=== PATIENT | male | born 1950 | race Caucasian/White ===

== ENCOUNTER 2018-05-20 13:11 | Inpatient (IN) | payer MEDICARE ==
--- NOTE | 2018-05-20 13:41 | ED PDOC ---
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 Patient states he was holding a cigarette but didn't realize he wasn't holding it until he dropped it on himself. Patient reports numbness only on x2 fingers, states the rest of the arm is fine. Patient denies any weakness, headache, slurred speech or other medical complaints. PMD: Paulie Crespo NIHSS Stroke Scale - Date/Time Evaluation Performed Date Performed: 05/20/18 Time Performed: 13:13 When Was NIHSS Performed: Baseline - How Severe is the Stroke Level of Consciousness: 0=Alert LOC to Questions: 0=Both comments correct Best Gaze: 0=Normal Visual: 0=No visual loss Facial: 0=Normal Motor Arm - Left: 0=No drift Motor Arm - Right: 0=No drift Motor Leg - Left: 0=No drift Motor Leg - Right: 0=No drift Limb Ataxia: 1=Present Upper or Lower Sensory: 0=Normal Best Language: 0=No aphasia Dysarthia: 0=Normal articulation Extinction & Inattention (Neglect): 0=Normal, no object Severity Of Stroke: 1-4 = Minor Stroke rTPA Inclusion/Exclusion - Refusal of Treatment Patient Refused Treatment: No - Inclusion Criteria for Altepase Patient is 18 years or Older: Yes The Clinical Diagnosis of Ischemic Stroke That is Causing a Potentially Disabling Neurological Deficit: Yes Time of Onset is Well Established to be Less Than 270 Minute Before Treatment Would Begin: Yes Risk/Benefit Discussed With Patient/Family Member Present: Yes - Exclusion Criteria for Altepase Uncontrolled Hypertension at Time of Treatment (Systolic BP above 185 or Diastolic BP above 110 mmHg): No Active Internal Bleeding: No Known Bleeding Diathesis Including but Not Limited to: Platelets Below 100,000/ mm,PTT Above 40 sec After Heparin Use, Current Use of Oral Anitcoagulant With INR Greater Than 1.7 or PT Greater Than 15 secs: No Evidence of an Intracranial Hemorrhage: No Evidence of Major Acute Infarct With Signs Greater Than 1/3 MCA Territory: No Suspicion of Subarachnoid Hemorrhage on Pretreatment Evaluation Even if CT Head Negative For Hemorrhage: No Past Medical History Reviewed: Historical Data, Nursing Documentation, Vital Signs - Medical History PMH: Atrial Fibrillation, HTN - Surgical History Surgical History: No Surg Hx - Family History Family History: States: Unknown Family Hx - Home Medications Home Medications: Ambulatory Orders Medication Instructions Recorded Aspirin [Ecotrin] 81 mg PO DAILY 05/20/18 Doxazosin [Cardura] 8 mg PO BID 05/20/18 Furosemide [Lasix] 40 mg PO DAILY 05/20/18 Potassium Chloride [Klor-Con M20] 20 meq PO DAILY 05/20/18 amLODIPine [Norvasc] 10 mg PO BID 05/20/18 - Allergies Allergies/Adverse Reactions: Allergies Allergy/AdvReac Type Severity Reaction Status Date / Time No Known Allergies Allergy Verified 05/20/18 13:13 Review of Systems ROS Statement: Except As Marked, All Systems Reviewed And Found Negative Neurological: Positive for: Numbness (right x2 fingers). Negative for: Weakness , Headache, Other (slurred speech) Physical Exam - Reviewed Nursing Documentation Reviewed: Yes Vital Signs Reviewed: Yes - Physical Exam Appears: Positive for: Non-toxic, No Acute Distress Head Exam: Positive for: ATRAUMATIC, NORMAL INSPECTION, NORMOCEPHALIC Skin: Positive for: Normal Color, Warm, Dry Eye Exam: Positive for: Normal appearance, EOMI, PERRL ENT: Positive for: Normal ENT Inspection Neck: Positive for: Painless ROM Cardiovascular/Chest: Positive for: Regular Rate, Rhythm. Negative for: Murmur Respiratory: Positive for: Normal Breath Sounds. Negative for: Respiratory Distress Gastrointestinal/Abdominal: Positive for: Normal Exam, Soft. Negative for: Tenderness Extremity: Positive for: Normal ROM (upper and lower extremities), Pedal Edema ( stasis dermatitis on both legs). Negative for: Deformity, Swelling Neurologic/Psych: Positive for: Alert, adjunct professor II-XII (normal), Oriented (x3), Cerebellar Tests (Finger to nose on right arm ataxia), Gait (steady). Negative for: Motor/Sensory Deficits, Facial Droop - Laboratory Results Result Diagrams: 05/21/18 04:40 05/21/18 04:40 - Core Measure Core Measure Indicators: Code Stroke - Critical Care Total Time (In Min): 60 Documented Critical Care: Time excludes all time spent performint seperately billable procedures Medical Decision Making Medical Decision Making: Time: 12:50 Initial Impression: CVA. Differential includes ischemic vs hemorrhagic stroke. Initial Place: --Type and screen --CTA head/neck code stroke --Head w/o (code stroke) [CT] --EKG --CMP --Hemoglobin AIC --Lipid Panel --Troponin I -Stroke team consult --CBC w/ differential --PTT --PT --Chest portable [RAD] --Aspirin 325 mg PO --Sodium Chloride 1,000 ml IV 100 mls/hr --Reevaluation 13:29 CT Head FINDINGS: HEMORRHAGE: No intracranial hemorrhage. BRAIN: Moderate diffuse relaxes identified. Relatively prominent periventricular centrum semiovale and subcortical white matter lucency is appreciated which appears to spare the corpus callosum in general, in a pattern that suggests advanced chronic microangiopathy for the patient's stated age of 67 years. Clinically correlate further. There is no cortical edema identified or mass- effect. There is no suspicious extra-axial collection identified. The posterior fossa contents may reflect chronic microangiopathy in the ash with the cerebellum unremarkable. There is extensive atherosclerosis of the distal visualized bilateral vertebral arteries, mildly at the basilar artery. A chronic lacune is seen at the right thalamus and potentially at the posterior left thalamus as well. VENTRICLES: Unremarkable. No hydrocephalus. CALVARIUM: Unremarkable. PARANASAL SINUSES: Unremarkable as visualized. No significant inflammatory changes. MASTOID AIR CELLS: Unremarkable as visualized. No inflammatory changes. OTHER FINDINGS: None. IMPRESSION: 1. No definite pattern of suggest an acute or subacute brain infarction at this time with advanced age related neuro degenerative changes appreciated throughout the cerebrum, particularly in terms of chronic microangiopathy. Follow-up CT or MRI recommended. 2. Chronic lacunes suggested at the bilateral thalami. 13:33 -Spoke with Dr. Newman. CT head negative. 13:44 -Dr. Newman is in the room. At this time NIH stroke scale is 1 and no disability deficits such as dysphasia and dysarthria. CT angio pending. 13:52 -Neurologist state patient's NIHSS is 2-3 and pt can be benefit from TPA. 14:00 -Administered tPA bolus. All the plan and management in agreement with Dr. Newman. Verbal consent from the patient for tPA administration was obtained. 14:20 -Ordered CMP, lipid panel, TSH and Troponin 14:32 -EKG: A-fib, PVCs are present. No ST changes, normal QRS. 14:53 Head/Neck CTA FINDINGS: INTERNAL CEREBRAL ARTERIES: Mild cavernous ICA atherosclerosis noted bilaterally. The skull base, petrous, and supraclinoid segments are bilaterally widely patent. ANTERIOR CEREBRAL ARTERIES: A1 and A2 segments are widely patent. Smaller distal branches unremarkable, as visualized. MIDDLE CEREBRAL ARTERIES: Unremarkable. M1 and M2 segments are widely patent. Perisylvian branches grossly symmetric. POSTERIOR CIRCULATION: Basilar Artery: Unremarkable. Distal Vertebral Arteries: Left dominant vertebrobasilar circulation. Moderate to high-grade stenosis distal right vertebral artery. Posterior Cerebral Arteries: Unremarkable. Posterior Inferior Cerebellar Arteries: Unremarkable. NECK CTA: Common Carotid arteries: The bilateral common carotid appear widely patent from their origins to their bifurcations with no significant stenosis appreciated. No evidence to suggest common carotid artery dissection. Internal Carotid arteries: No significant stenosis is appreciated throughout the cervical internal carotid artery segments bilaterally and there is no evidence of dissection either. External Carotid arteries: Appear unremarkable bilaterally. Vertebral arteries: The bilateral vertebral arteries appear normal in caliber from their origins to their junction with the basilar artery. No significant stenosis or definite pattern of dissection. ANEURYSM/ VASCULAR MALFORMATIONS: No aneurysm or arteriovascular malformation seen related to the neck or intracranial arterial circulation. However, there is a mild ascending thoracic aortic aneurysm measuring 4.3 cm diameter. This aneurysm terminates at the proximal arch proximal to the origin of the brachiocephalic artery. Further, the main pulmonary artery segment measures 3.8 cm potentially reflecting pulmonary artery hypertension. Clinically correlate further. OTHER FINDINGS: None. IMPRESSION: 1. Intracranial CT angiography ring is remarkable for a moderate to high-grade stenosis distal right vertebral body well cephalad to the foramen magnum. Left dominant vertebrobasilar circulation is identified. Mild cavernous ICA atherosclerosis identified bilaterally. 2. Mild cavernous ICA atherosclerosis identified bilaterally, without significant stenosis appreciable. 3. No occlusion or significant stenosis prior neck CT angiography. 4. 4.3 cm thoracic aortic aneurysm terminates at the anterior arch. Further, 3.8 cm main pulmonary artery dilatation may indicate pulmonary artery hypertension. Clinically correlate further. [address] Crespo who will be on consult. Agrees with management at this time. 15:13 -Admitted patient to hospitalist, Dr. Odonnell. ----- Scribe Attestation: Documented by Tahir Kelly, acting as a scribe for Brandon Vargas MD. Provider Scribe Attestation: All medical record entries made by the Scribe were at my direction and personally dictated by me. I have reviewed the chart and agree that the record accurately reflects my personal performance of the :history, physical exam, medical decision making, and the department course for this patient. I have also personally directed, reviewed, and agree with the discharge instructions and disposition. Disposition - Clinical Impression Clinical Impression: Acute ischemic stroke, Chronic a-fib - Patient ED Disposition Is Patient to be Admitted: Yes Discussed With DrPrudence: Genny Odonnell Doctor Will See Patient In The: ED Counseled Patient/Family Regarding: Studies Performed, Diagnosis - Disposition Disposition Time: 15:13 Condition: CRITICAL - Pt Status Changed To: Hospital Disposition Of: Inpatient - Admit Certification Admit to Inpatient:: After my assessment, the patient will require hospitalization for at least two midnights. This is because of the severity of symptoms shown, intensity of services needed, and/or the medical risk in this patient being treated as an outpatient. - POA Present On Arrival: None Core Measure Indicators: Code Stroke
[2018-05-20] MEDS ORDERED: Sodium Chloride 0.9% 50 ML IV ONE (13:51)
[2018-05-20] MEDS ORDERED: Iodixanol 320 MG/ML 100 ML BOTTLE IV ONE (13:51)
[2018-05-20 13:53] VITALS: BMI 28.0
[2018-05-20] MEDS: Sodium Chloride 0.9% 1,000 ML IV SCH (14:25)
[2018-05-20 14:35] LABS: BASO % 0.4 % (0.0-2.0); EOS # 0.1 K/uL (0.0-0.7); EOS % 2.5 % (0.0-4.0); HEMOGLOBIN 14.7 g/dL (12.0-18.0); LYMPH # 0.7 K/uL (1.0-4.3); LYMPH % 11.8 % (20.0-40.0); MEAN CELL VOLUME 87.8 fl (80.0-94.0); MEAN CORPUSCULAR HEMOGLOBIN 29.8 pg (27.0-31.0); MEAN PLATELET VOLUME 9.1 fl (7.2-11.7); MONO # 0.7 K/uL (0.0-0.8); MONO % 12.2 % (0.0-10.0); NEUT # 4.4 K/uL (1.8-7.0); NEUT % 73.1 % (50.0-75.0); NRBC % 0.4 % (0.0-0.0); RBC 4.93 Mil/uL (4.40-5.90); RED CELL DISTRIBUTION WIDTH 17.6 % (11.5-14.5)
[2018-05-20 14:41] LABS: ALBUMIN 3.5 g/dL (3.5-5.0); CALCIUM 8.5 mg/dL (8.4-10.2)
--- NOTE | 2018-05-20 14:49 | CP.PCM.CON ---
History of Present Illness - History of Present Illness History of Present Illness: Neurology Stroke Consultation Note: Mr. Neville is a 67-year-old man with a past medical history of HTN, CAD, smoking, who was working and stopped work to take a cigarette break. While having a cigarette, his right hand became weak and clumsy. He presented to the ED within about 30 minutes of symptoms onset. CT scan of the head did not show any acute findings. On initial exam, he had right hand clumsiness/ataxia, pronator drift and drift or the right lower extremity with an NIHSS of 3. He was within the 3 hour time window for IV tPA. I discussed the risks/benefits of tPA and the patient agreed to receive thrombolysis. Review of Systems - Review of Systems All systems: reviewed and no additional remarkable complaints except Past Patient History - Past Social History Smoking Status: Heavy Smoker > 10 Cigarettes Daily - CARDIAC Hx Angina: Yes Hx Hypertension: Yes - INTEGUMENTARY Hx Dermatological Problems: Yes Other/Comment: CHRONIC B/L EDEMA X 3 YRS +SCALING - PSYCHIATRIC Hx Substance Use: No - SURGICAL HISTORY Hx Surgeries: No - ANESTHESIA Hx Anesthesia: No Meds Allergies/Adverse Reactions: Allergies Allergy/AdvReac Type Severity Reaction Status Date / Time No Known Allergies Allergy Verified 05/20/18 13:13 - Medications Medications: Current Medications Sodium Chloride (Sodium Chloride 0.9%) 1,000 mls @ 100 mls/hr IV .Q10H LUIS ANTONIO Last Admin: 05/20/18 14:25 Dose: 100 mls/hr Physical Exam - Constitutional Appears: Well - Head Exam Head Exam: ATRAUMATIC, NORMAL INSPECTION, NORMOCEPHALIC - Eye Exam Eye Exam: EOMI, Normal appearance, PERRL - Extremities Exam Additional comments: significant bilateral lower extremity edema - Neurological Exam Additional comments: Awake/alert, oriented to person/place/time, CN 2-12 intact, no nystagmus noted, speech was fluent without dysarthia, RUE had pronator drift and slight ataxia with fine motor deficits, RLE drifted before 5 seconds, but did not hit the bed. Sensation was intact throughout, reflexes were normal, gait was wide based. Left side was normal in strength. Results - Vital Signs Recent Vital Signs: Last Vital Signs Temp Pulse 86 05/20/18 13:46 Resp 18 05/20/18 13:46 BP 154/91 H 05/20/18 13:46 Pulse Ox 99 05/20/18 13:46 - Labs Result Diagrams: 05/20/18 14:23 05/20/18 14:23 Labs: Laboratory Results - last 24 hr 05/20/18 05/20/18 14:23 14:23 WBC 6.0 RBC 4.93 Hgb 14.7 Hct 43.3 MCV 87.8 MCH 29.8 MCHC 34.0 RDW 17.6 H Plt Count 257 MPV 9.1 Neut % (Auto) 73.1 Lymph % (Auto) 11.8 L [place] % (Auto) 12.2 H Eos % (Auto) 2.5 Baso % (Auto) 0.4 Neut # (Auto) 4.4 Lymph # (Auto) 0.7 L [place] # (Auto) 0.7 Eos # (Auto) 0.1 Baso # (Auto) 0.0 Sodium 137 Chloride 105 Carbon Dioxide 22 Creatinine 1.6 H Est GFR ( Amer) 53 Est GFR (Non-Af Amer) 43 Random Glucose 134 H Calcium 8.5 Total Bilirubin 0.9 Total Protein 8.0 Albumin 3.5 Albumin/Globulin Ratio 0.8 L Assessment & Plan (1) Acute ischemic stroke Assessment and Plan: Likely left subcortical in origin. Will start IV tPA and obtain CTA of the head /neck STAT to rule out an LVO. Follow post-tPA protocol and admit to ICU. Thank you. Status: Acute Priority: High
[2018-05-20 14:53] LABS: TROPONIN I 0.014 ng/mL (0.00-0.120)
--- NOTE | 2018-05-20 14:55 | CT ---
Date of service: 05/20/2018 PROCEDURE: CT Angiography of the Brain and Neck. HISTORY: cva COMPARISON: None available. TECHNIQUE: CT angiography of the intracranial and neck arteries was performed. Coronal and sagittal maximum intensity projection reformatted images were generated. Contrast Dose: Visipaque 320, 99 cc. Radiation dose:Total exam DLP = 488.22 mGy-cm. This CT exam was performed using one or more of the following dose reduction techniques: Automated exposure control, adjustment of the mA and/or kV according to patient size, and/or use of iterative reconstruction technique. FINDINGS: INTERNAL CEREBRAL ARTERIES: Mild cavernous ICA atherosclerosis noted bilaterally. The skull base, petrous, and supraclinoid segments are bilaterally widely patent. ANTERIOR CEREBRAL ARTERIES: A1 and A2 segments are widely patent. Smaller distal branches unremarkable, as visualized. MIDDLE CEREBRAL ARTERIES: Unremarkable. M1 and M2 segments are widely patent. Perisylvian branches grossly symmetric. POSTERIOR CIRCULATION: Basilar Artery: Unremarkable. Distal Vertebral Arteries: Left dominant vertebrobasilar circulation. Moderate to high-grade stenosis distal right vertebral artery. Posterior Cerebral Arteries: Unremarkable. Posterior Inferior Cerebellar Arteries: Unremarkable. NECK CTA: Common Carotid arteries: The bilateral common carotid appear widely patent from their origins to their bifurcations with no significant stenosis appreciated. No evidence to suggest common carotid artery dissection. Internal Carotid arteries: No significant stenosis is appreciated throughout the cervical internal carotid artery segments bilaterally and there is no evidence of dissection either. External Carotid arteries: Appear unremarkable bilaterally. Vertebral arteries: The bilateral vertebral arteries appear normal in caliber from their origins to their junction with the basilar artery. No significant stenosis or definite pattern of dissection. ANEURYSM/ VASCULAR MALFORMATIONS: No aneurysm or arteriovascular malformation seen related to the neck or intracranial arterial circulation. However, there is a mild ascending thoracic aortic aneurysm measuring 4.3 cm diameter. This aneurysm terminates at the proximal arch proximal to the origin of the brachiocephalic artery. Further, the main pulmonary artery segment measures 3.8 cm potentially reflecting pulmonary artery hypertension. Clinically correlate further. OTHER FINDINGS: None. IMPRESSION: 1. Intracranial CT angiography ring is remarkable for a moderate to high-grade stenosis distal right vertebral body well cephalad to the foramen magnum. Left dominant vertebrobasilar circulation is identified. Mild cavernous ICA atherosclerosis identified bilaterally. 2. Mild cavernous ICA atherosclerosis identified bilaterally, without significant stenosis appreciable. 3. No occlusion or significant stenosis prior neck CT angiography. 4. 4.3 cm thoracic aortic aneurysm terminates at the anterior arch. Further, 3.8 cm main pulmonary artery dilatation may indicate pulmonary artery hypertension. Clinically correlate further.
--- NOTE | 2018-05-20 15:04 | RAD ---
Date of service: 05/20/2018 HISTORY: Code Stroke COMPARISON: No prior. FINDINGS: LUNGS: No active pulmonary disease. PLEURA: Small to moderate right pleural effusion. No appreciable pneumothorax. CARDIOVASCULAR: Atherosclerotic aortic calcifications. Cardiomediastinal silhouette enlarged. OSSEOUS STRUCTURES: Degenerative changes. VISUALIZED UPPER ABDOMEN: Nonspecific gaseous distention of bowel. OTHER FINDINGS: None. IMPRESSION: Small to moderate right pleural effusion.
[2018-05-20 15:24] LABS: ALB/GLOB RATIO 0.7 (1.0-2.1)
--- NOTE | 2018-05-20 16:34 | CP.PCM.HP ---
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 Crespo presents today 30 min after acute onset of moderate hand numbness, not worsening, however with motor and sensory deficits. Pt was evaluated by Neurology CODE STROKE, RUE pronator drift and RLE drift appreciated with NIHSS 3. tPA administered, patient BP stable 160s-170s, admit to ICU for close monitoring post tpa per protocol. Pt states he feels improved. HD stable, NAD. 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 FH: denies SH: heavy smoker, 13 small cigars daily, no ETOH IVDU NKDA Present on Admission - Present on Admission Any Indicators Present on Admission: No Past Patient History - Past Social History Smoking Status: Heavy Smoker > 10 Cigarettes Daily - CARDIAC Hx Cardiac Disorders: Yes (HTN) - PULMONARY Hx Respiratory Disorders: No - NEUROLOGICAL Hx Neurological Disorder: No - HEENT Hx HEENT Problems: No - RENAL Hx Chronic Kidney Disease: No - ENDOCRINE/METABOLIC Hx Endocrine Disorders: No - HEMATOLOGICAL/ONCOLOGICAL Hx Blood Disorders: No - INTEGUMENTARY Hx Dermatological Problems: Yes - MUSCULOSKELETAL/RHEUMATOLOGICAL Hx Musculoskeletal Disorders: No - GENITOURINARY/GYNECOLOGICAL Hx Genitourinary Disorders: No - PSYCHIATRIC Hx Psychophysiologic Disorder: No - SURGICAL HISTORY Hx Surgeries: No - ANESTHESIA Hx Anesthesia: No Meds Allergies/Adverse Reactions: Allergies Allergy/AdvReac Type Severity Reaction Status Date / Time No Known Allergies Allergy Verified 05/20/18 13:13 Physical Exam - Constitutional Additional comments: Vitals Reviewed GEN:alert, cooperative HEENT: NCAT, PERRL, EOMI HEART: RRR, +S1S2, NO MRG LUNG: CTAB, NO WRR ABD: soft, NT, ND, No HSM, No masses EXT: normal pedal pulses, normal capillary refill NEURO: awake, alert SKIN: warm, dry PSYCH: normal mood, normal affect Results - Vital Signs Recent Vital Signs: Last Vital Signs Temp 98.5 F 05/20/18 16:19 Pulse 89 05/20/18 16:19 Resp 20 05/20/18 16:19 BP 166/99 H 05/20/18 16:19 Pulse Ox 97 05/20/18 16:00 - Labs Result Diagrams: 05/20/18 14:23 05/20/18 14:23 Labs: Laboratory Results - last 24 hr 05/20/18 05/20/18 05/20/18 14:23 14:23 14:23 WBC 6.0 RBC 4.93 Hgb 14.7 Hct 43.3 MCV 87.8 MCH 29.8 MCHC 34.0 RDW 17.6 H Plt Count 257 MPV 9.1 Neut % (Auto) 73.1 Lymph % (Auto) 11.8 L [place] % (Auto) 12.2 H Eos % (Auto) 2.5 Baso % (Auto) 0.4 Neut # (Auto) 4.4 Lymph # (Auto) 0.7 L [place] # (Auto) 0.7 Eos # (Auto) 0.1 Baso # (Auto) 0.0 Sodium 137 Potassium 4.3 Chloride 105 Carbon Dioxide 22 Anion Gap 14 BUN 15 Creatinine 1.6 H Est GFR ( Amer) 53 Est GFR (Non-Af Amer) 43 POC Glucose (mg/dL) Random Glucose 134 H Calcium 8.5 Total Bilirubin 0.9 AST 26 ALT 14 L Alkaline Phosphatase 106 Troponin I 0.0140 Total Protein 8.2 Albumin 3.5 Globulin 4.7 H Albumin/Globulin Ratio 0.7 L Triglycerides 71 Cholesterol 119 LDL Cholesterol Direct 59 HDL Cholesterol 32 Blood Type A POSITIVE Antibody Screen Negative BBK History Checked No verified bt 05/20/18 15:17 WBC RBC Hgb Hct MCV MCH MCHC RDW Plt Count MPV Neut % (Auto) Lymph % (Auto) [place] % (Auto) Eos % (Auto) Baso % (Auto) Neut # (Auto) Lymph # (Auto) [place] # (Auto) Eos # (Auto) Baso # (Auto) Sodium Potassium Chloride Carbon Dioxide Anion Gap BUN Creatinine Est GFR ( Amer) Est GFR (Non-Af Amer) POC Glucose (mg/dL) 126 H Random Glucose Calcium Total Bilirubin AST ALT Alkaline Phosphatase Troponin I Total Protein Albumin Globulin Albumin/Globulin Ratio Triglycerides Cholesterol LDL Cholesterol Direct HDL Cholesterol Blood Type Antibody Screen BBK History Checked Assessment & Plan - Assessment and Plan (Free Text) Plan: 67M PMH paroxysmal afib, HTN, CAD, 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 Crespo presents today 30 min after acute onset of moderate hand numbness, not worsening, however with motor and sensory deficits. Pt was evaluated by Neurology CODE STROKE, RUE pronator drift and RLE drift appreciated with NIHSS 3. tPA administered, patient BP stable 160s-170s, admit to ICU for close monitoring post tpa per protocol. Pt states he feels improved. HD stable, NAD. CVA s/p TPA, monitor closely ICU s/p CTA no large embolus Repeat CT head per Neurology Neurology consult, Dr. Newman BP control AFIB rate control consider AC post tpa protocol Dr. Crespo Cardiology consult Hx Volvulus s/p mult surgeries stable at this time Severe B/L Venous stasis Podiatry consult
--- NOTE | 2018-05-20 17:01 | CP.CCUPN ---
CCU Subjective - Physician Review Events Since Last Encounter (Free Text): 05/20/18 16:52 67yo M. PMHx HTN, CAD, smoking. p/w right upper extremity weakness with pronator drift, RLE drift. onset of symptoms was around 1230pm. tPA given around 130pm. CCU Objective - Vital Signs / Intake & Output Vital Signs (Last 4 hours): Vital Signs Temp Pulse Resp BP Pulse Ox 05/20/18 16:30 98.2 F 87 21 167/78 H 99 05/20/18 16:19 98.5 F 89 20 166/99 H 05/20/18 16:00 98.5 F 89 20 166/99 H 97 05/20/18 15:45 98.2 F 87 17 159/103 H 97 05/20/18 15:30 98 F 89 17 159/103 H 96 05/20/18 15:15 97.9 F 88 17 139/76 95 05/20/18 15:00 97.8 F 91 H 17 167/92 H 96 05/20/18 14:30 97.6 F 96 H 20 148/106 H 95 05/20/18 14:15 97.9 F 94 H 19 152/88 H 96 05/20/18 13:55 98 F 91 H 18 154/91 H 95 05/20/18 13:46 86 18 154/91 H 99 Intake and Output (Last 8hrs): Intake & Output 05/20/18 05/20/18 05/20/18 06:59 14:59 22:59 Weight 193 lb - Medications Active Medications: Active Medications Generic Name Dose Route Start Last Admin Trade Name Freq PRN Reason Stop Dose Admin Amlodipine Besylate 10 mg 05/20/18 17:00 Norvasc PO BID LUIS ANTONIO Doxazosin Mesylate 8 mg 05/20/18 17:00 Cardura PO BID LUIS ANTONIO Sodium Chloride 1,000 mls @ 100 mls/hr 05/20/18 13:30 05/20/18 14:25 Sodium Chloride 0.9% IV 100 mls/hr .Q10H LUIS ANTONIO Administration - Patient Studies Lab Studies: Lab Studies 05/20/18 05/20/18 05/20/18 Range/Units 15:17 15:09 14:23 WBC (4.8-10.8) K/uL RBC (4.40-5.90) Mil/uL Hgb (12.0-18.0) g/dL Hct (35.0-51.0) % MCV (80.0-94.0) fl MCH (27.0-31.0) pg MCHC (33.0-37.0) g/dL RDW (11.5-14.5) % Plt Count (130-400) K/uL MPV (7.2-11.7) fl Neut % (Auto) (50.0-75.0) % Lymph % (Auto) (20.0-40.0) % [place] % (Auto) (0.0-10.0) % Eos % (Auto) (0.0-4.0) % Baso % (Auto) (0.0-2.0) % Neut # (Auto) (1.8-7.0) K/uL Lymph # (Auto) (1.0-4.3) K/uL [place] # (Auto) (0.0-0.8) K/uL Eos # (Auto) (0.0-0.7) K/uL Baso # (Auto) (0.0-0.2) K/uL Sodium (132-148) mmol/l Potassium (3.6-5.0) MMOL/L Chloride (98-107) mmol/L Carbon Dioxide (22-30) mmol/L Anion Gap (10-20) BUN (9-20) mg/dl Creatinine (0.8-1.5) mg/dl Est GFR ( Amer) Est GFR (Non-Af Amer) POC Glucose (mg/dL) 126 H (65-110) mg/dL Random Glucose (75-110) mg/dL Calcium (8.4-10.2) mg/dL Total Bilirubin (0.2-1.3) mg/dl AST (17-59) U/L ALT (21-72) U/L Alkaline Phosphatase (38-126) U/L Troponin I (0.00-0.120) ng/mL Total Protein (6.3-8.2) G/DL Albumin (3.5-5.0) g/dL Globulin (2.2-3.9) gm/dL Albumin/Globulin Ratio (1.0-2.1) Triglycerides (0-149) mg/DL Cholesterol (0-199) mg/dL LDL Cholesterol Direct (0-129) mg/dL HDL Cholesterol (30-70) MG/DL Blood Type A POSITIVE Blood Type Confirm A POSITIVE Antibody Screen Negative BBK History Checked No verified bt 05/20/18 05/20/18 Range/Units 14:23 14:23 WBC 6.0 (4.8-10.8) K/uL RBC 4.93 (4.40-5.90) Mil/uL Hgb 14.7 (12.0-18.0) g/dL Hct 43.3 (35.0-51.0) % MCV 87.8 (80.0-94.0) fl MCH 29.8 (27.0-31.0) pg MCHC 34.0 (33.0-37.0) g/dL RDW 17.6 H (11.5-14.5) % Plt Count 257 (130-400) K/uL MPV 9.1 (7.2-11.7) fl Neut % (Auto) 73.1 (50.0-75.0) % Lymph % (Auto) 11.8 L (20.0-40.0) % [place] % (Auto) 12.2 H (0.0-10.0) % Eos % (Auto) 2.5 (0.0-4.0) % Baso % (Auto) 0.4 (0.0-2.0) % Neut # (Auto) 4.4 (1.8-7.0) K/uL Lymph # (Auto) 0.7 L (1.0-4.3) K/uL [place] # (Auto) 0.7 (0.0-0.8) K/uL Eos # (Auto) 0.1 (0.0-0.7) K/uL Baso # (Auto) 0.0 (0.0-0.2) K/uL Sodium 137 (132-148) mmol/l Potassium 4.3 (3.6-5.0) MMOL/L Chloride 105 (98-107) mmol/L Carbon Dioxide 22 (22-30) mmol/L Anion Gap 14 (10-20) BUN 15 (9-20) mg/dl Creatinine 1.6 H (0.8-1.5) mg/dl Est GFR ( Amer) 53 Est GFR (Non-Af Amer) 43 POC Glucose (mg/dL) (65-110) mg/dL Random Glucose 134 H (75-110) mg/dL Calcium 8.5 (8.4-10.2) mg/dL Total Bilirubin 0.9 (0.2-1.3) mg/dl AST 26 (17-59) U/L ALT 14 L (21-72) U/L Alkaline Phosphatase 106 (38-126) U/L Troponin I 0.0140 (0.00-0.120) ng/mL Total Protein 8.2 (6.3-8.2) G/DL Albumin 3.5 (3.5-5.0) g/dL Globulin 4.7 H (2.2-3.9) gm/dL Albumin/Globulin Ratio 0.7 L (1.0-2.1) Triglycerides 71 (0-149) mg/DL Cholesterol 119 (0-199) mg/dL LDL Cholesterol Direct 59 (0-129) mg/dL HDL Cholesterol 32 (30-70) MG/DL Blood Type Blood Type Confirm Antibody Screen BBK History Checked Laboratory Results - last 24 hr 05/20/18 05/20/18 05/20/18 14:23 14:23 14:23 WBC 6.0 RBC 4.93 Hgb 14.7 Hct 43.3 MCV 87.8 MCH 29.8 MCHC 34.0 RDW 17.6 H Plt Count 257 MPV 9.1 Neut % (Auto) 73.1 Lymph % (Auto) 11.8 L [place] % (Auto) 12.2 H Eos % (Auto) 2.5 Baso % (Auto) 0.4 Neut # (Auto) 4.4 Lymph # (Auto) 0.7 L [place] # (Auto) 0.7 Eos # (Auto) 0.1 Baso # (Auto) 0.0 Sodium 137 Potassium 4.3 Chloride 105 Carbon Dioxide 22 Anion Gap 14 BUN 15 Creatinine 1.6 H Est GFR ( Amer) 53 Est GFR (Non-Af Amer) 43 POC Glucose (mg/dL) Random Glucose 134 H Calcium 8.5 Total Bilirubin 0.9 AST 26 ALT 14 L Alkaline Phosphatase 106 Troponin I 0.0140 Total Protein 8.2 Albumin 3.5 Globulin 4.7 H Albumin/Globulin Ratio 0.7 L Triglycerides 71 Cholesterol 119 LDL Cholesterol Direct 59 HDL Cholesterol 32 Blood Type A POSITIVE Blood Type Confirm Antibody Screen Negative BBK History Checked No verified bt 05/20/18 05/20/18 15:09 15:17 WBC RBC Hgb Hct MCV MCH MCHC RDW Plt Count MPV Neut % (Auto) Lymph % (Auto) [place] % (Auto) Eos % (Auto) Baso % (Auto) Neut # (Auto) Lymph # (Auto) [place] # (Auto) Eos # (Auto) Baso # (Auto) Sodium Potassium Chloride Carbon Dioxide Anion Gap BUN Creatinine Est GFR ( Amer) Est GFR (Non-Af Amer) POC Glucose (mg/dL) 126 H Random Glucose Calcium Total Bilirubin AST ALT Alkaline Phosphatase Troponin I Total Protein Albumin Globulin Albumin/Globulin Ratio Triglycerides Cholesterol LDL Cholesterol Direct HDL Cholesterol Blood Type Blood Type Confirm A POSITIVE Antibody Screen BBK History Checked EKG/Cardiology Studies: Cardiology / EKG Studies 05/20/18 13:20 ELECTROCARDIOGRAM Stat Comment: Mode Of Transportation: Reason For Exam: stroke Assessment/Plan (1) Acute ischemic stroke Assessment and plan: 67yo M. PMHx HTN, CAD, smoking. p/w right upper extremity weakness with pronator drift, RLE drift. onset of symptoms was around 1230pm. tPA given around 130pm. Neuro: alert and oriented x 3, neuro checks s/p tPA. Pulm: no acute issues, breathing spontaneously on room air. CV: hemodynamically stable, maintain BP 180/105 Hem: no acute issues Renal: will monitor urine output Endo: no acute issues GI: heart healthy diet ID: no acute issues DVT proph - SCD's GI proph - protonix Code status - full code Critical Care Time spent 35 minutes Multi-disciplinary rounds were performed with house staff, nursing, speech therapy, respiratory therapy, pharmacy and nutrition with integrated input from the primary team/attending and other consulting services. The documented time is cumulative and includes review of patient data/exams/labs/chart review and examination of the patient on rounds and throughout the day; time is exclusive of any procedures or teaching time. Current Visit: Yes Status: Acute Priority: High
--- NOTE | 2018-05-20 17:46 | CP.PCM.CON ---
History of Present Illness - History of Present Illness History of Present Illness: THE PATIENT IS A 67 YEAR OLD MALE WHO CAME TO THE ER WITHIN ONE HOUR OF RIGHT HANDED WEAKNESS AND LOSS OF FINE MOTOR SKILLS EVIDENCED WHEN HE DROPPED A CIGAR AND COULD NOT GRASP IT TO PICK IT UP AND HAD TO USE HIS LEFT HAND INSTEAD. HE WAS GIVEN TPA IN THE ER AND HE HAS IMPROVED. HE HAS A HISTORY OF HYPERTENSION, CHRONIC ATRIAL FIBRILLATION, HYPERGLYCEMIA AND VENOUS STASIS WITH CHRONIC LE EDEMA AND DERMATITIS. HE WAS ADVISED TO BE ON AN ANTITHROMBOTIC MEDICATION SUCH COUMADIN IN THE PAST BUT DECLINED AND WAS PLACED ON ASPIRIN 325 MGS DAILY. HE ALSO DECLINED MEDICINES FOR HYPERGLYCEMIA INSISTING THAT HE WOULD CONTROL IT BY DIET. HE WAS NOTED TO HAVE COBBLESTONING OF THE SKIN OF BOTH LOWER EXTREMITIES THIS PAST YEAR AND WAS REFERRED TO A INTERNET MERCHANT BUT HE NEVER WENT. I WAS CALLED TO FOLLOW HIM ON THIS ADMISSION. HE DENIES CHEST PAIN, PALPITATIONS OR SOB. Past Patient History - Past Social History Smoking Status: Heavy Smoker > 10 Cigarettes Daily - CARDIAC Hx Cardiac Disorders: Yes (HTN) - PULMONARY Hx Respiratory Disorders: No - NEUROLOGICAL Hx Neurological Disorder: No - HEENT Hx HEENT Problems: No - RENAL Hx Chronic Kidney Disease: No - ENDOCRINE/METABOLIC Hx Endocrine Disorders: No - HEMATOLOGICAL/ONCOLOGICAL Hx Blood Disorders: No - INTEGUMENTARY Hx Dermatological Problems: Yes - MUSCULOSKELETAL/RHEUMATOLOGICAL Hx Musculoskeletal Disorders: No - GENITOURINARY/GYNECOLOGICAL Hx Genitourinary Disorders: No - PSYCHIATRIC Hx Psychophysiologic Disorder: No - SURGICAL HISTORY Hx Surgeries: No - ANESTHESIA Hx Anesthesia: No Meds Allergies/Adverse Reactions: Allergies Allergy/AdvReac Type Severity Reaction Status Date / Time No Known Allergies Allergy Verified 05/20/18 13:13 - Medications Medications: Current Medications Amlodipine Besylate (Norvasc) 10 mg PO BID LUIS ANTONIO Doxazosin Mesylate (Cardura) 8 mg PO BID LUIS ANTONIO Sodium Chloride (Sodium Chloride 0.9%) 1,000 mls @ 100 mls/hr IV .Q10H LUIS ANTONIO Last Admin: 05/20/18 14:25 Dose: 100 mls/hr Physical Exam - Respiratory Exam Respiratory Exam: Clear to Auscultation Bilateral - Cardiovascular Exam Cardiovascular Exam: Irregular Rhythm, +S1, +S2 - Extremities Exam Additional comments: BILAT LOWER EXTREMITY EDEMA AND COBBLESTONING - Additional Findings Additional findings: EKG ATRIAL FIBRILLATION WITH MVR LABS NOTED NEUROLOGY CONSULT REVIEWED HEAD/NECK CTA DISCUSSED WITH THE READING RADIOLOGIST AND ASCENDING AORTA IS DILATED BUT THERE IS NO ACTUAL ANEURYSM Results - Vital Signs Recent Vital Signs: Last Vital Signs Temp 98.7 F 05/20/18 17:00 Pulse 83 05/20/18 17:00 Resp 22 05/20/18 17:00 BP 151/77 H 05/20/18 17:00 Pulse Ox 96 05/20/18 17:00 - Labs Result Diagrams: 05/22/18 04:40 05/22/18 04:40 Labs: Laboratory Results - last 24 hr 05/20/18 05/20/18 05/20/18 14:23 14:23 14:23 WBC 6.0 RBC 4.93 Hgb 14.7 Hct 43.3 MCV 87.8 MCH 29.8 MCHC 34.0 RDW 17.6 H Plt Count 257 MPV 9.1 Neut % (Auto) 73.1 Lymph % (Auto) 11.8 L [place] % (Auto) 12.2 H Eos % (Auto) 2.5 Baso % (Auto) 0.4 Neut # (Auto) 4.4 Lymph # (Auto) 0.7 L [place] # (Auto) 0.7 Eos # (Auto) 0.1 Baso # (Auto) 0.0 Sodium 137 Potassium 4.3 Chloride 105 Carbon Dioxide 22 Anion Gap 14 BUN 15 Creatinine 1.6 H Est GFR ( Amer) 53 Est GFR (Non-Af Amer) 43 POC Glucose (mg/dL) Random Glucose 134 H Calcium 8.5 Total Bilirubin 0.9 AST 26 ALT 14 L Alkaline Phosphatase 106 Troponin I 0.0140 Total Protein 8.2 Albumin 3.5 Globulin 4.7 H Albumin/Globulin Ratio 0.7 L Triglycerides 71 Cholesterol 119 LDL Cholesterol Direct 59 HDL Cholesterol 32 Blood Type A POSITIVE Blood Type Confirm Antibody Screen Negative BBK History Checked No verified bt 05/20/18 05/20/18 15:09 15:17 WBC RBC Hgb Hct MCV MCH MCHC RDW Plt Count MPV Neut % (Auto) Lymph % (Auto) [place] % (Auto) Eos % (Auto) Baso % (Auto) Neut # (Auto) Lymph # (Auto) [place] # (Auto) Eos # (Auto) Baso # (Auto) Sodium Potassium Chloride Carbon Dioxide Anion Gap BUN Creatinine Est GFR ( Amer) Est GFR (Non-Af Amer) POC Glucose (mg/dL) 126 H Random Glucose Calcium Total Bilirubin AST ALT Alkaline Phosphatase Troponin I Total Protein Albumin Globulin Albumin/Globulin Ratio Triglycerides Cholesterol LDL Cholesterol Direct HDL Cholesterol Blood Type Blood Type Confirm A POSITIVE Antibody Screen BBK History Checked Assessment & Plan - Assessment and Plan (Free Text) Assessment: PROBABLE CEREBRAL ISCHEMIA/INFARCT CHRONIC ATRIAL FIBRILLATION HYPERTENSION HYPERGLYCEMIA LOWER EXTREMITY VENOUS STASIS Plan: THE PATIENT WAS ADMITTED TO THE ICU THE PATIENT WAS GIVEN TPA AND ASPIRIN IN THE ER CARDURA AND AMLODIPINE THE PATIENT WAS DISCUSSED WITH DR SCHULTZ AND HE WILL MOST LIKELY BE STARTED ON CHRONIC ANTITHROMBOTIC MEDICINES PODIATRY CONSULTATION
[2018-05-20] MEDS ORDERED: Pneumococcal 23-Valent Vaccine IM ONE (18:08)
[2018-05-20 19:10] LABS: INR 1.2 (0.9-1.2); PARTIAL THROMBOPLASTIN TIME 37.1 Seconds (25.6-37.1); PROTHROMBIN TIME 12.9 Seconds (9.8-13.1)
[2018-05-21] MEDS: Sodium Chloride 0.9% 1,000 ML IV SCH (00:37)
[2018-05-21 06:02] LABS: BASO % 0.7 % (0.0-2.0); EOS # 0.1 K/uL (0.0-0.7); EOS % 2.4 % (0.0-4.0); HEMOGLOBIN 14.7 g/dL (12.0-18.0); LYMPH # 0.5 K/uL (1.0-4.3); LYMPH % 8.9 % (20.0-40.0); MEAN CELL VOLUME 88.3 fl (80.0-94.0); MEAN CORPUSCULAR HEMOGLOBIN 29.5 pg (27.0-31.0); MEAN CORPUSCULAR HGB CONC 33.4 g/dL (33.0-37.0); MEAN PLATELET VOLUME 8.5 fl (7.2-11.7); MONO # 0.6 K/uL (0.0-0.8); MONO % 10.2 % (0.0-10.0); NEUT # 4.5 K/uL (1.8-7.0); NEUT % 77.8 % (50.0-75.0); PLATELET COUNT 222 K/uL (130-400); RBC 4.99 Mil/uL (4.40-5.90); RED CELL DISTRIBUTION WIDTH 17.7 % (11.5-14.5); WHITE BLOOD COUNT 5.8 K/uL (4.8-10.8)
[2018-05-21 06:23] LABS: ALB/GLOB RATIO 0.7 (1.0-2.1); ALBUMIN 3.1 g/dL (3.5-5.0); ALT/SGPT 17 U/L (21-72); AST/SGOT 19 U/L (17-59); BLOOD UREA NITROGEN 11 mg/dl (9-20); CALCIUM 7.9 mg/dL (8.4-10.2); GFR AFRICAN-AMERICAN > 60; GFR NON-AFRICAN AMERICAN 55
--- NOTE | 2018-05-21 07:25 | CP.PCM.PN ---
Subjective - Date & Time of Evaluation Date of Evaluation: 05/21/18 Time of Evaluation: 08:37 - Subjective Subjective: doing well this am no new complaints right hand weakness almost complete resolution no numbness has good sensation Objective - Vital Signs/Intake and Output Vital Signs (last 24 hours): Temp Pulse Resp BP Pulse Ox 98 F 132 H 27 H 105/68 100 05/20/18 20:41 05/20/18 20:41 05/20/18 20:41 05/20/18 20:41 05/20/18 20:41 Intake and Output: 05/21/18 05/21/18 06:59 18:59 Intake Total 4300 Balance 4300 - Medications Medications: Current Medications Amlodipine Besylate (Norvasc) 10 mg PO BID [facility] Last Admin: 05/20/18 20:25 Dose: 10 mg Aspirin (Aspirin) 325 mg PO DAILY [facility] Atorvastatin Calcium (Lipitor) 40 mg PO DAILY [facility] Doxazosin Mesylate (Cardura) 8 mg PO BID [facility] Last Admin: 05/20/18 20:25 Dose: 8 mg Sodium Chloride (Sodium Chloride 0.9%) 1,000 mls @ 100 mls/hr IV .Q10H [facility] Last Admin: 05/21/18 00:37 Dose: 100 mls/hr - Labs Labs: 05/21/18 04:40 05/21/18 04:40 PT 12.9 Seconds (9.8-13.1) 05/20/18 16:30 INR 1.2 (0.9-1.2) 05/20/18 16:30 APTT 37.1 Seconds (25.6-37.1) 05/20/18 16:30 - Constitutional Appears: Well, Non-toxic, No Acute Distress - Head Exam Head Exam: ATRAUMATIC - Eye Exam Eye Exam: Normal appearance Pupil Exam: NORMAL ACCOMODATION - ENT Exam ENT Exam: Mucous Membranes Moist - Cardiovascular Exam Cardiovascular Exam: Irregular Rhythm, +S1, +S2. absent: REGULAR RHYTHM, Murmur - GI/Abdominal Exam GI & Abdominal Exam: Soft, Normal Bowel Sounds. absent: Tenderness, Organomegaly - Neurological Exam Neurological Exam: Alert, Awake, Oriented x3 Neuro motor strength exam: Left Upper Extremity: 5, Right Upper Extremity: 5, Left Lower Extremity: 5, Right Lower Extremity: 5 - Psychiatric Exam Psychiatric exam: Normal Affect - Skin Skin Exam: Normal Color Assessment and Plan - Assessment and Plan (Free Text) Assessment: 67M PMH paroxysmal afib, HTN, CAD, 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 Crespo presents today 30 min after acute onset of moderate hand numbness, not worsening, however with motor and sensory deficits. Pt was evaluated by Neurology CODE STROKE, RUE pronator drift and RLE drift appreciated with NIHSS 3. tPA administered, patient BP stable 160s-170s, admitted to ICU last night for close monitoring post tpa per protocol. CVA - ACUTE s/p TPA, monitor closely ICU s/p CTA no large embolus Repeat CT head per Neurology Neurology consult, Dr. Newman BP control allow permissive HTN acutely decrease rate of NS today to 60cc hr medication noncomplinace Tob abuse counseled about stopping smoking at bedside AFIB rate controlled consider AC post tpa protocol Dr. Crespo Cardiology consult start aspirin Hx Volvulus s/p multiple surgeries stable at this time Severe B/L Venous stasis Podiatry consult ordered
--- NOTE | 2018-05-21 08:55 | CT ---
Date of service: 05/20/2018 PROCEDURE: CT HEAD WITHOUT CONTRAST. HISTORY: numbness right hand COMPARISON: None available. TECHNIQUE: Axial computed tomography images were obtained through the head/brain without intravenous contrast. Radiation dose: Total exam DLP = 809.99 mGy-cm. This CT exam was performed using one or more of the following dose reduction techniques: Automated exposure control, adjustment of the mA and/or kV according to patient size, and/or use of iterative reconstruction technique. FINDINGS: HEMORRHAGE: No intracranial hemorrhage. BRAIN: Moderate diffuse relaxes identified. Relatively prominent periventricular centrum semiovale and subcortical white matter lucency is appreciated which appears to spare the corpus callosum in general, in a pattern that suggests advanced chronic microangiopathy for the patient's stated age of 67 years. Clinically correlate further. There is no cortical edema identified or mass-effect. There is no suspicious extra-axial collection identified. The posterior fossa contents may reflect chronic microangiopathy in the ash with the cerebellum unremarkable. There is extensive atherosclerosis of the distal visualized bilateral vertebral arteries, mildly at the basilar artery. A chronic lacune is seen at the right thalamus and potentially at the posterior left thalamus as well. VENTRICLES: Unremarkable. No hydrocephalus. CALVARIUM: Unremarkable. PARANASAL SINUSES: Unremarkable as visualized. No significant inflammatory changes. MASTOID AIR CELLS: Unremarkable as visualized. No inflammatory changes. OTHER FINDINGS: None. IMPRESSION: 1. No definite pattern of suggest an acute or subacute brain infarction at this time with advanced age related neuro degenerative changes appreciated throughout the cerebrum, particularly in terms of chronic microangiopathy. Follow-up CT or MRI recommended. 2. Chronic lacunes suggested at the bilateral thalami. Findings discussed with Dr. Vargas with written down and read back verification 05/20/2018 1:29 p.m..
--- NOTE | 2018-05-21 09:09 | CP.PCM.PN ---
Subjective - Date & Time of Evaluation Date of Evaluation: 05/21/18 Time of Evaluation: 08:00 - Subjective Subjective: NO CHEST PAIN OR SOB RIGHT HAND IS BACK TO NORMAL Objective - Vital Signs/Intake and Output Vital Signs (last 24 hours): Temp Pulse Resp BP Pulse Ox 98.2 F 84 36 H 137/108 H 96 05/21/18 08:00 05/21/18 09:00 05/21/18 09:00 05/21/18 09:00 05/21/18 09:00 Intake and Output: 05/21/18 05/21/18 06:59 18:59 Intake Total 4300 Output Total 400 Balance 4300 -400 - Medications Medications: Current Medications Amlodipine Besylate (Norvasc) 10 mg PO BID [facility] Last Admin: 05/20/18 20:25 Dose: 10 mg Aspirin (Aspirin) 325 mg PO DAILY [facility] Atorvastatin Calcium (Lipitor) 40 mg PO DAILY [facility] Doxazosin Mesylate (Cardura) 8 mg PO BID [facility] Last Admin: 05/20/18 20:25 Dose: 8 mg Sodium Chloride (Sodium Chloride 0.9%) 1,000 mls @ 100 mls/hr IV .Q10H [facility] Last Admin: 05/21/18 00:37 Dose: 100 mls/hr - Labs Labs: 05/21/18 04:40 05/21/18 04:40 PT 12.9 Seconds (9.8-13.1) 05/20/18 16:30 INR 1.2 (0.9-1.2) 05/20/18 16:30 APTT 37.1 Seconds (25.6-37.1) 05/20/18 16:30 - Respiratory Exam Respiratory Exam: Clear to Ausculation Bilateral - Cardiovascular Exam Cardiovascular Exam: Irregular Rhythm, +S1, +S2 - Extremities Exam Additional comments: LE EDEMA AND COBBLESTONING - Additional Findings Additional findings: FBS 77 CHOL 119 LDL 54 Assessment and Plan - Assessment and Plan (Free Text) Assessment: CEREBRAL INFARCT CHRONIC ATRIAL FIBRILLATION HYPERTENSION Plan: TPA AND ASPIRIN GIVEN IN ER CONTINUE AMLODIPINE, CARDURA ATORVASTATIN AND ASPIRIN ECHO PENDING PER NEUROLOGY
[2018-05-21 09:19] LABS: ANISOCYTOSIS SLIGHT; BASOPHIL 1 % (0-2); EOSINOPHIL 3 % (0-7); LYMPHOCYTE 8 % (20-50); MONOCYTE 11 % (0-10); NEUTROPHIL 77 % (42-75); PLATELET ESTIMATE NORMAL (NORMAL); TOTAL CELLS COUNTED 100
--- NOTE | 2018-05-21 09:19 | CARD ---
APPROVED REPORT Date of service: 05/20/2018 EKG Measurement Heart [id number] <Conclusion> Atrial fibrillation with premature ventricular or aberrantly conducted complexes Septal infarct, age undetermined Abnormal ECG
[2018-05-21 09:20] LABS: OVALOCYTES SLIGHT; SCHISTOCYTES SLIGHT; TEARDROP CELLS SLIGHT
[2018-05-21] MEDS ORDERED: Sodium Chloride 0.9% 1,000 ML IV SCH (09:30)
--- NOTE | 2018-05-21 14:16 | CP.PCM.CON ---
History of Present Illness - History of Present Illness History of Present Illness: 67 yo male patient with PMHx of CVA, A-Fib, and HTN, was seen and evaluated for bilateral lower extremity lymphedema. Patient note that he experienced a CVA yesterday, however his right hand weakness has since resolved. He states that he has had bilateral lower extremity swelling with scaling for over a month. He notes that his primary care doctor originally thought it could be attributed to his HTN medication. He occasionally wears compression socks which helped a little bit with the swelling. He denies any N/V/F/SOB/CP. He denies any other pedal complaints at this time. PMHx: CVA, A-Fib, HTN Social: Smokes 8-10 cigars a day, denies alcohol use ALL: NKDA Review of Systems - Review of Systems Review of Systems: As per HPI Past Patient History - Past Medical History & Family History Past Medical History?: Yes - Past Social History Smoking Status: Heavy Smoker > 10 Cigarettes Daily - CARDIAC Hx Atrial Fibrillation: Yes Hx Hypertension: Yes - PULMONARY Hx Respiratory Disorders: No - NEUROLOGICAL Hx Neurological Disorder: No - HEENT Hx HEENT Problems: No - RENAL Hx Chronic Kidney Disease: No - ENDOCRINE/METABOLIC Hx Endocrine Disorders: No - HEMATOLOGICAL/ONCOLOGICAL Hx Blood Disorders: No - INTEGUMENTARY Hx Dermatological Problems: Yes - MUSCULOSKELETAL/RHEUMATOLOGICAL Hx Musculoskeletal Disorders: No - GASTROINTESTINAL Hx Gastrointestinal Disorders: No Hx Bowel Surgery: No Hx Clostridium Difficile: No Hx Colitis: No Hx Colostomy: No Hx Constipation: No Hx Crohn's Disease: No Hx Diarrhea: No Hx Diverticulitis: No Hx Esophageal Varices: No Hx Fatty Liver Disease: No Hx Gall Bladder Disease: No Hx Gastritis: No Hx Gastroesophageal Reflux: No Hx Hemorrhoids: No Hx Ileostomy: No Hx Irritable Bowel: No Hx Liver Failure: No Hx Nausea: No Hx Pancreatitis: No HX Swallowing Problems: No Hx Ulcer: No Hx Vomiting: No - GENITOURINARY/GYNECOLOGICAL Hx Genitourinary Disorders: No - PSYCHIATRIC Hx Psychophysiologic Disorder: No - SURGICAL HISTORY Hx Surgeries: No - ANESTHESIA Hx Anesthesia: No Meds Allergies/Adverse Reactions: Allergies Allergy/AdvReac Type Severity Reaction Status Date / Time No Known Allergies Allergy Verified 05/20/18 13:13 - Medications Medications: Current Medications Amlodipine Besylate (Norvasc) 10 mg PO BID [facility] Last Admin: 05/21/18 09:07 Dose: 10 mg Aspirin (Aspirin) 325 mg PO DAILY [facility] Last Admin: 05/21/18 09:05 Dose: 325 mg Atorvastatin Calcium (Lipitor) 40 mg PO DAILY [facility] Last Admin: 05/21/18 12:00 Dose: 40 mg Doxazosin Mesylate (Cardura) 8 mg PO BID [facility] Last Admin: 05/21/18 09:05 Dose: 8 mg Physical Exam - Constitutional Appears: Well, Non-toxic, No Acute Distress - Head Exam Head Exam: ATRAUMATIC, NORMOCEPHALIC - Respiratory Exam Additional comments: Vascular: DP/PT non palpable bilaterally. CFT <3 seconds to all 10 digits. Ortho: No tenderness to palpation of bilateral lower extremities bilaterally Neuro: Gross and protective sensation intact bilaterally Derm: - Extremities Exam Additional comments: Bilateral lower extremity focused exam: Vascular: DP/PT non palpable. Capillary refill < 3 seconds x10. +2 pitting edema noted from tibial tuberosity proximally extending distally to digits. Ortho: No tenderness or pain upon palpation to bilateral lower extremities. Neuro: Gross and protective sensation intact bilaterally Derm: Circumfrential lymphedema to bilateral lower extremities with xerotic, scaling, hyperkeratotic plaques to anterior aspect of legs. No weeping, no serous or sanginous drainage, mild malodor. Erythema noted circumfrentially to legs bilaterally with no evidence of cellulitis or streaking. No interdigital maceration noted bilaterally. Elongated, dystrophic nails x10 - Neurological Exam Neurological exam: Alert, Oriented x3 - Psychiatric Exam Psychiatric exam: Normal Affect, Normal Mood Results - Vital Signs Recent Vital Signs: Last Vital Signs Temp 98.0 F 05/21/18 12:00 Pulse 82 05/21/18 13:00 Resp 22 05/21/18 13:00 BP 150/103 H 05/21/18 13:00 Pulse Ox 95 05/21/18 13:00 - Labs Result Diagrams: 05/21/18 04:40 05/21/18 04:40 Labs: Laboratory Results - last 24 hr 05/20/18 05/20/18 05/20/18 14:23 14:23 14:23 WBC 6.0 RBC 4.93 Hgb 14.7 Hct 43.3 MCV 87.8 MCH 29.8 MCHC 34.0 RDW 17.6 H Plt Count 257 MPV 9.1 Neut % (Auto) 73.1 Lymph % (Auto) 11.8 L [place] % (Auto) 12.2 H Eos % (Auto) 2.5 Baso % (Auto) 0.4 Neut # (Auto) 4.4 Lymph # (Auto) 0.7 L [place] # (Auto) 0.7 Eos # (Auto) 0.1 Baso # (Auto) 0.0 Neutrophils % (Manual) Lymphocytes % (Manual) Monocytes % (Manual) Eosinophils % (Manual) Basophils % (Manual) Platelet Estimate Anisocytosis (manual) Tear Drop Cells Ovalocytes Schistocytes PT INR APTT Sodium 137 Potassium 4.3 Chloride 105 Carbon Dioxide 22 Anion Gap 14 BUN 15 Creatinine 1.6 H Est GFR ( Amer) 53 Est GFR (Non-Af Amer) 43 POC Glucose (mg/dL) Random Glucose 134 H Hemoglobin A1c Calcium 8.5 Total Bilirubin 0.9 AST 26 ALT 14 L Alkaline Phosphatase 106 Troponin I 0.0140 Total Protein 8.2 Albumin 3.5 Globulin 4.7 H Albumin/Globulin Ratio 0.7 L Triglycerides 71 Cholesterol 119 LDL Cholesterol Direct 59 HDL Cholesterol 32 TSH 3rd Generation Blood Type A POSITIVE Blood Type Confirm Antibody Screen Negative BBK History Checked No verified bt 05/20/18 05/20/18 05/20/18 14:30 15:09 15:17 WBC RBC Hgb Hct MCV MCH MCHC RDW Plt Count MPV Neut % (Auto) Lymph % (Auto) Mesa % (Auto) Eos % (Auto) Baso % (Auto) Neut # (Auto) Lymph # (Auto) Mes[place] # (Auto) Eos # (Auto) Baso # (Auto) Neutrophils % (Manual) Lymphocytes % (Manual) Monocytes % (Manual) Eosinophils % (Manual) Basophils % (Manual) Platelet Estimate Anisocytosis (manual) Tear Drop Cells Ovalocytes Schistocytes PT INR APTT Sodium Potassium Chloride Carbon Dioxide Anion Gap BUN Creatinine Est GFR ( Amer) Est GFR (Non-Af Amer) POC Glucose (mg/dL) 126 H Random Glucose Hemoglobin A1c Calcium Total Bilirubin AST ALT Alkaline Phosphatase Troponin I Total Protein Albumin Globulin Albumin/Globulin Ratio Triglycerides Cholesterol LDL Cholesterol Direct HDL Cholesterol TSH 3rd Generation 20.70 H Blood Type Blood Type Confirm A POSITIVE Antibody Screen BBK History Checked 05/20/18 05/20/18 05/21/18 16:30 18:12 04:40 WBC 5.8 RBC 4.99 Hgb 14.7 Hct 44.1 MCV 88.3 MCH 29.5 MCHC 33.4 RDW 17.7 H Plt Count 222 MPV 8.5 Neut % (Auto) 77.8 H Lymph % (Auto) 8.9 L [place] % (Auto) 10.2 H Eos % (Auto) 2.4 Baso % (Auto) 0.7 Neut # (Auto) 4.5 Lymph # (Auto) 0.5 L [place] # (Auto) 0.6 Eos # (Auto) 0.1 Baso # (Auto) 0.0 Neutrophils % (Manual) 77 H Lymphocytes % (Manual) 8 L Monocytes % (Manual) 11 H Eosinophils % (Manual) 3 Basophils % (Manual) 1 Platelet Estimate Normal Anisocytosis (manual) Slight Tear Drop Cells Slight Ovalocytes Slight Schistocytes Slight PT 12.9 INR 1.2 APTT 37.1 Sodium Potassium Chloride Carbon Dioxide Anion Gap BUN Creatinine Est GFR ( Amer) Est GFR (Non-Af Amer) POC Glucose (mg/dL) Random Glucose Hemoglobin A1c 5.8 Calcium Total Bilirubin AST ALT Alkaline Phosphatase Troponin I Total Protein Albumin Globulin Albumin/Globulin Ratio Triglycerides Cholesterol LDL Cholesterol Direct HDL Cholesterol TSH 3rd Generation Blood Type Blood Type Confirm Antibody Screen BBK History Checked 05/21/18 04:40 WBC RBC Hgb Hct MCV MCH MCHC RDW Plt Count MPV Neut % (Auto) Lymph % (Auto) Mesa % (Auto) Eos % (Auto) Baso % (Auto) Neut # (Auto) Lymph # (Auto) Mesa # (Auto) Eos # (Auto) Baso # (Auto) Neutrophils % (Manual) Lymphocytes % (Manual) Monocytes % (Manual) Eosinophils % (Manual) Basophils % (Manual) Platelet Estimate Anisocytosis (manual) Tear Drop Cells Ovalocytes Schistocytes PT INR APTT Sodium 140 Potassium 4.1 Chloride 106 Carbon Dioxide 23 Anion Gap 15 BUN 11 Creatinine 1.3 Est GFR ( Amer) > 60 Est GFR (Non-Af Amer) 55 POC Glucose (mg/dL) Random Glucose 77 Hemoglobin A1c Calcium 7.9 L Total Bilirubin 1.0 AST 19 ALT 17 L D Alkaline Phosphatase 102 Troponin I Total Protein 7.5 Albumin 3.1 L Globulin 4.4 H Albumin/Globulin Ratio 0.7 L Triglycerides Cholesterol LDL Cholesterol Direct HDL Cholesterol TSH 3rd Generation Blood Type Blood Type Confirm Antibody Screen BBK History Checked Assessment & Plan - Assessment and Plan (Free Text) Assessment: 67 yo male patient with PMHx of CVA, A-Fib, and HTN, was seen and evaluated for bilateral lower extremity lymphedema. Plan: Patient seen and evaluated Plan discussed in detail with Dr. Mullen Labs and vitals reviewed; absent leukocytosis, afebrile Bilateral UNNA boots applied to lower extremities Plan to follow patient while in house Thank you for the Podiatry consult - Date & Time Date: 05/21/18 Time: 15:52
--- NOTE | 2018-05-21 15:33 | CT ---
Date of service: 05/21/2018 PROCEDURE: CT HEAD WITHOUT CONTRAST. HISTORY: CVA evaluation COMPARISON: 05/20/2018. TECHNIQUE: Axial computed tomography images were obtained through the head/brain without intravenous contrast. Radiation dose: Total exam DLP = 812.74 mGy-cm. This CT exam was performed using one or more of the following dose reduction techniques: Automated exposure control, adjustment of the mA and/or kV according to patient size, and/or use of iterative reconstruction technique. FINDINGS: HEMORRHAGE: No intracranial hemorrhage. BRAIN: Again seen are extensive confluent periventricular hyperintensities. There is no mass, mass effect or abnormal extra-axial fluid collection. There are coarse atherosclerotic calcifications in the cavernous carotid and vertebral arteries. VENTRICLES: There is mild age-related global parenchymal volume loss and proportionate enlargement of the ventricles and cortical sulci. CALVARIUM: Unremarkable. PARANASAL SINUSES: Unremarkable as visualized. No significant inflammatory changes. MASTOID AIR CELLS: Unremarkable as visualized. No inflammatory changes. OTHER FINDINGS: None. IMPRESSION: No acute intracranial abnormality. Confluent periventricular white matter abnormalities are statistically most compatible with severe chronic microangiopathic changes however other white matter abnormalities cannot be entirely excluded. Please correlate with MRI.
--- NOTE | 2018-05-21 15:37 | CARD ---
APPROVED REPORT Date of service: 05/21/2018 EXAM: Two-dimensional and M-mode echocardiogram with Doppler and color Doppler. Other Information Quality : GoodRhythm : PVC's INDICATION CVA/TIA 2D DIMENSIONS IVSd1.55 (0.7-1.1cm)LVDd4.66 (3.9-5.9cm) LVOT Diameter2.26 (1.8-2.4cm)PWd0.89 (0.7-1.1cm) IVSs1.73 (0.8-1.2cm)LVDs3.59 (2.5-4.0cm) FS (%) 23.0 %PWs1.58 (0.8-1.2cm) M-Mode DIMENSIONS Left Atrium (MM)3.09 (2.5-4.0cm)IVSd0.88 (0.7-1.1cm) Aortic Root4.06 (2.2-3.7cm)LVDd5.38 (4.0-5.6cm) Aortic Cusp Exc.2.26 (1.5-2.0cm)PWd1.03 (0.7-1.1cm) IVSs1.06 cmFS (%) 19 % LVDs4.35 (2.0-3.8cm)PWs1.00 cm Aortic Valve AI P 1/2 [id number] Mitral Valve MV E Zqvrdtzc238.0cm/sMV DECEL [id number] A Rzuuslds66.9cm/s MV YFA30cdD/A ratio2.1MVA (PHT)3.81cm2 TDI Lateral E' Peak V10.02cm/sMedial E' Peak V7.50cm/sE/Lateral E'13.3 E/Medial E'17.7 Tricuspid Valve TR Peak Zdtohtwy649pb/sRAP [id number] Peak Gr.29mmHg [id number] LEFT VENTRICLE The Left Ventricle is mildly dilated. There is mild to moderate concentric left ventricular hypertrophy. The systolic function is mildly impaired. LVEF 40 TO 45% Regional wall motion abnormalities noted. Septal hypokinesia. Lena hypokinesia Tissue Doppler imaging reveals abnormal left ventricular diastolic dysfunction. Transmitral Doppler flow pattern is Grade III-reversible restrictive diastolic dysfunction. No left ventricle thrombus noted on this study. There is no ventricular septal defect visualized. There is no left ventricular aneurysm. RIGHT VENTRICLE The right ventricle is normal size. The right ventricular systolic function is normal. ATRIA The left atrium is mildly dilated. The right atrium size is normal. AORTIC VALVE The aortic valve is calcified but opens well. There is moderate aortic regurgitation. There is no aortic valvular stenosis. MITRAL VALVE The mitral valve is normal in structure. There is no evidence of mitral valve prolapse. There is no mitral valve stenosis. Mitral regurgitation is mild to moderate. TRICUSPID VALVE The tricuspid valve is normal in structure. There is mild tricuspid regurgitation. TR peak gradient 26 mmHg (abnormal) PULMONIC VALVE The pulmonary valve is normal in structure. There is no pulmonic valvular regurgitation. GREAT VESSELS The aortic root is mildly enlarged. The IVC is normal in size and collapses >50% with inspiration. PERICARDIAL EFFUSION The pericardium appears normal. <Conclusion> The Left Ventricle is mildly dilated. There is mild to moderate concentric left ventricular hypertrophy. The systolic function is mildly impaired. LVEF 40 TO 45% Regional wall motion abnormalities noted. Septal hypokinesia. Lena hypokinesia Tissue Doppler imaging reveals abnormal left ventricular diastolic dysfunction. Transmitral Doppler flow pattern is Grade III-reversible restrictive diastolic dysfunction. The aortic valve is calcified but opens well. There is moderate aortic regurgitation. There is no aortic valvular stenosis. Mitral regurgitation is mild to moderate.
--- NOTE | 2018-05-21 16:15 | PCM.STROKE ---
Interval History Critical Care Time Spent (in minutes): 30 Interval History: Could not place SCD for DVT Px due to severe edema of legs with scaling. - Treatment DVT Prophylaxis: Other Anticoagulation: Eliquis Statin: Atrovastatin Intensive: Yes - Education Written Stroke Education provided regarding: personal risk factors, stroke warning sign/symptoms, how to activate emergency medical services, need to follow up after discharge Hx Atrial Fibrillation: Yes Hx Atrial Flutter: No Reason for not on anticoagulation: Patient had previously refused - Therapy Notes Physical therapy notes date reviewed: 05/21/18 Occupational therapy notes date reviewed: 05/21/18 Speech therapy notes date reviewed: 05/21/18 Review: Reviewed NIHSS Stroke Scale - Date/Time Evaluation Performed Date Performed: 05/20/18 Time Performed: 13:13 - How Severe is the Stroke Level of Consciousness: 0=Alert LOC to Questions: 0=Both comments correct LOC to commands: 0=Obeys both correctly Best Gaze: 0=Normal Visual: 0=No visual loss Facial: 0=Normal Motor Arm - Left: 0=No drift Motor Arm - Right: 0=No drift Motor Leg - Left: 0=No drift Motor Leg - Right: 0=No drift Limb Ataxia: 0=Absent Sensory: 0=Normal Best Language: 0=No aphasia Dysarthia: 0=Normal articulation Extinction & Inattention (Neglect): 0=Normal, no object Score: 0 Exam - Vital Sign Vital Signs: Temp Pulse Resp BP Pulse Ox 98.0 F 77 19 155/101 H 97 05/21/18 12:00 05/21/18 14:00 05/21/18 14:00 05/21/18 14:00 05/21/18 14:00 Ophthalmoscopic: papilledema, hemorrhage Right Pupil: Reactive Left Pupil: Reactive Cardiovascular: Regular rate & rhythm Mental Status: Normal: Orientation, Memory, Attention, Language Neuro motor strength exam: Left Upper Extremity: 5, Right Upper Extremity: 5, Left Lower Extremity: 5, Right Lower Extremity: 5 DTR: Achilles Tendon Left: 2+, Achilles Tendon Right: 2+, Bicep Left: 2+, Bicep Right: 2+, Brachioradialis Left: 2+, Brachioradialis Right: 2+, Patellar Left: 2 +, Patellar Right: 2+, Tricep Left: 2+, Tricep Right: 2+ Flexor Plantar Reflex: Normal Coordination: absent: Finger/nose, Heel/Ríos Gait: Normal with Absent Rhomberg Vascular Risk: Hypertension, Smoking, Atrial Fibrillation - Data reviewed Laboratory results: 05/21/18 04:40 05/21/18 04:40 Triglycerides 71 mg/DL (0-149) 05/20/18 14:23 Cholesterol 119 mg/dL (0-199) 05/20/18 14:23 LDL Cholesterol Direct 59 mg/dL (0-129) 05/20/18 14:23 HDL Cholesterol 32 MG/DL (30-70) 05/20/18 14:23 Hemoglobin A1c 5.8 % (4.2-6.5) 05/20/18 18:12 CT Scan: Viewed and interpreted by me Assessment and Plan (1) Acute ischemic stroke Assessment & Plan: Will start the patient on Eliquis 5 mg BID for secondary stroke prevention in the setting of paroxysmal atrial fibrillation. Will continue current dose of lipitor and recommend PT/OT. Status: Acute
[2018-05-21] MEDS ORDERED: Nitroglycerin 2% 15 INCH/30 GM TUBE TOP STA (20:45)
[2018-05-22 05:13] LABS: MEAN CELL VOLUME 89.2 fl (80.0-94.0); MEAN CORPUSCULAR HEMOGLOBIN 29.5 pg (27.0-31.0); RBC 4.75 Mil/uL (4.40-5.90); RED CELL DISTRIBUTION WIDTH 17.5 % (11.5-14.5)
[2018-05-22 06:50] LABS: CALCIUM 8.2 mg/dL (8.4-10.2)
--- NOTE | 2018-05-22 11:19 | CP.PCM.PN ---
Subjective - Date & Time of Evaluation Date of Evaluation: 05/22/18 Time of Evaluation: 10:30 - Subjective Subjective: FEELS BETTER NO REPEAT OF RIGHT HAND WEAKNESS LE EDEMA HAS DECREASED Objective - Vital Signs/Intake and Output Vital Signs (last 24 hours): Temp Pulse Resp BP Pulse Ox 98.6 F 82 15 162/94 H 95 05/22/18 08:00 05/22/18 09:25 05/22/18 08:00 05/22/18 09:25 05/22/18 08:00 Intake and Output: 05/22/18 05/22/18 06:59 18:59 Output Total 900 Balance -900 - Medications Medications: Current Medications Amlodipine Besylate (Norvasc) 10 mg PO BID [facility] Last Admin: 05/22/18 09:25 Dose: 10 mg Apixaban (Eliquis) 5 mg PO BID [facility] PRN Reason: Protocol Last Admin: 05/22/18 09:25 Dose: 5 mg Atorvastatin Calcium (Lipitor) 40 mg PO DAILY [facility] Last Admin: 05/22/18 09:25 Dose: 40 mg Doxazosin Mesylate (Cardura) 8 mg PO BID [facility] Last Admin: 05/22/18 09:25 Dose: 8 mg - Labs Labs: 05/22/18 04:40 05/22/18 04:40 PT 12.9 Seconds (9.8-13.1) 05/20/18 16:30 INR 1.2 (0.9-1.2) 05/20/18 16:30 APTT 37.1 Seconds (25.6-37.1) 05/20/18 16:30 - Respiratory Exam Respiratory Exam: Clear to Ausculation Bilateral - Cardiovascular Exam Cardiovascular Exam: Irregular Rhythm, +S1, +S2 - Extremities Exam Additional comments: BILATERAL LE DRESSINGS, SIZE HAD COME DOWN - Additional Findings 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
--- NOTE | 2018-05-22 12:51 | CP.PCM.PN ---
Subjective - Date & Time of Evaluation Date of Evaluation: 05/22/18 Time of Evaluation: 12:15 - Subjective Subjective: Pt has regained back motor function denies Headache no dizziness no visual sxs no CP no cough no abd pain no fever Objective - Vital Signs/Intake and Output Vital Signs (last 24 hours): Temp Pulse Resp BP Pulse Ox 97.9 F 79 21 126/94 H 94 L 05/22/18 12:00 05/22/18 12:00 05/22/18 12:00 05/22/18 12:00 05/22/18 12:00 Intake and Output: 05/22/18 05/22/18 06:59 18:59 Output Total 900 Balance -900 - Medications Medications: Current Medications Amlodipine Besylate (Norvasc) 10 mg PO BID [facility] Last Admin: 05/22/18 09:25 Dose: 10 mg Apixaban (Eliquis) 5 mg PO BID [facility] PRN Reason: Protocol Last Admin: 05/22/18 09:25 Dose: 5 mg Atorvastatin Calcium (Lipitor) 40 mg PO DAILY [facility] Last Admin: 05/22/18 09:25 Dose: 40 mg Doxazosin Mesylate (Cardura) 8 mg PO BID [facility] Last Admin: 05/22/18 09:25 Dose: 8 mg - Labs Labs: 05/22/18 04:40 05/22/18 04:40 PT 12.9 Seconds (9.8-13.1) 05/20/18 16:30 INR 1.2 (0.9-1.2) 05/20/18 16:30 APTT 37.1 Seconds (25.6-37.1) 05/20/18 16:30 - Constitutional Appears: No Acute Distress - Head Exam Head Exam: NORMAL INSPECTION, NORMOCEPHALIC - Eye Exam Eye Exam: EOMI, Normal appearance, PERRL Pupil Exam: NORMAL ACCOMODATION - ENT Exam ENT Exam: Mucous Membranes Moist, Normal External Ear Exam - Neck Exam Neck Exam: Full ROM. absent: Meningismus - Respiratory Exam Respiratory Exam: NORMAL BREATHING PATTERN. absent: Rales, Wheezes, Respiratory Distress - Cardiovascular Exam Cardiovascular Exam: Irregular Rhythm, +S1, +S2 - GI/Abdominal Exam GI & Abdominal Exam: Soft, Normal Bowel Sounds. absent: Tenderness - Extremities Exam Extremities Exam: Pedal Edema Additional comments: Unna boots in place - Back Exam Back Exam: Full ROM. absent: CVA tenderness (L), CVA tenderness (R), paraspinal tenderness - Neurological Exam Neurological Exam: Alert, Awake, Normal Gait, Oriented x3 Neuro motor strength exam: Left Upper Extremity: 5, Right Upper Extremity: 5, Left Lower Extremity: 5, Right Lower Extremity: 5 - Psychiatric Exam Psychiatric exam: Normal Affect, Normal Mood - Skin Skin Exam: Dry, Normal Color, Warm Assessment and Plan - Assessment and Plan (Free Text) Assessment: 67M PMH Paroxysmal afib, HTN, CAD, 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 Crespo presented 30 min after acute onset of moderate hand numbness , not worsening, however with motor and sensory deficits. Pt was evaluated by Neurology CODE STROKE, RUE pronator drift and RLE drift appreciated with NIHSS 3. tPA administered, patient BP stable 160s-170s, admitted to ICU for close monitoring post tpa per protocol. 1. Acute CVA s/p TPA, monitor closely ICU s/p CTA no large embolus Repeat CT head : no bleed Neurology consult, Dr. Newman- rec MRI of the brain BP control allow permissive HTN acutely cont Statin 2. Paroxysmal AFIB rate controlled Dr. Crespo Cardiology consult Pt started on Eliquis 3. Hx Volvulus s/p multiple surgeries stable at this time 4. Severe B/L Venous stasis/Lymphedema Podiatry consulted Unna boots placed 5. Tobacco abuse counseled about stopping smoking 6. HTN d/c Norvasc due to lymphedema Start Toprol and Losartan DVT proph - Pt on anticoag Eliquis
--- NOTE | 2018-05-22 17:02 | MRI ---
Date of service: 05/22/2018 PROCEDURE: MRI BRAIN WITHOUT CONTRAST HISTORY: stroke COMPARISON: Noncontrast head CT 05/21/2018. TECHNIQUE: Multiplanar, multisequence MR images of the brain were obtained without intravenous contrast enhancement. FINDINGS: DWI: No evidence of an acute or early subacute infarction. BRAIN PARENCHYMA: Limited hemosiderin is seen in the small focus at the right parietal vertex gyrus with a punctate similar focus identified at 1 are 2 foci at the left parietal and occipital lobes. Widespread white matter signal abnormality is appreciated throughout the cerebrum and moderately also in the ash. The confluence of the white-matter findings with limited hemosiderin deposition may reflect amyloid angiopathy although advanced chronic microangiopathy is still in the differential diagnosis. Metabolic disorders as well as a meter deficient processes such is PML are also not excluded. Chronic lacunes are identified at the bilateral thalami and potentially in the bilateral basal ganglia intermixed with dilated perivascular spaces. There is no mass effect and there is [id number] expansion of the ventricular sulcal and cisternal spaces and upper portion matter pattern compatible with diffuse cerebral atrophy. Other than pontine white matter signal abnormalities noted above, the posterior fossa contents are unremarkable. No suspicious extra-axial VENTRICLES: Unremarkable. No hydrocephalus. CRANIUM: Fluid collection identified. Unremarkable. ORBITS: Grossly unremarkable. PARANASAL SINUSES/MASTOIDS: Clear VASCULAR SYSTEM: Skull base flow voids intact. OTHER FINDINGS: None. IMPRESSION: 1. Widespread white matter changes are reiterated without evidence of acute or subacute brain infarction. Trace chronic hemosiderin deposition is appreciated at the right parietal vertex and a few foci at the left occipital lobe/parietal occipital junction. Consider possible amyloid angiopathy as etiology for white-matter signal abnormality though other etiologies are possible as discussed above. 2. Chronic lacunes bilateral thalami and potentially bilateral basal ganglia intermixed with dilated perivascular spaces. 3. No mass effect or hydrocephalus although age-related diffuse cerebral atrophy are is seen.
[2018-05-22] MEDS: Metoprolol Succinate 25 mg XL Tab PO SCH (19:40)
[2018-05-23] MEDS ORDERED: Levothyroxine 50 MCG TAB PO SCH (08:11)
[2018-05-23] MEDS: Metoprolol Succinate 25 mg XL Tab PO SCH (08:49)
--- NOTE | 2018-05-23 09:42 | CP.PCM.PN ---
Subjective - Date & Time of Evaluation Date of Evaluation: 05/23/18 Time of Evaluation: 08:30 - Subjective Subjective: NO NEW COMPLAINTS NO WEAKNESS FEELS GOOD Objective - Vital Signs/Intake and Output Vital Signs (last 24 hours): Temp Pulse Resp BP Pulse Ox 98.1 F 79 19 166/99 H 92 L 05/23/18 08:00 05/23/18 08:49 05/23/18 08:00 05/23/18 08:49 05/23/18 08:00 Intake and Output: 05/23/18 05/23/18 06:59 18:59 Intake Total 200 Output Total 700 Balance -500 - Medications Medications: Current Medications Apixaban (Eliquis) 5 mg PO BID [facility] PRN Reason: Protocol Last Admin: 05/23/18 08:49 Dose: 5 mg Atorvastatin Calcium (Lipitor) 40 mg PO DAILY [facility] Last Admin: 05/23/18 08:49 Dose: 40 mg Doxazosin Mesylate (Cardura) 8 mg PO BID [facility] Last Admin: 05/23/18 08:47 Dose: 8 mg Levothyroxine Sodium (Synthroid) 50 mcg PO DAILY@0630 [facility] Last Admin: 05/23/18 09:07 Dose: 50 mcg Losartan Potassium (Cozaar) 100 mg PO DAILY [facility] Last Admin: 05/23/18 08:48 Dose: 100 mg Metoprolol Succinate (Toprol Xl) 25 mg PO DAILY [facility] Last Admin: 05/23/18 08:49 Dose: 25 mg - Labs Labs: 05/22/18 04:40 05/22/18 04:40 PT 12.9 Seconds (9.8-13.1) 05/20/18 16:30 INR 1.2 (0.9-1.2) 05/20/18 16:30 APTT 37.1 Seconds (25.6-37.1) 05/20/18 16:30 - Respiratory Exam Respiratory Exam: Clear to Ausculation Bilateral - Cardiovascular Exam Cardiovascular Exam: Irregular Rhythm, +S1, +S2 - Extremities Exam Additional comments: WITH BILATERAL LE DRESSINGS BUT THE SWELLING HAS DECREASED
[2018-05-23 12:20] VITALS: BP 105/58; PULSE 64; TEMP 97.8
--- NOTE | 2018-05-23 13:38 | CP.PCM.DIS ---
Provider - Provider Date of Admission: 05/20/18 15:13 Attending physician: Genny Odonnell DO Primary care physician: Dr Crespo Consults: Neuro: Dr Newman Cardio : Dr Crespo Podiatry : Dr Welsh Time Spent in preparation of Discharge (in minutes): 35 Diagnosis - Discharge Diagnosis (1) Acute ischemic stroke Status: Acute Priority: High (2) Paroxysmal atrial fibrillation Status: Acute (3) Thyroid nodule Status: Acute (4) HTN (hypertension) Status: Acute (5) Hypothyroidism Status: Acute (6) Lymphedema of both lower extremities Status: Acute Hospital Course - Lab Results Lab Results: Micro Results 05/20/18 18:30 Nose MRSA Culture (Admit) - Final MRSA NOT DETECTED Most Recent Lab Values WBC 7.0 K/uL (4.8-10.8) 05/22/18 04:40 RBC 4.75 Mil/uL (4.40-5.90) 05/22/18 04:40 Hgb 14.0 g/dL (12.0-18.0) 05/22/18 04:40 Hct 42.4 % (35.0-51.0) 05/22/18 04:40 MCV 89.2 fl (80.0-94.0) 05/22/18 04:40 MCH 29.5 pg (27.0-31.0) 05/22/18 04:40 MCHC 33.0 g/dL (33.0-37.0) 05/22/18 04:40 RDW 17.5 % (11.5-14.5) H 05/22/18 04:40 Plt Count 207 K/uL (130-400) 05/22/18 04:40 MPV 8.5 fl (7.2-11.7) 05/21/18 04:40 Neut % (Auto) 77.8 % (50.0-75.0) H 05/21/18 04:40 Lymph % (Auto) 8.9 % (20.0-40.0) L 05/21/18 04:40 Nelson % (Auto) 10.2 % (0.0-10.0) H 05/21/18 04:40 Eos % (Auto) 2.4 % (0.0-4.0) 05/21/18 04:40 Baso % (Auto) 0.7 % (0.0-2.0) 05/21/18 04:40 Neut # (Auto) 4.5 K/uL (1.8-7.0) 05/21/18 04:40 Lymph # (Auto) 0.5 K/uL (1.0-4.3) L 05/21/18 04:40 Nelson # (Auto) 0.6 K/uL (0.0-0.8) 05/21/18 04:40 Eos # (Auto) 0.1 K/uL (0.0-0.7) 05/21/18 04:40 Baso # (Auto) 0.0 K/uL (0.0-0.2) 05/21/18 04:40 Neutrophils % (Manual) 77 % (42-75) H 05/21/18 04:40 Lymphocytes % (Manual) 8 % (20-50) L 05/21/18 04:40 Monocytes % (Manual) 11 % (0-10) H 05/21/18 04:40 Eosinophils % (Manual) 3 % (0-7) 05/21/18 04:40 Basophils % (Manual) 1 % (0-2) 05/21/18 04:40 Platelet Estimate Normal (NORMAL) 05/21/18 04:40 Anisocytosis (manual) Slight 05/21/18 04:40 Tear Drop Cells Slight 05/21/18 04:40 Ovalocytes Slight 05/21/18 04:40 Schistocytes Slight 05/21/18 04:40 PT 12.9 Seconds (9.8-13.1) 05/20/18 16:30 INR 1.2 (0.9-1.2) 05/20/18 16:30 APTT 37.1 Seconds (25.6-37.1) 05/20/18 16:30 Sodium 138 mmol/l (132-148) 05/22/18 04:40 Potassium 4.3 MMOL/L (3.6-5.0) 05/22/18 04:40 Chloride 106 mmol/L (98-107) 05/22/18 04:40 Carbon Dioxide 26 mmol/L (22-30) 05/22/18 04:40 Anion Gap 10 (10-20) 05/22/18 04:40 BUN 14 mg/dl (9-20) 05/22/18 04:40 Creatinine 1.5 mg/dl (0.8-1.5) 05/22/18 04:40 Est GFR ( Amer) 57 05/22/18 04:40 Est GFR (Non-Af Amer) 47 05/22/18 04:40 POC Glucose (mg/dL) 126 mg/dL (65-110) H 05/20/18 15:17 Random Glucose 86 mg/dL (75-110) 05/22/18 04:40 Hemoglobin A1c 5.8 % (4.2-6.5) 05/20/18 18:12 Calcium 8.2 mg/dL (8.4-10.2) L 05/22/18 04:40 Total Bilirubin 1.0 mg/dl (0.2-1.3) 05/21/18 04:40 AST 19 U/L (17-59) 05/21/18 04:40 ALT 17 U/L (21-72) L D 05/21/18 04:40 Alkaline Phosphatase 102 U/L (38-126) 05/21/18 04:40 Troponin I 0.0140 ng/mL (0.00-0.120) 05/20/18 14:23 Total Protein 7.5 G/DL (6.3-8.2) 05/21/18 04:40 Albumin 3.1 g/dL (3.5-5.0) L 05/21/18 04:40 Globulin 4.4 gm/dL (2.2-3.9) H 05/21/18 04:40 Albumin/Globulin Ratio 0.7 (1.0-2.1) L 05/21/18 04:40 Triglycerides 71 mg/DL (0-149) 05/20/18 14:23 Cholesterol 119 mg/dL (0-199) 05/20/18 14:23 LDL Cholesterol Direct 59 mg/dL (0-129) 05/20/18 14:23 HDL Cholesterol 32 MG/DL (30-70) 05/20/18 14:23 TSH 3rd Generation 20.70 mIU/ML (0.46-4.68) H 05/20/18 14:30 Blood Type A POSITIVE 05/20/18 14:23 Blood Type Confirm A POSITIVE 05/20/18 15:09 Antibody Screen Negative 05/20/18 14:23 BBK History Checked No verified bt 05/20/18 14:23 - Hospital Course Hospital Course: 67M PMH Paroxysmal afib, HTN, CAD, 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 Crespo presented 30 min after acute onset of moderate hand numbness , not worsening, however with motor and sensory deficits. Pt was evaluated by Neurology CODE STROKE, RUE pronator drift and RLE drift appreciated with NIHSS 3. tPA administered, patient BP stable 160s-170s, admitted to ICU for close monitoring post tpa per protocol. 1. Acute CVA s/p TPA, monitored closely ICU s/p CTA no large embolus Repeat CT head : no bleed Neurology consult, Dr. Newman- rec MRI of the brain MRI of the Brain : no acute infarct BP control , allow permissive HTN acutely cont Statin, ASA 2. Paroxysmal AFIB rate controlled Dr. Crespo Cardiology consult Pt started on Eliquis 3. Hx Volvulus s/p multiple surgeries stable at this time 4. Severe B/L Venous stasis/Lymphedema Podiatry consulted Unna boots placed ff up with Dr Maxwell as outpt 5. Tobacco abuse counseled about stopping smoking 6. HTN d/c Norvasc due to lymphedema Start Toprol and Losartan 7. Thyroid Nodule/hypothyroidism started Levothyroxine Discussd with pt need for Thyroid Sono and Endo ff up as outpt for further eval of nodule appt with Dr Hood for further work up, pt may need FNAB DVT proph - Pt on anticoag Eliquis Discharge Exam - Head Exam Head Exam: ATRAUMATIC, NORMAL INSPECTION, NORMOCEPHALIC - Eye Exam Eye Exam: EOMI, Normal appearance Pupil Exam: NORMAL ACCOMODATION - ENT Exam ENT Exam: Mucous Membranes Moist, Normal External Ear Exam - Neck Exam Neck exam: Full Rom - Respiratory Exam Respiratory Exam: NORMAL BREATHING PATTERN. absent: Respiratory Distress - Cardiovascular Exam Cardiovascular Exam: REGULAR RHYTHM, +S1, +S2 - GI/Abdominal Exam GI & Abdominal Exam: Normal Bowel Sounds, Soft. absent: Tenderness - Back Exam Back exam: absent: CVA tenderness (L), CVA tenderness (R) - Neurological Exam Neurological exam: Alert, CN II-XII Intact, Oriented x3, Reflexes Normal - Psychiatric Exam Psychiatric exam: Normal Affect, Normal Mood - Skin Skin Exam: Dry, Normal Color, Warm Discharge Plan - Discharge Medications Prescriptions: Apixaban [Eliquis] 5 mg PO BID #60 tab Atorvastatin [Lipitor] 10 mg PO DIN #30 tab Levothyroxine [Synthroid] 50 mcg PO DAILY@0630 #30 tab Losartan [Cozaar] 100 mg PO DAILY #30 tab Metoprolol Succinate XL [Toprol XL] 25 mg PO DAILY #30 tab - Follow Up Plan Condition: IMPROVED Disposition: HOME/ ROUTINE Additional Instructions: appt with DR Erwin manrique for the thyroid nodule will need Thyroid Sonogram ff up with Dr Cherie manrique appt with Dr Newman in 1-[address] Welsh in 1 wk Referrals: Desiree Hood MD [Medical Doctor] - Mando Welsh DPM [Staff Provider] - Tee Newman MD [Medical Doctor] - Paulie Crespo MD [Staff Provider] - Clinical Quality Measures - CQM - Stroke Antithrombotic Prescribed: Yes Anticoagulation Prescribed for Atrial Flutter, Atrial Fibrillation and History of:: Yes Statin prescribed: Yes
[2018-05-23 14:30] VITALS: RESP 16; O2SAT 97
--- NOTE | 2018-05-23 14:46 | CP.PCM.PN ---
Subjective - Date & Time of Evaluation Date of Evaluation: 05/23/18 Time of Evaluation: 14:42 - Subjective Subjective: Podiatry Progress Note for Dr. Mullen 67 yo male patient with PMHx of CVA, A-Fib, and HTN, was seen and evaluated for bilateral lower extremity lymphedema. He notes that he feels like the swelling in his legs has decreased tremendously since we first applied the UNNA boots. He denies any N/V/F/SOB/CP. He denies any other pedal complaints at this time. Objective - Vital Signs/Intake and Output Vital Signs (last 24 hours): Temp Pulse Resp BP Pulse Ox 97.8 F 64 16 105/58 L 97 05/23/18 12:00 05/23/18 12:00 05/23/18 13:00 05/23/18 12:00 05/23/18 13:00 Intake and Output: 05/23/18 05/23/18 06:59 18:59 Intake Total 200 Output Total 700 Balance -500 - Medications Medications: Current Medications Apixaban (Eliquis) 5 mg PO BID [facility] PRN Reason: Protocol Last Admin: 05/23/18 08:49 Dose: 5 mg Atorvastatin Calcium (Lipitor) 40 mg PO DAILY [facility] Last Admin: 05/23/18 08:49 Dose: 40 mg Doxazosin Mesylate (Cardura) 8 mg PO BID [facility] Last Admin: 05/23/18 08:47 Dose: 8 mg Levothyroxine Sodium (Synthroid) 50 mcg PO DAILY@0630 [facility] Last Admin: 05/23/18 09:07 Dose: 50 mcg Losartan Potassium (Cozaar) 100 mg PO DAILY [facility] Last Admin: 05/23/18 08:48 Dose: 100 mg Metoprolol Succinate (Toprol Xl) 25 mg PO DAILY [facility] Last Admin: 05/23/18 08:49 Dose: 25 mg - Labs Labs: 05/22/18 04:40 05/22/18 04:40 PT 12.9 Seconds (9.8-13.1) 05/20/18 16:30 INR 1.2 (0.9-1.2) 05/20/18 16:30 APTT 37.1 Seconds (25.6-37.1) 05/20/18 16:30 - Constitutional Appears: Well, Non-toxic, No Acute Distress - Head Exam Head Exam: ATRAUMATIC, NORMOCEPHALIC - Extremities Exam Additional comments: Bilateral lower extremity focused exam: Vascular: DP/PT non palpable. Capillary refill < 3 seconds x10. Pitting edema noted from tibial tuberosity proximally extending distally to digits. Ortho: No tenderness or pain upon palpation to bilateral lower extremities. Neuro: Gross and protective sensation intact bilaterally Derm: Circumfrential lymphedema to bilateral lower extremities with xerotic, scaling, hyperkeratotic plaques to anterior aspect of legs. No weeping, no serous or sanginous drainage, mild malodor. Erythema noted circumfrentially to legs bilaterally with no evidence of cellulitis or streaking. No interdigital maceration noted bilaterally. Elongated, dystrophic nails x10 - Neurological Exam Neurological Exam: Alert, Awake, Oriented x3 - Psychiatric Exam Psychiatric exam: Normal Affect, Normal Mood Assessment and Plan - Assessment and Plan (Free Text) Assessment: 67 yo male patient seen and evaluated for bilateral lower extremity lymphedema. Plan: Patient seen and evaluated with all questions and concerns addressed Plan discussed in detail with Dr. Mullen Bilateral UNNA boots applied to lower extremities Patient instructed to keep dressings clean, dry, and intact until visit with Dr. Mullen F/U with Dr. Mullen in one week in office/wound care center for continued care
== END 2018-05-23 16:48 | disposition home or self-care (01) | DRG 63 ==
LOC: H.ER 13:11 → H.ERHOLD 15:13 → H.ICU/CCU 17:43
PROVIDERS: ADMIT Student in an Organized Health Care Education/Training Program; ATTEND Student in an Organized Health Care Education/Training Program
PROC: 3E03317 Introduction of Other Thrombolytic into Peripheral Vein, Percutaneous Approach (ICD-10-PCS; principal; 2018-05-20)
PROC: 3E0234Z Introduction of Serum, Toxoid and Vaccine into Muscle, Percutaneous Approach (ICD-10-PCS; 2018-05-21)
DX: I63.9 Cerebral infarction, unspecified (principal); I48.2 Chronic atrial fibrillation; I48.0 Paroxysmal atrial fibrillation; G83.21 Monoplegia of upper limb affecting right dominant side; I71.2 Thoracic aortic aneurysm, without rupture; I25.10 Atherosclerotic heart disease of native coronary artery without angina pectoris; I10 Essential (primary) hypertension; E03.9 Hypothyroidism, unspecified; E04.1 Nontoxic single thyroid nodule; I87.8 Other specified disorders of veins; I89.0 Lymphedema, not elsewhere classified; R73.9 Hyperglycemia, unspecified; F17.290 Nicotine dependence, other tobacco product, uncomplicated; R29.703 NIHSS score 3; Z23 Encounter for immunization; Z86.73 Personal history of transient ischemic attack (TIA), and cerebral infarction without residual deficits; Z79.82 Long term (current) use of aspirin

== ENCOUNTER 2018-06-22 14:32 | Inpatient (IN) | payer MEDICARE ==
[2018-06-22 14:32] VITALS: BMI 28.0
--- NOTE | 2018-06-22 15:17 | ED PDOC ---
Addendum entered and electronically signed by Graciela Chamberlain PA-C 16:38: Addendum Addendum: 06/22/18 16:34 Zofran administered for Nausea. Hogshead Inspector spoke to Dr. Boland, Stem Roller Or Crusher Operator. who presented to see and evaluate Pt at bedside. Hospitalist made aware as well. 06/22/18 16:37 Original Note: HPI: SOB/CHF/COPD Chief Complaint (Provider): SOB History Per: Patient <Graciela Chamberlain - Last Filed: 06/22/18 16:34> <Arlene Santiago - Last Filed: 06/23/18 13:29> Time Seen by Provider: 06/22/18 14:54 Chief Complaint (Nursing): Shortness Of Breath Additional Complaint(s): 67M PMH paroxysmal afib, HTN, CAD, 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 Crespo presents today for complaints of SOB, progressively worsening over the last 3 days. Pt recently admitted to ICU after he suffered a stroke, recieved TPA while in ED. Pt discharged home on Eliquis. Pt denies any chest pain, palpitations, diaphoresis, abdominal pain, nausea or vomiting. Pt admits to predominately sedentary lifestyle over last few days. pt has a history of LE cellulitis, edema as well and is followed by Dr. Mullen. (Graciela Chamberlain) Past Medical History Reviewed: Historical Data, Nursing Documentation, Vital Signs - Medical History PMH: Atrial Fibrillation, Cardia Arrhythmia, HTN, Hypothyroidism (pt not sure, was told he has low functioning thyroid, but never followed up), Peripheral Edema Denies: Alzheimer's Disease, Anemia, Anxiety, Arthritis, Asthma, Bipolar Disorder, Bronchitis, CAD, CHF, COPD, Crohn's Disease, Dementia, Depression, Diverticulitis, Emphysema, Fractures, Gastritis, Gall Bladder Disease, HIV, Hypercholesterolemia, Hyperthyroidism, Kidney Stones, Migraine, Mitral Valve Prolapse, Multiple Sclerosis, Osteoporosis, Pancreatitis, Paranoia, Parkinson's Disease, Pneumonia, Post Traumatic Stress Disorder, Pulmonary Embolism, Chronic Kidney Disease, Rheumatoid Arthritis, Schizophrenia, Seizures, Sickle Cell Disease, Sexually Transmitted Disease, Sleep Apnea, TIA - Surgical History Surgical History: Denies: Appendectomy, CABG, Carotid Endarterectomy, Cholecystectomy, Coronary Stent, Pacemaker, Tonsillectomy - Family History Family History: States: Unknown Family Hx - Living Arrangements Living Arrangements: Alone - Social History Current smoker - smoking cessation education provided: Yes Alcohol: None Drugs: Denies - Immunization History Hx Tetanus Toxoid Vaccination: No Hx Influenza Vaccination: Yes Hx Pneumococcal Vaccination: Yes <ShaynejonnyeladioGraciela francisco - Last Filed: 06/22/18 16:34> <Arlene Santiago - Last Filed: 06/23/18 13:29> Vital Signs: Last Vital Signs Temp 98.1 F 06/23/18 12:00 Pulse 78 06/23/18 10:40 Resp 17 06/23/18 08:00 BP 135/71 06/23/18 10:40 Pulse Ox 99 06/23/18 08:00 - Home Medications Home Medications: Ambulatory Orders Medication Instructions Recorded Aspirin [Ecotrin] 81 mg PO DAILY 05/20/18 Doxazosin [Cardura] 8 mg PO BID 05/20/18 Apixaban [Eliquis] 5 mg PO BID #60 tab 05/23/18 Atorvastatin [Lipitor] 10 mg PO DIN #30 tab 05/23/18 Levothyroxine [Synthroid] 50 mcg PO DAILY@0630 #30 tab 05/23/18 Losartan [Cozaar] 100 mg PO DAILY #30 tab 05/23/18 Metoprolol Succinate XL [Toprol XL] 25 mg PO DAILY #30 tab 05/23/18 - Allergies Allergies/Adverse Reactions: Allergies Allergy/AdvReac Type Severity Reaction Status Date / Time No Known Allergies Allergy Verified 06/22/18 14:39 Curb-65 Severity Score - CURB-65 Severity Score Confusion: No Respiratory Rate greater than/equal to 30: No Systolic BP <90 or Diastolic BP less than/equal 60mmHg: No Age >64: Yes Curb-65 Score: 1 Percentage 30-day mortality: 2.7% <CintiaGraciela Eduin - Last Filed: 06/22/18 16:34> Wells Criteria for PE - Wells Criteria for Pulmonary Embolism Clinical Signs and Symptoms of DVT: Yes P.E is #1 Diagnosis, or Equally Likely: No Heart Rate >100: No Immobilization at least 3 days;Surgery previous 4 weeks: Yes Previous, objectively diagnosed PE or DVT: No Hemoptysis: No Malignancy w/treatment within 6 months, or palliative: No Total Score: 4.5 <Graciela Chamberlain Last Filed: 06/22/18 16:34> Review of Systems ROS Statement: Except As Marked, All Systems Reviewed And Found Negative Respiratory: Positive for: Shortness of Breath <Graciela Chamberlain Filed: 06/22/18 16:34> Physical Exam - Reviewed Nursing Documentation Reviewed: Yes Vital Signs Reviewed: Yes - Physical Exam Appears: Positive for: Well, Non-toxic, No Acute Distress Head Exam: Positive for: ATRAUMATIC, NORMAL INSPECTION, NORMOCEPHALIC Skin: Positive for: Normal Color, Warm, DRY Eye Exam: Positive for: EOMI, Normal appearance, PERRL ENT: Positive for: Normal ENT Inspection Neck: Positive for: Normal, Painless ROM Cardiovascular/Chest: Positive for: Regular Rate, Rhythm Respiratory: Positive for: CNT, Normal Breath Sounds Gastrointestinal/Abdominal: Positive for: Normal Exam, Soft Back: Positive for: Normal Inspection Extremity: Positive for: Normal ROM Neurologic/Psych: Positive for: Alert, Oriented <Graciela Chamberlain Last Filed: 06/22/18 16:34> - Laboratory Results Result Diagrams: 06/22/18 15:30 06/22/18 15:30 - ECG O2 Sat by Pulse Oximetry: 95 <Graciela Chamberlain Last Filed: 06/22/18 16:34> - Laboratory Results Result Diagrams: 06/23/18 05:00 06/23/18 05:00 - Critical Care Total Time (In Min): 120 <Arlene Santiago - Last Filed: 06/23/18 13:29> Medical Decision Making <Graciela Chamberlain Last Filed: 06/22/18 16:34> <Arlene Santiago - Last Filed: 06/23/18 13:29> Medical Decision Making: EKG interpreted and cleared by ED Rigoberto GARCIA, 91 bpm, no acute ST changes, as read by ED MD Pt placed on monitor tech. IV access established and diagnostics ordered. Case discussed with Ed MD, Dr. Santiago who agrees with treatment plan at this time. 16:00- called to Pts room, SOB increased and Pt appears diaphoretic. P: 104, POX: 88% on 2L NC, BP: 194/127 Dr. Santiago at bedside as well. pt placed on non- rebreather. Respiratory called to bedside for BIPAP Case endorsed to Dr. Santiago to continue critical care measures. (Graciela Chamberlain) PA made me aware of pt shortly after his arrival. Pt stated he was short of breath but PE by myself and PA revealed no crackles/wheeze. Pt then reported feeling worse and was diaphoretic on bedside with crackles. Initial concern for PE based on recent immobilization but on acute worsening, pt could not be laid flat for CT angio. Bedside sonogram showed poor contractility of left ventricle and significant B-lines in both lungs. PT given 2 SL nitroglycerine, placed on Bipap, lasix, and Nitroglycerin drip started. Pt remained stable and tolerated bipap. Pt admitted to the ICU for APE with fluid overload. Repeat CXR showed infiltrates bilaterally and labs showed elevated BNP. Pt was seen by Intensivisit Dr. Boland who agreed with current plan of treatment. (Arlene Santiago) Disposition - Patient ED Disposition Is Patient to be Admitted: Transfer of Care - Disposition Disposition: Transfer of Care Disposition Time: 16:12 <Graciela Chamberlain - Last Filed: 06/22/18 16:34> <Arlene Santiago - Last Filed: 06/23/18 13:29> - Clinical Impression Clinical Impression: Shortness of breath - Disposition Condition: STABLE
[2018-06-22 15:38] LABS: BASO % 0.5 % (0.0-2.0); EOS # 0.1 K/uL (0.0-0.7); EOS % 1.3 % (0.0-4.0); HEMOGLOBIN 15.5 g/dL (12.0-18.0); LYMPH # 0.4 K/uL (1.0-4.3); LYMPH % 5.5 % (20.0-40.0); MEAN CELL VOLUME 90.9 fl (80.0-94.0); MONO # 0.6 K/uL (0.0-0.8); MONO % 8.2 % (0.0-10.0); NEUT # 6.6 K/uL (1.8-7.0); NEUT % 84.5 % (50.0-75.0); NRBC % 0.1 % (0.0-0.0); PLATELET COUNT 159 K/uL (130-400); RBC 5.16 Mil/uL (4.40-5.90); RED CELL DISTRIBUTION WIDTH 17.5 % (11.5-14.5); WHITE BLOOD COUNT 7.8 K/uL (4.8-10.8)
[2018-06-22] MEDS ORDERED: Iodixanol 320 MG/ML 100 ML BOTTLE IV ONE (15:48)
[2018-06-22 15:56] LABS: CALCIUM 8.4 mg/dL (8.4-10.2)
[2018-06-22 16:02] LABS: INR 1.9; PROTHROMBIN TIME 21.5 Seconds (9.8-13.1)
[2018-06-22 16:05] LABS: PARTIAL THROMBOPLASTIN TIME 68.5 Seconds (25.6-37.1)
[2018-06-22] MEDS ORDERED: Metoprolol 1 mg/ml Inj IVP ONE ×2 (16:07→16:37)
[2018-06-22] MEDS ORDERED: Albuterol-Ipratrop 3 mg / 0.5 (3 ml) UD ONE (16:08)
[2018-06-22] MEDS ORDERED: Nitroglycerin 50mg in D5W 50 MG/250 ML BOTTLE IV ONE ×4 (16:11→21:51)
[2018-06-22 16:26] LABS: ABG ALLEN TEST YES; ARTERIAL BLOOD GAS HCO3 24.5 mmol/L (21-28); ARTERIAL BLOOD GAS O2 SAT 99.4 % (95-98); ARTERIAL BLOOD GAS PCO2 78 mm/Hg (35-45); ARTERIAL BLOOD GAS PH 7.19 (7.35-7.45); ARTERIAL BLOOD GAS PO2 343 mm/Hg (80-100); ARTERIAL BLOOD GAS TCO2 32.2 mmol/L (22-28)
[2018-06-22 16:36] LABS: ALB/GLOB RATIO 0.7 (1.0-2.1); ALBUMIN 3.1 g/dL (3.5-5.0); TROPONIN I 0.049 ng/mL (0.00-0.120)
[2018-06-22 16:43] LABS: BASOPHIL 1 % (0-2); EOSINOPHIL 1 % (0-7); LYMPHOCYTE 10 % (20-50); MONOCYTE 2 % (0-10); NEUTROPHIL 85 % (42-75); PLATELET ESTIMATE NORMAL (NORMAL); REACTIVE LYMPHOCYTES 1 % (0-0); TOTAL CELLS COUNTED 100
[2018-06-22 16:44] LABS: ANISOCYTOSIS SLIGHT
--- NOTE | 2018-06-22 17:00 | CP.PCM.CON ---
History of Present Illness - History of Present Illness History of Present Illness: 67 y/o male with Pmx of COPD (active smoker), h/o Congestive systolic and diastolic heart failure presents to [facility] with c/o difficulty breathing. Patient deniew any chest pain, denies any abdominal pain. (+)active smoker, breathign improved on bi-pap. Patient not able to provide any more history whiel on bi-pap Review of Systems - Review of Systems Review of Systems: ROS reviewed and noted to be limited 2nd bi-pap Past Patient History - Tetanus Immunizations Tetanus Immunization: Unknown - Past Medical History & Family History Past Medical History?: Yes - Past Social History Smoking Status: Heavy Smoker > 10 Cigarettes Daily Chewing Tobacco Use: No Cigar Use: Yes Alcohol: None Drugs: Denies - CARDIAC Hx Atrial Fibrillation: Yes Hx Cardia Arrhythmia: Yes Hx Congestive Heart Failure: No Hx Hypercholesterolemia: No Hx Hypertension: Yes Hx Mitral Valve Prolapse: No Hx Pacemaker: No Hx Peripheral Edema: Yes - PULMONARY Hx Asthma: No Hx Bronchitis: No Hx Chronic Obstructive Pulmonary Disease (COPD): No Hx Emphysema: No Hx Pneumonia: No Hx Pulmonary Embolism: No Hx Sleep Apnea: No - NEUROLOGICAL Hx Alzheimer's Disease: No Hx Dementia: No Hx Migraine: No Hx Multiple Sclerosis: No Hx Parkinson's Disease: No Hx Seizures: No Hx Transient Ischemic Attacks (TIA): No - HEENT Hx HEENT Problems: No - RENAL Hx Chronic Kidney Disease: No Hx Kidney Stones: No - ENDOCRINE/METABOLIC Hx Hyperthyroidism: No Hx Hypothyroidism: Yes (pt not sure, was told he has low functioning thyroid, but never followed up) - HEMATOLOGICAL/ONCOLOGICAL Hx Anemia: No Hx Human Immunodeficiency Virus (HIV): No Hx Sickle Cell Disease: No - INTEGUMENTARY Hx Dermatological Problems: Yes - MUSCULOSKELETAL/RHEUMATOLOGICAL Hx Arthritis: No Hx Fractures: No Hx Osteoporosis: No Hx Rheumatoid Arthritis: No - GASTROINTESTINAL Hx Crohn's Disease: No Hx Diverticulitis: No Hx Gall Bladder Disease: No Hx Gastritis: No Hx Pancreatitis: No - GENITOURINARY/GYNECOLOGICAL Hx Sexually Transmitted Disorders: No - PSYCHIATRIC Hx Anxiety: No Hx Bipolar Disorder: No Hx Depression: No Hx Paranoia: No Hx Post Traumatic Stress Disorder: No Hx Schizophrenia: No - SURGICAL HISTORY Hx Appendectomy: No Hx Carotid Endarterectomy: No Hx Cholecystectomy: No Hx Coronary Artery Bypass Graft: No Hx Coronary Stent: No Hx Tonsillectomy: No - ANESTHESIA Hx Anesthesia: No Meds Allergies/Adverse Reactions: Allergies Allergy/AdvReac Type Severity Reaction Status Date / Time No Known Allergies Allergy Verified 06/22/18 14:39 - Medications Medications: Current Medications Nitroglycerin/Dextrose (Nitroglycerin 50 Mg/250 Ml D5w) 50 mg in 250 mls @ 1.5 mls/hr IV .Q24H ONE; 5 MCG/MIN PRN Reason: Protocol Stop: 06/23/18 16:10 Physical Exam - Head Exam Head Exam: ATRAUMATIC, NORMAL INSPECTION, NORMOCEPHALIC - Eye Exam Pupil Exam: PERRL - ENT Exam ENT Exam: Mucous Membranes Moist - Neck Exam Additional comments: (+)JVD - Respiratory Exam Respiratory Exam: Accessory Muscle Use, Decreased Breath Sounds, Rales. absent : Rhonchi, Wheezes - Cardiovascular Exam Cardiovascular Exam: +S1, +S2, Systolic Murmur - GI/Abdominal Exam GI & Abdominal Exam: Normal Bowel Sounds, Soft - Extremities Exam Extremities exam: Positive for: pedal edema - Neurological Exam Neurological exam: Alert, CN II-XII Intact, Oriented x3 Results - Vital Signs Recent Vital Signs: Last Vital Signs Temp 97.8 F 06/22/18 14:39 Pulse 117 H 06/22/18 16:10 Resp 24 06/22/18 14:59 BP 210/132 H 06/22/18 16:10 Pulse Ox 95 06/22/18 16:12 - Labs Result Diagrams: 06/22/18 15:30 06/22/18 15:30 Labs: Laboratory Results - last 24 hr 06/22/18 06/22/18 06/22/18 15:30 15:30 15:30 WBC 7.8 RBC 5.16 Hgb 15.5 Hct 46.9 MCV 90.9 MCH 30.0 MCHC 33.0 RDW 17.5 H Plt Count 159 MPV 9.0 Neut % (Auto) 84.5 H Lymph % (Auto) 5.5 L [place] % (Auto) 8.2 Eos % (Auto) 1.3 Baso % (Auto) 0.5 Neut # (Auto) 6.6 Lymph # (Auto) 0.4 L [place] # (Auto) 0.6 Eos # (Auto) 0.1 Baso # (Auto) 0.0 Neutrophils % (Manual) 85 H Lymphocytes % (Manual) 10 L Reactive Lymphs % 1 H Monocytes % (Manual) 2 Eosinophils % (Manual) 1 Basophils % (Manual) 1 Platelet Estimate Normal Anisocytosis (manual) Slight PT 21.5 H INR 1.9 APTT 68.5 H pCO2 pO2 HCO3 ABG pH ABG Total CO2 ABG O2 Saturation ABG Base Excess Sergo Test ABG Potassium A-a O2 Difference Glucose Lactate Vent Mode Mechanical Rate FiO2 Inspiratory BiPAP Expiratory BiPAP Crit Value Called To Crit Value Called By Crit Value Read Back Blood Gas Notified Time Sodium 137 Potassium 5.4 H Chloride 104 Carbon Dioxide 31 H Anion Gap 7 L BUN 16 Creatinine 1.7 H Est GFR ( Amer) 49 Est GFR (Non-Af Amer) 41 Random Glucose 145 H Calcium 8.4 Magnesium 1.9 Total Bilirubin 1.0 AST 34 ALT 18 L Alkaline Phosphatase 93 Troponin I 0.0490 NT-Pro-B Natriuret Pep 83111 H Total Protein 7.2 Albumin 3.1 L Globulin 4.1 H Albumin/Globulin Ratio 0.7 L Arterial Blood Potassium 06/22/18 16:16 WBC RBC Hgb Hct MCV MCH MCHC RDW Plt Count MPV Neut % (Auto) Lymph % (Auto) [place] % (Auto) Eos % (Auto) Baso % (Auto) Neut # (Auto) Lymph # (Auto) [place] # (Auto) Eos # (Auto) Baso # (Auto) Neutrophils % (Manual) Lymphocytes % (Manual) Reactive Lymphs % Monocytes % (Manual) Eosinophils % (Manual) Basophils % (Manual) Platelet Estimate Anisocytosis (manual) PT INR APTT pCO2 78 H* pO2 343 H HCO3 24.5 ABG pH 7.19 L* ABG Total CO2 32.2 H ABG O2 Saturation 99.4 H ABG Base Excess -0.6 Sergo Test Yes ABG Potassium 4.3 A-a O2 Difference 273.0 Glucose 164 H Lactate 1.2 Vent Mode Bipap Mechanical Rate 14 FiO2 100.0 Inspiratory BiPAP 12 Expiratory BiPAP 5 Crit Value Called To dony Santiago md Crit Value Called By Lena mac Crit Value Read Back Y Blood Gas Notified Time 1625 Sodium 131.0 L Potassium Chloride 104.0 Carbon Dioxide Anion Gap BUN Creatinine Est GFR ( Amer) Est GFR (Non-Af Amer) Random Glucose Calcium Magnesium Total Bilirubin AST ALT Alkaline Phosphatase Troponin I NT-Pro-B Natriuret Pep Total Protein Albumin Globulin Albumin/Globulin Ratio Arterial Blood Potassium 4.3 Assessment & Plan - Assessment and Plan (Free Text) Plan: Acute hypoxic and hypercapneic respiratory failure: likely 2nd smokeing, check utox, avoid medications which depress respiratory drive, continue bronchodilaotrs, solumedorl 40 mg q8hrs and singulair -Acute on chronic systolic and diastolic heart failure with mitral regurgitation and pulmonary HTN: continue negative balance with lasix once and bi-pap to decrease preload and afterload, hold ACEI in light of hyperpotassemia and HECTOR, continue nitro ggt -HTN: use cardioselctive beta tay -COPD exacerabtion/hypercapneic respiratory failure: continue bi--pap, continue bronchodilator snad solumedrol, repeat ABG -Hyperpotassemi/creatinine high: hold ACEI, repeat chemisty, -at risk of CAD/ACS:check trop/ck q8hrs, start asa + statin -keep NPO DVT ppx heprain -PUD ppx pepcid Patient strongly advised to stop smoking and eat a healty life. Patient will benfit from icu level care until acute exacerbation improves. d/w ER and ICU nisreenam cc time 34 minutes - Date & Time Date: 06/22/18 Time: 17:05
[2018-06-22] MEDS ORDERED: Albuterol-Ipratrop 3 mg / 0.5 (3 ml) UD INH PRN (17:08)
[2018-06-22] MEDS ORDERED: methylPREDNISolone 40 MG in Sodium Chloride 0.9% 50 ML IV SCH (17:15)
[2018-06-22] MEDS ORDERED: Magnesium Sulfate 1 GM in Dextrose 5% In Water 100 ML IV ONE (17:15)
[2018-06-22] MEDS ORDERED: Labetalol 5 mg/ml Inj 20ML IVP STA (17:16)
[2018-06-22] MEDS ORDERED: MethylPREDNISolone 40 mg Vial ONE (17:42)
[2018-06-22] MEDS: MethylPREDNISolone 40 mg Vial IVP SCH (17:45)
[2018-06-22 17:49] LABS: URINE BACTERIA RARE (<OCC); URINE BILIRUBIN NEGATIVE (NEGATIVE); URINE BLOOD SMALL (NEGATIVE); URINE CLARITY CLEAR (Clear); URINE COLOR YELLOW (YELLOW); URINE GLUCOSE (UA) NEG (Normal); URINE LEUKOCYTE ESTERASE NEG Leu/uL (Negative); URINE PROTEIN >=500 mg/dL (NEGATIVE); URINE UROBILINOGEN 0.2-1.0 mg/dL (0.2-1.0)
--- NOTE | 2018-06-22 17:58 | CP.PCM.HP ---
History of Present Illness - History of Present Illness History of Present Illness: 67 yo male with history of recent CVA, AFib, HTN, CAD came in because of SOB progressively getting worse since 3 days ago. Denied chest pain but admitted some discomfort around epigastric region when seen in the ER. Patient was discharged last month after he was managed for acute CVA wherein he received TPA. Patient also suffers, as per PCP, from chronic leg edema because venous stasis and is being followed up by podiatry. He has no history of CHF as per his PCP. Present on Admission - Present on Admission Any Indicators Present on Admission: No History of DVT/PE: No History of Uncontrolled Diabetes: No Urinary Catheter: No Decubitus Ulcer Present: No Review of Systems - Review of Systems All systems: reviewed and no additional remarkable complaints except (aside from those mentioned above, 12 point system review were negative by me) Past Patient History - Tetanus Immunizations Tetanus Immunization: Unknown - Past Medical History & Family History Past Medical History?: Yes - Past Social History Smoking Status: Heavy Smoker > 10 Cigarettes Daily Chewing Tobacco Use: No Cigar Use: Yes Alcohol: None Drugs: Denies - CARDIAC Hx Atrial Fibrillation: Yes Hx Cardia Arrhythmia: Yes Hx Congestive Heart Failure: No Hx Hypercholesterolemia: No Hx Hypertension: Yes Hx Mitral Valve Prolapse: No Hx Pacemaker: No Hx Peripheral Edema: Yes (from venous stasis) - PULMONARY Hx Asthma: No Hx Bronchitis: No Hx Chronic Obstructive Pulmonary Disease (COPD): No Hx Emphysema: No Hx Pneumonia: No Hx Pulmonary Embolism: No Hx Sleep Apnea: No - NEUROLOGICAL Hx Alzheimer's Disease: No Hx Dementia: No Hx Migraine: No Hx Multiple Sclerosis: No Hx Parkinson's Disease: No Hx Seizures: No Hx Transient Ischemic Attacks (TIA): No - HEENT Hx HEENT Problems: No - RENAL Hx Chronic Kidney Disease: No Hx Kidney Stones: No - ENDOCRINE/METABOLIC Hx Hyperthyroidism: No Hx Hypothyroidism: Yes (pt not sure, was told he has low functioning thyroid, but never followed up) - HEMATOLOGICAL/ONCOLOGICAL Hx Anemia: No Hx Human Immunodeficiency Virus (HIV): No Hx Sickle Cell Disease: No - INTEGUMENTARY Hx Dermatological Problems: Yes - MUSCULOSKELETAL/RHEUMATOLOGICAL Hx Arthritis: No Hx Fractures: No Hx Osteoporosis: No Hx Rheumatoid Arthritis: No - GASTROINTESTINAL Hx Crohn's Disease: No Hx Diverticulitis: No Hx Gall Bladder Disease: No Hx Gastritis: No Hx Pancreatitis: No - GENITOURINARY/GYNECOLOGICAL Hx Sexually Transmitted Disorders: No - PSYCHIATRIC Hx Anxiety: No Hx Bipolar Disorder: No Hx Depression: No Hx Paranoia: No Hx Post Traumatic Stress Disorder: No Hx Schizophrenia: No - SURGICAL HISTORY Hx Appendectomy: No Hx Carotid Endarterectomy: No Hx Cholecystectomy: No Hx Coronary Artery Bypass Graft: No Hx Coronary Stent: No Hx Tonsillectomy: No - ANESTHESIA Hx Anesthesia: No Meds Allergies/Adverse Reactions: Allergies Allergy/AdvReac Type Severity Reaction Status Date / Time No Known Allergies Allergy Verified 06/22/18 14:39 Physical Exam - Constitutional Appears: No Acute Distress, Chronically Ill - Head Exam Head Exam: ATRAUMATIC - Eye Exam Eye Exam: absent: Scleral icterus - ENT Exam ENT Exam: Mucous Membranes Moist - Neck Exam Neck exam: Negative for: Meningismus - Respiratory Exam Respiratory Exam: Rales (on both bases but more on the lfet). absent: Wheezes, Respiratory Distress - Cardiovascular Exam Cardiovascular Exam: Tachycardia, +S1, +S2 - GI/Abdominal Exam GI & Abdominal Exam: Soft. absent: Tenderness - Rectal Exam Rectal Exam: Deferred - Extremities Exam Extremities exam: Positive for: pedal edema (edema extending up to the thighs with both legs wrapped with socorro bandages) - Neurological Exam Neurological exam: Alert, Oriented x3 - Psychiatric Exam Psychiatric exam: Normal Affect - Skin Skin Exam: Dry, Intact Results - Vital Signs Recent Vital Signs: Last Vital Signs Temp 97.8 F 06/22/18 14:39 Pulse 107 H 06/22/18 16:25 Resp 36 H 06/22/18 16:25 BP 217/155 H 06/22/18 16:25 Pulse Ox 100 06/22/18 16:25 - Labs Result Diagrams: 06/22/18 15:30 06/22/18 15:30 Labs: Laboratory Results - last 24 hr 06/22/18 06/22/18 06/22/18 15:30 15:30 15:30 WBC 7.8 RBC 5.16 Hgb 15.5 Hct 46.9 MCV 90.9 MCH 30.0 MCHC 33.0 RDW 17.5 H Plt Count 159 MPV 9.0 Neut % (Auto) 84.5 H Lymph % (Auto) 5.5 L [place] % (Auto) 8.2 Eos % (Auto) 1.3 Baso % (Auto) 0.5 Neut # (Auto) 6.6 Lymph # (Auto) 0.4 L [place] # (Auto) 0.6 Eos # (Auto) 0.1 Baso # (Auto) 0.0 Neutrophils % (Manual) 85 H Lymphocytes % (Manual) 10 L Reactive Lymphs % 1 H Monocytes % (Manual) 2 Eosinophils % (Manual) 1 Basophils % (Manual) 1 Platelet Estimate Normal Anisocytosis (manual) Slight PT 21.5 H INR 1.9 APTT 68.5 H pCO2 pO2 HCO3 ABG pH ABG Total CO2 ABG O2 Saturation ABG Base Excess Sergo Test ABG Potassium A-a O2 Difference Glucose Lactate Vent Mode Mechanical Rate FiO2 Inspiratory BiPAP Expiratory BiPAP Crit Value Called To Crit Value Called By Crit Value Read Back Blood Gas Notified Time Sodium 137 Potassium 5.4 H Chloride 104 Carbon Dioxide 31 H Anion Gap 7 L BUN 16 Creatinine 1.7 H Est GFR ( Amer) 49 Est GFR (Non-Af Amer) 41 Random Glucose 145 H Calcium 8.4 Magnesium 1.9 Total Bilirubin 1.0 AST 34 ALT 18 L Alkaline Phosphatase 93 Troponin I 0.0490 NT-Pro-B Natriuret Pep 33397 H Total Protein 7.2 Albumin 3.1 L Globulin 4.1 H Albumin/Globulin Ratio 0.7 L Arterial Blood Potassium 06/22/18 16:16 WBC RBC Hgb Hct MCV MCH MCHC RDW Plt Count MPV Neut % (Auto) Lymph % (Auto) [place] % (Auto) Eos % (Auto) Baso % (Auto) Neut # (Auto) Lymph # (Auto) [place] # (Auto) Eos # (Auto) Baso # (Auto) Neutrophils % (Manual) Lymphocytes % (Manual) Reactive Lymphs % Monocytes % (Manual) Eosinophils % (Manual) Basophils % (Manual) Platelet Estimate Anisocytosis (manual) PT INR APTT pCO2 78 H* pO2 343 H HCO3 24.5 ABG pH 7.19 L* ABG Total CO2 32.2 H ABG O2 Saturation 99.4 H ABG Base Excess -0.6 Sergo Test Yes ABG Potassium 4.3 A-a O2 Difference 273.0 Glucose 164 H Lactate 1.2 Vent Mode Bipap Mechanical Rate 14 FiO2 100.0 Inspiratory BiPAP 12 Expiratory BiPAP 5 Crit Value Called To dony Santiago md Crit Value Called By Lena mac Crit Value Read Back Y Blood Gas Notified Time 1625 Sodium 131.0 L Potassium Chloride 104.0 Carbon Dioxide Anion Gap BUN Creatinine Est GFR ( Amer) Est GFR (Non-Af Amer) Random Glucose Calcium Magnesium Total Bilirubin AST ALT Alkaline Phosphatase Troponin I NT-Pro-B Natriuret Pep Total Protein Albumin Globulin Albumin/Globulin Ratio Arterial Blood Potassium 4.3 Assessment & Plan - Assessment and Plan (Free Text) Assessment: 67 yo male with history of recent CVA, AFib, HTN, CAD came in because of SOB progressively getting worse since 3 days ago. Denied chest pain but admitted some discomfort around epigastric region when seen in the ER. 1. Acute CHF probably secondary to uncontrolled HTN causing increased ventricular afterload continue NTG drip at 5mcg/min Lasix 40mg IV q 12hrs received Labetalol 20mg IV Metoprolol 50mg PO q 12hrs Losartan 100mg PO daily serial Troponin q 8hrs x 3 ECHO cardiology consult with Dr Crespo 2. HTN uncontrolled went down to 160/90 after receiving IVP of 20mg Labetalol continue Metoprolol 50mg PO q 12hrs Losartan 100mg PO daily 3. Paroxysmal AFIB rate controlled continue Metoprolo and Eliquis 4. Severe Venous Stasis/Lymphedema Dr Mullen, prescription clerk, following up patient 5. DVT proph patient on Eliquis
[2018-06-22] MEDS ORDERED: Sod Polystyrene Sulf 15 gm/60 ml Susp PO ONE (18:03)
[2018-06-22 18:07] LABS: TROPONIN I 0.063 ng/mL (0.00-0.120)
[2018-06-22 18:11] LABS: BARBITURATES, UR NEGATIVE (NEGATIVE); BENZODIAZEPINES, UR NEGATIVE (NEGATIVE); OPIATES, UR NEGATIVE (NEGATIVE); PHENCYCLIDINE, UR NEGATIVE (NEGATIVE)
[2018-06-22] MEDS ORDERED: Nitroglycerin 2% Ointment Foilpak UD TOP SCH (22:00)
[2018-06-23] MEDS: MethylPREDNISolone 40 mg Vial IVP SCH ×3 (02:00→17:07)
[2018-06-23 06:19] LABS: ABG ALLEN TEST YES; ARTERIAL BLOOD GAS HCO3 29.3 mmol/L (21-28); ARTERIAL BLOOD GAS HEMOGLOBIN 15.7 g/dL (11.7-17.4); ARTERIAL BLOOD GAS O2 CAPACITY 20.6 mL/dL (16-24); ARTERIAL BLOOD GAS O2 CONTENT 20.2 ML/dL (15-23); ARTERIAL BLOOD GAS PCO2 39 mm/Hg (35-45); ARTERIAL BLOOD GAS PH 7.49 (7.35-7.45); ARTERIAL BLOOD GAS PO2 76 mm/Hg (80-100); ARTERIAL BLOOD GAS TCO2 30.9 mmol/L (22-28)
[2018-06-23] MEDS: Levothyroxine 50 MCG TAB PO SCH (06:50)
[2018-06-23 06:57] LABS: BASO % 0.2 % (0.0-2.0); HEMOGLOBIN 15.3 g/dL (12.0-18.0); LYMPH # 0.2 K/uL (1.0-4.3); LYMPH % 3.6 % (20.0-40.0); MEAN CELL VOLUME 89.7 fl (80.0-94.0); MEAN CORPUSCULAR HGB CONC 33.4 g/dL (33.0-37.0); MEAN PLATELET VOLUME 9.4 fl (7.2-11.7); MONO # 0.2 K/uL (0.0-0.8); MONO % 2.8 % (0.0-10.0); NEUT # 6.2 K/uL (1.8-7.0); NEUT % 93.4 % (50.0-75.0); PLATELET COUNT 194 K/uL (130-400); RBC 5.09 Mil/uL (4.40-5.90); RED CELL DISTRIBUTION WIDTH 17.5 % (11.5-14.5); WHITE BLOOD COUNT 6.6 K/uL (4.8-10.8)
[2018-06-23 07:13] LABS: CALCIUM 8.2 mg/dL (8.4-10.2)
[2018-06-23] MEDS ORDERED: Metoprolol Succinate 25 mg XL Tab PO SCH (09:00)
--- NOTE | 2018-06-23 09:07 | RAD ---
Date of service: 06/22/2018 PROCEDURE: CHEST RADIOGRAPH, 1 VIEW HISTORY: repeat COMPARISON: None available. FINDINGS: LUNGS: Bilateral interstitial infiltrates with consolidation at the bases PLEURA: Bilateral pleural effusions. CARDIOVASCULAR: Cardiomegaly. OSSEOUS STRUCTURES: No significant abnormalities. VISUALIZED UPPER ABDOMEN: Normal. OTHER FINDINGS: None. IMPRESSION: Findings compatible with CHF. Pneumonia not excluded.
--- NOTE | 2018-06-23 09:20 | RAD ---
Date of service: 06/22/2018 PROCEDURE: CHEST RADIOGRAPH, 1 VIEW HISTORY: SOB COMPARISON: None available. FINDINGS: LUNGS: Bilateral interstitial changes with a right lower lobe infiltrate. PLEURA: No pneumothorax or pleural fluid seen. CARDIOVASCULAR: Normal. OSSEOUS STRUCTURES: No significant abnormalities. VISUALIZED UPPER ABDOMEN: Normal. OTHER FINDINGS: None. IMPRESSION: Bilateral interstitial changes with a right lower lobe infiltrate.
--- NOTE | 2018-06-23 09:26 | CP.PCM.PN ---
<Christy Viera - Last Filed: 06/23/18 13:00> Subjective - Date & Time of Evaluation Date of Evaluation: 06/23/18 Time of Evaluation: 09:26 - Subjective Subjective: Patient seen bedside in ICU with Dr. Odonnell. Patient is hemodynamically stable, lying comfortably in bed and reports significant improvement in breathing and epigastric pain. No significant events overnight. He denies dizziness, nausea, and chest pain. Patient to be transferred to telemetry. Objective - Vital Signs/Intake and Output Vital Signs (last 24 hours): Temp Pulse Resp BP Pulse Ox 97.8 F 81 17 150/86 99 06/23/18 08:00 06/23/18 08:00 06/23/18 08:00 06/23/18 08:00 06/23/18 08:00 Intake and Output: 06/23/18 06/23/18 06:59 18:59 Intake Total 120 Output Total 1600 Balance -1480 - Medications Medications: Current Medications Albuterol/Ipratropium (Duoneb 3 Mg/0.5 Mg (3 Ml) Ud) 3 ml INH RQ6 PRN PRN Reason: Shortness of Breath Amlodipine Besylate (Norvasc) 10 mg PO DAILY@0900 [facility] Apixaban (Eliquis) 5 mg PO BID LUIS ANTONIO PRN Reason: Protocol Last Admin: 06/22/18 21:17 Dose: 5 mg Aspirin (Ecotrin) 81 mg PO DAILY [facility] Atorvastatin Calcium (Lipitor) 40 mg PO DAILY [facility] Atorvastatin Calcium (Lipitor) 10 mg PO DIN [facility] Docusate Sodium (Colace) 100 mg PO BID PRN PRN Reason: Constipation Furosemide (Lasix) 40 mg IV Q12 [facility] Last Admin: 06/22/18 21:18 Dose: 40 mg Hydralazine HCl (Apresoline) 10 mg IV Q6 PRN PRN Reason: Other Last Admin: 06/23/18 04:43 Dose: 10 mg Isosorbide Mononitrate (Imdur Er) 30 mg PO DAILY [facility] Levothyroxine Sodium (Synthroid) 50 mcg PO DAILY@0630 [facility] Last Admin: 06/23/18 06:50 Dose: 50 mcg Losartan Potassium (Cozaar) 100 mg PO DAILY [facility] Methylprednisolone (Solu-Medrol) 40 mg IVP Q8H [facility] Last Admin: 06/23/18 02:00 Dose: 40 mg Metoprolol Tartrate (Lopressor) 50 mg PO Q12 [facility] Last Admin: 06/22/18 21:24 Dose: 50 mg Montelukast Sodium (Singulair) 10 mg PO HS [facility] Last Admin: 06/22/18 21:25 Dose: 10 mg Nicotine (Nicoderm Cq) 1 patch TD DAILY [facility] Pantoprazole Sodium (Protonix Inj) 40 mg IVP DAILY [facility] - Labs Labs: 06/23/18 05:00 06/23/18 05:00 PT 21.5 Seconds (9.8-13.1) H 06/22/18 15:30 INR 1.9 06/22/18 15:30 APTT 68.5 Seconds (25.6-37.1) H 06/22/18 15:30 - Constitutional Appears: Well, No Acute Distress - Head Exam Head Exam: ATRAUMATIC - ENT Exam ENT Exam: Normal Exam - Neck Exam Neck Exam: Normal Inspection - Respiratory Exam Respiratory Exam: Clear to Ausculation Bilateral, NORMAL BREATHING PATTERN - Cardiovascular Exam Cardiovascular Exam: REGULAR RHYTHM - GI/Abdominal Exam GI & Abdominal Exam: Soft. absent: Tenderness - Psychiatric Exam Psychiatric exam: Normal Affect, Normal Mood - Skin Skin Exam: Dry, Normal Color Assessment and Plan - Assessment and Plan (Free Text) Assessment: 67 yo male with history of recent CVA, AFib, HTN, CAD came in because of SOB progressively getting worse since 3 days ago. Denied chest pain but admitted some discomfort around epigastric region when seen in the ER. 06/23: Blood pressure stabilized and patient transferred to telemetry. 1. Acute CHF Likely secondary to uncontrolled HTN causing increased ventricular afterload Discontinue NTG drip at 5mcg/min Switched to PO Lasix 40mg daily Received Labetalol 20mg IV (06/22) Metoprolol 50mg PO Q12 Losartan 100mg PO daily Serial Troponin q 8hrs x 3 (06/23 4am 0.1140; 06/23 12pm 0.0820) ECHO Cardiology consult with Dr Crespo Transferred to telemetry 2. HTN Controlled Continue Metoprolol 50mg PO Q12 Losartan 100mg PO daily 3. Paroxysmal AFib Rate controlled Continue Metoprolol and Eliquis 4. Severe Venous Stasis/Lymphedema Dr Mullen (podiatry) following patient 5. DVT proph Eliquis <Genny Odonnell - Last Filed: 06/23/18 13:23> Objective - Vital Signs/Intake and Output Vital Signs (last 24 hours): Temp Pulse Resp BP Pulse Ox 98.1 F 78 17 135/71 99 06/23/18 12:00 06/23/18 10:40 06/23/18 08:00 06/23/18 10:40 06/23/18 08:00 Intake and Output: 06/23/18 06/23/18 06:59 18:59 Intake Total 120 Output Total 1600 Balance -1480 - Medications Medications: Current Medications Albuterol/Ipratropium (Duoneb 3 Mg/0.5 Mg (3 Ml) Ud) 3 ml INH RQ6 PRN PRN Reason: Shortness of Breath Last Admin: 06/23/18 11:25 Dose: 3 ml Albuterol/Ipratropium (Duoneb 3 Mg/0.5 Mg (3 Ml) Ud) 3 ml INH RQ6 LUIS ANTONIO Amlodipine Besylate (Norvasc) 10 mg PO DAILY@0900 [facility] Last Admin: 06/23/18 10:39 Dose: 10 mg Apixaban (Eliquis) 5 mg PO BID LUIS ANTONIO PRN Reason: Protocol Last Admin: 06/23/18 10:33 Dose: 5 mg Aspirin (Ecotrin) 81 mg PO DAILY [facility] Last Admin: 06/23/18 10:39 Dose: 81 mg Atorvastatin Calcium (Lipitor) 40 mg PO DAILY [facility] Last Admin: 06/23/18 10:41 Dose: 40 mg Atorvastatin Calcium (Lipitor) 10 mg PO DIN [facility] Docusate Sodium (Colace) 100 mg PO BID PRN PRN Reason: Constipation Furosemide (Lasix) 40 mg IV Q12 [facility] Last Admin: 06/23/18 10:31 Dose: 40 mg Hydralazine HCl (Apresoline) 10 mg IV Q6 PRN PRN Reason: Other Last Admin: 06/23/18 04:43 Dose: 10 mg Isosorbide Mononitrate (Imdur Er) 30 mg PO DAILY [facility] Levothyroxine Sodium (Synthroid) 50 mcg PO DAILY@0630 [facility] Last Admin: 06/23/18 06:50 Dose: 50 mcg Methylprednisolone (Solu-Medrol) 40 mg IVP Q8H [facility] Last Admin: 06/23/18 10:35 Dose: 40 mg Metoprolol Tartrate (Lopressor) 50 mg PO Q12 [facility] Last Admin: 06/23/18 10:40 Dose: 50 mg Montelukast Sodium (Singulair) 10 mg PO HS [facility] Last Admin: 06/22/18 21:25 Dose: 10 mg Nicotine (Nicoderm Cq) 1 patch TD DAILY [facility] Last Admin: 06/23/18 10:38 Dose: 1 patch Pantoprazole Sodium (Protonix Inj) 40 mg IVP DAILY [facility] Last Admin: 06/23/18 10:36 Dose: 40 mg - Labs Labs: 06/23/18 05:00 06/23/18 05:00 PT 21.5 Seconds (9.8-13.1) H 06/22/18 15:30 INR 1.9 06/22/18 15:30 APTT 68.5 Seconds (25.6-37.1) H 06/22/18 15:30 Attending/Attestation - Attestation I have personally seen and examined this patient.: Yes I have fully participated in the care of the patient.: Yes I have reviewed all pertinent clinical information, including history, physical exam and plan: Yes Notes (Text): 06/23/18 13:23 Seen examined and discussed with resident, agree with findings and plan as above.
[2018-06-23 10:42] LABS: ANISOCYTOSIS SLIGHT; LYMPHOCYTE 2 % (20-50); MONOCYTE 3 % (0-10); NEUTROPHIL 95 % (42-75); PLATELET ESTIMATE NORMAL (NORMAL); TOTAL CELLS COUNTED 100
[2018-06-23 10:44] LABS: LARGE PLATELETS PRESENT; OVALOCYTES SLIGHT; SCHISTOCYTES SLIGHT
--- NOTE | 2018-06-23 10:50 | CP.PCM.PN ---
Subjective - Date & Time of Evaluation Date of Evaluation: 06/23/18 Time of Evaluation: 10:47 - Subjective Subjective: PAtient feeling better. on room, eating oral diet Objective - Vital Signs/Intake and Output Vital Signs (last 24 hours): Temp Pulse Resp BP Pulse Ox 97.8 F 78 17 135/71 99 06/23/18 08:00 06/23/18 10:40 06/23/18 08:00 06/23/18 10:40 06/23/18 08:00 Intake and Output: 06/23/18 06/23/18 06:59 18:59 Intake Total 120 Output Total 1600 Balance -1480 - Medications Medications: Current Medications Albuterol/Ipratropium (Duoneb 3 Mg/0.5 Mg (3 Ml) Ud) 3 ml INH RQ6 PRN PRN Reason: Shortness of Breath Amlodipine Besylate (Norvasc) 10 mg PO DAILY@0900 [facility] Last Admin: 06/23/18 10:39 Dose: 10 mg Apixaban (Eliquis) 5 mg PO BID [facility] PRN Reason: Protocol Last Admin: 06/23/18 10:33 Dose: 5 mg Aspirin (Ecotrin) 81 mg PO DAILY [facility] Last Admin: 06/23/18 10:39 Dose: 81 mg Atorvastatin Calcium (Lipitor) 40 mg PO DAILY [facility] Last Admin: 06/23/18 10:41 Dose: 40 mg Atorvastatin Calcium (Lipitor) 10 mg PO DIN [facility] Docusate Sodium (Colace) 100 mg PO BID PRN PRN Reason: Constipation Furosemide (Lasix) 40 mg IV Q12 [facility] Last Admin: 06/23/18 10:31 Dose: 40 mg Hydralazine HCl (Apresoline) 10 mg IV Q6 PRN PRN Reason: Other Last Admin: 06/23/18 04:43 Dose: 10 mg Isosorbide Mononitrate (Imdur Er) 30 mg PO DAILY [facility] Levothyroxine Sodium (Synthroid) 50 mcg PO DAILY@0630 [facility] Last Admin: 06/23/18 06:50 Dose: 50 mcg Methylprednisolone (Solu-Medrol) 40 mg IVP Q8H [facility] Last Admin: 06/23/18 10:35 Dose: 40 mg Metoprolol Tartrate (Lopressor) 50 mg PO Q12 [facility] Last Admin: 06/23/18 10:40 Dose: 50 mg Montelukast Sodium (Singulair) 10 mg PO HS [facility] Last Admin: 06/22/18 21:25 Dose: 10 mg Nicotine (Nicoderm Cq) 1 patch TD DAILY [facility] Last Admin: 06/23/18 10:38 Dose: 1 patch Pantoprazole Sodium (Protonix Inj) 40 mg IVP DAILY [facility] Last Admin: 06/23/18 10:36 Dose: 40 mg - Labs Labs: 06/23/18 05:00 06/23/18 05:00 PT 21.5 Seconds (9.8-13.1) H 06/22/18 15:30 INR 1.9 06/22/18 15:30 APTT 68.5 Seconds (25.6-37.1) H 06/22/18 15:30 - Head Exam Head Exam: NORMAL INSPECTION, NORMOCEPHALIC - Eye Exam Pupil Exam: NORMAL ACCOMODATION - ENT Exam ENT Exam: Normal Exam - Respiratory Exam Respiratory Exam: Clear to Ausculation Bilateral, NORMAL BREATHING PATTERN. absent: Rales, Wheezes - Cardiovascular Exam Cardiovascular Exam: +S1, +S2, Murmur - GI/Abdominal Exam GI & Abdominal Exam: Soft, Normal Bowel Sounds - Extremities Exam Extremities Exam: Normal Capillary Refill, Pedal Edema - Neurological Exam Neurological Exam: Alert, Awake, CN II-XII Intact, Oriented x3 Assessment and Plan - Assessment and Plan (Free Text) Assessment: Acute hypoxic and hypercapneic respiratory failure: resovled, continue bronchodilaotrs, solumedorl 40 mg q8hrs and singulair -Acute on chronic systolic and diastolic heart failure with mitral regurgitation and pulmonary HTN: continue negative balance with lasix once and bi-pap to decrease preload and afterload, hold ACEI in light of hyperpotassemia and HECTOR, CAD/-HTN: use asa, cardioselctive beta tay + CCB + nitro oral, titrate off nitro ggt -COPD exacerabtion/hypercapneic respiratory failure: continue bi--pap PRN, continue bronchodilator and solumedrol -HECTOR: hold ACEi avoid nephrotoxic drugs, nephrology eval -at risk of CAD/ACS:continue asa + statin, AV teresa tay, lifestyle change -tolerating oral diet -continue DVT ppx/PUD ppx Patient remains hemodynamically stable to be transferred to telemetry
--- NOTE | 2018-06-23 12:21 | CP.PCM.PN ---
Subjective - Date & Time of Evaluation Date of Evaluation: 06/23/18 Time of Evaluation: 12:18 - Subjective Subjective: Podiatry Progress Note for Dr. Mullen 67 yo male patient with PMHx of CHF, CVA, A-Fib, and HTN, was seen and evaluated for bilateral lower extremity lymphedema. Patient sees Dr. Mullen weekly in his wound care center where he treats his bilateral lymphedema. Patient states that his legs have reduced in size tremendously since the start of his first UNNA boot treatment. Patient denies any pain to his b/l extremities. Denies any other pedal complaints at this time. Patient denies N/V /F/CP. PMHx: CHF, CVA, A-Fib, and HTN All: NKDA Objective - Vital Signs/Intake and Output Vital Signs (last 24 hours): Temp Pulse Resp BP Pulse Ox 97.8 F 78 17 135/71 99 06/23/18 08:00 06/23/18 10:40 06/23/18 08:00 06/23/18 10:40 06/23/18 08:00 Intake and Output: 06/23/18 06/23/18 06:59 18:59 Intake Total 120 Output Total 1600 Balance -1480 - Medications Medications: Current Medications Albuterol/Ipratropium (Duoneb 3 Mg/0.5 Mg (3 Ml) Ud) 3 ml INH RQ6 PRN PRN Reason: Shortness of Breath Last Admin: 06/23/18 11:25 Dose: 3 ml Albuterol/Ipratropium (Duoneb 3 Mg/0.5 Mg (3 Ml) Ud) 3 ml INH RQ6 [facility] Amlodipine Besylate (Norvasc) 10 mg PO DAILY@0900 [facility] Last Admin: 06/23/18 10:39 Dose: 10 mg Apixaban (Eliquis) 5 mg PO BID [facility] PRN Reason: Protocol Last Admin: 06/23/18 10:33 Dose: 5 mg Aspirin (Ecotrin) 81 mg PO DAILY [facility] Last Admin: 06/23/18 10:39 Dose: 81 mg Atorvastatin Calcium (Lipitor) 40 mg PO DAILY [facility] Last Admin: 06/23/18 10:41 Dose: 40 mg Atorvastatin Calcium (Lipitor) 10 mg PO DIN [facility] Docusate Sodium (Colace) 100 mg PO BID PRN PRN Reason: Constipation Furosemide (Lasix) 40 mg IV Q12 [facility] Last Admin: 06/23/18 10:31 Dose: 40 mg Hydralazine HCl (Apresoline) 10 mg IV Q6 PRN PRN Reason: Other Last Admin: 06/23/18 04:43 Dose: 10 mg Isosorbide Mononitrate (Imdur Er) 30 mg PO DAILY [facility] Levothyroxine Sodium (Synthroid) 50 mcg PO DAILY@0630 [facility] Last Admin: 06/23/18 06:50 Dose: 50 mcg Methylprednisolone (Solu-Medrol) 40 mg IVP Q8H [facility] Last Admin: 06/23/18 10:35 Dose: 40 mg Metoprolol Tartrate (Lopressor) 50 mg PO Q12 [facility] Last Admin: 06/23/18 10:40 Dose: 50 mg Montelukast Sodium (Singulair) 10 mg PO HS [facility] Last Admin: 06/22/18 21:25 Dose: 10 mg Nicotine (Nicoderm Cq) 1 patch TD DAILY [facility] Last Admin: 06/23/18 10:38 Dose: 1 patch Pantoprazole Sodium (Protonix Inj) 40 mg IVP DAILY [facility] Last Admin: 06/23/18 10:36 Dose: 40 mg - Labs Labs: 06/23/18 05:00 06/23/18 05:00 PT 21.5 Seconds (9.8-13.1) H 06/22/18 15:30 INR 1.9 06/22/18 15:30 APTT 68.5 Seconds (25.6-37.1) H 06/22/18 15:30 - Constitutional Appears: Well, Non-toxic, No Acute Distress - Head Exam Head Exam: ATRAUMATIC, NORMOCEPHALIC - Extremities Exam Additional comments: UNNA boots left intact to B/L lower extremities Vascular: CFT <3 seconds to all 10 digits Ortho: Patient able to move toes Neuro: Gross and protective sensation intact Derm: unable to assess due to UNNA boot - Neurological Exam Neurological Exam: Alert, Awake, Oriented x3 - Psychiatric Exam Psychiatric exam: Normal Affect, Normal Mood Assessment and Plan - Assessment and Plan (Free Text) Assessment: 67 yo male patient with PMHx of CHF, CVA, A-Fib, and HTN, was seen and evaluated for bilateral lower extremity lymphedema. Plan: Patient seen and evaluated with all questions and concerns addressed Plan discussed in detail with Dr. Mullen Bilateral UNNA boots to be left intact UNNA boots will changed on Sunday Podiatry will continue to follow while in house Thank you for the consult and allowing us to partake in the care of this patient.
--- NOTE | 2018-06-23 14:43 | CP.PCM.CON ---
History of Present Illness - History of Present Illness History of Present Illness: THE PATIENT IS A 67 YEAR OLD MALE WITH A HISTORY OF HYPERTENSION, CHRONIC ATRIAL FIBRILLATION, RENAL INSUFFICIENCY, CHRONIC LE STASIS DERMATITIS AND HYPOTHYROIDISM. 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 HE NOW STATES THAT HE WAS WATCHING TV YESTERDAY AFTERNOON AND WAS STARTING TO FEEL SOB SO HE CALLED AN AMBULANCE AND WAS BROUGHT TO THE ER HERE AT [facility]. HIS BLOOD PRESSURE WAS ELEVATED AND HE WAS FOUND TO HAVE CHF WITH RALES, BY CXR AND AN ELEVATED PROBNP. HE WAS GIVEN IV FUROSEMIDE, IV NTG, IV HYDRALAZINE, AMLODIPINE AND METOPROLOL AND HE FELT BETTER QUICKLY AND FEELS MUCH BETTER THIS MORNING. HE ALSO HAD A K+ OF 5.4 THAT IMPROVED AFTER KAYEXALATE. HE DID NOT HAVE ANY CHEST PAIN. IT SHOULD BE NOTED THAT THE PATIENT DOES NOT HAVE ANY DOCUMENTED CAD HISTORY. I WAS CALLED TO SEE HIM. Past Patient History - Tetanus Immunizations Tetanus Immunization: Unknown - Past Medical History & Family History Past Medical History?: Yes - Past Social History Smoking Status: Heavy Smoker > 10 Cigarettes Daily - CARDIAC Hx Cardiac Disorders: Yes Hx Atrial Fibrillation: Yes Hx Cardia Arrhythmia: Yes Hx Congestive Heart Failure: No Hx Hypercholesterolemia: No Hx Hypertension: Yes Hx Mitral Valve Prolapse: No Hx Pacemaker: No Hx Peripheral Edema: Yes (from venous stasis) - PULMONARY Hx Respiratory Disorders: No Hx Asthma: No Hx Bronchitis: No Hx Chronic Obstructive Pulmonary Disease (COPD): No Hx Emphysema: No Hx Pneumonia: No Hx Pulmonary Embolism: No Hx Sleep Apnea: No - NEUROLOGICAL Hx Neurological Disorder: No Hx Alzheimer's Disease: No Hx Dementia: No Hx Migraine: No Hx Multiple Sclerosis: No Hx Parkinson's Disease: No Hx Seizures: No Hx Transient Ischemic Attacks (TIA): No - HEENT Hx HEENT Problems: Yes Other/Comment: wears glasses - RENAL Hx Chronic Kidney Disease: No Hx Kidney Stones: No - ENDOCRINE/METABOLIC Hx Endocrine Disorders: Yes Hx Hyperthyroidism: No Hx Hypothyroidism: Yes (pt not sure, was told he has low functioning thyroid, but never followed up) - HEMATOLOGICAL/ONCOLOGICAL Hx Blood Disorders: No Hx Anemia: No Hx Human Immunodeficiency Virus (HIV): No Hx Sickle Cell Disease: No - INTEGUMENTARY Hx Dermatological Problems: Yes Other/Comment: unsure of skin condition on bilateral legs, but seeks outpatient treatment for it - MUSCULOSKELETAL/RHEUMATOLOGICAL Hx Musculoskeletal Disorders: No Hx Arthritis: No Hx Falls: No Hx Fractures: No Hx Osteoporosis: No Hx Rheumatoid Arthritis: No - GASTROINTESTINAL Hx Gastrointestinal Disorders: No Hx Crohn's Disease: No Hx Diverticulitis: No Hx Gall Bladder Disease: No Hx Gastritis: No Hx Pancreatitis: No - GENITOURINARY/GYNECOLOGICAL Hx Genitourinary Disorders: No Hx Sexually Transmitted Disorders: No - PSYCHIATRIC Hx Psychophysiologic Disorder: No Hx Anxiety: No Hx Bipolar Disorder: No Hx Depression: No Hx Paranoia: No Hx Post Traumatic Stress Disorder: No Hx Schizophrenia: No - SURGICAL HISTORY Hx Surgeries: No Hx Appendectomy: No Hx Carotid Endarterectomy: No Hx Cholecystectomy: No Hx Coronary Artery Bypass Graft: No Hx Coronary Stent: No Hx Tonsillectomy: No - ANESTHESIA Hx Anesthesia: No Meds Allergies/Adverse Reactions: Allergies Allergy/AdvReac Type Severity Reaction Status Date / Time No Known Allergies Allergy Verified 06/22/18 14:39 - Medications Medications: Current Medications Albuterol/Ipratropium (Duoneb 3 Mg/0.5 Mg (3 Ml) Ud) 3 ml INH RQ6 PRN PRN Reason: Shortness of Breath Last Admin: 06/23/18 11:25 Dose: 3 ml Albuterol/Ipratropium (Duoneb 3 Mg/0.5 Mg (3 Ml) Ud) 3 ml INH RQ6 [facility] Amlodipine Besylate (Norvasc) 10 mg PO DAILY@0900 [facility] Last Admin: 06/23/18 10:39 Dose: 10 mg Apixaban (Eliquis) 5 mg PO BID [facility] PRN Reason: Protocol Last Admin: 06/23/18 10:33 Dose: 5 mg Aspirin (Ecotrin) 81 mg PO DAILY [facility] Last Admin: 06/23/18 10:39 Dose: 81 mg Atorvastatin Calcium (Lipitor) 40 mg PO DAILY [facility] Last Admin: 06/23/18 10:41 Dose: 40 mg Atorvastatin Calcium (Lipitor) 10 mg PO DIN [facility] Docusate Sodium (Colace) 100 mg PO BID PRN PRN Reason: Constipation Furosemide (Lasix) 40 mg IV Q12 [facility] Last Admin: 06/23/18 10:31 Dose: 40 mg Furosemide (Lasix) 40 mg PO DAILY [facility] Hydralazine HCl (Apresoline) 10 mg IV Q6 PRN PRN Reason: Other Last Admin: 06/23/18 04:43 Dose: 10 mg Isosorbide Mononitrate (Imdur Er) 30 mg PO DAILY [facility] Last Admin: 06/23/18 14:31 Dose: 30 mg Levothyroxine Sodium (Synthroid) 50 mcg PO DAILY@0630 [facility] Last Admin: 06/23/18 06:50 Dose: 50 mcg Methylprednisolone (Solu-Medrol) 40 mg IVP Q8H [facility] Last Admin: 06/23/18 10:35 Dose: 40 mg Metoprolol Tartrate (Lopressor) 50 mg PO Q12 [facility] Last Admin: 06/23/18 10:40 Dose: 50 mg Montelukast Sodium (Singulair) 10 mg PO HS [facility] Last Admin: 06/22/18 21:25 Dose: 10 mg Nicotine (Nicoderm Cq) 1 patch TD DAILY [facility] Last Admin: 06/23/18 10:38 Dose: 1 patch Pantoprazole Sodium (Protonix Inj) 40 mg IVP DAILY [facility] Last Admin: 06/23/18 10:36 Dose: 40 mg Physical Exam - Respiratory Exam Respiratory Exam: Decreased Breath Sounds Additional comments: NO RALES HEARD BY ME TODAY - Cardiovascular Exam Cardiovascular Exam: REGULAR RHYTHM, +S1, +S2 - Extremities Exam Additional comments: WRAPPED AND WITH CHRONIC EDEMA - Additional Findings Additional findings: EKG ATRIAL FIBRILLATION, 2 SINGLE PVCS CXR READ PULMONARY CONGESTION TROPONINS NORMAL PROBNP ELEVATED K+ 5.4 YESTERDAY-3.9 TODAY AFTER KAYEXALATE CR 1.9 ECHO 05/20/18 WITH LVEF OF 40-45% UO 1600 CC Results - Vital Signs Recent Vital Signs: Last Vital Signs Temp 98.1 F 06/23/18 12:00 Pulse 78 06/23/18 10:40 Resp 17 06/23/18 08:00 BP 135/71 06/23/18 10:40 Pulse Ox 99 06/23/18 08:00 - Labs Result Diagrams: 06/23/18 05:00 06/23/18 05:00 Labs: Laboratory Results - last 24 hr 06/22/18 06/22/18 06/22/18 15:30 15:30 15:30 WBC 7.8 RBC 5.16 Hgb 15.5 Hct 46.9 MCV 90.9 MCH 30.0 MCHC 33.0 RDW 17.5 H Plt Count 159 MPV 9.0 Neut % (Auto) 84.5 H Lymph % (Auto) 5.5 L [place] % (Auto) 8.2 Eos % (Auto) 1.3 Baso % (Auto) 0.5 Neut # (Auto) 6.6 Lymph # (Auto) 0.4 L [place] # (Auto) 0.6 Eos # (Auto) 0.1 Baso # (Auto) 0.0 Neutrophils % (Manual) 85 H Lymphocytes % (Manual) 10 L Reactive Lymphs % 1 H Monocytes % (Manual) 2 Eosinophils % (Manual) 1 Basophils % (Manual) 1 Platelet Estimate Normal Large Platelets Anisocytosis (manual) Slight Ovalocytes Schistocytes PT 21.5 H INR 1.9 APTT 68.5 H pCO2 pO2 HCO3 ABG pH ABG Total CO2 ABG O2 Saturation ABG O2 Content ABG Base Excess ABG Hemoglobin ABG Carboxyhemoglobin POC ABG HHb (Measured) ABG Methemoglobin ABG O2 Capacity Sergo Test ABG Potassium A-a O2 Difference Hgb O2 Saturation Glucose Lactate Vent Mode Mechanical Rate FiO2 Inspiratory BiPAP Expiratory BiPAP Crit Value Called To Crit Value Called By Crit Value Read Back Blood Gas Notified Time Sodium 137 Potassium 5.4 H Chloride 104 Carbon Dioxide 31 H Anion Gap 7 L BUN 16 Creatinine 1.7 H Est GFR ( Amer) 49 Est GFR (Non-Af Amer) 41 Random Glucose 145 H Calcium 8.4 Magnesium 1.9 Total Bilirubin 1.0 AST 34 ALT 18 L Alkaline Phosphatase 93 Troponin I 0.0490 NT-Pro-B Natriuret Pep 08424 H Total Protein 7.2 Albumin 3.1 L Globulin 4.1 H Albumin/Globulin Ratio 0.7 L Triglycerides Cholesterol LDL Cholesterol Direct HDL Cholesterol TSH 3rd Generation Arterial Blood Potassium Urine Color Urine Clarity Urine pH Ur Specific Christine Urine Protein Urine Glucose (UA) Urine Ketones Urine Blood Urine Nitrate Urine Bilirubin Urine Urobilinogen Ur Leukocyte Esterase Urine RBC (Auto) Urine Microscopic WBC Urine Bacteria Urine Opiates Screen Urine Methadone Screen Ur Barbiturates Screen Ur Phencyclidine Scrn Ur Amphetamines Screen U Benzodiazepines Scrn U Oth Cocaine Metabols U Cannabinoids Screen 06/22/18 06/22/18 06/22/18 16:16 17:30 17:30 WBC RBC Hgb Hct MCV MCH MCHC RDW Plt Count MPV Neut % (Auto) Lymph % (Auto) [place] % (Auto) Eos % (Auto) Baso % (Auto) Neut # (Auto) Lymph # (Auto) [place] # (Auto) Eos # (Auto) Baso # (Auto) Neutrophils % (Manual) Lymphocytes % (Manual) Reactive Lymphs % Monocytes % (Manual) Eosinophils % (Manual) Basophils % (Manual) Platelet Estimate Large Platelets Anisocytosis (manual) Ovalocytes Schistocytes PT INR APTT pCO2 78 H* pO2 343 H HCO3 24.5 ABG pH 7.19 L* ABG Total CO2 32.2 H ABG O2 Saturation 99.4 H ABG O2 Content ABG Base Excess -0.6 ABG Hemoglobin ABG Carboxyhemoglobin POC ABG HHb (Measured) ABG Methemoglobin ABG O2 Capacity Sergo Test Yes ABG Potassium 4.3 A-a O2 Difference 273.0 Hgb O2 Saturation Glucose 164 H Lactate 1.2 Vent Mode Bipap Mechanical Rate 14 FiO2 100.0 Inspiratory BiPAP 12 Expiratory BiPAP 5 Crit Value Called To dony Santiago md Crit Value Called By Lena bruns[place] Crit Value Read Back Y Blood Gas Notified Time 1625 Sodium 131.0 L Potassium Chloride 104.0 Carbon Dioxide Anion Gap BUN Creatinine Est GFR ( Amer) Est GFR (Non-Af Amer) Random Glucose Calcium Magnesium Total Bilirubin AST ALT Alkaline Phosphatase Troponin I NT-Pro-B Natriuret Pep Total Protein Albumin Globulin Albumin/Globulin Ratio Triglycerides Cholesterol LDL Cholesterol Direct HDL Cholesterol TSH 3rd Generation Arterial Blood Potassium 4.3 Urine Color Yellow Urine Clarity Clear Urine pH 6.0 Ur Specific Christine 1.009 Urine Protein >=500 Urine Glucose (UA) Neg Urine Ketones Negative Urine Blood Small Urine Nitrate Negative Urine Bilirubin Negative Urine Urobilinogen 0.2-1.0 Ur Leukocyte Esterase Neg Urine RBC (Auto) 7 H Urine Microscopic WBC 1 Urine Bacteria Rare Urine Opiates Screen Negative Urine Methadone Screen Negative Ur Barbiturates Screen Negative Ur Phencyclidine Scrn Negative Ur Amphetamines Screen Negative U Benzodiazepines Scrn Negative U Oth Cocaine Metabols Negative U Cannabinoids Screen Negative 06/22/18 06/23/18 06/23/18 17:30 00:58 05:00 WBC 6.6 RBC 5.09 Hgb 15.3 Hct 45.7 MCV 89.7 MCH 30.0 MCHC 33.4 RDW 17.5 H Plt Count 194 MPV 9.4 Neut % (Auto) 93.4 H Lymph % (Auto) 3.6 L [place] % (Auto) 2.8 Eos % (Auto) 0.0 Baso % (Auto) 0.2 Neut # (Auto) 6.2 Lymph # (Auto) 0.2 L [place] # (Auto) 0.2 Eos # (Auto) 0.0 Baso # (Auto) 0.0 Neutrophils % (Manual) 95 H Lymphocytes % (Manual) 2 L Reactive Lymphs % Monocytes % (Manual) 3 Eosinophils % (Manual) Basophils % (Manual) Platelet Estimate Normal Large Platelets Present Anisocytosis (manual) Slight Ovalocytes Slight Schistocytes Slight PT INR APTT pCO2 pO2 HCO3 ABG pH ABG Total CO2 ABG O2 Saturation ABG O2 Content ABG Base Excess ABG Hemoglobin ABG Carboxyhemoglobin POC ABG HHb (Measured) ABG Methemoglobin ABG O2 Capacity Sergo Test ABG Potassium A-a O2 Difference Hgb O2 Saturation Glucose Lactate Vent Mode Mechanical Rate FiO2 Inspiratory BiPAP Expiratory BiPAP Crit Value Called To Crit Value Called By Crit Value Read Back Blood Gas Notified Time Sodium Potassium Chloride Carbon Dioxide Anion Gap BUN Creatinine Est GFR ( Amer) Est GFR (Non-Af Amer) Random Glucose Calcium Magnesium Total Bilirubin AST ALT Alkaline Phosphatase Troponin I 0.0630 0.1140 NT-Pro-B Natriuret Pep Total Protein Albumin Globulin Albumin/Globulin Ratio Triglycerides 77 Cholesterol 82 LDL Cholesterol Direct 31 HDL Cholesterol 30 TSH 3rd Generation 24.80 H Arterial Blood Potassium Urine Color Urine Clarity Urine pH Ur Specific Christine Urine Protein Urine Glucose (UA) Urine Ketones Urine Blood Urine Nitrate Urine Bilirubin Urine Urobilinogen Ur Leukocyte Esterase Urine RBC (Auto) Urine Microscopic WBC Urine Bacteria Urine Opiates Screen Urine Methadone Screen Ur Barbiturates Screen Ur Phencyclidine Scrn Ur Amphetamines Screen U Benzodiazepines Scrn U Oth Cocaine Metabols U Cannabinoids Screen 06/23/18 06/23/18 06/23/18 05:00 06:09 08:00 WBC RBC Hgb Hct MCV MCH MCHC RDW Plt Count MPV Neut % (Auto) Lymph % (Auto) [place] % (Auto) Eos % (Auto) Baso % (Auto) Neut # (Auto) Lymph # (Auto) [place] # (Auto) Eos # (Auto) Baso # (Auto) Neutrophils % (Manual) Lymphocytes % (Manual) Reactive Lymphs % Monocytes % (Manual) Eosinophils % (Manual) Basophils % (Manual) Platelet Estimate Large Platelets Anisocytosis (manual) Ovalocytes Schistocytes PT INR APTT pCO2 39 pO2 76 L HCO3 29.3 H ABG pH 7.49 H ABG Total CO2 30.9 H ABG O2 Saturation 98.0 ABG O2 Content 20.2 ABG Base Excess 5.9 H ABG Hemoglobin 15.7 ABG Carboxyhemoglobin 5.4 H POC ABG HHb (Measured) 1.9 ABG Methemoglobin 1.4 ABG O2 Capacity 20.6 Sergo Test Yes ABG Potassium A-a O2 Difference 54.0 Hgb O2 Saturation 91.4 L Glucose Lactate Vent Mode Bipap Mechanical Rate 14 FiO2 25.0 Inspiratory BiPAP 12 Expiratory BiPAP 5 Crit Value Called To Crit Value Called By Crit Value Read Back Blood Gas Notified Time Sodium 139 Potassium 3.9 Chloride 101 Carbon Dioxide 32 H Anion Gap 10 BUN 19 Creatinine 1.9 H Est GFR ( Amer) 43 Est GFR (Non-Af Amer) 36 Random Glucose 183 H Calcium 8.2 L Magnesium Total Bilirubin AST ALT Alkaline Phosphatase Troponin I 0.0820 NT-Pro-B Natriuret Pep Total Protein Albumin Globulin Albumin/Globulin Ratio Triglycerides Cholesterol LDL Cholesterol Direct HDL Cholesterol TSH 3rd Generation Arterial Blood Potassium Urine Color Urine Clarity Urine pH Ur Specific Christine Urine Protein Urine Glucose (UA) Urine Ketones Urine Blood Urine Nitrate Urine Bilirubin Urine Urobilinogen Ur Leukocyte Esterase Urine RBC (Auto) Urine Microscopic WBC Urine Bacteria Urine Opiates Screen Urine Methadone Screen Ur Barbiturates Screen Ur Phencyclidine Scrn Ur Amphetamines Screen U Benzodiazepines Scrn U Oth Cocaine Metabols U Cannabinoids Screen Assessment & Plan - Assessment and Plan (Free Text) Assessment: CHF-COMBINED ACUTE SYSTOLIC AND DIASTOLIC HYPOTHYROIDISM HYPERTENSION HYPOTHYROIDISM CHRONIC LE STASIS DERMATITIS Plan: CONTINUE O2, FUROSEMIDE, ASPIRIN, CLOPIDOGREL, NITRATES, ATORVASTATIN, METOPROLOL AND AMLODIPINE AVOID LOSARTAN DUE TO RENAL INSUFFICIENCY AND HYPERKALEMIA
[2018-06-23] MEDS: Albuterol-Ipratrop 3 mg / 0.5 (3 ml) UD INH SCH ×2 (16:05→19:10)
--- NOTE | 2018-06-23 17:47 | CARD ---
APPROVED REPORT Date of service: 06/22/2018 EKG Measurement Heart [id number] <Conclusion> Atrial fibrillation Cannot rule out Anterior infarct, age undetermined Abnormal ECG
--- NOTE | 2018-06-23 17:53 | CARD ---
APPROVED REPORT Date of service: 06/22/2018 EKG Measurement Heart [id number] <Conclusion> Atrial fibrillation with premature ventricular or aberrantly conducted complexes Left axis deviation Nonspecific ST and T wave abnormality Abnormal ECG
[2018-06-24] MEDS: MethylPREDNISolone 40 mg Vial IVP SCH ×3 (01:24→21:12)
[2018-06-24] MEDS: Albuterol-Ipratrop 3 mg / 0.5 (3 ml) UD INH SCH ×4 (02:10→19:09)
[2018-06-24 05:38] LABS: HEMOGLOBIN 15.4 g/dL (12.0-18.0); MEAN CELL VOLUME 90.2 fl (80.0-94.0); MEAN CORPUSCULAR HEMOGLOBIN 29.8 pg (27.0-31.0); RBC 5.17 Mil/uL (4.40-5.90); RED CELL DISTRIBUTION WIDTH 17.7 % (11.5-14.5); WHITE BLOOD COUNT 11.6 K/uL (4.8-10.8)
[2018-06-24 06:00] LABS: CALCIUM 8.1 mg/dL (8.4-10.2)
[2018-06-24] MEDS: Levothyroxine 50 MCG TAB PO SCH (06:46)
--- NOTE | 2018-06-24 07:50 | CP.PCM.PN ---
<Christy Viera - Last Filed: 06/24/18 14:00> Subjective - Date & Time of Evaluation Date of Evaluation: 06/24/18 Time of Evaluation: 09:30 - Subjective Subjective: Patient was seen sitting in chair eating breakfast with Dr. Mckeon. Patient reports no complaints and no significant events overnight. He denies fever, dizziness, nausea, shortness of breath, chest pain or discomfot. Patient waiting available bed to be transferred to telemetry. Objective - Vital Signs/Intake and Output Vital Signs (last 24 hours): Temp Pulse Resp BP Pulse Ox 98.3 F 65 18 129/69 99 06/24/18 05:00 06/24/18 05:00 06/24/18 05:00 06/24/18 05:00 06/24/18 05:00 Intake and Output: 06/24/18 06/24/18 06:59 18:59 Output Total 350 Balance -350 - Medications Medications: Current Medications Albuterol/Ipratropium (Duoneb 3 Mg/0.5 Mg (3 Ml) Ud) 3 ml INH RQ6 PRN PRN Reason: Shortness of Breath Last Admin: 06/23/18 11:25 Dose: 3 ml Albuterol/Ipratropium (Duoneb 3 Mg/0.5 Mg (3 Ml) Ud) 3 ml INH RQ6 [facility] Last Admin: 06/24/18 07:43 Dose: 3 ml Amlodipine Besylate (Norvasc) 10 mg PO DAILY@0900 [facility] Last Admin: 06/23/18 10:39 Dose: 10 mg Apixaban (Eliquis) 5 mg PO BID [facility] PRN Reason: Protocol Last Admin: 06/23/18 17:07 Dose: 5 mg Aspirin (Ecotrin) 81 mg PO DAILY [facility] Last Admin: 06/23/18 10:39 Dose: 81 mg Atorvastatin Calcium (Lipitor) 40 mg PO DAILY [facility] Last Admin: 06/23/18 10:41 Dose: 40 mg Atorvastatin Calcium (Lipitor) 10 mg PO DIN [facility] Last Admin: 06/23/18 17:07 Dose: 10 mg Docusate Sodium (Colace) 100 mg PO BID PRN PRN Reason: Constipation Furosemide (Lasix) 40 mg IV Q12 [facility] Last Admin: 06/23/18 20:50 Dose: 40 mg Furosemide (Lasix) 40 mg PO DAILY [facility] Hydralazine HCl (Apresoline) 10 mg IV Q6 PRN PRN Reason: Other Last Admin: 06/23/18 04:43 Dose: 10 mg Isosorbide Mononitrate (Imdur Er) 30 mg PO DAILY [facility] Last Admin: 06/23/18 14:31 Dose: 30 mg Levothyroxine Sodium (Synthroid) 50 mcg PO DAILY@0630 [facility] Last Admin: 06/24/18 06:46 Dose: 50 mcg Methylprednisolone (Solu-Medrol) 40 mg IVP Q8H [facility] Last Admin: 06/24/18 01:24 Dose: 40 mg Metoprolol Tartrate (Lopressor) 50 mg PO Q12 [facility] Last Admin: 06/23/18 20:51 Dose: 50 mg Montelukast Sodium (Singulair) 10 mg PO HS [facility] Last Admin: 06/23/18 21:00 Dose: 10 mg Nicotine (Nicoderm Cq) 1 patch TD DAILY [facility] Last Admin: 06/23/18 10:38 Dose: 1 patch Pantoprazole Sodium (Protonix Inj) 40 mg IVP DAILY [facility] Last Admin: 06/23/18 10:36 Dose: 40 mg - Labs Labs: 06/24/18 04:35 06/24/18 04:35 PT 21.5 Seconds (9.8-13.1) H 06/22/18 15:30 INR 1.9 06/22/18 15:30 APTT 68.5 Seconds (25.6-37.1) H 06/22/18 15:30 - Constitutional Appears: Well - Head Exam Head Exam: ATRAUMATIC, NORMOCEPHALIC - Eye Exam Eye Exam: Normal appearance - ENT Exam ENT Exam: Mucous Membranes Moist - Neck Exam Neck Exam: Full ROM, Normal Inspection - Respiratory Exam Respiratory Exam: Clear to Ausculation Bilateral, NORMAL BREATHING PATTERN - Cardiovascular Exam Cardiovascular Exam: REGULAR RHYTHM - GI/Abdominal Exam GI & Abdominal Exam: Soft, Normal Bowel Sounds - Extremities Exam Additional comments: Edema present in bilateral lower extremities; UNNA boots not removed - Neurological Exam Neurological Exam: Alert, Awake, Oriented x3 - Psychiatric Exam Psychiatric exam: Normal Affect, Normal Mood - Skin Skin Exam: Intact, Normal Color, Warm Assessment and Plan - Assessment and Plan (Free Text) Assessment: 67 yo male with history of recent CVA, AFib, HTN, CAD presented to ED because of SOB progressively getting worse for 3 days. Denied chest pain but admitted some discomfort around epigastric region when seen in the ER. 06/23: Blood pressure stabilized and patient awaiting bed in telemetry. 1. Acute CHF Likely secondary to uncontrolled HTN causing increased ventricular afterload Discontinue NTG drip at 5mcg/min Switched to PO Lasix 40mg daily Received Labetalol 20mg IV (06/22) Metoprolol 50mg PO Q12 Advanced Solu-Medrol 40 mg IVP to Q12H (previously Q8H) Serial Troponin q 8hrs x 3 (06/23 4am 0.1140; 06/23 12pm 0.0820; 06/23 4pm 0.0710) Follow up echo Cardiology consult (Dr Crespo): Continue O2, Furosemide, aspirin, clopidogrel, nitrates, atorvastatin, metoprolol and amlodipine. Avoid Losartan due to renal insufficiency and hyperkalemia. Waiting for bed in telemetry 2. HTN Controlled - transient HTN 8:00am (161/76); will trend Continue Metoprolol 50mg PO Q12 3. Paroxysmal AFib Rate controlled Continue Metoprolol and Eliquis 4. Severe Venous Stasis/Lymphedema Podiatry consult (Dr Mullen): Bilateral UNNA boots to be left intact, UNNA boots will changed on Sunday (06/26), Podiatry will continue to follow 5. Hypothyroidism TSH 24.80 (05/20; 20.70) Increased Levothyroxine to 75mcg PO daily Recommed follow-up with endocrinology out patient 6. DVT proph Eliquis <Ariadne Mckeon - Last Filed: 06/24/18 15:18> Objective - Vital Signs/Intake and Output Vital Signs (last 24 hours): Temp Pulse Resp BP Pulse Ox 97.8 F 82 24 161/86 H 97 06/24/18 08:04 06/24/18 09:00 06/24/18 08:04 06/24/18 08:37 06/24/18 08:04 Intake and Output: 06/24/18 06/24/18 06:59 18:59 Output Total 350 Balance -350 - Medications Medications: Current Medications Albuterol/Ipratropium (Duoneb 3 Mg/0.5 Mg (3 Ml) Ud) 3 ml INH RQ6 PRN PRN Reason: Shortness of Breath Last Admin: 06/23/18 11:25 Dose: 3 ml Albuterol/Ipratropium (Duoneb 3 Mg/0.5 Mg (3 Ml) Ud) 3 ml INH RQ6 [facility] Last Admin: 06/24/18 14:00 Dose: 3 ml Amlodipine Besylate (Norvasc) 10 mg PO DAILY@0900 [facility] Last Admin: 06/24/18 08:37 Dose: 10 mg Apixaban (Eliquis) 5 mg PO BID [facility] PRN Reason: Protocol Last Admin: 06/24/18 08:32 Dose: 5 mg Aspirin (Ecotrin) 81 mg PO DAILY [facility] Last Admin: 06/24/18 08:32 Dose: 81 mg Atorvastatin Calcium (Lipitor) 40 mg PO DAILY [facility] Last Admin: 06/24/18 08:35 Dose: 40 mg Atorvastatin Calcium (Lipitor) 10 mg PO DIN [facility] Last Admin: 06/23/18 17:07 Dose: 10 mg Docusate Sodium (Colace) 100 mg PO BID PRN PRN Reason: Constipation Furosemide (Lasix) 40 mg IV Q12 [facility] Last Admin: 06/23/18 20:50 Dose: 40 mg Furosemide (Lasix) 40 mg PO DAILY [facility] Last Admin: 06/24/18 08:33 Dose: 40 mg Hydralazine HCl (Apresoline) 10 mg IV Q6 PRN PRN Reason: Other Last Admin: 06/24/18 08:27 Dose: 10 mg Isosorbide Mononitrate (Imdur Er) 30 mg PO DAILY [facility] Last Admin: 06/24/18 08:33 Dose: 30 mg Levothyroxine Sodium (Synthroid) 75 mcg PO DAILY@0630 [facility] Methylprednisolone (Solu-Medrol) 40 mg IVP Q12 [facility] Metoprolol Tartrate (Lopressor) 50 mg PO Q12 [facility] Last Admin: 06/24/18 08:35 Dose: 50 mg Montelukast Sodium (Singulair) 10 mg PO HS [facility] Last Admin: 06/23/18 21:00 Dose: 10 mg Nicotine (Nicoderm Cq) 1 patch TD DAILY [facility] Last Admin: 06/24/18 08:36 Dose: 1 patch Pantoprazole Sodium (Protonix Inj) 40 mg IVP DAILY [facility] Last Admin: 06/24/18 08:37 Dose: 40 mg - Labs Labs: 06/24/18 04:35 06/24/18 04:35 PT 21.5 Seconds (9.8-13.1) H 06/22/18 15:30 INR 1.9 06/22/18 15:30 APTT 68.5 Seconds (25.6-37.1) H 06/22/18 15:30 Attending/Attestation - Attestation I have personally seen and examined this patient.: Yes I have fully participated in the care of the patient.: Yes I have reviewed all pertinent clinical information, including history, physical exam and plan: Yes Notes (Text): Additional Note : COPD exacerbation ( POA) -decrease IV Solumedrol 40 mg q 12 - cont Duoneb tx and Singulair Acute Kidney Injury on CKD Stage III - Crea worse prob due to diuretics - will decrease Lasix dose to 40mg daily from q12 Thyroid Nodule ( seen on previous admission on CTA of Neck ) again discussed with pt need to see Endo for ff up and poss need for FNAB of nodule
[2018-06-24 20:40] LABS: OXYCODONE SCREEN negative
[2018-06-24] MEDS ORDERED: methylPREDNISolone 40 MG in Sodium Chloride 0.9% 50 ML IVPB SCH (21:00)
[2018-06-25] MEDS: Albuterol-Ipratrop 3 mg / 0.5 (3 ml) UD INH SCH ×2 (01:16→07:48)
[2018-06-25 06:03] LABS: CALCIUM 8.3 mg/dL (8.4-10.2)
[2018-06-25] MEDS ORDERED: Levothyroxine 75 MCG TAB PO SCH (06:30)
[2018-06-25] MEDS ORDERED: Potassium Chloride 20 mEq ER Tab PO ONE (07:27)
[2018-06-25 08:27] VITALS: BP 163/97; RESP 15; TEMP 97.6; O2SAT 97
[2018-06-25] MEDS: MethylPREDNISolone 40 mg Vial IVP SCH (09:19)
[2018-06-25 09:20] VITALS: PULSE 77
--- NOTE | 2018-06-25 09:20 | CP.PCM.PN ---
Subjective - Date & Time of Evaluation Date of Evaluation: 06/25/18 Time of Evaluation: 09:00 - Subjective Subjective: BREATHING MUCH BETTER NO CHEST PAIN OR PALPITATIONS Objective - Vital Signs/Intake and Output Vital Signs (last 24 hours): Temp Pulse Resp BP Pulse Ox 97.6 F 85 15 163/97 H 97 06/25/18 08:00 06/25/18 09:00 06/25/18 08:00 06/25/18 08:00 06/25/18 08:00 Intake and Output: 06/25/18 06/25/18 06:59 18:59 Output Total 500 Balance -500 - Medications Medications: Current Medications Albuterol/Ipratropium (Duoneb 3 Mg/0.5 Mg (3 Ml) Ud) 3 ml INH RQ6 PRN PRN Reason: Shortness of Breath Last Admin: 06/23/18 11:25 Dose: 3 ml Albuterol/Ipratropium (Duoneb 3 Mg/0.5 Mg (3 Ml) Ud) 3 ml INH RQ6 [facility] Last Admin: 06/25/18 07:48 Dose: 3 ml Amlodipine Besylate (Norvasc) 10 mg PO DAILY@0900 [facility] Last Admin: 06/24/18 08:37 Dose: 10 mg Apixaban (Eliquis) 5 mg PO BID [facility] PRN Reason: Protocol Last Admin: 06/24/18 16:25 Dose: 5 mg Aspirin (Ecotrin) 81 mg PO DAILY [facility] Last Admin: 06/24/18 08:32 Dose: 81 mg Atorvastatin Calcium (Lipitor) 10 mg PO DIN [facility] Last Admin: 06/24/18 16:26 Dose: 10 mg Docusate Sodium (Colace) 100 mg PO BID PRN PRN Reason: Constipation Furosemide (Lasix) 40 mg IV Q12 [facility] Last Admin: 06/23/18 20:50 Dose: 40 mg Furosemide (Lasix) 40 mg PO DAILY [facility] Last Admin: 06/24/18 08:33 Dose: 40 mg Hydralazine HCl (Apresoline) 10 mg IV Q6 PRN PRN Reason: Other Last Admin: 06/24/18 08:27 Dose: 10 mg Isosorbide Mononitrate (Imdur Er) 30 mg PO DAILY [facility] Last Admin: 06/24/18 08:33 Dose: 30 mg Levothyroxine Sodium (Synthroid) 75 mcg PO DAILY@0630 [facility] Last Admin: 06/25/18 07:02 Dose: 75 mcg Methylprednisolone (Solu-Medrol) 40 mg IVP Q12 [facility] Last Admin: 06/24/18 21:12 Dose: 40 mg Metoprolol Tartrate (Lopressor) 50 mg PO Q12 [facility] Last Admin: 06/24/18 21:07 Dose: 50 mg Montelukast Sodium (Singulair) 10 mg PO HS [facility] Last Admin: 06/24/18 21:07 Dose: 10 mg Nicotine (Nicoderm Cq) 1 patch TD DAILY [facility] Last Admin: 06/24/18 08:36 Dose: 1 patch Pantoprazole Sodium (Protonix Inj) 40 mg IVP DAILY [facility] Last Admin: 06/24/18 08:37 Dose: 40 mg - Labs Labs: 06/24/18 04:35 06/25/18 04:35 PT 21.5 Seconds (9.8-13.1) H 06/22/18 15:30 INR 1.9 06/22/18 15:30 APTT 68.5 Seconds (25.6-37.1) H 06/22/18 15:30 - Respiratory Exam Respiratory Exam: Clear to Ausculation Bilateral - Cardiovascular Exam Cardiovascular Exam: Irregular Rhythm, +S1, +S2 - Extremities Exam Additional comments: DECREASE IN LE EDEMA - Additional Findings Additional findings: BUSINESS INTELLIGENCE MANAGER ATRIAL FIBRILLATION WITH MVR CT OF HEAD AND NECK ADDENDUM REVIEWED WITH ENLARGED RIGHT THYROID LOBE(PATIENT WAS ALREADY NOTIFIED BEFORE AND WAS INSTRUCTED TO SEE AN ENDOCRIONOLOGIST) Assessment and Plan - Assessment and Plan (Free Text) Assessment: CHF-TREATED CHRONIC ATRIAL FIBRILLATION HYPERTENSION HYPOTHYROIDISM WITH ENLARGED RIGHT THYROID LOBE Plan: FOR DISCHARGE TO HOME TODAY CONTINUE METOPROLOL, ASPIRIN, ELIQUIS, FUROSEMIDE, AMLODIPINE PATIENT ADVISED ABOUT WATCHING VERY SALTY FOODS AND EXCESSIVE FLUID INTAKE PATIENT IS AWARE OF ENLARGED RIGHT THYROID LOBE AND NEED TO FOLLOW-UP WITH MANAGER PROGRAMMING AND MAY NEED FINE NEEDLE BX-HE IS AWARE OF THIS HE WAS CALLED AFTER LAST ADMISSION WHEN THE CT OF THE HEAD AND NECK ADDENDUM WAS MADE( HE WOULD NEED TO BE OFF ELIQUIS AND ASPIRIN FOR THIS) OV WITH ME IN ONE WEEK
--- NOTE | 2018-06-25 10:40 | CP.PCM.DIS ---
<Christy Viera - Last Filed: 06/25/18 13:55> Provider - Provider Date of Admission: 06/22/18 17:18 Attending physician: Ke Mccormack MD Time Spent in preparation of Discharge (in minutes): 35 Diagnosis - Discharge Diagnosis (1) Shortness of breath Status: Resolved (2) Acute CHF (congestive heart failure) Status: Resolved Hospital Course - Lab Results Lab Results: Most Recent Lab Values WBC 11.6 K/uL (4.8-10.8) H D 06/24/18 04:35 RBC 5.17 Mil/uL (4.40-5.90) 06/24/18 04:35 Hgb 15.4 g/dL (12.0-18.0) 06/24/18 04:35 Hct 46.6 % (35.0-51.0) 06/24/18 04:35 MCV 90.2 fl (80.0-94.0) 06/24/18 04:35 MCH 29.8 pg (27.0-31.0) 06/24/18 04:35 MCHC 33.0 g/dL (33.0-37.0) 06/24/18 04:35 RDW 17.7 % (11.5-14.5) H 06/24/18 04:35 Plt Count 206 K/uL (130-400) 06/24/18 04:35 MPV 9.4 fl (7.2-11.7) 06/23/18 05:00 Neut % (Auto) 93.4 % (50.0-75.0) H 06/23/18 05:00 Lymph % (Auto) 3.6 % (20.0-40.0) L 06/23/18 05:00 [place] % (Auto) 2.8 % (0.0-10.0) 06/23/18 05:00 Eos % (Auto) 0.0 % (0.0-4.0) 06/23/18 05:00 Baso % (Auto) 0.2 % (0.0-2.0) 06/23/18 05:00 Neut # (Auto) 6.2 K/uL (1.8-7.0) 06/23/18 05:00 Lymph # (Auto) 0.2 K/uL (1.0-4.3) L 06/23/18 05:00 [place] # (Auto) 0.2 K/uL (0.0-0.8) 06/23/18 05:00 Eos # (Auto) 0.0 K/uL (0.0-0.7) 06/23/18 05:00 Baso # (Auto) 0.0 K/uL (0.0-0.2) 06/23/18 05:00 Neutrophils % (Manual) 95 % (42-75) H 06/23/18 05:00 Lymphocytes % (Manual) 2 % (20-50) L 06/23/18 05:00 Reactive Lymphs % 1 % (0-0) H 06/22/18 15:30 Monocytes % (Manual) 3 % (0-10) 06/23/18 05:00 Eosinophils % (Manual) 1 % (0-7) 06/22/18 15:30 Basophils % (Manual) 1 % (0-2) 06/22/18 15:30 Platelet Estimate Normal (NORMAL) 06/23/18 05:00 Large Platelets Present 06/23/18 05:00 Anisocytosis (manual) Slight 06/23/18 05:00 Ovalocytes Slight 06/23/18 05:00 Schistocytes Slight 06/23/18 05:00 PT 21.5 Seconds (9.8-13.1) H 06/22/18 15:30 INR 1.9 06/22/18 15:30 APTT 68.5 Seconds (25.6-37.1) H 06/22/18 15:30 pCO2 39 mm/Hg (35-45) 06/23/18 06:09 pO2 76 mm/Hg (80-100) L 06/23/18 06:09 HCO3 29.3 mmol/L (21-28) H 06/23/18 06:09 ABG pH 7.49 (7.35-7.45) H 06/23/18 06:09 ABG Total CO2 30.9 mmol/L (22-28) H 06/23/18 06:09 ABG O2 Saturation 98.0 % (95-98) 06/23/18 06:09 ABG O2 Content 20.2 ML/dL (15-23) 06/23/18 06:09 ABG Base Excess 5.9 mmol/L (-2.0-3.0) H 06/23/18 06:09 ABG Hemoglobin 15.7 g/dL (11.7-17.4) 06/23/18 06:09 ABG Carboxyhemoglobin 5.4 % (0.5-1.5) H 06/23/18 06:09 POC ABG HHb (Measured) 1.9 % (0.0-5.0) 06/23/18 06:09 ABG Methemoglobin 1.4 % (0.0-3.0) 06/23/18 06:09 ABG O2 Capacity 20.6 mL/dL (16-24) 06/23/18 06:09 Sergo Test Yes 06/23/18 06:09 ABG Potassium 4.3 mmol/L (3.6-5.2) 06/22/18 16:16 A-a O2 Difference 54.0 mm/Hg 06/23/18 06:09 Hgb O2 Saturation 91.4 % (95.0-98.0) L 06/23/18 06:09 Sodium 131.0 mmol/L (132-148) L 06/22/18 16:16 Chloride 104.0 mmol/L (98-107) 06/22/18 16:16 Glucose 164 mg/dL (75-110) H 06/22/18 16:16 Lactate 1.2 mmol/L (0.7-2.1) 06/22/18 16:16 Vent Mode Bipap 06/23/18 06:09 Mechanical Rate 14 06/23/18 06:09 FiO2 25.0 % 06/23/18 06:09 Inspiratory BiPAP 12 06/23/18 06:09 Expiratory BiPAP 5 06/23/18 06:09 Crit Value Called To dony Santiago md 06/22/18 16:16 Crit Value Called By Lena mac 06/22/18 16:16 Crit Value Read Back Y 06/22/18 16:16 Blood Gas Notified Time 8374 06/22/18 16:16 Sodium 136 mmol/l (132-148) 06/25/18 04:35 Potassium 3.1 MMOL/L (3.6-5.0) L 06/25/18 04:35 Chloride 98 mmol/L (98-107) 06/25/18 04:35 Carbon Dioxide 32 mmol/L (22-30) H 06/25/18 04:35 Anion Gap 9 (10-20) L 06/25/18 04:35 BUN 36 mg/dl (9-20) H 06/25/18 04:35 Creatinine 1.9 mg/dl (0.8-1.5) H 06/25/18 04:35 Est GFR ( Amer) 43 06/25/18 04:35 Est GFR (Non-Af Amer) 36 06/25/18 04:35 Random Glucose 176 mg/dL (75-110) H 06/25/18 04:35 Calcium 8.3 mg/dL (8.4-10.2) L 06/25/18 04:35 Magnesium 1.9 MG/DL (1.6-2.3) 06/22/18 15:30 Total Bilirubin 1.0 mg/dl (0.2-1.3) 06/22/18 15:30 AST 34 U/L (17-59) 06/22/18 15:30 ALT 18 U/L (21-72) L 06/22/18 15:30 Alkaline Phosphatase 93 U/L (38-126) 06/22/18 15:30 Troponin I 0.0710 ng/mL (0.00-0.120) 06/23/18 14:30 NT-Pro-B Natriuret Pep 52048 pg/ml (0-900) H 06/22/18 15:30 Total Protein 7.2 G/DL (6.3-8.2) 06/22/18 15:30 Albumin 3.1 g/dL (3.5-5.0) L 06/22/18 15:30 Globulin 4.1 gm/dL (2.2-3.9) H 06/22/18 15:30 Albumin/Globulin Ratio 0.7 (1.0-2.1) L 06/22/18 15:30 Triglycerides 77 mg/DL (0-149) 06/22/18 17:30 Cholesterol 82 mg/dL (0-199) 06/22/18 17:30 LDL Cholesterol Direct 31 mg/dL (0-129) 06/22/18 17:30 HDL Cholesterol 30 MG/DL (30-70) 06/22/18 17:30 TSH 3rd Generation 24.80 mIU/ML (0.46-4.68) H 06/22/18 17:30 Arterial Blood Potassium 4.3 mmol/L (3.6-5.2) 06/22/18 16:16 Urine Color Yellow (YELLOW) 06/22/18 17:30 Urine Clarity Clear (Clear) 06/22/18 17:30 Urine pH 6.0 (5.0-8.0) 06/22/18 17:30 Ur Specific [place] 1.009 (1.003-1.030) 06/22/18 17:30 Urine Protein >=500 mg/dL (NEGATIVE) 06/22/18 17:30 Urine Glucose (UA) Neg mg/dL (Normal) 06/22/18 17:30 Urine Ketones Negative mg/dL (NEGATIVE) 06/22/18 17:30 Urine Blood Small (NEGATIVE) 06/22/18 17:30 Urine Nitrate Negative (NEGATIVE) 06/22/18 17:30 Urine Bilirubin Negative (NEGATIVE) 06/22/18 17:30 Urine Urobilinogen 0.2-1.0 mg/dL (0.2-1.0) 06/22/18 17:30 Ur Leukocyte Esterase Neg Jose Luis/uL (Negative) 06/22/18 17:30 Urine RBC (Auto) 7 /hpf (0-3) H 06/22/18 17:30 Urine Microscopic WBC 1 /hpf (0-5) 06/22/18 17:30 Urine Bacteria Rare (<OCC) 06/22/18 17:30 Urine Opiates Screen Negative (NEGATIVE) 06/22/18 17:30 Oxycodone Screen negative 06/22/18 17:30 Ur Oxycodone Comment See note 06/22/18 17:30 Urine Methadone Screen Negative (NEGATIVE) 06/22/18 17:30 Ur Barbiturates Screen Negative (NEGATIVE) 06/22/18 17:30 Ur Phencyclidine Scrn Negative (NEGATIVE) 06/22/18 17:30 Ur Amphetamines Screen Negative (NEGATIVE) 06/22/18 17:30 U Benzodiazepines Scrn Negative (NEGATIVE) 06/22/18 17:30 U Oth Cocaine Metabols Negative (NEGATIVE) 06/22/18 17:30 U Cannabinoids Screen Negative (NEGATIVE) 06/22/18 17:30 - Hospital Course Hospital Course: 67 yo male with history of recent CVA, AFib, HTN, CAD presented because of SOB progressively getting worse for 3 days. He denied chest pain but admitted to some discomfort around epigastric region when seen in the ER. Patient was recently discharged from [facility] last month (05/2018) after he was managed for acute CVA wherein he received TPA. Patient also suffers, as per PCP, from chronic leg edema because venous stasis and is being followed up by podiatry. He has no history of CHF as per his PCP. He was admitted to ICU for acute CHF, uncontrolled HTN and Afib. Cardiology was consulted and Dr Crespo recommended oxygen, Furosemide, Aspirin, Clopidogrel , Nitrates, Atorvastatin, Metoprolol and Amlodipine. He recommended to avoid Losartan due to renal insufficiency and hyperkalemia. Acute CHF resolved, HTN controlled and Afib rate controlled via medication management. He was discharged on Combivent Respimat, Norvasc, Lasix, Synthroid, Medrol dose pack, Toprol XL, Singulair, and Nicoderm CQ. Recommended to follow up with PMD in 2-3 days, follow up with Dr Crespo as soon as possible for BP and Creatinine, follow up with podiatry 06/27, and follow up with endo re: thyroid nodule seen on previous admission. Discharge Exam - Head Exam Head Exam: ATRAUMATIC, NORMOCEPHALIC - Eye Exam Eye Exam: Normal appearance - Neck Exam Neck exam: Full Rom - Respiratory Exam Respiratory Exam: NORMAL BREATHING PATTERN, UNREMARKABLE - Cardiovascular Exam Cardiovascular Exam: REGULAR RHYTHM - GI/Abdominal Exam GI & Abdominal Exam: Unremarkable - Extremities Exam Additional comments: bilateral lower extremities: edema present, UNNA boots not removed - Neurological Exam Neurological exam: Alert, Oriented x3 - Psychiatric Exam Psychiatric exam: Normal Affect, Normal Mood - Skin Skin Exam: Dry, Intact, Normal Color, Warm Discharge Plan - Discharge Medications Prescriptions: Albuterol/Ipratropium [Combivent Respimat] 1 puff IH Q4 PRN #1 puff PRN Reason: Wheezing amLODIPine [Norvasc] 5 mg PO DAILY #30 tab Furosemide [Lasix] 40 mg PO DAILY #30 tab Levothyroxine [Synthroid] 75 mcg PO DAILY@0630 #30 tab Methylprednisolone [Medrol Dose Pack (21 tabs)] 4 mg PO ASDIR #21 mg Metoprolol Succinate XL [Toprol XL] 50 mg PO DAILY #30 tab Montelukast [Singulair] 10 mg PO HS #30 tab Nicotine 7 mg/24 hr [Nicoderm CQ] 1 patch TD DAILY #30 patch - Follow Up Plan Condition: STABLE Disposition: HOME/ ROUTINE Additional Instructions: appt with Dr Cherie manrique ff up on BP and Creatinine as outpt - rpt labs in [address] Erwin manrique for thyroid nosule - poss need for FNAB Referrals: Desiree Hood MD [Medical Doctor] - Paulie Crespo MD [Staff Provider] - <MckeonAriadne - Last Filed: 06/25/18 16:07> Provider - Provider Date of Admission: 06/22/18 17:18 Attending physician: Ke Mccormack MD Diagnosis - Discharge Diagnosis (1) Acute CHF (congestive heart failure) Status: Resolved Comment: systolic and diastolic dysfunction with EF=40% (2) HTN (hypertension) Status: Acute (3) Hypothyroidism Status: Acute (4) Lymphedema of both lower extremities Status: Acute (5) Paroxysmal atrial fibrillation Status: Acute (6) Thyroid nodule Status: Acute Hospital Course - Lab Results Lab Results: Most Recent Lab Values WBC 11.6 K/uL (4.8-10.8) H D 06/24/18 04:35 RBC 5.17 Mil/uL (4.40-5.90) 06/24/18 04:35 Hgb 15.4 g/dL (12.0-18.0) 06/24/18 04:35 Hct 46.6 % (35.0-51.0) 06/24/18 04:35 MCV 90.2 fl (80.0-94.0) 06/24/18 04:35 MCH 29.8 pg (27.0-31.0) 06/24/18 04:35 MCHC 33.0 g/dL (33.0-37.0) 06/24/18 04:35 RDW 17.7 % (11.5-14.5) H 06/24/18 04:35 Plt Count 206 K/uL (130-400) 06/24/18 04:35 MPV 9.4 fl (7.2-11.7) 06/23/18 05:00 Neut % (Auto) 93.4 % (50.0-75.0) H 06/23/18 05:00 Lymph % (Auto) 3.6 % (20.0-40.0) L 06/23/18 05:00 [place] % (Auto) 2.8 % (0.0-10.0) 06/23/18 05:00 Eos % (Auto) 0.0 % (0.0-4.0) 06/23/18 05:00 Baso % (Auto) 0.2 % (0.0-2.0) 06/23/18 05:00 Neut # (Auto) 6.2 K/uL (1.8-7.0) 06/23/18 05:00 Lymph # (Auto) 0.2 K/uL (1.0-4.3) L 06/23/18 05:00 [place] # (Auto) 0.2 K/uL (0.0-0.8) 06/23/18 05:00 Eos # (Auto) 0.0 K/uL (0.0-0.7) 06/23/18 05:00 Baso # (Auto) 0.0 K/uL (0.0-0.2) 06/23/18 05:00 Neutrophils % (Manual) 95 % (42-75) H 06/23/18 05:00 Lymphocytes % (Manual) 2 % (20-50) L 06/23/18 05:00 Reactive Lymphs % 1 % (0-0) H 06/22/18 15:30 Monocytes % (Manual) 3 % (0-10) 06/23/18 05:00 Eosinophils % (Manual) 1 % (0-7) 06/22/18 15:30 Basophils % (Manual) 1 % (0-2) 06/22/18 15:30 Platelet Estimate Normal (NORMAL) 06/23/18 05:00 Large Platelets Present 06/23/18 05:00 Anisocytosis (manual) Slight 06/23/18 05:00 Ovalocytes Slight 06/23/18 05:00 Schistocytes Slight 06/23/18 05:00 PT 21.5 Seconds (9.8-13.1) H 06/22/18 15:30 INR 1.9 06/22/18 15:30 APTT 68.5 Seconds (25.6-37.1) H 06/22/18 15:30 pCO2 39 mm/Hg (35-45) 06/23/18 06:09 pO2 76 mm/Hg (80-100) L 06/23/18 06:09 HCO3 29.3 mmol/L (21-28) H 06/23/18 06:09 ABG pH 7.49 (7.35-7.45) H 06/23/18 06:09 ABG Total CO2 30.9 mmol/L (22-28) H 06/23/18 06:09 ABG O2 Saturation 98.0 % (95-98) 06/23/18 06:09 ABG O2 Content 20.2 ML/dL (15-23) 06/23/18 06:09 ABG Base Excess 5.9 mmol/L (-2.0-3.0) H 06/23/18 06:09 ABG Hemoglobin 15.7 g/dL (11.7-17.4) 06/23/18 06:09 ABG Carboxyhemoglobin 5.4 % (0.5-1.5) H 06/23/18 06:09 POC ABG HHb (Measured) 1.9 % (0.0-5.0) 06/23/18 06:09 ABG Methemoglobin 1.4 % (0.0-3.0) 06/23/18 06:09 ABG O2 Capacity 20.6 mL/dL (16-24) 06/23/18 06:09 Sergo Test Yes 06/23/18 06:09 ABG Potassium 4.3 mmol/L (3.6-5.2) 06/22/18 16:16 A-a O2 Difference 54.0 mm/Hg 06/23/18 06:09 Hgb O2 Saturation 91.4 % (95.0-98.0) L 06/23/18 06:09 Sodium 131.0 mmol/L (132-148) L 06/22/18 16:16 Chloride 104.0 mmol/L (98-107) 06/22/18 16:16 Glucose 164 mg/dL (75-110) H 06/22/18 16:16 Lactate 1.2 mmol/L (0.7-2.1) 06/22/18 16:16 Vent Mode Bipap 06/23/18 06:09 Mechanical Rate 14 06/23/18 06:09 FiO2 25.0 % 06/23/18 06:09 Inspiratory BiPAP 12 06/23/18 06:09 Expiratory BiPAP 5 06/23/18 06:09 Crit Value Called To dony Santiago md 06/22/18 16:16 Crit Value Called By Lena mac 06/22/18 16:16 Crit Value Read Back Y 06/22/18 16:16 Blood Gas Notified Time 1625 06/22/18 16:16 Sodium 136 mmol/l (132-148) 06/25/18 04:35 Potassium 3.1 MMOL/L (3.6-5.0) L 06/25/18 04:35 Chloride 98 mmol/L (98-107) 06/25/18 04:35 Carbon Dioxide 32 mmol/L (22-30) H 06/25/18 04:35 Anion Gap 9 (10-20) L 06/25/18 04:35 BUN 36 mg/dl (9-20) H 06/25/18 04:35 Creatinine 1.9 mg/dl (0.8-1.5) H 06/25/18 04:35 Est GFR ( Amer) 43 06/25/18 04:35 Est GFR (Non-Af Amer) 36 06/25/18 04:35 Random Glucose 176 mg/dL (75-110) H 06/25/18 04:35 Calcium 8.3 mg/dL (8.4-10.2) L 06/25/18 04:35 Magnesium 1.9 MG/DL (1.6-2.3) 06/22/18 15:30 Total Bilirubin 1.0 mg/dl (0.2-1.3) 06/22/18 15:30 AST 34 U/L (17-59) 06/22/18 15:30 ALT 18 U/L (21-72) L 06/22/18 15:30 Alkaline Phosphatase 93 U/L (38-126) 06/22/18 15:30 Troponin I 0.0710 ng/mL (0.00-0.120) 06/23/18 14:30 NT-Pro-B Natriuret Pep 86240 pg/ml (0-900) H 06/22/18 15:30 Total Protein 7.2 G/DL (6.3-8.2) 06/22/18 15:30 Albumin 3.1 g/dL (3.5-5.0) L 06/22/18 15:30 Globulin 4.1 gm/dL (2.2-3.9) H 06/22/18 15:30 Albumin/Globulin Ratio 0.7 (1.0-2.1) L 06/22/18 15:30 Triglycerides 77 mg/DL (0-149) 06/22/18 17:30 Cholesterol 82 mg/dL (0-199) 06/22/18 17:30 LDL Cholesterol Direct 31 mg/dL (0-129) 06/22/18 17:30 HDL Cholesterol 30 MG/DL (30-70) 06/22/18 17:30 TSH 3rd Generation 24.80 mIU/ML (0.46-4.68) H 06/22/18 17:30 Arterial Blood Potassium 4.3 mmol/L (3.6-5.2) 06/22/18 16:16 Urine Color Yellow (YELLOW) 06/22/18 17:30 Urine Clarity Clear (Clear) 06/22/18 17:30 Urine pH 6.0 (5.0-8.0) 06/22/18 17:30 Ur Specific [place] 1.009 (1.003-1.030) 06/22/18 17:30 Urine Protein >=500 mg/dL (NEGATIVE) 06/22/18 17:30 Urine Glucose (UA) Neg mg/dL (Normal) 06/22/18 17:30 Urine Ketones Negative mg/dL (NEGATIVE) 06/22/18 17:30 Urine Blood Small (NEGATIVE) 06/22/18 17:30 Urine Nitrate Negative (NEGATIVE) 06/22/18 17:30 Urine Bilirubin Negative (NEGATIVE) 06/22/18 17:30 Urine Urobilinogen 0.2-1.0 mg/dL (0.2-1.0) 06/22/18 17:30 Ur Leukocyte Esterase Neg Jose Luis/uL (Negative) 06/22/18 17:30 Urine RBC (Auto) 7 /hpf (0-3) H 06/22/18 17:30 Urine Microscopic WBC 1 /hpf (0-5) 06/22/18 17:30 Urine Bacteria Rare (<OCC) 06/22/18 17:30 Butalbital Confirm TNP 06/22/18 17:30 Opiates (GC/MS) TNP 06/22/18 17:30 Urine Opiates Screen Negative (NEGATIVE) 06/22/18 17:30 Codeine Confirmation TNP 06/22/18 17:30 Morphine Confirm TNP 06/22/18 17:30 Hydrocodone Confirm TNP 06/22/18 17:30 Oxycodone Screen negative 06/22/18 17:30 Oxycodone Confirm TNP 06/22/18 17:30 Ur Oxycodone Comment See note 06/22/18 17:30 Methadone (GC/MS) TNP 06/22/18 17:30 Methadone Confirm TNP 06/22/18 17:30 Urine Methadone Screen Negative (NEGATIVE) 06/22/18 17:30 Free Hydromorphone Conf TNP 06/22/18 17:30 Propoxyphenes TNP 06/22/18 17:30 Norpropoxyphene TNP 06/22/18 17:30 Barbiturates TNP 06/22/18 17:30 Ur Barbiturates Screen Negative (NEGATIVE) 06/22/18 17:30 Phencyclidine (PCP) TNP 06/22/18 17:30 Phencyclidine (GC/MS) TNP 06/22/18 17:30 Ur Phencyclidine Scrn Negative (NEGATIVE) 06/22/18 17:30 Amphetamines TNP 06/22/18 17:30 Amphetamines Confirm TNP 06/22/18 17:30 Ur Amphetamines Screen Negative (NEGATIVE) 06/22/18 17:30 Methamphetamine Confirm TNP 06/22/18 17:30 Methylenedioxyamph MDA TNP 06/22/18 17:30 MDMA TNP 06/22/18 17:30 Amobarbital Confirm TNP 06/22/18 17:30 Butabarbital TNP 06/22/18 17:30 Pentobarbital Confirm TNP 06/22/18 17:30 Phenobarbital Confirm TNP 06/22/18 17:30 Secobarbital Confirm TNP 06/22/18 17:30 Alprazolam Confirm TNP 06/22/18 17:30 Benzodiazepines TNP 06/22/18 17:30 U Benzodiazepines Scrn Negative (NEGATIVE) 06/22/18 17:30 Nordiazepam Confirm [facility] 06/22/18 17:30 Desalkylfluraze Cnfrm [facility] 06/22/18 17:30 Lorazepam Confirm [facility] 06/22/18 17:30 Oxazepam Confirmation [facility] 06/22/18 17:30 Cocaine & Metabolite [facility] 06/22/18 17:30 Cocaine Confirmation [facility] 06/22/18 17:30 Cocaethylene Confirm [facility] 06/22/18 17:30 Benzoylecgonine Confrm [facility] 06/22/18 17:30 Ecgonine Methyl Raquel [facility] 06/22/18 17:30 U Oth Cocaine Metabols Negative (NEGATIVE) 06/22/18 17:30 U Cannabinoids Screen Negative (NEGATIVE) 06/22/18 17:30 Marijuana [facility] 06/22/18 17:30 THC Confirmation [facility] 06/22/18 17:30 Carboxy THC Confirm [facility] 06/22/18 17:30 Drugs of Abuse Comment [facility] 06/22/18 17:30 Clinical Quality Measures - CQM - Heart Failure Ejection Fraction: 40 % or Greater Left Ventricular Function to be assessed after discharge: Yes ALIA Inhibitor Prescribed: No Contraindication/Reason for not providing: renal failure Beta-Tyrone Prescribed: Metoprolol Succinate Angiotensin II Receptor Tyrone Prescribed: No Contraindication/Reason for not providing: renal failure AnticoagulationTherapy for Atrial Fibrillation/Atrialflutter: Yes Aldosterone Antagonist Prescribed: Yes Hydralazine Nitrate Prescribed: Yes Implantable Cardioverter Defibrillator Therapy: No Contraindication/Reason for not providing: not indicated Cardiac Resynchronization Therapy Prescribed: No Contraindication/Reason for not providing: not indicated Will be discharged to: Home Follow Up Date (must be within 7 days from discharge): 06/28/18 Follow Up Time: 09:00 - Date & Time of Discharge Summary Date of Discharge Summary: 06/25/18 Time of Discharge Summary: 09:00 Attending/Attestation - Attestation I have personally seen and examined this patient.: Yes I have fully participated in the care of the patient.: Yes I have reviewed all pertinent clinical information, including history, physical exam and plan: Yes
--- NOTE | 2018-06-25 10:58 | CP.PCM.PN ---
Subjective - Date & Time of Evaluation Date of Evaluation: 06/25/18 Time of Evaluation: 10:56 - Subjective Subjective: Podiatry Progress Note for Dr. Mullen 67 yo male patient with PMHx of CHF, CVA, A-Fib, and HTN, was seen and evaluated for bilateral lower extremity lymphedema. Patient sees Dr. Mullen weekly in his wound care center where he treats his bilateral lymphedema. Patient states that his legs have reduced in size tremendously since the start of his first UNNA boot treatment. Patient denies any pain to his b/l extremities. Denies any other pedal complaints at this time. Patient denies N/V /F/CP. Objective - Vital Signs/Intake and Output Vital Signs (last 24 hours): Temp Pulse Resp BP Pulse Ox 97.6 F 77 15 163/97 H 97 06/25/18 08:00 06/25/18 09:18 06/25/18 08:00 06/25/18 09:18 06/25/18 08:00 Intake and Output: 06/25/18 06/25/18 06:59 18:59 Output Total 500 Balance -500 - Medications Medications: Current Medications Albuterol/Ipratropium (Duoneb 3 Mg/0.5 Mg (3 Ml) Ud) 3 ml INH RQ6 PRN PRN Reason: Shortness of Breath Last Admin: 06/23/18 11:25 Dose: 3 ml Albuterol/Ipratropium (Duoneb 3 Mg/0.5 Mg (3 Ml) Ud) 3 ml INH RQ6 LUIS ANTONIO Last Admin: 06/25/18 07:48 Dose: 3 ml Amlodipine Besylate (Norvasc) 10 mg PO DAILY@0900 [facility] Last Admin: 06/25/18 09:18 Dose: 10 mg Apixaban (Eliquis) 5 mg PO BID [facility] PRN Reason: Protocol Last Admin: 06/25/18 09:14 Dose: 5 mg Aspirin (Ecotrin) 81 mg PO DAILY [facility] Last Admin: 06/25/18 09:14 Dose: 81 mg Atorvastatin Calcium (Lipitor) 10 mg PO DIN [facility] Last Admin: 06/24/18 16:26 Dose: 10 mg Docusate Sodium (Colace) 100 mg PO BID PRN PRN Reason: Constipation Furosemide (Lasix) 40 mg IV Q12 [facility] Last Admin: 06/23/18 20:50 Dose: 40 mg Furosemide (Lasix) 40 mg PO DAILY [facility] Last Admin: 06/25/18 09:16 Dose: 40 mg Hydralazine HCl (Apresoline) 10 mg IV Q6 PRN PRN Reason: Other Last Admin: 06/24/18 08:27 Dose: 10 mg Isosorbide Mononitrate (Imdur Er) 30 mg PO DAILY [facility] Last Admin: 06/25/18 09:14 Dose: 30 mg Levothyroxine Sodium (Synthroid) 75 mcg PO DAILY@0630 [facility] Last Admin: 06/25/18 07:02 Dose: 75 mcg Methylprednisolone (Solu-Medrol) 40 mg IVP Q12 [facility] Last Admin: 06/25/18 09:19 Dose: 40 mg Metoprolol Tartrate (Lopressor) 50 mg PO Q12 [facility] Last Admin: 06/25/18 09:17 Dose: 50 mg Montelukast Sodium (Singulair) 10 mg PO HS [facility] Last Admin: 06/24/18 21:07 Dose: 10 mg Nicotine (Nicoderm Cq) 1 patch TD DAILY [facility] Last Admin: 06/25/18 09:18 Dose: 1 patch Pantoprazole Sodium (Protonix Inj) 40 mg IVP DAILY [facility] Last Admin: 06/25/18 09:19 Dose: 40 mg - Labs Labs: 06/24/18 04:35 06/25/18 04:35 PT 21.5 Seconds (9.8-13.1) H 06/22/18 15:30 INR 1.9 06/22/18 15:30 APTT 68.5 Seconds (25.6-37.1) H 06/22/18 15:30 - Constitutional Appears: Well, Non-toxic, No Acute Distress - Head Exam Head Exam: ATRAUMATIC, NORMOCEPHALIC - Extremities Exam Additional comments: UNNA boots left intact to B/L lower extremities Vascular: CFT <3 seconds to all 10 digits Ortho: Patient able to move toes Neuro: Gross and protective sensation intact Derm: unable to assess due to UNNA boot - Neurological Exam Neurological Exam: Alert, Awake, Oriented x3 - Psychiatric Exam Psychiatric exam: Normal Affect, Normal Mood Assessment and Plan - Assessment and Plan (Free Text) Assessment: 67 yo male patient with PMHx of CHF, CVA, A-Fib, and HTN, was seen and evaluated for bilateral lower extremity lymphedema. Plan: Patient seen and evaluated with all questions and concerns addressed Plan discussed in detail with Dr. Mullen Bilateral UNNA boots to be left intact Patient states he has appointment with Dr. Mullen for UNNA boots to be changed on after scheduled discharge Will change tomorrow if still in house Podiatry will continue to follow while in house
== END 2018-06-25 12:40 | disposition home or self-care (01) | DRG 291 ==
LOC: H.ER 14:32 → H.ERHOLD 17:18 → H.ICU/CCU 19:33
PROC: 5A09357 Assistance with Respiratory Ventilation, Less than 24 Consecutive Hours, Continuous Positive Airway Pressure (ICD-10-PCS; principal; 2018-06-22)
DX: I13.0 Hypertensive heart and chronic kidney disease with heart failure and stage 1 through stage 4 chronic kidney disease, or unspecified chronic kidney disease (principal); I50.43 Acute on chronic combined systolic (congestive) and diastolic (congestive) heart failure; J96.01 Acute respiratory failure with hypoxia; J96.02 Acute respiratory failure with hypercapnia; J44.1 Chronic obstructive pulmonary disease with (acute) exacerbation; N17.9 Acute kidney failure, unspecified; I48.0 Paroxysmal atrial fibrillation; I48.2 Chronic atrial fibrillation; E87.5 Hyperkalemia; N18.3 Chronic kidney disease, stage 3 (moderate); E04.1 Nontoxic single thyroid nodule; E03.9 Hypothyroidism, unspecified; I27.20 Pulmonary hypertension, unspecified; I34.0 Nonrheumatic mitral (valve) insufficiency; I87.2 Venous insufficiency (chronic) (peripheral); I25.10 Atherosclerotic heart disease of native coronary artery without angina pectoris; I89.0 Lymphedema, not elsewhere classified; F17.210 Nicotine dependence, cigarettes, uncomplicated; Z79.01 Long term (current) use of anticoagulants; Z79.82 Long term (current) use of aspirin; Z86.73 Personal history of transient ischemic attack (TIA), and cerebral infarction without residual deficits

== ENCOUNTER 2018-07-28 07:07 | Inpatient (IN) | payer MEDICARE ==
[2018-07-28 07:07] VITALS: BMI 28.0
--- NOTE | 2018-07-28 08:46 | CARD ---
APPROVED REPORT Date of service: 07/28/2018 EKG Measurement Heart [id number] <Conclusion> Atrial fibrillation with premature ventricular Prolonged QT Abnormal ECG
--- NOTE | 2018-07-28 08:47 | ED PDOC ---
Lower Extremity Pain/Injury Time Seen by Provider: 07/28/18 08:29 Chief Complaint (Nursing): Lower Extremity Problem/Injury Chief Complaint (Provider): Lower Extremity Problem/Injury History Per: Patient History/Exam Limitations: no limitations Additional Complaint(s): 68 years old male with history of CHF presents to ER for evaluation of swelling and drainage to lower extremities bilaterally, right greater than left, associated with pain. Patient reports history of bilateral cellulitis of lower extremities followed by wound care check. He denies fever, chest pain or shortness of breath at present time. PMD: Paulie Crespo Past Medical History Reviewed: Historical Data, Nursing Documentation, Vital Signs Vital Signs: Last Vital Signs Temp 98.7 F 07/28/18 07:29 Pulse 83 07/28/18 07:29 Resp 19 07/28/18 07:29 BP 100/69 07/28/18 08:00 Pulse Ox 98 07/28/18 07:29 - Medical History PMH: Atrial Fibrillation, Cardia Arrhythmia, HTN, Hypothyroidism (pt not sure, was told he has low functioning thyroid, but never followed up), Peripheral Edema (from venous stasis) Denies: Alzheimer's Disease, Anemia, Anxiety, Arthritis, Asthma, Bipolar Disorder, Bronchitis, CAD, CHF, COPD, Crohn's Disease, Dementia, Depression, Diverticulitis, Emphysema, Fractures, Gastritis, Gall Bladder Disease, HIV, Hypercholesterolemia, Hyperthyroidism, Kidney Stones, Migraine, Mitral Valve Prolapse, Multiple Sclerosis, Osteoporosis, Pancreatitis, Paranoia, Parkinson's Disease, Pneumonia, Post Traumatic Stress Disorder, Pulmonary Embolism, Chronic Kidney Disease, Rheumatoid Arthritis, Schizophrenia, Seizures, Sickle Cell Disease, Sexually Transmitted Disease, Sleep Apnea, TIA Other PMH: Cellulitis - Surgical History Surgical History: No Surg Hx Denies: Appendectomy, CABG, Carotid Endarterectomy, Cholecystectomy, Coronary Stent, Pacemaker, Tonsillectomy - Family History Family History: States: Unknown Family Hx - Social History Current smoker - smoking cessation education provided: Yes (Heavy) Alcohol: Social Drugs: Denies - Immunization History Hx Tetanus Toxoid Vaccination: No Hx Influenza Vaccination: Yes Hx Pneumococcal Vaccination: Yes - Home Medications Home Medications: Ambulatory Orders Medication Instructions Recorded Aspirin [Ecotrin] 81 mg PO DAILY 05/20/18 Doxazosin [Cardura] 8 mg PO BID 05/20/18 Atorvastatin [Lipitor] 10 mg PO DIN #30 tab 05/23/18 Albuterol/Ipratropium [Combivent 1 puff IH Q4 PRN #1 puff 06/25/18 Respimat] Apixaban [Eliquis] 5 mg PO BID #0 tab 06/25/18 Aspirin [Ecotrin] 81 mg PO DAILY tabec 06/25/18 Atorvastatin [Lipitor] 10 mg PO DIN tab 06/25/18 Furosemide [Lasix] 40 mg PO DAILY #30 tab 06/25/18 Levothyroxine [Synthroid] 75 mcg PO DAILY@0630 #30 tab 06/25/18 Methylprednisolone [Medrol Dose 4 mg PO ASDIR #21 mg 06/25/18 Pack (21 tabs)] Metoprolol Succinate XL [Toprol XL] 50 mg PO DAILY #30 tab 06/25/18 Montelukast [Singulair] 10 mg PO HS #30 tab 06/25/18 Nicotine 7 mg/24 hr [Nicoderm CQ] 1 patch TD DAILY #30 patch 06/25/18 amLODIPine [Norvasc] 5 mg PO DAILY #30 tab 06/25/18 - Allergies Allergies/Adverse Reactions: Allergies Allergy/AdvReac Type Severity Reaction Status Date / Time No Known Allergies Allergy Verified 06/22/18 14:39 Review of Systems ROS Statement: Except As Marked, All Systems Reviewed And Found Negative Constitutional: Negative for: Fever Cardiovascular: Negative for: Chest Pain Respiratory: Negative for: Shortness of Breath Musculoskeletal: Positive for: Other (Swelling and drainage of lower extremities bilaterally) Physical Exam - Reviewed Nursing Documentation Reviewed: Yes Vital Signs Reviewed: Yes - Physical Exam Appears: Positive for: Non-toxic, No Acute Distress Head Exam: Positive for: ATRAUMATIC, NORMOCEPHALIC Cardiovascular/Chest: Positive for: Regular Rate, Rhythm (with periods of irregular rhythm) Respiratory: Positive for: Rales (Minimal, bilateral) Extremity: Positive for: Swelling (Right brawny edema and erythema to just below the knee associated with blistering and yellow discharge. Left extremity less swollen than right with drainage and blister.) Neurologic/Psych: Positive for: Alert, Oriented (x3) - Laboratory Results Result Diagrams: 07/28/18 07:49 07/28/18 07:49 - ECG O2 Sat by Pulse Oximetry: 98 (RA) Pulse Ox Interpretation: Normal - Progress Re-evaluation Time: 10:08 Condition: Re-examined - Critical Care Total Time (In Min): 30 Documented Critical Care: Time excludes all time spent performint seperately billable procedures Medical Decision Making Medical Decision Making: Time: 838 Initial Plan: --VBG --CMP --Morphine 2 mg IVP --Vancomycin 1 gm IVPB --Blood culture --Chest x-ray --Tibia Fibual BI x-ray 0859 Chest x-ray FINDINGS: LUNGS: Single frontal portable erect view of the chest was performed. There is persistent right lower lobe and right costophrenic angle density although this may be minimally improved from prior study. Left lung is significantly improved at the left lung base without new infiltrate identified. Minimal residual scarring is not excluded. PLEURA: No significant pleural effusion identified, no pneumothorax apparent. CARDIOVASCULAR: Heart is enlarged. Vasculature appears to be mildly improved from prior study. OSSEOUS STRUCTURES: No significant abnormalities. VISUALIZED UPPER ABDOMEN: Distended bowel loops are identified in the upper abdomen. This may suggest ileus. OTHER FINDINGS: None. IMPRESSION: Interval improvement in aeration with probable mild decrease CHF. Mild persistent chronic appearing right costophrenic angle effusion or infiltrate. No pneumothorax. 0913 Tibia Fibual BI x-ray FINDINGS: BONES: RIGHT TIBIA: No fracture or destructive lesion. No periosteal reaction. LEFT TIBIA: No fracture or destructive lesion. No periosteal reaction. JOINT SPACES: RIGHT TIBIA: Mild DJD. LEFT TIBIA: Mild DJD. SOFT TISSUES: RIGHT TIBIA: Moderate diffuse soft tissue swelling. LEFT TIBIA: Moderate diffuse soft tissue swelling. OTHER FINDINGS: No air is seen in the soft tissues. IMPRESSION: Diffuse moderate lower leg soft tissue swelling bilaterally. This is consistent with cellulitis. No air in the soft tissues to suggest necrotizing fasciitis or gas-forming organism. No plain film evidence of fracture or osteomyelitis. Scribe Attestation: Documented by Fallon Valenzuela, acting as a scribe for Herbert Bartlett MD. Unable to give full 30 ml/kg IVF bolus due to h/o CHF. Will give 100 ml and reasses Provider Scribe Attestation: All medical record entries made by the Scribe were at my direction and personally dictated by me. I have reviewed the chart and agree that the record accurately reflects my personal performance of the history, physical exam, medical decision making, and the department course for this patient. I have also personally directed, reviewed, and agree with the discharge instructions and disposition. Disposition - Clinical Impression Clinical Impression: Sepsis, Cellulitis - Patient ED Disposition Is Patient to be Admitted: Yes - Disposition Referrals: Paulie Crespo MD [Primary Care Provider] - Disposition Time: 10:09 Condition: FAIR Forms: [place] (Irish) - Pt Status Changed To: Hospital Disposition Of: Inpatient - Admit Certification Admit to Inpatient:: After my assessment, the patient will require hospitalization for at least two midnights. This is because of the severity of symptoms shown, intensity of services needed, and/or the medical risk in this pa tient being treated as an outpatient. - POA Present On Arrival: None
[2018-07-28] MEDS ORDERED: Vancomycin 1 g Inj ONE (08:50)
[2018-07-28 09:00] LABS: HEMOGLOBIN 16.2 g/dL (12.0-18.0); RBC 5.37 Mil/uL (4.40-5.90)
[2018-07-28 09:01] LABS: BASO # 0.1 K/uL (0.0-0.2); BASO % 0.2 % (0.0-2.0); LYMPH # 0.2 K/uL (1.0-4.3); MEAN CELL VOLUME 91.4 fl (80.0-94.0); MEAN CORPUSCULAR HEMOGLOBIN 30.2 pg (27.0-31.0); MEAN PLATELET VOLUME 9.7 fl (7.2-11.7); MONO # 0.5 K/uL (0.0-0.8); MONO % 2.1 % (0.0-10.0); NEUT # 22.8 K/uL (1.8-7.0); NEUT % 96.7 % (50.0-75.0); PLATELET COUNT 275 K/uL (130-400); RED CELL DISTRIBUTION WIDTH 17.4 % (11.5-14.5)
--- NOTE | 2018-07-28 09:01 | RAD ---
Date of service: 07/28/2018 HISTORY: cough COMPARISON: 06/22/2018 FINDINGS: LUNGS: Single frontal portable erect view of the chest was performed. There is persistent right lower lobe and right costophrenic angle density although this may be minimally improved from prior study. Left lung is significantly improved at the left lung base without new infiltrate identified. Minimal residual scarring is not excluded. PLEURA: No significant pleural effusion identified, no pneumothorax apparent. CARDIOVASCULAR: Heart is enlarged. Vasculature appears to be mildly improved from prior study. OSSEOUS STRUCTURES: No significant abnormalities. VISUALIZED UPPER ABDOMEN: Distended bowel loops are identified in the upper abdomen. This may suggest ileus. OTHER FINDINGS: None. IMPRESSION: Interval improvement in aeration with probable mild decrease CHF. Mild persistent chronic appearing right costophrenic angle effusion or infiltrate. No pneumothorax.
[2018-07-28 09:06] LABS: WHITE BLOOD COUNT 23.6 K/uL (4.8-10.8)
[2018-07-28 09:11] LABS: ALB/GLOB RATIO 0.9 (1.0-2.1); ALBUMIN 2.9 g/dL (3.5-5.0); CALCIUM 8.1 mg/dL (8.4-10.2)
[2018-07-28 09:27] LABS: ANISOCYTOSIS SLIGHT; LYMPHOCYTE 2 % (20-50); MONOCYTE 6 % (0-10); NEUTROPHIL 92 % (42-75); PLATELET ESTIMATE NORMAL (NORMAL); TOTAL CELLS COUNTED 100
[2018-07-28 09:28] LABS: BURR CELLS MODERATE
--- NOTE | 2018-07-28 09:35 | RAD ---
Date of service: 07/28/2018 PROCEDURE: Radiographs of the bilateral Tibiae and Fibulae. HISTORY: cellulitis COMPARISON: None available. TECHNIQUE: Frontal and lateral views obtained. FINDINGS: BONES: RIGHT TIBIA: No fracture or destructive lesion. No periosteal reaction. LEFT TIBIA: No fracture or destructive lesion. No periosteal reaction. JOINT SPACES: RIGHT TIBIA: Mild DJD. LEFT TIBIA: Mild DJD. SOFT TISSUES: RIGHT TIBIA: Moderate diffuse soft tissue swelling. LEFT TIBIA: Moderate diffuse soft tissue swelling. OTHER FINDINGS: No air is seen in the soft tissues. IMPRESSION: Diffuse moderate lower leg soft tissue swelling bilaterally. This is consistent with cellulitis. No air in the soft tissues to suggest necrotizing fasciitis or gas-forming organism. No plain film evidence of fracture or osteomyelitis.
[2018-07-28 09:47] LABS: VENOUS BLOOD GAS BASE EXCESS -4.8 mmol/L (0.0-2.0); VENOUS BLOOD GAS PCO2 41 mmHg (40-60); VENOUS BLOOD GAS PO2 28 mm/Hg (30-55); VENOUS BLOOD PH 7.32 (7.32-7.43)
[2018-07-28] MEDS ORDERED: Sodium Chloride 0.9% 1,000 ML IV STA ×3 (09:48→12:53)
[2018-07-28] MEDS ORDERED: Piperacillin/Tazobact 3.375 GM in Sodium Chloride 0.9% 100 ML IVPB STA (10:04)
[2018-07-28] MEDS ORDERED: Piperacillin/Tazobact 3.375 gm Inj IVPB ONE (10:46)
--- NOTE | 2018-07-28 10:47 | CP.PCM.CON ---
History of Present Illness - History of Present Illness History of Present Illness: Podiatry consult note for Dr. Welsh, 68 Y/O male patient with PMH of CVA, A-Fib, HTN, CHF seen and evaluated in the ED for Right LE ulceration, swelling, redness and blistering. Patient is in acute distress, AAO x3. Patient states that he is following up with Dr. Welsh at the wound care center for his b/l LE edema. Patient states that UNNA boot used to be applied to his b/l LE for the swelling. Patient states that last he was in the wound care center to apply new UNNA boot and his legs looks ok. He states that Sunday he started to feel pain in his right leg. He states that his right leg started to get more swallen. Patient states that he has pain in his right leg. He states that the pain is now 10/10. He states that he is living in a assisted. Patient states that he feels so sick. He states that he was not feeling ok since last sunday. Patient denies any other pedal complaint. Patient denies any recent F/N/V/C or SOB. PMH: CVA, A-Fib, HTN, CHF PSH: None ALL: NKDA Social: Smokes 1-2 cigars/day, denies alcohol or illicit drug use Review of Systems - Review of Systems Review of Systems: As per HPI Past Patient History - Infectious Disease Hx of Infectious Diseases: None - Tetanus Immunizations Tetanus Immunization: Unknown - Past Medical History & Family History Past Medical History?: Yes - Past Social History Alcohol: Social Drugs: Denies - CARDIAC Hx Atrial Fibrillation: Yes Hx Cardia Arrhythmia: Yes Hx Congestive Heart Failure: No Hx Hypercholesterolemia: No Hx Hypertension: Yes Hx Mitral Valve Prolapse: No Hx Pacemaker: No Hx Peripheral Edema: Yes (from venous stasis) - PULMONARY Hx Asthma: No Hx Bronchitis: No Hx Chronic Obstructive Pulmonary Disease (COPD): No Hx Emphysema: No Hx Pneumonia: No Hx Pulmonary Embolism: No Hx Sleep Apnea: No - NEUROLOGICAL Hx Alzheimer's Disease: No Hx Dementia: No Hx Migraine: No Hx Multiple Sclerosis: No Hx Parkinson's Disease: No Hx Seizures: No Hx Transient Ischemic Attacks (TIA): No - HEENT Hx HEENT Problems: Yes Other/Comment: wears glasses - RENAL Hx Chronic Kidney Disease: No Hx Kidney Stones: No - ENDOCRINE/METABOLIC Hx Hyperthyroidism: No Hx Hypothyroidism: Yes (pt not sure, was told he has low functioning thyroid, but never followed up) - HEMATOLOGICAL/ONCOLOGICAL Hx Anemia: No Hx Human Immunodeficiency Virus (HIV): No Hx Sickle Cell Disease: No - INTEGUMENTARY Hx Dermatological Problems: Yes Other/Comment: unsure of skin condition on bilateral legs, but seeks outpatient treatment for it - MUSCULOSKELETAL/RHEUMATOLOGICAL Hx Arthritis: No Hx Fractures: No Hx Osteoporosis: No Hx Rheumatoid Arthritis: No - GASTROINTESTINAL Hx Crohn's Disease: No Hx Diverticulitis: No Hx Gall Bladder Disease: No Hx Gastritis: No Hx Pancreatitis: No - GENITOURINARY/GYNECOLOGICAL Hx Sexually Transmitted Disorders: No - PSYCHIATRIC Hx Anxiety: No Hx Bipolar Disorder: No Hx Depression: No Hx Paranoia: No Hx Post Traumatic Stress Disorder: No Hx Schizophrenia: No - SURGICAL HISTORY Hx Appendectomy: No Hx Carotid Endarterectomy: No Hx Cholecystectomy: No Hx Coronary Artery Bypass Graft: No Hx Coronary Stent: No Hx Tonsillectomy: No - ANESTHESIA Hx Anesthesia: No Meds Allergies/Adverse Reactions: Allergies Allergy/AdvReac Type Severity Reaction Status Date / Time No Known Allergies Allergy Verified 06/22/18 14:39 - Medications Medications: Current Medications Sodium Chloride (Sodium Chloride 0.9%) 1,000 mls @ 100 mls/hr IV .Q10H STA Stop: 07/28/18 19:47 Piperacillin Sod/Tazobactam (Sod 3.375 gm/ Sodium Chloride) 100 mls @ 100 m ls/hr IVPB STAT STA; Protocol Stop: 07/28/18 11:03 Physical Exam - Head Exam Head Exam: ATRAUMATIC, NORMOCEPHALIC - Extremities Exam Additional comments: B/L LE Focused exam: Vasc: DP/PT not palpable due to massive edema. By Doppler it's biphasic audiable DP/PT. Cap refill < 3 sec in all digits. Temp gradient warm to warmer in the right side and warm to cool in the L side from proximal to distal. Massive non pitting edema extending up to below the the knee on the right side and moderated non pitting edema up to the tibial tuberosity on the left side. Neuro: Gross and protective sensations intact b/l. Derm: Right LE: Massive Leg non-pitting edema and sever erythema extending up to just below the knee. Dissuse blistering noted along the right leg and foot. An ulcer measuring 3.5 cm X 3 cm X 0.2 cm. Base is granular 100%. No malodor. sangineous drainage. No probing to bone, No undermining, No tracking. Left LE: Moderate Leg non-pitting edema extending up to the tibial tuberosity. mild erythema noted at the ankle. skin is bruised at the anterior ankle. B/L skin changes of the anterior legs in the form of lichnification and discoloration R>L MSK: severe pain on palpating the Right LE. Muscle power Couldn't be assessed on the right side, 5/5 in all groups in the left side.. - Neurological Exam Neurological exam: Alert, Oriented x3 Results - Vital Signs Recent Vital Signs: Last Vital Signs Temp 97.9 F 07/28/18 10:06 Pulse 79 07/28/18 10:01 Resp 18 07/28/18 10:01 BP 102/57 L 07/28/18 10:01 Pulse Ox 98 07/28/18 10:09 - Labs Result Diagrams: 07/28/18 07:49 07/28/18 07:49 Labs: Laboratory Results - last 24 hr 07/28/18 07/28/18 07/28/18 07:49 07:49 09:39 WBC 23.6 H D RBC 5.37 Hgb 16.2 Hct 49.1 MCV 91.4 MCH 30.2 MCHC 33.0 RDW 17.4 H Plt Count 275 MPV 9.7 Neut % (Auto) 96.7 H Lymph % (Auto) 1.0 L [place] % (Auto) 2.1 Eos % (Auto) 0.0 Baso % (Auto) 0.2 Neut # (Auto) 22.8 H Lymph # (Auto) 0.2 L [place] # (Auto) 0.5 Eos # (Auto) 0.0 Baso # (Auto) 0.1 Neutrophils % (Manual) 92 H Lymphocytes % (Manual) 2 L Monocytes % (Manual) 6 Platelet Estimate Normal Anisocytosis (manual) Slight [place] Cells Moderate pO2 28 L VBG pH 7.32 VBG pCO2 41 VBG HCO3 19.8 VBG Total CO2 22.4 VBG O2 Sat (Calc) 55.1 VBG Base Excess -4.8 L Glucose 166 H Lactate 5.5 H* FiO2 21.0 Blood Gas Comments Lac=5.5 Crit Value Called To mallory Drew Crit Value Called By 22 Crit Value Read Back Y Blood Gas Notified Time 946 Sodium 134 172.0 H* Potassium 4.4 Chloride 97 L 110.0 H Carbon Dioxide 20 L Anion Gap 21 H BUN 54 H Creatinine 4.1 H Est GFR ( Amer) 18 Est GFR (Non-Af Amer) 15 Random Glucose 180 H Calcium 8.1 L Total Bilirubin 1.1 AST 45 ALT 56 Alkaline Phosphatase 113 Total Protein 6.3 Albumin 2.9 L Globulin 3.4 Albumin/Globulin Ratio 0.9 L Assessment & Plan - Assessment and Plan (Free Text) Assessment: 68 Y/O male patient seen and evaluated in the ED for Right LE cellulitis, Edema and ulceration. Plan: Patient seen and evaluated in the ED Plan discussed in details with attending Sebas Green Chart, Labs and vitals reviews; Afebrile, WBCs 23.6 Blood lactate: 5.5 Code sepsis called for the patient by the ED doctor Wound Cx colloected and sent to lab. B/L 3 views X-ray; reviewed; Right massive LE edema. No signs of OM. Left moderate LE edema Ordered left LE venous duplex. Patient will be admitted by the primary team. ID consulted for the patient. Right LE dressed using Right LE dressed using DSD. Ordered SSD cream to be added to the dressing. Podiatry will F/U the patient while in house. - Date & Time Date: 07/28/18 Time: 11:06
--- NOTE | 2018-07-28 11:30 | CP.PCM.HP ---
<MarcoAlexus - Last Filed: 07/28/18 18:03> History of Present Illness - History of Present Illness History of Present Illness: 68 y/o M with PMH of CHF, HTN, CVA, A-Fib, and chronic severe venous stasis/lymphedema presented to ED c/o constant dull/crampy pain in right lower leg that began on Sunday while home as he was walking to the bathroom. He stated pain became progressively worse. Patient states that he went to see Dr. Mullen on for follow up of his b/l lower leg venous stasis. At that time, he reports leg wraps were removed, and on Sunday he cleaned both legs. He denied any pain in the left lower leg, fever, chills, chest pain, shortness of breath. PMD: Dr. Crespo PMHx: CHF, HTN, CVA, A-Fib, and severe chronic venous /lymphedema MEDS: Amlodipine, Eliquis, Aspirin, Lipitor, Lasix, Synthroid, Metoprolol PSHx: None AllERGIES: NKDA FH: Non contributory SH: Smokes 1-2 cigars daily, but no ETOH use, or illicit drugs ED COURSE: Vitals: 97.9F, P-79bpm, RR- 18 BP: 102/57, Spo2-98 CBC- WBC: 23.6, H & H: 16.2/49.1, Plt: 275 BMP: BUN-54, Creatinine- 4.1, lactate 5.5 -Fluids were started at rate of 100mls/hr & inceased to 150ml. He was given a stat dose of vanco & zosyn. Present on Admission - Present on Admission Any Indicators Present on Admission: No History of DVT/PE: No History of Uncontrolled Diabetes: No Urinary Catheter: No Decubitus Ulcer Present: No Past Patient History - Infectious Disease Hx of Infectious Diseases: None - Tetanus Immunizations Tetanus Immunization: Unknown - Past Medical History & Family History Past Medical History?: Yes - Past Social History Alcohol: Social Drugs: Denies - CARDIAC Hx Atrial Fibrillation: Yes Hx Cardia Arrhythmia: Yes Hx Congestive Heart Failure: No Hx Hypercholesterolemia: No Hx Hypertension: Yes Hx Mitral Valve Prolapse: No Hx Pacemaker: No Hx Peripheral Edema: Yes (from venous stasis) - PULMONARY Hx Asthma: No Hx Bronchitis: No Hx Chronic Obstructive Pulmonary Disease (COPD): No Hx Emphysema: No Hx Pneumonia: No Hx Pulmonary Embolism: No Hx Sleep Apnea: No - NEUROLOGICAL Hx Alzheimer's Disease: No Hx Dementia: No Hx Migraine: No Hx Multiple Sclerosis: No Hx Parkinson's Disease: No Hx Seizures: No Hx Transient Ischemic Attacks (TIA): No - HEENT Hx HEENT Problems: Yes Other/Comment: wears glasses - RENAL Hx Chronic Kidney Disease: No Hx Kidney Stones: No - ENDOCRINE/METABOLIC Hx Hyperthyroidism: No Hx Hypothyroidism: Yes (pt not sure, was told he has low functioning thyroid, but never followed up) - HEMATOLOGICAL/ONCOLOGICAL Hx Anemia: No Hx Human Immunodeficiency Virus (HIV): No Hx Sickle Cell Disease: No - INTEGUMENTARY Hx Dermatological Problems: Yes Other/Comment: unsure of skin condition on bilateral legs, but seeks outpatient treatment for it - MUSCULOSKELETAL/RHEUMATOLOGICAL Hx Arthritis: No Hx Fractures: No Hx Osteoporosis: No Hx Rheumatoid Arthritis: No - GASTROINTESTINAL Hx Crohn's Disease: No Hx Diverticulitis: No Hx Gall Bladder Disease: No Hx Gastritis: No Hx Pancreatitis: No - GENITOURINARY/GYNECOLOGICAL Hx Sexually Transmitted Disorders: No - PSYCHIATRIC Hx Anxiety: No Hx Bipolar Disorder: No Hx Depression: No Hx Paranoia: No Hx Post Traumatic Stress Disorder: No Hx Schizophrenia: No - SURGICAL HISTORY Hx Appendectomy: No Hx Carotid Endarterectomy: No Hx Cholecystectomy: No Hx Coronary Artery Bypass Graft: No Hx Coronary Stent: No Hx Tonsillectomy: No - ANESTHESIA Hx Anesthesia: No Meds Allergies/Adverse Reactions: Allergies Allergy/AdvReac Type Severity Reaction Status Date / Time No Known Allergies Allergy Verified 06/22/18 14:39 Physical Exam - Constitutional Appears: No Acute Distress - Head Exam Head Exam: ATRAUMATIC - Respiratory Exam Respiratory Exam: Clear to Auscultation Bilateral - Cardiovascular Exam Cardiovascular Exam: Irregular Rhythm, +S1, +S2 - GI/Abdominal Exam GI & Abdominal Exam: Normal Bowel Sounds, Soft. absent: Firm, Guarding - Extremities Exam Additional comments: Right leg: + malodorous, severely swollen lower leg with diffuse erythema from below knee down to the ankle with open blisters, and serosangineous drainage; leg is tender. Left leg: dark, hyperpigmented, mildly swollen lower leg with tree bark appearance; nontender - Neurological Exam Neurological exam: Alert, Oriented x3 - Psychiatric Exam Psychiatric exam: Normal Affect, Normal Mood Results - Vital Signs Recent Vital Signs: Last Vital Signs Temp 97.9 F 07/28/18 10:06 Pulse 79 07/28/18 10:01 Resp 18 07/28/18 10:01 BP 102/57 L 07/28/18 10:01 Pulse Ox 98 07/28/18 10:09 - Labs Result Diagrams: 07/28/18 07:49 07/28/18 07:49 Labs: Laboratory Results - last 24 hr 07/28/18 07/28/18 07/28/18 07:49 07:49 09:39 WBC 23.6 H D RBC 5.37 Hgb 16.2 Hct 49.1 MCV 91.4 MCH 30.2 MCHC 33.0 RDW 17.4 H Plt Count 275 MPV 9.7 Neut % (Auto) 96.7 H Lymph % (Auto) 1.0 L [place] % (Auto) 2.1 Eos % (Auto) 0.0 Baso % (Auto) 0.2 Neut # (Auto) 22.8 H Lymph # (Auto) 0.2 L [place] # (Auto) 0.5 Eos # (Auto) 0.0 Baso # (Auto) 0.1 Neutrophils % (Manual) 92 H Lymphocytes % (Manual) 2 L Monocytes % (Manual) 6 Platelet Estimate Normal Anisocytosis (manual) Slight [place] Cells Moderate pO2 28 L VBG pH 7.32 VBG pCO2 41 VBG HCO3 19.8 VBG Total CO2 22.4 VBG O2 Sat (Calc) 55.1 VBG Base Excess -4.8 L Glucose 166 H Lactate 5.5 H* FiO2 21.0 Blood Gas Comments Lac=5.5 Crit Value Called To mallory Drew Crit Value Called By 22 Crit Value Read Back Y Blood Gas Notified Time 946 Sodium 134 172.0 H* Potassium 4.4 Chloride 97 L 110.0 H Carbon Dioxide 20 L Anion Gap 21 H BUN 54 H Creatinine 4.1 H Est GFR ( Amer) 18 Est GFR (Non-Af Amer) 15 Random Glucose 180 H Calcium 8.1 L Total Bilirubin 1.1 AST 45 ALT 56 Alkaline Phosphatase 113 Total Protein 6.3 Albumin 2.9 L Globulin 3.4 Albumin/Globulin Ratio 0.9 L Assessment & Plan - Assessment and Plan (Free Text) Assessment: 68 y/o M with PMH of CHF, HTN, CVA, A-Fib, and chronic severe venous stasis/lymphedema presented to ED c/o constant dull/crampy pain in right lower leg 1. Severe Venous Stasis/Lymphedema with cellulitis, & sepsis criteria met (Acute on chronic) -Podiatry recommendations have been appreciated. Foot & ankle x-ray: soft tissue swelling, moderate degenerative changes -Dr. Portillo, ID specialist consulted. FU recommendations. -Continue IV vanco & zosyn. 2. Severe sepsis criteria met (Acute) -Likely due to severe venous stasis/lymphedema with cellulitis. -On admission, BP: 74/50, WBC-23.6, lactate-5.5 -Continue IV fluids. -Continue IV vanco & zosyn. 3. CHF (Chronic) -Hold lasix because of hypotension. -Hold Metoprolol because of hypotension. -Dr Crespo recommendations have been appreciated. (Hold lasix, amlodipine & metoprolol) 4. HTN (Chronic) -Hold Metoprolol because of hypotension. -Hold Amlodipine because of hypotension. -Continue Losartan . 5. Paroxysmal AFIB (Chronic, rate controlled) -Continue Eliquis -Hold Metoprolol because of hypotension. 6. DVT prophylaxis -Patient on Eliquis <Ke Mccormack D - Last Filed: 07/28/18 18:42> Results - Vital Signs Recent Vital Signs: Last Vital Signs Temp 98.9 F 07/28/18 16:16 Pulse 86 07/28/18 16:16 Resp 20 07/28/18 16:16 BP 115/78 07/28/18 16:16 Pulse Ox 96 07/28/18 16:16 - Labs Result Diagrams: 07/28/18 07:49 07/28/18 07:49 Labs: Laboratory Results - last 24 hr 07/28/18 07/28/18 07/28/18 07:49 07:49 09:39 WBC 23.6 H D RBC 5.37 Hgb 16.2 Hct 49.1 MCV 91.4 MCH 30.2 MCHC 33.0 RDW 17.4 H Plt Count 275 MPV 9.7 Neut % (Auto) 96.7 H Lymph % (Auto) 1.0 L [place] % (Auto) 2.1 Eos % (Auto) 0.0 Baso % (Auto) 0.2 Neut # (Auto) 22.8 H Lymph # (Auto) 0.2 L [place] # (Auto) 0.5 Eos # (Auto) 0.0 Baso # (Auto) 0.1 Neutrophils % (Manual) 92 H Lymphocytes % (Manual) 2 L Monocytes % (Manual) 6 Platelet Estimate Normal Anisocytosis (manual) Slight [place] Cells Moderate ESR pO2 28 L VBG pH 7.32 VBG pCO2 41 VBG HCO3 19.8 VBG Total CO2 22.4 VBG O2 Sat (Calc) 55.1 VBG Base Excess -4.8 L VBG Potassium Glucose 166 H Lactate 5.5 H* FiO2 21.0 Blood Gas Comments Lac=5.5 Crit Value Called To mallory Drew Crit Value Called By 22 Crit Value Read Back Y Blood Gas Notified Time 946 Sodium 134 172.0 H* Potassium 4.4 Chloride 97 L 110.0 H Carbon Dioxide 20 L Anion Gap 21 H BUN 54 H Creatinine 4.1 H Est GFR ( Amer) 18 Est GFR (Non-Af Amer) 15 Random Glucose 180 H Calcium 8.1 L Total Bilirubin 1.1 AST 45 ALT 56 Alkaline Phosphatase 113 Total Protein 6.3 Albumin 2.9 L Globulin 3.4 Albumin/Globulin Ratio 0.9 L Venous Blood Potassium 07/28/18 07/28/18 12:39 12:40 WBC RBC Hgb Hct MCV MCH MCHC RDW Plt Count MPV Neut % (Auto) Lymph % (Auto) [place] % (Auto) Eos % (Auto) Baso % (Auto) Neut # (Auto) Lymph # (Auto) [place] # (Auto) Eos # (Auto) Baso # (Auto) Neutrophils % (Manual) Lymphocytes % (Manual) Monocytes % (Manual) Platelet Estimate Anisocytosis (manual) Davis Cells ESR 40 H pO2 13 L VBG pH 7.28 L VBG pCO2 52 VBG HCO3 20.3 VBG Total CO2 26.0 VBG O2 Sat (Calc) 13.3 L VBG Base Excess -3.0 L VBG Potassium 5.6 H Glucose 145 H Lactate 3.9 H FiO2 21.0 Blood Gas Comments Lactate=3.9 Crit Value Called To mallory Drew Crit Value Called By 22 Crit Value Read Back Y Blood Gas Notified Time 1248 Sodium 134.0 Potassium Chloride 99.0 Carbon Dioxide Anion Gap BUN Creatinine Est GFR ( Amer) Est GFR (Non-Af Amer) Random Glucose Calcium Total Bilirubin AST ALT Alkaline Phosphatase Total Protein Albumin Globulin Albumin/Globulin Ratio Venous Blood Potassium 5.6 H Attending/Attestation - Attestation I have personally seen and examined this patient.: Yes I have fully participated in the care of the patient.: Yes I have reviewed all pertinent clinical information: Yes
--- NOTE | 2018-07-28 11:56 | US ---
Date of service: 07/28/2018 PROCEDURE: Right lower extremity venous duplex Doppler. HISTORY: To R/O DVT in the right leg COMPARISON: None available. TECHNIQUE: Common femoral, superficial femoral, popliteal and posterior tibial veins were evaluated. Flow was assessed with color Doppler, compressibility, assessment of phasic flow and augmentation response. FINDINGS: COMMON FEMORAL VEIN: Unremarkable. SUPERFICIAL FEMORAL VEIN: Unremarkable. POPLITEAL VEIN: Unremarkable. POSTERIOR TIBIAL VEIN: Unremarkable. OTHER FINDINGS: None. IMPRESSION: No evidence of deep venous thrombosis in the right lower extremity.
[2018-07-28 12:49] LABS: VENOUS BLOOD GAS PCO2 52 mmHg (40-60); VENOUS BLOOD GAS PO2 13 mm/Hg (30-55); VENOUS BLOOD PH 7.28 (7.32-7.43)
--- NOTE | 2018-07-28 13:22 | CP.PCM.CON ---
History of Present Illness - History of Present Illness History of Present Illness: THE PATIENT IS A 68 YEAR OLD MALE KNOWN TO ME WITH A HISTORY OF CHRONIC ATRIAL FIBRILLATION, ONE RECENT EPISODE OF ACUTE DIASTOLIC CHF, HYPERTENSION, RENAL INSUFFICIENCY, CHRONIC STASIS DERMATITIS OF BOTH LE WITH RECENT COBBLE STONING AND CELLULITIS AND HE IS A SMOKER. 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 THE WRAPPINGS WERE VERY TIGHT AND PAINFUL ON SUNDAY AND THEY WERE REMOVED. YESTERDAY AND TODAY THE RLE WAS SWOLLEN, VERY RED AND WARM AND PAINFUL AND HE CAME TO THE ER AND THE RLE WAS VERY RED, HOT AND SWOLLEN CONSISTENT WITH CELLULITIS. HE WAS ALSO SEPTIC AND DEHYDRATED AND HYPOTENSIVE SO HE WAS GIVEN IV FLUID AND IV ANTIBIOTICS AND PODIATRY CLEANED AND DRESSED THE RLE. HE WAS ADMITTED AND I WAS ASKED TO FOLLOW HIM. HE DENIES CHEST PAIN, PALPITATIONS OR SOB BUT COMPLAINS OF DIFFICULTY WALKING DUE TO THE RLE PAIN AND HE ALSO FEELS WEAK. Past Patient History - Infectious Disease Hx of Infectious Diseases: None - Tetanus Immunizations Tetanus Immunization: Unknown - Past Medical History & Family History Past Medical History?: Yes - Past Social History Alcohol: Social Drugs: Denies - CARDIAC Hx Atrial Fibrillation: Yes Hx Cardia Arrhythmia: Yes Hx Congestive Heart Failure: No Hx Hypercholesterolemia: No Hx Hypertension: Yes Hx Mitral Valve Prolapse: No Hx Pacemaker: No Hx Peripheral Edema: Yes (from venous stasis) - PULMONARY Hx Asthma: No Hx Bronchitis: No Hx Chronic Obstructive Pulmonary Disease (COPD): No Hx Emphysema: No Hx Pneumonia: No Hx Pulmonary Embolism: No Hx Sleep Apnea: No - NEUROLOGICAL Hx Alzheimer's Disease: No Hx Dementia: No Hx Migraine: No Hx Multiple Sclerosis: No Hx Parkinson's Disease: No Hx Seizures: No Hx Transient Ischemic Attacks (TIA): No - HEENT Hx HEENT Problems: Yes Other/Comment: wears glasses - RENAL Hx Chronic Kidney Disease: No Hx Kidney Stones: No - ENDOCRINE/METABOLIC Hx Hyperthyroidism: No Hx Hypothyroidism: Yes (pt not sure, was told he has low functioning thyroid, but never followed up) - HEMATOLOGICAL/ONCOLOGICAL Hx Anemia: No Hx Human Immunodeficiency Virus (HIV): No Hx Sickle Cell Disease: No - INTEGUMENTARY Hx Dermatological Problems: Yes Other/Comment: unsure of skin condition on bilateral legs, but seeks outpatient treatment for it - MUSCULOSKELETAL/RHEUMATOLOGICAL Hx Arthritis: No Hx Fractures: No Hx Osteoporosis: No Hx Rheumatoid Arthritis: No - GASTROINTESTINAL Hx Crohn's Disease: No Hx Diverticulitis: No Hx Gall Bladder Disease: No Hx Gastritis: No Hx Pancreatitis: No - GENITOURINARY/GYNECOLOGICAL Hx Sexually Transmitted Disorders: No - PSYCHIATRIC Hx Anxiety: No Hx Bipolar Disorder: No Hx Depression: No Hx Paranoia: No Hx Post Traumatic Stress Disorder: No Hx Schizophrenia: No - SURGICAL HISTORY Hx Appendectomy: No Hx Carotid Endarterectomy: No Hx Cholecystectomy: No Hx Coronary Artery Bypass Graft: No Hx Coronary Stent: No Hx Tonsillectomy: No - ANESTHESIA Hx Anesthesia: No Meds Allergies/Adverse Reactions: Allergies Allergy/AdvReac Type Severity Reaction Status Date / Time No Known Allergies Allergy Verified 06/22/18 14:39 - Medications Medications: Current Medications Heparin Sodium (Porcine) (Heparin) 5,000 units SC Q12 LUIS ANTONIO; Protocol Piperacillin Sod/Tazobactam (Sod 2.25 gm/ Sodium Chloride) 100 mls @ 100 mls/hr IVPB Q6 LUIS ANTONIO; Protocol Vancomycin HCl 1 gm/ Sodium (Chloride) 250 mls @ 166.667 mls/hr IVPB Q12 LUIS ANTONIO; Protocol Sodium Chloride (Sodium Chloride 0.9%) 1,000 mls @ 150 mls/hr IV .Q6H40M STA Stop: 07/28/18 16:31 Silver Sulfadiazine (Silvadene 1% 20 Gm) 1 ea TOP QD7 LUIS ANTONIO Physical Exam - Respiratory Exam Respiratory Exam: Clear to Auscultation Bilateral - Cardiovascular Exam Cardiovascular Exam: Irregular Rhythm, +S1, +S2 - Extremities Exam Additional comments: RLE RED, HOT VERY SWOLLEN WITH BLISTERING AND WITH SEROUS DRAINAGE LLE SWOLLEN AND BISTERING - Additional Findings Additional findings: INITIAL BP WAS 74/50 AND BP INCREASED TO 102/57 AFTER IV FLUIDS AND ANTIBIOTICS WBC 23K LACTATE LEVEL OF 5.3 INITIALLY AND 3 HRS LATER DECREASED TO 3.9 BUN/CR 54/4.1 Results - Vital Signs Recent Vital Signs: Last Vital Signs Temp 97.9 F 07/28/18 10:06 Pulse 77 07/28/18 12:10 Resp 19 07/28/18 12:10 BP 98/67 L 07/28/18 12:14 Pulse Ox 99 07/28/18 12:10 - Labs Result Diagrams: 07/28/18 07:49 07/28/18 07:49 Labs: Laboratory Results - last 24 hr 07/28/18 07/28/18 07/28/18 07:49 07:49 09:39 WBC 23.6 H D RBC 5.37 Hgb 16.2 Hct 49.1 MCV 91.4 MCH 30.2 MCHC 33.0 RDW 17.4 H Plt Count 275 MPV 9.7 Neut % (Auto) 96.7 H Lymph % (Auto) 1.0 L [place] % (Auto) 2.1 Eos % (Auto) 0.0 Baso % (Auto) 0.2 Neut # (Auto) 22.8 H Lymph # (Auto) 0.2 L [place] # (Auto) 0.5 Eos # (Auto) 0.0 Baso # (Auto) 0.1 Neutrophils % (Manual) 92 H Lymphocytes % (Manual) 2 L Monocytes % (Manual) 6 Platelet Estimate Normal Anisocytosis (manual) Slight [place] Cells Moderate pO2 28 L VBG pH 7.32 VBG pCO2 41 VBG HCO3 19.8 VBG Total CO2 22.4 VBG O2 Sat (Calc) 55.1 VBG Base Excess -4.8 L VBG Potassium Glucose 166 H Lactate 5.5 H* FiO2 21.0 Blood Gas Comments Lac=5.5 Crit Value Called To mallory Drew Crit Value Called By 22 Crit Value Read Back Y Blood Gas Notified Time 946 Sodium 134 172.0 H* Potassium 4.4 Chloride 97 L 110.0 H Carbon Dioxide 20 L Anion Gap 21 H BUN 54 H Creatinine 4.1 H Est GFR ( Amer) 18 Est GFR (Non-Af Amer) 15 Random Glucose 180 H Calcium 8.1 L Total Bilirubin 1.1 AST 45 ALT 56 Alkaline Phosphatase 113 Total Protein 6.3 Albumin 2.9 L Globulin 3.4 Albumin/Globulin Ratio 0.9 L Venous Blood Potassium 07/28/18 12:40 WBC RBC Hgb Hct MCV MCH MCHC RDW Plt Count MPV Neut % (Auto) Lymph % (Auto) [place] % (Auto) Eos % (Auto) Baso % (Auto) Neut # (Auto) Lymph # (Auto) [place] # (Auto) Eos # (Auto) Baso # (Auto) Neutrophils % (Manual) Lymphocytes % (Manual) Monocytes % (Manual) Platelet Estimate Anisocytosis (manual) [place] Cells pO2 13 L VBG pH 7.28 L VBG pCO2 52 VBG HCO3 20.3 VBG Total CO2 26.0 VBG O2 Sat (Calc) 13.3 L VBG Base Excess -3.0 L VBG Potassium 5.6 H Glucose 145 H Lactate 3.9 H FiO2 21.0 Blood Gas Comments Lactate=3.9 Crit Value Called To mallory Drew Crit Value Called By 22 Crit Value Read Back Y Blood Gas Notified Time 1248 Sodium 134.0 Potassium Chloride 99.0 Carbon Dioxide Anion Gap BUN Creatinine Est GFR ( Amer) Est GFR (Non-Af Amer) Random Glucose Calcium Total Bilirubin AST ALT Alkaline Phosphatase Total Protein Albumin Globulin Albumin/Globulin Ratio Venous Blood Potassium 5.6 H Assessment & Plan - Assessment and Plan (Free Text) Assessment: RIGHT LOWER EXTREMITY CELLULITIS WITH SEPSIS. CHRONIC LE STASIS DERMATITIS. CHRONIC ATRIAL FIBRILLATION HYPERTENSION HISTORY CHRONIC RENAL FAILURE WITH HECTOR FROM DEHYDRATION RENAL EPISODE OF ACUTE DIASTOLIC CHF Plan: THE PATIENT WILL BE ADMITTED TO ON TELEMETRY IV ANTIBIOTICS AND IV FLUIDS ID CONSULT PODIATRY CARE HOLD FUROSEMIDE, AMLODIPINE AND METOPROLOL FOR NOW
[2018-07-28] MEDS ORDERED: Albuterol-Ipratrop 3 mg / 0.5 (3 ml) UD IH PRN (13:40)
--- NOTE | 2018-07-28 14:01 | RAD ---
Date of service: 07/28/2018 PROCEDURE: Right Ankle Radiographs. HISTORY: R/O OM COMPARISON: None FINDINGS: BONES: Three views of the right ankle were performed for swelling and infection. No fracture is seen. No lytic process is noted. Ankle mortise is not widened. Subtalar joint is unremarkable. Talar dome is normal in outline. No periosteal reaction is noted.. Minimal posterior calcaneal spurring is noted. JOINTS: Mild DJD. No ankle mortise widening. SOFT TISSUES: Nonspecific diffuse soft tissue edema. OTHER FINDINGS: None. IMPRESSION: No plain film evidence of fracture or osteomyelitis in the right ankle. Please see foot exam of same day.
--- NOTE | 2018-07-28 14:03 | RAD ---
Date of service: 07/28/2018 PROCEDURE: Right Foot Radiographs. HISTORY: R/O OM COMPARISON: None. FINDINGS: BONES: Three views of the right foot were performed for infection and swelling. Moderate overlying soft tissue swelling of the right foot is noted without radiopaque foreign body. No air is seen in the soft tissues to suggest gas-forming organism. No fracture is seen. No periosteal reaction is identified. Phalanges appear intact. No dislocation of the phalanges is seen. No erosions are noted. Tarsal bones are intact. JOINTS: Mild degenerative change. SOFT TISSUES: Moderate soft tissue swelling. OTHER FINDINGS: None. IMPRESSION: Moderate diffuse right foot soft tissue swelling. No definite plain film evidence of osteomyelitis. If symptoms warrant, MRI could be obtained.
[2018-07-28] MEDS ORDERED: DOXAZOSIN 8 MG PO SCH (17:00)
--- NOTE | 2018-07-28 18:33 | CP.PCM.CON ---
History of Present Illness - History of Present Illness History of Present Illness: 68 years old male with history of CHF presents to ER for evaluation of swelling and drainage to lower extremities bilaterally, right greater than left, associated with pain. Patient reports history of bilateral cellulitis of lower extremities followed by wound care check. He denies fever, chest pain or shortness of breath at present time. History of IgA nephropathy since 1987. Past Patient History - Infectious Disease Hx of Infectious Diseases: None - Tetanus Immunizations Tetanus Immunization: Unknown - Past Medical History & Family History Past Medical History?: Yes - Past Social History Alcohol: Social Drugs: Denies - CARDIAC Hx Atrial Fibrillation: Yes Hx Cardia Arrhythmia: Yes Hx Congestive Heart Failure: No Hx Hypercholesterolemia: No Hx Hypertension: Yes Hx Mitral Valve Prolapse: No Hx Pacemaker: No Hx Peripheral Edema: Yes (from venous stasis) - PULMONARY Hx Asthma: No Hx Bronchitis: No Hx Chronic Obstructive Pulmonary Disease (COPD): No Hx Emphysema: No Hx Pneumonia: No Hx Pulmonary Embolism: No Hx Sleep Apnea: No - NEUROLOGICAL Hx Alzheimer's Disease: No Hx Dementia: No Hx Migraine: No Hx Multiple Sclerosis: No Hx Parkinson's Disease: No Hx Seizures: No Hx Transient Ischemic Attacks (TIA): No - HEENT Hx HEENT Problems: Yes Other/Comment: wears glasses - RENAL Hx Chronic Kidney Disease: No Hx Kidney Stones: No - ENDOCRINE/METABOLIC Hx Hyperthyroidism: No Hx Hypothyroidism: Yes (pt not sure, was told he has low functioning thyroid, but never followed up) - HEMATOLOGICAL/ONCOLOGICAL Hx Anemia: No Hx Human Immunodeficiency Virus (HIV): No Hx Sickle Cell Disease: No - INTEGUMENTARY Hx Dermatological Problems: Yes Other/Comment: unsure of skin condition on bilateral legs, but seeks outpatient treatment for it - MUSCULOSKELETAL/RHEUMATOLOGICAL Hx Arthritis: No Hx Fractures: No Hx Osteoporosis: No Hx Rheumatoid Arthritis: No - GASTROINTESTINAL Hx Crohn's Disease: No Hx Diverticulitis: No Hx Gall Bladder Disease: No Hx Gastritis: No Hx Pancreatitis: No - GENITOURINARY/GYNECOLOGICAL Hx Sexually Transmitted Disorders: No - PSYCHIATRIC Hx Anxiety: No Hx Bipolar Disorder: No Hx Depression: No Hx Paranoia: No Hx Post Traumatic Stress Disorder: No Hx Schizophrenia: No - SURGICAL HISTORY Hx Appendectomy: No Hx Carotid Endarterectomy: No Hx Cholecystectomy: No Hx Coronary Artery Bypass Graft: No Hx Coronary Stent: No Hx Tonsillectomy: No - ANESTHESIA Hx Anesthesia: No Meds Allergies/Adverse Reactions: Allergies Allergy/AdvReac Type Severity Reaction Status Date / Time No Known Allergies Allergy Verified 06/22/18 14:39 - Medications Medications: Current Medications Apixaban (Eliquis) 2.5 mg PO BID [facility]; Protocol Last Admin: 07/28/18 16:24 Dose: 2.5 mg Aspirin (Ecotrin) 81 mg PO DAILY [facility] Atorvastatin Calcium (Lipitor) 10 mg PO DIN [facility] Last Admin: 07/28/18 16:25 Dose: 10 mg Doxazosin Mesylate (Cardura) 8 mg PO BID [facility] Last Admin: 07/28/18 16:24 Dose: 8 mg Home Med (Albuterol/Ipratropium [Combivent Respimat]) 1 puff IH Q4 PRN PRN Reason: Wheezing Piperacillin Sod/Tazobactam (Sod 2.25 gm/ Sodium Chloride) 100 mls @ 100 mls/hr IVPB Q6 [facility]; Protocol Last Admin: 07/28/18 16:23 Dose: 100 mls/hr Vancomycin HCl 1 gm/ Sodium (Chloride) 250 mls @ 166.667 mls/hr IVPB QAM [facility]; Protocol Levothyroxine Sodium (Synthroid) 75 mcg PO DAILY@0630 [facility] Silver Sulfadiazine (Silvadene 1% 20 Gm) 1 ea TOP QD7 [facility] Physical Exam - Extremities Exam Additional comments: edema of right and left lower extremity. Right greater than left Results - Vital Signs Recent Vital Signs: Last Vital Signs Temp 98.9 F 07/28/18 16:16 Pulse 86 07/28/18 16:16 Resp 20 07/28/18 16:16 BP 115/78 07/28/18 16:16 Pulse Ox 96 07/28/18 16:16 - Labs Result Diagrams: 07/28/18 07:49 07/28/18 07:49 Labs: Laboratory Results - last 24 hr 07/28/18 07/28/18 07/28/18 07:49 07:49 09:39 WBC 23.6 H D RBC 5.37 Hgb 16.2 Hct 49.1 MCV 91.4 MCH 30.2 MCHC 33.0 RDW 17.4 H Plt Count 275 MPV 9.7 Neut % (Auto) 96.7 H Lymph % (Auto) 1.0 L [place] % (Auto) 2.1 Eos % (Auto) 0.0 Baso % (Auto) 0.2 Neut # (Auto) 22.8 H Lymph # (Auto) 0.2 L [place] # (Auto) 0.5 Eos # (Auto) 0.0 Baso # (Auto) 0.1 Neutrophils % (Manual) 92 H Lymphocytes % (Manual) 2 L Monocytes % (Manual) 6 Platelet Estimate Normal Anisocytosis (manual) Slight [place] Cells Moderate ESR pO2 28 L VBG pH 7.32 VBG pCO2 41 VBG HCO3 19.8 VBG Total CO2 22.4 VBG O2 Sat (Calc) 55.1 VBG Base Excess -4.8 L VBG Potassium Glucose 166 H Lactate 5.5 H* FiO2 21.0 Blood Gas Comments Lac=5.5 Crit Value Called To mallory Drew Crit Value Called By 22 Crit Value Read Back Y Blood Gas Notified Time 946 Sodium 134 172.0 H* Potassium 4.4 Chloride 97 L 110.0 H Carbon Dioxide 20 L Anion Gap 21 H BUN 54 H Creatinine 4.1 H Est GFR ( Amer) 18 Est GFR (Non-Af Amer) 15 Random Glucose 180 H Calcium 8.1 L Total Bilirubin 1.1 AST 45 ALT 56 Alkaline Phosphatase 113 Total Protein 6.3 Albumin 2.9 L Globulin 3.4 Albumin/Globulin Ratio 0.9 L Venous Blood Potassium 07/28/18 07/28/18 12:39 12:40 WBC RBC Hgb Hct MCV MCH MCHC RDW Plt Count MPV Neut % (Auto) Lymph % (Auto) [place] % (Auto) Eos % (Auto) Baso % (Auto) Neut # (Auto) Lymph # (Auto) [place] # (Auto) Eos # (Auto) Baso # (Auto) Neutrophils % (Manual) Lymphocytes % (Manual) Monocytes % (Manual) Platelet Estimate Anisocytosis (manual) [place] Cells ESR 40 H pO2 13 L VBG pH 7.28 L VBG pCO2 52 VBG HCO3 20.3 VBG Total CO2 26.0 VBG O2 Sat (Calc) 13.3 L VBG Base Excess -3.0 L VBG Potassium 5.6 H Glucose 145 H Lactate 3.9 H FiO2 21.0 Blood Gas Comments Lactate=3.9 Crit Value Called To mallory Drew Crit Value Called By 22 Crit Value Read Back Y Blood Gas Notified Time 1248 Sodium 134.0 Potassium Chloride 99.0 Carbon Dioxide Anion Gap BUN Creatinine Est GFR ( Amer) Est GFR (Non-Af Amer) Random Glucose Calcium Total Bilirubin AST ALT Alkaline Phosphatase Total Protein Albumin Globulin Albumin/Globulin Ratio Venous Blood Potassium 5.6 H Assessment & Plan - Assessment and Plan (Free Text) Assessment: Cellulitis of bilateral lower extremities with lymphedema. Agree with Zosyn 2.25 q 6h #2/ Vancomycin 1g i.v 1 dose Chronic kidney disease, pt says IgA nephropathy
--- NOTE | 2018-07-28 19:35 | CP.PCM.CON ---
History of Present Illness - History of Present Illness History of Present Illness: 68 yo WM with pmh/o htn, chf, cva, afib, ckd, chronic venous stasis / lymphedema, followed by Dr. Garcia was admitted with cc/o pain and swelling of legs, redness of rt leg for few days. c/o increased oozing from both legs. pt denies any chest pain, palpitation, nausea, vomitings, abd. pain, diarrhea, no dysuria or frequency. c/o drceased uop since morning pt claims he is taking lasix for 3 days Review of Systems - Review of Systems Review of Systems: b/l leg swelling and oozing, redness of rt leg, decreased uop x 1 day - Constitutional Constitutional: As Per HPI - EENT Eyes: As Per HPI Ears: As Per HPI Nose/Mouth/Throat: As Per HPI - Cardiovascular Cardiovascular: As Per HPI - Respiratory Respiratory: As Per HPI - Genitourinary Genitourinary: As Per HPI, Other Additional comments: decreased uop - Integumentary Integumentary: As Per HPI, Rash, Swelling Additional comments: oozing from both legs, dressing to leg +, redness+ - Neurological Neurological: As Per HPI - Psychiatric Psychiatric: As Per HPI - Endocrine Endocrine: As Per HPI - Hematologic/Lymphatic Hematologic: As Per HPI Past Patient History - Infectious Disease Hx of Infectious Diseases: None - Tetanus Immunizations Tetanus Immunization: Unknown - Past Medical History & Family History Past Medical History?: Yes - Past Social History Alcohol: Social Drugs: Denies - CARDIAC Hx Atrial Fibrillation: Yes Hx Cardia Arrhythmia: Yes Hx Congestive Heart Failure: No Hx Hypercholesterolemia: No Hx Hypertension: Yes Hx Mitral Valve Prolapse: No Hx Pacemaker: No Hx Peripheral Edema: Yes (from venous stasis) - PULMONARY Hx Asthma: No Hx Bronchitis: No Hx Chronic Obstructive Pulmonary Disease (COPD): No Hx Emphysema: No Hx Pneumonia: No Hx Pulmonary Embolism: No Hx Sleep Apnea: No - NEUROLOGICAL Hx Alzheimer's Disease: No Hx Dementia: No Hx Migraine: No Hx Multiple Sclerosis: No Hx Parkinson's Disease: No Hx Seizures: No Hx Transient Ischemic Attacks (TIA): No - HEENT Hx HEENT Problems: Yes Other/Comment: wears glasses - RENAL Hx Chronic Kidney Disease: No Hx Kidney Stones: No - ENDOCRINE/METABOLIC Hx Hyperthyroidism: No Hx Hypothyroidism: Yes (pt not sure, was told he has low functioning thyroid, but never followed up) - HEMATOLOGICAL/ONCOLOGICAL Hx Anemia: No Hx Human Immunodeficiency Virus (HIV): No Hx Sickle Cell Disease: No - INTEGUMENTARY Hx Dermatological Problems: Yes Other/Comment: unsure of skin condition on bilateral legs, but seeks outpatient treatment for it - MUSCULOSKELETAL/RHEUMATOLOGICAL Hx Arthritis: No Hx Fractures: No Hx Osteoporosis: No Hx Rheumatoid Arthritis: No - GASTROINTESTINAL Hx Crohn's Disease: No Hx Diverticulitis: No Hx Gall Bladder Disease: No Hx Gastritis: No Hx Pancreatitis: No - GENITOURINARY/GYNECOLOGICAL Hx Sexually Transmitted Disorders: No - PSYCHIATRIC Hx Anxiety: No Hx Bipolar Disorder: No Hx Depression: No Hx Paranoia: No Hx Post Traumatic Stress Disorder: No Hx Schizophrenia: No - SURGICAL HISTORY Hx Appendectomy: No Hx Carotid Endarterectomy: No Hx Cholecystectomy: No Hx Coronary Artery Bypass Graft: No Hx Coronary Stent: No Hx Tonsillectomy: No - ANESTHESIA Hx Anesthesia: No Meds Allergies/Adverse Reactions: Allergies Allergy/AdvReac Type Severity Reaction Status Date / Time No Known Allergies Allergy Verified 06/22/18 14:39 - Medications Medications: Current Medications Apixaban (Eliquis) 2.5 mg PO BID [facility]; Protocol Last Admin: 07/28/18 16:24 Dose: 2.5 mg Aspirin (Ecotrin) 81 mg PO DAILY [facility] Atorvastatin Calcium (Lipitor) 10 mg PO DIN [facility] Last Admin: 07/28/18 16:25 Dose: 10 mg Doxazosin Mesylate (Cardura) 8 mg PO BID [facility] Last Admin: 07/28/18 16:24 Dose: 8 mg Home Med (Albuterol/Ipratropium [Combivent Respimat]) 1 puff IH Q4 PRN PRN Reason: Wheezing Piperacillin Sod/Tazobactam (Sod 2.25 gm/ Sodium Chloride) 100 mls @ 100 mls/hr IVPB Q6 [facility]; Protocol Last Admin: 07/28/18 16:23 Dose: 100 mls/hr Vancomycin HCl 1 gm/ Sodium (Chloride) 250 mls @ 166.667 mls/hr IVPB QAM [facility]; Protocol Levothyroxine Sodium (Synthroid) 75 mcg PO DAILY@0630 [facility] Silver Sulfadiazine (Silvadene 1% 20 Gm) 1 ea TOP QD7 [facility] Physical Exam - Constitutional Appears: No Acute Distress - Head Exam Head Exam: ATRAUMATIC, NORMAL INSPECTION, NORMOCEPHALIC - Eye Exam Eye Exam: EOMI, Normal appearance, PERRL Pupil Exam: NORMAL ACCOMODATION, PERRL - ENT Exam ENT Exam: Mucous Membranes Dry - Neck Exam Neck exam: Positive for: Full Rom, Lymphadenopathy, Normal Inspection - Respiratory Exam Respiratory Exam: Clear to Auscultation Bilateral, NORMAL BREATHING PATTERN - Cardiovascular Exam Cardiovascular Exam: Irregular Rhythm, REGULAR RHYTHM, +S1, +S2 - GI/Abdominal Exam GI & Abdominal Exam: Normal Bowel Sounds, Soft Additional comments: non gtender, no hepatospleenomegaly, no abdominal bruit - Rectal Exam Rectal Exam: Deferred - Extremities Exam Additional comments: b/l leg swelling, ozzing from both legs, chronic stasis changes + , redness of rt leg - Neurological Exam Neurological exam: Alert, CN II-XII Intact, Oriented x3 - Psychiatric Exam Psychiatric exam: Normal Affect, Normal Mood Results - Vital Signs Recent Vital Signs: Last Vital Signs Temp 98.9 F 07/28/18 16:16 Pulse 86 07/28/18 16:16 Resp 20 07/28/18 16:16 BP 115/78 07/28/18 16:16 Pulse Ox 96 07/28/18 16:16 - Labs Result Diagrams: 07/28/18 07:49 07/28/18 07:49 Labs: Laboratory Results - last 24 hr 07/28/18 07/28/18 07/28/18 07:49 07:49 09:39 WBC 23.6 H D RBC 5.37 Hgb 16.2 Hct 49.1 MCV 91.4 MCH 30.2 MCHC 33.0 RDW 17.4 H Plt Count 275 MPV 9.7 Neut % (Auto) 96.7 H Lymph % (Auto) 1.0 L [place] % (Auto) 2.1 Eos % (Auto) 0.0 Baso % (Auto) 0.2 Neut # (Auto) 22.8 H Lymph # (Auto) 0.2 L [place] # (Auto) 0.5 Eos # (Auto) 0.0 Baso # (Auto) 0.1 Neutrophils % (Manual) 92 H Lymphocytes % (Manual) 2 L Monocytes % (Manual) 6 Platelet Estimate Normal Anisocytosis (manual) Slight [place] Cells Moderate ESR pO2 28 L VBG pH 7.32 VBG pCO2 41 VBG HCO3 19.8 VBG Total CO2 22.4 VBG O2 Sat (Calc) 55.1 VBG Base Excess -4.8 L VBG Potassium Glucose 166 H Lactate 5.5 H* FiO2 21.0 Blood Gas Comments Lac=5.5 Crit Value Called To mallory Drew Crit Value Called By 22 Crit Value Read Back Y Blood Gas Notified Time 946 Sodium 134 172.0 H* Potassium 4.4 Chloride 97 L 110.0 H Carbon Dioxide 20 L Anion Gap 21 H BUN 54 H Creatinine 4.1 H Est GFR ( Amer) 18 Est GFR (Non-Af Amer) 15 Random Glucose 180 H Calcium 8.1 L Total Bilirubin 1.1 AST 45 ALT 56 Alkaline Phosphatase 113 Total Protein 6.3 Albumin 2.9 L Globulin 3.4 Albumin/Globulin Ratio 0.9 L Venous Blood Potassium 07/28/18 07/28/18 12:39 12:40 WBC RBC Hgb Hct MCV MCH MCHC RDW Plt Count MPV Neut % (Auto) Lymph % (Auto) [place] % (Auto) Eos % (Auto) Baso % (Auto) Neut # (Auto) Lymph # (Auto) [place] # (Auto) Eos # (Auto) Baso # (Auto) Neutrophils % (Manual) Lymphocytes % (Manual) Monocytes % (Manual) Platelet Estimate Anisocytosis (manual) [place] Cells ESR 40 H pO2 13 L VBG pH 7.28 L VBG pCO2 52 VBG HCO3 20.3 VBG Total CO2 26.0 VBG O2 Sat (Calc) 13.3 L VBG Base Excess -3.0 L VBG Potassium 5.6 H Glucose 145 H Lactate 3.9 H FiO2 21.0 Blood Gas Comments Lactate=3.9 Crit Value Called To mallory Drew Crit Value Called By 22 Crit Value Read Back Y Blood Gas Notified Time 1248 Sodium 134.0 Potassium Chloride 99.0 Carbon Dioxide Anion Gap BUN Creatinine Est GFR ( Amer) Est GFR (Non-Af Amer) Random Glucose Calcium Total Bilirubin AST ALT Alkaline Phosphatase Total Protein Albumin Globulin Albumin/Globulin Ratio Venous Blood Potassium 5.6 H Assessment & Plan - Assessment and Plan (Free Text) Assessment: 68 yo WM with pmh/o htn, chf, cva, ckd, massive poroteinuria, h/o IgAN s/p kidney bx in 1987, with b/l leg swelling, chronic stais/lymphedema with b/l le swelling, oozing, redness of th leg , difficult to abmulate, weakness, increased wbc, increased bun/cr 1. HECTOR on ckd-3 2. cellulitis of legs 3. Dehydration 4. HTN 5. A fib check urine lytes, osm, creatinine start ivf 1/2 ns at 70 ml/hr c/w iv abx a sper ID dialy bmp if renal function does not improve , will check u/s kidneys for size, check urine c/s, blood c/s Plan: as above
[2018-07-29] MEDS: Sodium Chloride 0.45% 1,000 ML IV SCH ×2 (00:30→15:44)
[2018-07-29] MEDS: Levothyroxine 75 MCG TAB PO SCH (05:53)
[2018-07-29 05:59] LABS: BASO % 0.2 % (0.0-2.0); EOS # 0.1 K/uL (0.0-0.7); EOS % 0.2 % (0.0-4.0); HEMOGLOBIN 13.9 g/dL (12.0-18.0); LYMPH # 0.2 K/uL (1.0-4.3); LYMPH % 0.8 % (20.0-40.0); MEAN CELL VOLUME 90.7 fl (80.0-94.0); MEAN CORPUSCULAR HEMOGLOBIN 29.8 pg (27.0-31.0); MEAN CORPUSCULAR HGB CONC 32.9 g/dL (33.0-37.0); MEAN PLATELET VOLUME 9.4 fl (7.2-11.7); MONO # 0.7 K/uL (0.0-0.8); MONO % 3.1 % (0.0-10.0); NEUT # 22.3 K/uL (1.8-7.0); NEUT % 95.7 % (50.0-75.0); PLATELET COUNT 219 K/uL (130-400); RBC 4.66 Mil/uL (4.40-5.90); RED CELL DISTRIBUTION WIDTH 17.3 % (11.5-14.5); WHITE BLOOD COUNT 23.3 K/uL (4.8-10.8)
[2018-07-29 06:11] LABS: CALCIUM 7.2 mg/dL (8.4-10.2)
--- NOTE | 2018-07-29 06:13 | CP.PCM.PN ---
Subjective - Date & Time of Evaluation Date of Evaluation: 07/29/18 Time of Evaluation: 12:25 - Subjective Subjective: Podiatry progress note for Dr. Mullen, 68 Y/O male patient seen and evaluated in the bedside for Right LE ulceration, swelling, redness and blistering. Patient is AAO x3. Patient states that he has sever pain since yesterday in his left leg 07/31. Patient denies any other pedal complaint. Patient denies any recent F/N/V/C or SOB. Objective - Vital Signs/Intake and Output Vital Signs (last 24 hours): Temp Pulse Resp BP Pulse Ox 97.7 F 66 18 118/69 98 07/29/18 04:33 07/29/18 04:33 07/29/18 04:33 07/29/18 04:33 07/29/18 04:33 Intake and Output: 07/28/18 07/29/18 18:59 06:59 Intake Total 1999 Balance 1999 - Medications Medications: Current Medications Apixaban (Eliquis) 2.5 mg PO BID [facility]; Protocol Last Admin: 07/28/18 16:24 Dose: 2.5 mg Aspirin (Ecotrin) 81 mg PO DAILY [facility] Atorvastatin Calcium (Lipitor) 10 mg PO DIN [facility] Last Admin: 07/28/18 16:25 Dose: 10 mg Doxazosin Mesylate (Cardura) 8 mg PO BID [facility] Last Admin: 07/28/18 16:24 Dose: 8 mg Home Med (Albuterol/Ipratropium [Combivent Respimat]) 1 puff IH Q4 PRN PRN Reason: Wheezing Piperacillin Sod/Tazobactam (Sod 2.25 gm/ Sodium Chloride) 100 mls @ 100 mls/hr IVPB Q6 [facility]; Protocol Last Admin: 07/29/18 03:36 Dose: 100 mls/hr Vancomycin HCl 1 gm/ Sodium (Chloride) 250 mls @ 166.667 mls/hr IVPB QAM [facility]; Protocol Sodium Chloride (Sodium Chloride 0.45%) 1,000 mls @ 70 mls/hr IV .[id number] [facility] Stop: 07/30/18 23:59 Last Admin: 07/29/18 00:30 Dose: 70 mls/hr Levothyroxine Sodium (Synthroid) 75 mcg PO DAILY@0630 [facility] Last Admin: 07/29/18 05:53 Dose: 75 mcg Silver Sulfadiazine (Silvadene 1% 20 Gm) 1 ea TOP QD7 [facility] - Labs Labs: 07/29/18 04:20 07/29/18 04:20 - Constitutional Appears: Well, Non-toxic, No Acute Distress - Head Exam Head Exam: ATRAUMATIC, NORMOCEPHALIC - Extremities Exam Additional comments: B/L LE Focused exam: Vasc: DP/PT not palpable due to massive edema. Cap refill < 3 sec in all digits. Temp gradient warm to warmer in the right side and warm to cool in the L side from proximal to distal. Massive non pitting edema extending up to below the the knee on the right side and moderated non pitting edema up to the tibial tuberosity on the left side. Neuro: Gross and protective sensations intact b/l. Derm: Right LE: Massive Leg non-pitting edema and sever erythema extending up t o just below the knee. Dissuse blistering noted along the right leg and foot. An ulcer measuring 3.5 cm X 3 cm X 0.2 cm. Base is granular 100%. No malodor. sangineous drainage. No probing to bone, No undermining, No tracking. Left LE: Moderate Leg non-pitting edema extending up to the tibial tuberosity. mild erythema noted at the ankle. skin is bruised at the anterior ankle. B/L skin changes of the anterior legs in the form of lichnification and discoloration R>L MSK: severe pain on palpating the Right LE. Muscle power Couldn't be assessed on the right side, 5/5 in all groups in the left side.. - Neurological Exam Neurological Exam: Alert, Awake, Oriented x3 Assessment and Plan - Assessment and Plan (Free Text) Assessment: 68 Y/O male patient seen and evaluated in the ED for Right LE cellulitis, Edema and ulceration. Plan: Patient seen and evaluated in the bedside Plan discussed in details with attending Sebas Green Chart, Labs and vitals reviews; Afebrile, WBCs 23.3 Wound Cx; gram negative rods, gram positive cocci (Preliminary) B/L 3 views X-ray; reviewed; Right massive LE edema. No signs of OM. Left moderate LE edema Left foot and ankle X-ray: No evidence of osteomyelitis, SOft tissue swelling Left LE venous duplex; No evidence of DVT. Patient will be admitted by the primary team. ID consulted for the patient. Right LE dressed using DSD, Telfa and SSD ID on board. Podiatry will F/U the patient while in house.
[2018-07-29] MEDS ORDERED: Influenza Vaccine 60 MCG/0.5 ML SYR (3 yr & up) IM ONE (09:36)
[2018-07-29] MEDS: Silver Sulfadiazine 1% Cream (20 gm) TOP SCH (09:54)
--- NOTE | 2018-07-29 09:54 | CP.PCM.PN ---
Subjective - Date & Time of Evaluation Date of Evaluation: 07/29/18 Time of Evaluation: 09:30 - Subjective Subjective: PATIENT COMPLAINS OF PAIN IN RIGHT LEG Objective - Vital Signs/Intake and Output Vital Signs (last 24 hours): Temp Pulse Resp BP Pulse Ox 97.7 F 74 20 112/76 97 07/29/18 09:21 07/29/18 09:21 10 09:21 07/29/18 09:21 07/29/18 09:21 - Medications Medications: Current Medications Acetaminophen (Tylenol 325mg Tab) 650 mg PO Q4 PRN PRN Reason: Pain, Mild (1-3) Apixaban (Eliquis) 2.5 mg PO BID [facility]; Protocol Last Admin: 07/29/18 09:06 Dose: 2.5 mg Aspirin (Ecotrin) 81 mg PO DAILY [facility] Last Admin: 07/29/18 09:06 Dose: 81 mg Atorvastatin Calcium (Lipitor) 10 mg PO DIN [facility] Last Admin: 07/28/18 16:25 Dose: 10 mg Doxazosin Mesylate (Cardura) 8 mg PO BID [facility] Last Admin: 07/29/18 09:07 Dose: 8 mg Home Med (Albuterol/Ipratropium [Combivent Respimat]) 1 puff IH Q4 PRN PRN Reason: Wheezing Piperacillin Sod/Tazobactam (Sod 2.25 gm/ Sodium Chloride) 100 mls @ 100 mls/hr IVPB Q6 [facility]; Protocol Last Admin: 07/29/18 09:14 Dose: 100 mls/hr Vancomycin HCl 1 gm/ Sodium (Chloride) 250 mls @ 166.667 mls/hr IVPB QAM [facility]; Protocol Last Admin: 07/29/18 09:16 Dose: 166.667 mls/hr Sodium Chloride (Sodium Chloride 0.45%) 1,000 mls @ 70 mls/hr IV .[id number] [facility] Stop: 07/30/18 23:59 Last Admin: 07/29/18 00:30 Dose: 70 mls/hr Influenza Virus Vaccine (Fluzone Quad [id number]) 60 mcg IM .ONCE ONE Stop: 07/29/18 09:37 Levothyroxine Sodium (Synthroid) 75 mcg PO DAILY@0630 [facility] Last Admin: 07/29/18 05:53 Dose: 75 mcg Morphine Sulfate (Morphine) 2 mg IVP Q4 PRN PRN Reason: Pain, severe (8-10) Silver Sulfadiazine (Silvadene 1% 20 Gm) 1 ea TOP QD7 [facility] Tramadol HCl (Ultram) 50 mg PO Q6 PRN PRN Reason: Pain, moderate (4-7) - Labs Labs: 07/29/18 04:20 07/29/18 04:20 - Respiratory Exam Respiratory Exam: Clear to Ausculation Bilateral - Cardiovascular Exam Cardiovascular Exam: Irregular Rhythm, +S1, +S2 - Extremities Exam Additional comments: RLE WITH DRESSINGS LLE WITH STASIS DERMATITIS AND EDEMA - Additional Findings Additional findings: 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 UNDERLYING STASIS DERMATITIS AND LYMPHEDEMA CHRONIC ATRIAL FIBRILLATION HECTOR ON CRF IgAN HYPERTENSION PRIOR CEREBRAL INFARCT Plan: CONTINUE IV FLUIDS,IV ANTIBIOTICS, SILVADENE, ELIQUIS AND ATORVASTATIN
--- NOTE | 2018-07-29 11:12 | US ---
Date of service: 07/29/2018 PROCEDURE: Ultrasound of the Kidneys HISTORY: hien on ckd, r/o hydro, for kidney size COMPARISON: None available. TECHNIQUE: Ultrasonography of the bilateral kidneys was performed using transabdominal technique with longitudinal and transverse projections submitted for interpretation including color Doppler ultrasonography. FINDINGS: RIGHT KIDNEY: Measures: 11.6 x 5.9 x 4.5 cm. The right kidney is normal in size and contour. A septated cyst identified in the upper pole right kidney measuring 2.2 x 2.0 x 2.4 cm. No perinephric fluid collection evident. Increased renal parenchymal echogenicity suggests intrinsic medical renal disease. No obstructive uropathy, urolithiasis or discrete or solid renal parenchymal mass is identified. LEFT KIDNEY: Measures: 10.2 x 5.1 x 5.6 cm. Increased renal parenchymal echogenicity suggests intrinsic medical renal disease. No obstructive uropathy, or discrete cystic or solid renal parenchymal mass is identified. 2 small intrarenal calculi identified at the lower pole with both measuring well under 7 mm greatest dimension. OTHER FINDINGS: None. IMPRESSION: 1. No obstructive uropathy bilaterally. 2. Findings suggestive of medical intrinsic renal disease as discussed above. Clinically correlate further. 3. Solitary septated cyst upper pole right kidney 2.4 cm greatest dimension with 2 tiny intrarenal calculi identified at the lower pole left kidney.
[2018-07-29 11:55] LABS: BANDS 1 % (0-2); LYMPHOCYTE 1 % (20-50); MONOCYTE 4 % (0-10); NEUTROPHIL 94 % (42-75); PLATELET ESTIMATE NORMAL (NORMAL); TOTAL CELLS COUNTED 100
--- NOTE | 2018-07-29 12:41 | CP.PCM.PN ---
<Adrien Dick - Last Filed: 07/29/18 12:39> Subjective - Date & Time of Evaluation Date of Evaluation: 07/29/18 Time of Evaluation: 12:39 - Subjective Subjective: 68 yo male seen and evalauted at bedside, resting comfortably. States he is in pain on his right lower leg but the pain medication he has been receiving does help. He reports no acute events overnight. States that he is able to eat and denies N/V/F/C/SOB/CP today. Objective - Vital Signs/Intake and Output Vital Signs (last 24 hours): Temp Pulse Resp BP Pulse Ox 97.7 F 74 20 112/76 97 07/29/18 09:21 07/29/18 09:21 07/29/18 09:21 07/29/18 09:21 07/29/18 09:21 - Medications Medications: Current Medications Acetaminophen (Tylenol 325mg Tab) 650 mg PO Q4 PRN PRN Reason: Pain, Mild (1-3) Apixaban (Eliquis) 2.5 mg PO BID [facility]; Protocol Last Admin: 07/29/18 09:06 Dose: 2.5 mg Aspirin (Ecotrin) 81 mg PO DAILY [facility] Last Admin: 07/29/18 09:06 Dose: 81 mg Atorvastatin Calcium (Lipitor) 10 mg PO DIN [facility] Last Admin: 07/28/18 16:25 Dose: 10 mg Doxazosin Mesylate (Cardura) 8 mg PO BID [facility] Last Admin: 07/29/18 09:07 Dose: 8 mg Home Med (Albuterol/Ipratropium [Combivent Respimat]) 1 puff IH Q4 PRN PRN Reason: Wheezing Piperacillin Sod/Tazobactam (Sod 2.25 gm/ Sodium Chloride) 100 mls @ 100 mls/hr IVPB Q6 [facility]; Protocol Last Admin: 07/29/18 09:14 Dose: 100 mls/hr Vancomycin HCl 1 gm/ Sodium (Chloride) 250 mls @ 166.667 mls/hr IVPB QAM [facility]; Protocol Last Admin: 07/29/18 09:16 Dose: 166.667 mls/hr Sodium Chloride (Sodium Chloride 0.45%) 1,000 mls @ 70 mls/hr IV .[id number] [facility] Stop: 07/30/18 23:59 Last Admin: 07/29/18 00:30 Dose: 70 mls/hr Levothyroxine Sodium (Synthroid) 75 mcg PO DAILY@0630 [facility] Last Admin: 07/29/18 05:53 Dose: 75 mcg Morphine Sulfate (Morphine) 2 mg IVP Q4 PRN PRN Reason: Pain, severe (8-10) Silver Sulfadiazine (Silvadene 1% 20 Gm) 1 ea TOP QD7 [facility] Last Admin: 07/29/18 09:54 Dose: Not Given Tramadol HCl (Ultram) 50 mg PO Q6 PRN PRN Reason: Pain, moderate (4-7) - Labs Labs: 07/29/18 04:20 07/29/18 04:20 - Constitutional Appears: Well, Non-toxic, No Acute Distress - Head Exam Head Exam: ATRAUMATIC, NORMOCEPHALIC - Respiratory Exam Respiratory Exam: Clear to Ausculation Bilateral - Cardiovascular Exam Cardiovascular Exam: Irregular Rhythm, +S1, +S2 - GI/Abdominal Exam GI & Abdominal Exam: Soft, Normal Bowel Sounds - Extremities Exam Additional comments: B/l lower extremity edema R>L dressing on right lower extremity, c/d/i leg is less malodorous than on admission left LE has chronic venous stasis changes - tree bark appearance and hyperpigmentation present - Neurological Exam Neurological Exam: Alert, Awake, Oriented x3 - Psychiatric Exam Psychiatric exam: Normal Affect, Normal Mood Assessment and Plan - Assessment and Plan (Free Text) Assessment: 68 y/o M with PMH of CHF, HTN, CVA, A-Fib, and chronic severe venous stasis/lymphedema presented to ED c/o constant dull/crampy pain in right lower leg Plan: 1. Severe Venous Stasis/Lymphedema with cellulitis, & sepsis criteria met (Acute on chronic) -Podiatry recommendations have been appreciated. Foot & ankle x-ray: soft tissue swelling, moderate degenerative changes -Dr. Portillo, ID specialist consulted: IV zosyn 2.25g q 6 hr #3/10, IV vanc 1 g 1 dose 2. Severe sepsis criteria met (Acute) -Likely due to severe venous stasis/lymphedema with cellulitis. -On admission, BP: 74/50, WBC-23.6, lactate-5.5 -Continue IV fluids. -Continue IV zosyn. 3. CHF (Chronic) -Hold lasix because of hypotension. -Hold Metoprolol because of hypotension. -Dr Crespo recommendations have been appreciated. (Hold lasix, amlodipine & metoprolol) 4. HTN (Chronic) -Hold Metoprolol because of hypotension. -Hold Amlodipine because of hypotension. -Continue Losartan . 5. Paroxysmal AFIB (Chronic, rate controlled) -Continue Eliquis -Hold Metoprolol because of hypotension. 6. DVT prophylaxis -Patient on Eliquis <Ke Mccormack D - Last Filed: 07/29/18 13:54> Objective - Vital Signs/Intake and Output Vital Signs (last 24 hours): Temp Pulse Resp BP Pulse Ox 98.5 F 75 18 108/72 97 07/29/18 13:46 07/29/18 13:46 07/29/18 13:46 07/29/18 13:46 07/29/18 13:46 - Medications Medications: Current Medications Acetaminophen (Tylenol 325mg Tab) 650 mg PO Q4 PRN PRN Reason: Pain, Mild (1-3) Apixaban (Eliquis) 2.5 mg PO BID [facility]; Protocol Last Admin: 07/29/18 09:06 Dose: 2.5 mg Aspirin (Ecotrin) 81 mg PO DAILY [facility] Last Admin: 07/29/18 09:06 Dose: 81 mg Atorvastatin Calcium (Lipitor) 10 mg PO DIN [facility] Last Admin: 07/28/18 16:25 Dose: 10 mg Doxazosin Mesylate (Cardura) 8 mg PO BID [facility] Last Admin: 07/29/18 09:07 Dose: 8 mg Home Med (Albuterol/Ipratropium [Combivent Respimat]) 1 puff IH Q4 PRN PRN Reason: Wheezing Piperacillin Sod/Tazobactam (Sod 2.25 gm/ Sodium Chloride) 100 mls @ 100 mls/hr IVPB Q6 [facility]; Protocol Last Admin: 07/29/18 09:14 Dose: 100 mls/hr Vancomycin HCl 1 gm/ Sodium (Chloride) 250 mls @ 166.667 mls/hr IVPB QAM [facility]; Protocol Last Admin: 07/29/18 09:16 Dose: 166.667 mls/hr Sodium Chloride (Sodium Chloride 0.45%) 1,000 mls @ 70 mls/hr IV .[id number] [facility] Stop: 07/30/18 23:59 Last Admin: 07/29/18 00:30 Dose: 70 mls/hr Levothyroxine Sodium (Synthroid) 75 mcg PO DAILY@0630 [facility] Last Admin: 07/29/18 05:53 Dose: 75 mcg Morphine Sulfate (Morphine) 2 mg IVP Q4 PRN PRN Reason: Pain, severe (8-10) Silver Sulfadiazine (Silvadene 1% 20 Gm) 1 ea TOP QD7 [facility] Last Admin: 07/29/18 09:54 Dose: Not Given Tramadol HCl (Ultram) 50 mg PO Q6 PRN PRN Reason: Pain, moderate (4-7) - Labs Labs: 07/29/18 04:20 07/29/18 04:20 Attending/Attestation - Attestation I have personally seen and examined this patient.: Yes I have fully participated in the care of the patient.: Yes I have reviewed all pertinent clinical information, including history, physical exam and plan: Yes
--- NOTE | 2018-07-29 14:23 | CP.PCM.PN ---
Subjective - Date & Time of Evaluation Date of Evaluation: 07/29/18 Time of Evaluation: 14:23 - Subjective Subjective: 68 yo WM with pmh/o htn, chf, cva, afib, ckd, chronic venous stasis / lymphedema, followed by Dr. Garcia was admitted with cc/o pain and swelling of legs, redness of rt leg for few days. c/o increased oozing from both legs. pt denies any chest pain, palpitation, nausea, vomitings, abd. pain, diarrhea, no dysuria or frequency. c/o decreased uop no complaints, voiding today Objective - Vital Signs/Intake and Output Vital Signs (last 24 hours): Temp Pulse Resp BP Pulse Ox 98.5 F 75 18 108/72 97 07/29/18 13:46 07/29/18 13:46 07/29/18 13:46 07/29/18 13:46 07/29/18 13:46 - Medications Medications: Current Medications Acetaminophen (Tylenol 325mg Tab) 650 mg PO Q4 PRN PRN Reason: Pain, Mild (1-3) Apixaban (Eliquis) 2.5 mg PO BID [facility]; Protocol Last Admin: 07/29/18 09:06 Dose: 2.5 mg Aspirin (Ecotrin) 81 mg PO DAILY [facility] Last Admin: 07/29/18 09:06 Dose: 81 mg Atorvastatin Calcium (Lipitor) 10 mg PO DIN [facility] Last Admin: 07/28/18 16:25 Dose: 10 mg Doxazosin Mesylate (Cardura) 8 mg PO BID [facility] Last Admin: 07/29/18 09:07 Dose: 8 mg Home Med (Albuterol/Ipratropium [Combivent Respimat]) 1 puff IH Q4 PRN PRN Reason: Wheezing Piperacillin Sod/Tazobactam (Sod 2.25 gm/ Sodium Chloride) 100 mls @ 100 mls/hr IVPB Q6 [facility]; Protocol Last Admin: 07/29/18 09:14 Dose: 100 mls/hr Vancomycin HCl 1 gm/ Sodium (Chloride) 250 mls @ 166.667 mls/hr IVPB QAM [facility]; Protocol Last Admin: 07/29/18 09:16 Dose: 166.667 mls/hr Sodium Chloride (Sodium Chloride 0.45%) 1,000 mls @ 70 mls/hr IV .[id number] [facility] Stop: 07/30/18 23:59 Last Admin: 07/29/18 00:30 Dose: 70 mls/hr Levothyroxine Sodium (Synthroid) 75 mcg PO DAILY@0630 [facility] Last Admin: 07/29/18 05:53 Dose: 75 mcg Morphine Sulfate (Morphine) 2 mg IVP Q4 PRN PRN Reason: Pain, severe (8-10) Silver Sulfadiazine (Silvadene 1% 20 Gm) 1 ea TOP QD7 [facility] Last Admin: 07/29/18 09:54 Dose: Not Given Tramadol HCl (Ultram) 50 mg PO Q6 PRN PRN Reason: Pain, moderate (4-7) - Labs Labs: 07/29/18 04:20 07/29/18 04:20 - Head Exam Head Exam: ATRAUMATIC, NORMAL INSPECTION, NORMOCEPHALIC - Eye Exam Eye Exam: PERRL Pupil Exam: NORMAL ACCOMODATION - ENT Exam ENT Exam: Mucous Membranes Moist, Normal Exam - Neck Exam Neck Exam: Normal Inspection - Respiratory Exam Respiratory Exam: Clear to Ausculation Bilateral, NORMAL BREATHING PATTERN - Cardiovascular Exam Cardiovascular Exam: Irregular Rhythm, +S1, +S2 - GI/Abdominal Exam GI & Abdominal Exam: Soft, Normal Bowel Sounds - Rectal Exam Rectal Exam: Deferred Assessment and Plan - Assessment and Plan (Free Text) Assessment: 68 yo WM with pmh/o htn, chf, cva, ckd, massive proteinuria, h/o IgAN s/p kidney bx in 1987, with b/l leg swelling, chronic stais/lymphedema with b/l le swelling, oozing, redness of th leg , difficult to ambulate, weakness, increased wbc, increased bun/cr 1. HECTOR on ckd-3 2. cellulitis of legs 3. Dehydration 4. HTN 5. A fib check urine lytes, osm, creatinine start ivf 1/2 ns at 70 ml/hr c/w iv abx as per ID dialy bmp uop is improving
[2018-07-29] MEDS ORDERED: Sodium Chloride 0.45% 1,000 ML IV SCH (15:15)
[2018-07-30 05:36] LABS: BASO # 0.1 K/uL (0.0-0.2); BASO % 0.3 % (0.0-2.0); EOS % 0.2 % (0.0-4.0); HEMOGLOBIN 13.6 g/dL (12.0-18.0); LYMPH # 0.3 K/uL (1.0-4.3); LYMPH % 1.6 % (20.0-40.0); MEAN CELL VOLUME 89.8 fl (80.0-94.0); MEAN CORPUSCULAR HGB CONC 33.4 g/dL (33.0-37.0); MEAN PLATELET VOLUME 8.8 fl (7.2-11.7); MONO # 0.8 K/uL (0.0-0.8); MONO % 4.8 % (0.0-10.0); NEUT # 16.3 K/uL (1.8-7.0); NEUT % 93.1 % (50.0-75.0); NRBC % 0.2 % (0.0-0.0); PLATELET COUNT 198 K/uL (130-400); RBC 4.54 Mil/uL (4.40-5.90); RED CELL DISTRIBUTION WIDTH 17.1 % (11.5-14.5); WHITE BLOOD COUNT 17.6 K/uL (4.8-10.8)
[2018-07-30 05:46] LABS: CALCIUM 7.3 mg/dL (8.4-10.2)
[2018-07-30] MEDS ORDERED: Influenza Vaccine (5 YR UP)/PF 60 MCG/0.5 ML SYR IM ONE (06:05)
[2018-07-30] MEDS: Levothyroxine 75 MCG TAB PO SCH (06:07)
--- NOTE | 2018-07-30 07:05 | CP.PCM.PN ---
<Adrien Dick - Last Filed: 07/30/18 08:23> Subjective - Date & Time of Evaluation Date of Evaluation: 07/30/18 Time of Evaluation: 07:03 - Subjective Subjective: 68 yo male seen and evalauted at bedside, resting comfortably. Reports pain in his right lower leg. Denies any acute events overnight. States that he is able to eat and denies N/V/F/C/SOB/CP today. Has no other acute complaints. Objective - Vital Signs/Intake and Output Vital Signs (last 24 hours): Temp Pulse Resp BP Pulse Ox 97.4 F L 73 18 132/83 100 07/30/18 04:56 07/30/18 04:56 07/30/18 04:56 07/30/18 04:56 07/30/18 04:56 - Medications Medications: Current Medications Acetaminophen (Tylenol 325mg Tab) 650 mg PO Q4 PRN PRN Reason: Pain, Mild (1-3) Albuterol/Ipratropium (Duoneb 3 Mg/0.5 Mg (3 Ml) Ud) 3 ml IH RQ4PRN PRN PRN Reason: Wheezing Apixaban (Eliquis) 2.5 mg PO BID [facility]; Protocol Last Admin: 07/29/18 16:27 Dose: 2.5 mg Aspirin (Ecotrin) 81 mg PO DAILY [facility] Last Admin: 07/29/18 09:06 Dose: 81 mg Atorvastatin Calcium (Lipitor) 10 mg PO DIN [facility] Last Admin: 07/29/18 16:28 Dose: 10 mg Doxazosin Mesylate (Cardura) 8 mg PO BID [facility] Last Admin: 07/29/18 16:26 Dose: 8 mg Piperacillin Sod/Tazobactam (Sod 2.25 gm/ Sodium Chloride) 100 mls @ 100 mls/hr IVPB Q6 [facility]; Protocol Last Admin: 07/30/18 04:06 Dose: 100 mls/hr Vancomycin HCl 1 gm/ Sodium (Chloride) 250 mls @ 166.667 mls/hr IVPB QAM [facility]; Protocol Last Admin: 07/29/18 09:16 Dose: 166.667 mls/hr Sodium Chloride (Sodium Chloride 0.45%) 1,000 mls @ 70 mls/hr IV .[id number] [facility] Stop: 07/30/18 23:59 Last Admin: 07/29/18 15:44 Dose: 70 mls/hr Sodium Chloride (Sodium Chloride 0.45%) 1,000 mls @ 70 mls/hr IV .[id number] [facility] Stop: 07/31/18 15:12 Last Admin: 07/29/18 18:36 Dose: Not Given Levothyroxine Sodium (Synthroid) 75 mcg PO DAILY@0630 [facility] Last Admin: 07/30/18 06:07 Dose: 75 mcg Morphine Sulfate (Morphine) 2 mg IVP Q4 PRN PRN Reason: Pain, severe (8-10) Last Admin: 07/30/18 04:00 Dose: 2 mg Silver Sulfadiazine (Silvadene 1% 20 Gm) 1 ea TOP QD7 [facility] Last Admin: 07/29/18 09:54 Dose: Not Given Tramadol HCl (Ultram) 50 mg PO Q6 PRN PRN Reason: Pain, moderate (4-7) - Labs Labs: 07/30/18 04:15 07/30/18 04:15 - Constitutional Appears: Well, Non-toxic, No Acute Distress - Head Exam Head Exam: ATRAUMATIC, NORMOCEPHALIC - Respiratory Exam Respiratory Exam: Clear to Ausculation Bilateral - Cardiovascular Exam Cardiovascular Exam: Irregular Rhythm, +S1, +S2 - GI/Abdominal Exam GI & Abdominal Exam: Soft, Normal Bowel Sounds - Extremities Exam Additional comments: B/l lower extremity edema R>L dressing on right lower extremity, c/d/i leg is less malodorous than on admission left LE has chronic venous stasis changes - tree bark appearance and hyperpigmentation present - Neurological Exam Neurological Exam: Alert, Awake, Oriented x3 - Psychiatric Exam Psychiatric exam: Normal Affect, Normal Mood Assessment and Plan - Assessment and Plan (Free Text) Assessment: 68 y/o M with PMH of CHF, HTN, CVA, A-Fib, and chronic severe venous stasis/lymphedema presented to ED c/o constant dull/crampy pain in right lower leg Plan: 1. Severe Venous Stasis/Lymphedema with cellulitis, & sepsis criteria met (Acute on chronic) -Podiatry recommendations have been appreciated. Foot & ankle x-ray: soft tissue swelling, moderate degenerative changes -Dr. Portillo, ID specialist consulted: IV zosyn 2.25g q 6 hr #3/10, IV vanc 1 g 1 dose 2. Severe sepsis criteria met (Acute) -Likely due to severe venous stasis/lymphedema with cellulitis. -On admission, BP: 74/50, WBC-23.6, lactate-5.5 -Continue IV fluids. -Continue IV zosyn- day #3 -Continue IV vancomycin- day #3 -Vanc trough ordered 3. CHF (Chronic) -Hold lasix because of hypotension. -Hold Metoprolol because of hypotension. -Dr Crespo recommendations have been appreciated. (Hold lasix, amlodipine & metoprolol) 4. HTN (Chronic) -Hold Metoprolol because of hypotension. -Hold Amlodipine because of hypotension. -Continue Losartan . 5. HLD (chronic) - continue atorvastatin 5. Paroxysmal AFIB (Chronic, rate controlled) -Continue Eliquis -Hold Metoprolol because of hypotension. 6. DVT prophylaxis -Patient on Eliquis <Ke Mccormack D - Last Filed: 07/30/18 12:41> Objective - Vital Signs/Intake and Output Vital Signs (last 24 hours): Temp Pulse Resp BP Pulse Ox 97.3 F L 73 20 125/83 97 07/30/18 08:31 07/30/18 09:00 07/30/18 08:31 07/30/18 08:31 07/30/18 08:31 - Medications Medications: Current Medications Acetaminophen (Tylenol 325mg Tab) 650 mg PO Q4 PRN PRN Reason: Pain, Mild (1-3) Albuterol/Ipratropium (Duoneb 3 Mg/0.5 Mg (3 Ml) Ud) 3 ml IH RQ4 PRN PRN Reason: Wheezing Apixaban (Eliquis) 2.5 mg PO BID [facility]; Protocol Last Admin: 07/30/18 08:19 Dose: 2.5 mg Aspirin (Ecotrin) 81 mg PO DAILY [facility] Last Admin: 07/30/18 08:19 Dose: 81 mg Atorvastatin Calcium (Lipitor) 10 mg PO DIN [facility] Last Admin: 07/29/18 16:28 Dose: 10 mg Doxazosin Mesylate (Cardura) 8 mg PO BID [facility] Last Admin: 07/30/18 08:18 Dose: 8 mg Piperacillin Sod/Tazobactam (Sod 2.25 gm/ Sodium Chloride) 100 mls @ 100 mls/hr IVPB Q6 [facility]; Protocol Last Admin: 07/30/18 10:41 Dose: 100 mls/hr Vancomycin HCl 1 gm/ Sodium (Chloride) 250 mls @ 166.667 mls/hr IVPB QAM [facility]; Protocol Last Admin: 07/30/18 09:16 Dose: 166.667 mls/hr Sodium Chloride (Sodium Chloride 0.45%) 1,000 mls @ 70 mls/hr IV .[id number] [facility] Stop: 07/30/18 23:59 Last Admin: 07/29/18 15:44 Dose: 70 mls/hr Levothyroxine Sodium (Synthroid) 75 mcg PO DAILY@0630 [facility] Last Admin: 07/30/18 06:07 Dose: 75 mcg Morphine Sulfate (Morphine) 2 mg IVP Q4 PRN PRN Reason: Pain, severe (8-10) Last Admin: 07/30/18 08:17 Dose: 2 mg Silver Sulfadiazine (Silvadene 1% 20 Gm) 1 ea TOP QD7 [facility] Last Admin: 07/30/18 10:39 Dose: Not Given Tramadol HCl (Ultram) 50 mg PO Q6 PRN PRN Reason: Pain, moderate (4-7) - Labs Labs: 07/30/18 04:15 07/30/18 04:15 Attending/Attestation - Attestation I have personally seen and examined this patient.: Yes I have fully participated in the care of the patient.: Yes I have reviewed all pertinent clinical information, including history, physical exam and plan: Yes
--- NOTE | 2018-07-30 07:37 | CP.PCM.PN ---
Subjective - Date & Time of Evaluation Date of Evaluation: 07/30/18 Time of Evaluation: 10:57 - Subjective Subjective: Podiatry progress note for Dr. Mullen, 68 Y/O male patient seen and evaluated in the bedside for Right LE ulceration, swelling, redness and blistering. Patient is AAO x3. Patient states that his pain improved by the pain medications since yesterday. Patient denies any other pedal complaint. Patient denies any recent F/N/V/C or SOB. Objective - Vital Signs/Intake and Output Vital Signs (last 24 hours): Temp Pulse Resp BP Pulse Ox 97.4 F L 73 18 132/83 100 07/30/18 04:56 07/30/18 04:56 07/30/18 04:56 07/30/18 04:56 07/30/18 04:56 - Medications Medications: Current Medications Acetaminophen (Tylenol 325mg Tab) 650 mg PO Q4 PRN PRN Reason: Pain, Mild (1-3) Albuterol/Ipratropium (Duoneb 3 Mg/0.5 Mg (3 Ml) Ud) 3 ml IH RQ4PRN PRN PRN Reason: Wheezing Apixaban (Eliquis) 2.5 mg PO BID [facility]; Protocol Last Admin: 07/29/18 16:27 Dose: 2.5 mg Aspirin (Ecotrin) 81 mg PO DAILY [facility] Last Admin: 07/29/18 09:06 Dose: 81 mg Atorvastatin Calcium (Lipitor) 10 mg PO DIN [facility] Last Admin: 07/29/18 16:28 Dose: 10 mg Doxazosin Mesylate (Cardura) 8 mg PO BID [facility] Last Admin: 07/29/18 16:26 Dose: 8 mg Piperacillin Sod/Tazobactam (Sod 2.25 gm/ Sodium Chloride) 100 mls @ 100 mls/hr IVPB Q6 [facility]; Protocol Last Admin: 07/30/18 04:06 Dose: 100 mls/hr Vancomycin HCl 1 gm/ Sodium (Chloride) 250 mls @ 166.667 mls/hr IVPB QAM [facility]; Protocol Last Admin: 07/29/18 09:16 Dose: 166.667 mls/hr Sodium Chloride (Sodium Chloride 0.45%) 1,000 mls @ 70 mls/hr IV .[id number] [facility] Stop: 07/30/18 23:59 Last Admin: 07/29/18 15:44 Dose: 70 mls/hr Levothyroxine Sodium (Synthroid) 75 mcg PO DAILY@0630 [facility] Last Admin: 07/30/18 06:07 Dose: 75 mcg Morphine Sulfate (Morphine) 2 mg IVP Q4 PRN PRN Reason: Pain, severe (8-10) Last Admin: 07/30/18 04:00 Dose: 2 mg Silver Sulfadiazine (Silvadene 1% 20 Gm) 1 ea TOP QD7 [facility] Last Admin: 07/29/18 09:54 Dose: Not Given Tramadol HCl (Ultram) 50 mg PO Q6 PRN PRN Reason: Pain, moderate (4-7) - Labs Labs: 07/30/18 04:15 07/30/18 04:15 - Constitutional Appears: Well, Non-toxic, No Acute Distress - Head Exam Head Exam: ATRAUMATIC, NORMOCEPHALIC - Extremities Exam Additional comments: B/L LE Focused exam: Vasc: DP/PT not palpable due to massive edema. Cap refill < 3 sec in all digits. Temp gradient warm to warmer in the right side and warm to cool in the L side from proximal to distal. Massive non pitting edema extending up to below the the knee on the right side and moderated non pitting edema up to the tibial tuberosity on the left side. Neuro: Gross and protective sensations intact b/l. Derm: Right LE: Massive Leg non-pitting edema and sever erythema extending up to just below the knee. Dissuse blistering noted along the right leg and foot. An ulcer measuring 3.5 cm X 3 cm X 0.2 cm. Base is granular 100%. No malodor. sangineous drainage. No probing to bone, No undermining, No tracking. Left LE: Moderate Leg non-pitting edema extending up to the tibial tuber osity. mild erythema noted at the ankle. skin is bruised at the anterior ankle. B/L skin changes of the anterior legs in the form of lichnification and discoloration R>L MSK: severe pain on palpating the Right LE. Muscle power Couldn't be assessed on the right side, 5/5 in all groups in the left side.. - Neurological Exam Neurological Exam: Alert, Awake, Oriented x3 - Psychiatric Exam Psychiatric exam: Normal Affect, Normal Mood Assessment and Plan - Assessment and Plan (Free Text) Assessment: 68 Y/O male patient seen and evaluated in the ED for Right LE cellulitis, Edema and ulceration. Plan: Patient seen and evaluated in the bedside Plan discussed in details with attending Sebas Green Chart, Labs and vitals reviews; Afebrile, WBCs 17.6 Wound Cx; Klebsiella pneumoniae Ssp Pneumoniae and Enterococcus faecalis B/L 3 views X-ray; reviewed; Right massive LE edema. No signs of OM. Left moderate LE edema Left foot and ankle X-ray: No evidence of osteomyelitis, SOft tissue swelling Left LE venous duplex; No evidence of DVT. ID onboard. Recommendations appreciated. Ordered 2 mg of morphine IV before dressing change. Right LE dressed using DSD, ABD pads Telfa and SSD. ID on board. Continue IV Abx as per IDs. Podiatry will continue to F/U the patient while in house.
[2018-07-30 08:48] LABS: LYMPHOCYTE 2 % (20-50); MONOCYTE 5 % (0-10); NEUTROPHIL 93 % (42-75); PLATELET ESTIMATE NORMAL (NORMAL); TOTAL CELLS COUNTED 100
[2018-07-30 08:49] LABS: ANISOCYTOSIS SLIGHT
--- NOTE | 2018-07-30 09:52 | PQF ---
PROVIDER RESPONSE TEXT: Patient was septic when came in, so hypotension was secondary to sepsis. REVIEWER QUERY TEXT: Documentation Clarification Your help is requested in clarifying the following clinical documentation, if you can please further specify in the medical record the etiology of Hypotension: if known: i.e. due to medication or multi factorial etiology etc.; if multifactorial list all of the etiologies: if known OR: Unable to determine H and P: CHF (Chronic) -Hold lasix because of hypotension.--Hold Metoprolol because of hypotension. -HTN (Chronic) -Hold Metoprolol because of hypotension.--Hold Amlodipine because of hypotension. -Paroxysmal AFIB (Chronic, rate controlled) -Continue Eliquis -Hold Metoprolol because of hypotension 2. Severe sepsis criteria met (Acute) -Likely due to severe venous stasis/lymphedema with cellulitis. The patient's Clinical Indicators include: xx Query created by: Naz Soriano on 07/30/2018 9:39 AM Electronically signed by: Ke Mccormack MD 07/30/2018 9:48 AM
[2018-07-30] MEDS: Silver Sulfadiazine 1% Cream (20 gm) TOP SCH (10:39)
--- NOTE | 2018-07-30 10:44 | CP.PCM.PN ---
Subjective - Date & Time of Evaluation Date of Evaluation: 07/30/18 Time of Evaluation: 10:30 - Subjective Subjective: NO CHEST PAIN OR SOB Objective - Vital Signs/Intake and Output Vital Signs (last 24 hours): Temp Pulse Resp BP Pulse Ox 97.3 F L 73 20 125/83 97 07/30/18 08:31 07/30/18 08:31 07/30/18 08:31 07/30/18 08:31 07/30/18 08:31 - Medications Medications: Current Medications Acetaminophen (Tylenol 325mg Tab) 650 mg PO Q4 PRN PRN Reason: Pain, Mild (1-3) Albuterol/Ipratropium (Duoneb 3 Mg/0.5 Mg (3 Ml) Ud) 3 ml IH RQ4PRN PRN PRN Reason: Wheezing Apixaban (Eliquis) 2.5 mg PO BID [facility]; Protocol Last Admin: 07/30/18 08:19 Dose: 2.5 mg Aspirin (Ecotrin) 81 mg PO DAILY [facility] Last Admin: 07/30/18 08:19 Dose: 81 mg Atorvastatin Calcium (Lipitor) 10 mg PO DIN [facility] Last Admin: 07/29/18 16:28 Dose: 10 mg Doxazosin Mesylate (Cardura) 8 mg PO BID [facility] Last Admin: 07/30/18 08:18 Dose: 8 mg Piperacillin Sod/Tazobactam (Sod 2.25 gm/ Sodium Chloride) 100 mls @ 100 mls/hr IVPB Q6 [facility]; Protocol Last Admin: 07/30/18 04:06 Dose: 100 mls/hr Vancomycin HCl 1 gm/ Sodium (Chloride) 250 mls @ 166.667 mls/hr IVPB QAM [facility]; Protocol Last Admin: 07/30/18 09:16 Dose: 166.667 mls/hr Sodium Chloride (Sodium Chloride 0.45%) 1,000 mls @ 70 mls/hr IV .[id number] [facility] Stop: 07/30/18 23:59 Last Admin: 07/29/18 15:44 Dose: 70 mls/hr Levothyroxine Sodium (Synthroid) 75 mcg PO DAILY@0630 [facility] Last Admin: 07/30/18 06:07 Dose: 75 mcg Morphine Sulfate (Morphine) 2 mg IVP Q4 PRN PRN Reason: Pain, severe (8-10) Last Admin: 07/30/18 08:17 Dose: 2 mg Silver Sulfadiazine (Silvadene 1% 20 Gm) 1 ea TOP QD7 [facility] Last Admin: 07/30/18 10:39 Dose: Not Given Tramadol HCl (Ultram) 50 mg PO Q6 PRN PRN Reason: Pain, moderate (4-7) - Labs Labs: 07/30/18 04:15 07/30/18 04:15 - Respiratory Exam Respiratory Exam: Clear to Ausculation Bilateral - Cardiovascular Exam Cardiovascular Exam: Irregular Rhythm, +S1, +S2 - Extremities Exam Additional comments: RLE WITH DRESSINGS LLE WITH STASIS DERMATITIS AND LYMPHEDEMA - Additional Findings 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
[2018-07-30] MEDS ORDERED: Albuterol-Ipratrop 3 mg / 0.5 (3 ml) UD IH PRN (12:30)
--- NOTE | 2018-07-30 16:35 | PQF ---
PROVIDER RESPONSE TEXT: Patient had severe sepsis since his lactate was elevated and he came in with hypotension REVIEWER QUERY TEXT: Clinical Validity Additional clinical indicators are required to support your documented diagnosis of Severe Sepsis: i .e Severe Sepsis with Hypo perfusion: Lactate 5.5 or please list other Organ dysfunction? --OR: Unable to provide additional clarity regarding the diagnosis -- OR: Other, please specify H and P: PMH of CHF, HTN, CVA, A-Fib, and chronic severe venous stasis/lymphedema presented to ED c/o constant dull/crampy pain in right lower leg degenerative changes ID consult. 3. CHF (Chronic) -Hold lasix because of hypotension. 4. HTN (Chronic) -Hold Metoprolol because of hypotension. -Hold Amlodipine because of hypotension. -Continue Losartan . 5. Paroxysmal AFIB (Chronic, rate controlled) -Continue Eliquis -Hold Metoprolol because of hypotension. 07/28 Cardio: RIGHT LOWER EXTREMITY CELLULITIS WITH SEPSIS. CHRONIC LE STASIS DERMATITIS. CHRONIC ATRIAL FIBRILLATION HYPERTENSION HISTORY CHRONIC RENAL FAILURE WITH HECTOR FROM DEHYDRATION RENAL EPISODE OF ACUTE DIASTOLIC CHF The patient's Clinical Indicators include: XX Query created by: Naz Soriano on 07/30/2018 10:29 AM Electronically signed by: Ke Mccormack MD 07/30/2018 4:32 PM
--- NOTE | 2018-07-30 18:32 | CP.PCM.PN ---
Subjective - Date & Time of Evaluation Date of Evaluation: 07/30/18 Time of Evaluation: 18:32 - Subjective Subjective: 68 yo WM with pmh/o htn, chf, cva, afib, ckd, chronic venous stasis / lymphedema, followed by Dr. Garcia was admitted with cc/o pain and swelling of legs, redness of rt leg for few days. c/o increased oozing from both legs. pt denies any chest pain, palpitation, nausea, vomitings, abd. pain, diarrhea, no dysuria or frequency. pt claims he is voiding well, wound c/s is positive K. pneumonia, enterococcus Objective - Vital Signs/Intake and Output Vital Signs (last 24 hours): Temp Pulse Resp BP Pulse Ox 99.2 F 82 20 123/84 99 07/30/18 16:23 07/30/18 16:23 07/30/18 16:23 07/30/18 16:23 07/30/18 16:23 - Medications Medications: Current Medications Acetaminophen (Tylenol 325mg Tab) 650 mg PO Q4 PRN PRN Reason: Pain, Mild (1-3) Albuterol/Ipratropium (Duoneb 3 Mg/0.5 Mg (3 Ml) Ud) 3 ml IH RQ4 PRN PRN Reason: Wheezing Apixaban (Eliquis) 2.5 mg PO BID [facility]; Protocol Last Admin: 07/30/18 16:52 Dose: 2.5 mg Aspirin (Ecotrin) 81 mg PO DAILY [facility] Last Admin: 07/30/18 08:19 Dose: 81 mg Atorvastatin Calcium (Lipitor) 10 mg PO DIN [facility] Last Admin: 07/30/18 16:53 Dose: 10 mg Doxazosin Mesylate (Cardura) 8 mg PO BID [facility] Last Admin: 07/30/18 16:51 Dose: 8 mg Piperacillin Sod/Tazobactam (Sod 2.25 gm/ Sodium Chloride) 100 mls @ 100 mls/hr IVPB Q6 [facility]; Protocol Last Admin: 07/30/18 16:49 Dose: 100 mls/hr Vancomycin HCl 1 gm/ Sodium (Chloride) 250 mls @ 166.667 mls/hr IVPB QAM [facility]; Protocol Last Admin: 07/30/18 09:16 Dose: 166.667 mls/hr Sodium Chloride (Sodium Chloride 0.45%) 1,000 mls @ 70 mls/hr IV .[id number] [facility] Stop: 07/30/18 23:59 Last Admin: 07/29/18 15:44 Dose: 70 mls/hr Levothyroxine Sodium (Synthroid) 75 mcg PO DAILY@0630 [facility] Last Admin: 07/30/18 06:07 Dose: 75 mcg Morphine Sulfate (Morphine) 2 mg IVP Q4 PRN PRN Reason: Pain, severe (8-10) Last Admin: 07/30/18 13:38 Dose: 2 mg Silver Sulfadiazine (Silvadene 1% 20 Gm) 1 ea TOP QD7 [facility] Last Admin: 07/30/18 10:39 Dose: Not Given Tramadol HCl (Ultram) 50 mg PO Q6 PRN PRN Reason: Pain, moderate (4-7) - Labs Labs: 07/30/18 04:15 07/30/18 04:15 Assessment and Plan - Assessment and Plan (Free Text) Assessment: 68 yo WM with pmh/o htn, chf, cva, ckd, massive proteinuria, h/o IgAN s/p kidney bx in 1987, with b/l leg swelling, chronic stais/lymphedema with b/l le swelling, oozing, redness of th leg , difficult to ambulate, weakness, increased wbc, increased bun/cr 1. HECTOR on ckd-3 2. cellulitis of legs 3. Dehydration 4. HTN 5. A fib renal function is slowly improving start ivf 1/2 ns at 70 ml/hr c/w iv abx as per ID dialy bmp
[2018-07-30] MEDS: Sodium Chloride 0.45% 1,000 ML IV SCH (21:12)
[2018-07-31 05:30] LABS: BASO % 0.1 % (0.0-2.0); EOS # 0.1 K/uL (0.0-0.7); EOS % 0.9 % (0.0-4.0); HEMOGLOBIN 13.7 g/dL (12.0-18.0); LYMPH # 0.3 K/uL (1.0-4.3); LYMPH % 1.8 % (20.0-40.0); MEAN CELL VOLUME 89.9 fl (80.0-94.0); MEAN CORPUSCULAR HEMOGLOBIN 30.2 pg (27.0-31.0); MEAN CORPUSCULAR HGB CONC 33.6 g/dL (33.0-37.0); MEAN PLATELET VOLUME 8.7 fl (7.2-11.7); MONO # 1.2 K/uL (0.0-0.8); MONO % 8.2 % (0.0-10.0); NEUT # 12.9 K/uL (1.8-7.0); NRBC % 0.1 % (0.0-0.0); RBC 4.54 Mil/uL (4.40-5.90); RED CELL DISTRIBUTION WIDTH 16.8 % (11.5-14.5); WHITE BLOOD COUNT 14.5 K/uL (4.8-10.8)
[2018-07-31 05:50] LABS: CALCIUM 7.7 mg/dL (8.4-10.2)
[2018-07-31] MEDS ORDERED: Potassium Chloride 20 mEq ER Tab PO ONE (05:59)
[2018-07-31] MEDS: Levothyroxine 75 MCG TAB PO SCH (06:39)
--- NOTE | 2018-07-31 06:54 | CP.PCM.PN ---
Addendum entered and electronically signed by Roosevelt Garzon DPM 08/01/18 07:28: Assessment: 68 Y/O male patient seen and evaluated in the ED for Right LE cellulitis, Edema and Stasis ulceration. Original Note: Subjective - Date & Time of Evaluation Date of Evaluation: 07/31/18 Time of Evaluation: 14:00 - Subjective Subjective: Podiatry progress note for Dr. Mullen, 68 Y/O male patient seen and evaluated in the bedside with Dr Mullen for Right LE ulceration, swelling, redness and blistering. Patient is AAO x3. Patient states that his pain improved by the pain medications since last time he was seen. Patient denies any other pedal complaint. Patient denies any recent F/N/V/C or SOB. Objective - Vital Signs/Intake and Output Vital Signs (last 24 hours): Temp Pulse Resp BP Pulse Ox 98.6 F 74 16 155/85 H 98 07/31/18 06:48 07/31/18 06:48 07/31/18 06:48 07/31/18 06:48 07/31/18 06:48 - Medications Medications: Current Medications Acetaminophen (Tylenol 325mg Tab) 650 mg PO Q4 PRN PRN Reason: Pain, Mild (1-3) Albuterol/Ipratropium (Duoneb 3 Mg/0.5 Mg (3 Ml) Ud) 3 ml IH RQ4 PRN PRN Reason: Wheezing Apixaban (Eliquis) 2.5 mg PO BID [facility]; Protocol Last Admin: 07/30/18 16:52 Dose: 2.5 mg Aspirin (Ecotrin) 81 mg PO DAILY [facility] Last Admin: 07/30/18 08:19 Dose: 81 mg Atorvastatin Calcium (Lipitor) 10 mg PO DIN [facility] Last Admin: 07/30/18 16:53 Dose: 10 mg Doxazosin Mesylate (Cardura) 8 mg PO BID [facility] Last Admin: 07/30/18 16:51 Dose: 8 mg Piperacillin Sod/Tazobactam (Sod 2.25 gm/ Sodium Chloride) 100 mls @ 100 mls/hr IVPB Q6 [facility]; Protocol Last Admin: 07/31/18 04:51 Dose: 100 mls/hr Vancomycin HCl 1 gm/ Sodium (Chloride) 250 mls @ 166.667 mls/hr IVPB QAM [facility]; Protocol Last Admin: 07/30/18 09:16 Dose: 166.667 mls/hr Levothyroxine Sodium (Synthroid) 75 mcg PO DAILY@0630 [facility] Last Admin: 07/31/18 06:39 Dose: 75 mcg Morphine Sulfate (Morphine) 2 mg IVP Q4 PRN PRN Reason: Pain, severe (8-10) Last Admin: 07/30/18 13:38 Dose: 2 mg Silver Sulfadiazine (Silvadene 1% 20 Gm) 1 ea TOP QD7 [facility] Last Admin: 07/30/18 10:39 Dose: Not Given Tramadol HCl (Ultram) 50 mg PO Q6 PRN PRN Reason: Pain, moderate (4-7) - Labs Labs: 07/31/18 05:16 07/31/18 05:16 - Constitutional Appears: Well, Non-toxic, No Acute Distress - Head Exam Head Exam: ATRAUMATIC, NORMOCEPHALIC - Extremities Exam Additional comments: B/L LE Focused exam: Vasc: DP/PT not palpable due to massive edema. Cap refill < 3 sec in all digits. Temp gradient warm to warmer in the right side and warm to cool in the L side from proximal to distal. Massive non pitting edema extending up to below the the knee on the right side and moderated non pitting edema up to the tibial tuberosity on the left side. Neuro: Gross and protective sensations intact b/l. Derm: Right LE: Massive Leg non-pitting edema and sever erythema extending up to the tibial tuberosity (Erythema less than yesterday). Diffuse blistering noted along the right leg and foot. An ulcer measuring 3.5 cm X 3 cm X 0.2 cm. Base is granular 100%. No malodor. sanguineous drainage. No probing to bone, No undermining, No tracking. Left LE: Moderate Leg non-pitting edema extending up to the tibial tuberosity. mild erythema noted at the ankle. skin is bruised at the anterior ankle. B/L skin changes of the anterior legs in the form of lichnification and discoloration R>L MSK: severe pain on palpating the Right LE. Muscle power Couldn't be assessed on the right side, 5/5 in all groups in the left side.. - Neurological Exam Neurological Exam: Alert, Awake, Oriented x3 - Psychiatric Exam Psychiatric exam: Normal Affect, Normal Mood Assessment and Plan - Assessment and Plan (Free Text) Assessment: 68 Y/O male patient seen and evaluated in the ED for Right LE cellulitis, Edema and ulceration. Plan: Patient seen and evaluated in the bedside Plan discussed in details with attending Sebas Green Chart, Labs and vitals reviews; Afebrile, WBCs 14.5 Wound Cx; Klebsiella pneumoniae Ssp Pneumoniae and Enterococcus faecalis CRP: 236 B/L 3 views X-ray; reviewed; Right massive LE edema. No signs of OM. Left moderate LE edema Left foot and ankle X-ray: No evidence of osteomyelitis, SOft tissue swelling Left LE venous duplex; No evidence of DVT. ID onboard. Recommendations appreciated. Ordered 2 mg of morphine IV before dressing change. Right LE dressed using DSD, ABD pads and Adaptic. Continue IV Abx as per IDs. Patient moved to TCU today Podiatry will continue to F/U the patient while in house.
[2018-07-31] MEDS: Silver Sulfadiazine 1% Cream (20 gm) TOP SCH (08:43)
[2018-07-31 09:31] VITALS: RESP 20
--- NOTE | 2018-07-31 10:04 | CP.PCM.PN ---
Subjective - Date & Time of Evaluation Date of Evaluation: 07/31/18 Time of Evaluation: 09:45 - Subjective Subjective: NO CHEST PAIN OR SOB BOTH LE IMPROVING WITH LESS PAIN IN RLE Objective - Vital Signs/Intake and Output Vital Signs (last 24 hours): Temp Pulse Resp BP Pulse Ox 97.9 F 72 20 150/61 98 07/31/18 09:29 07/31/18 09:29 07/31/18 09:29 07/31/18 09:29 07/31/18 09:29 - Medications Medications: Current Medications Acetaminophen (Tylenol 325mg Tab) 650 mg PO Q4 PRN PRN Reason: Pain, Mild (1-3) Albuterol/Ipratropium (Duoneb 3 Mg/0.5 Mg (3 Ml) Ud) 3 ml IH RQ4 PRN PRN Reason: Wheezing Apixaban (Eliquis) 2.5 mg PO BID [facility]; Protocol Last Admin: 07/31/18 08:42 Dose: 2.5 mg Aspirin (Ecotrin) 81 mg PO DAILY [facility] Last Admin: 07/31/18 08:43 Dose: 81 mg Atorvastatin Calcium (Lipitor) 10 mg PO DIN [facility] Last Admin: 07/30/18 16:53 Dose: 10 mg Doxazosin Mesylate (Cardura) 8 mg PO BID [facility] Last Admin: 07/31/18 08:42 Dose: 8 mg Piperacillin Sod/Tazobactam (Sod 2.25 gm/ Sodium Chloride) 100 mls @ 100 mls/hr IVPB Q6 [facility]; Protocol Last Admin: 07/31/18 09:10 Dose: 100 mls/hr Vancomycin HCl 1 gm/ Sodium (Chloride) 250 mls @ 166.667 mls/hr IVPB QAM [facility]; Protocol Last Admin: 07/31/18 08:43 Dose: 166.667 mls/hr Levothyroxine Sodium (Synthroid) 75 mcg PO DAILY@0630 [facility] Last Admin: 07/31/18 06:39 Dose: 75 mcg Morphine Sulfate (Morphine) 2 mg IVP Q4 PRN PRN Reason: Pain, severe (8-10) Last Admin: 07/30/18 13:38 Dose: 2 mg Silver Sulfadiazine (Silvadene 1% 20 Gm) 1 ea TOP QD7 [facility] Last Admin: 07/31/18 08:43 Dose: 1 applic Tramadol HCl (Ultram) 50 mg PO Q6 PRN PRN Reason: Pain, moderate (4-7) - Labs Labs: 07/31/18 05:16 07/31/18 05:16 - Respiratory Exam Respiratory Exam: Clear to Ausculation Bilateral - Cardiovascular Exam Cardiovascular Exam: Irregular Rhythm, +S1, +S2 - Extremities Exam Additional comments: RLE WITH SURGICAL DRESSINGS LLE WITH STASIS SKIN CHANGES AND EDEMA-IMPROVING - Additional Findings Additional findings: CARDIOLOGIST WITH ATRIAL FIBRILLATION WITH MVR PODIATRY NOTES REVIEWED Assessment and Plan - Assessment and Plan (Free Text) Assessment: RLE CELLULITIS AND ULCERATION-SEVERE CHRONIC ATRIAL FIBRILLATION HYPERTENSION HECTOR IN CRF, STAGE 3 Plan: CONTINUE IV ANTIBIOTICS, IV FLUIDS, CARDURA, ASPIRIN AND ELIQUIS WOULD RECOMMEND TCU WHEN READY FOR DISCHARGE FOR ASR DUE TO DECONDITIONING BUT ALSO TO COMPLETE COURSE OF IV ANTIBIOTICS PER ID
--- NOTE | 2018-07-31 11:29 | CP.PCM.PN ---
Subjective - Date & Time of Evaluation Date of Evaluation: 07/31/18 Time of Evaluation: 11:29 - Subjective Subjective: 68 yo WM with pmh/o htn, chf, cva, afib, ckd, chronic venous stasis / lymphedema, followed by Dr. Garcia was admitted with cc/o pain and swelling of legs, redness of rt leg for few days. c/o increased oozing from both legs. pt denies any chest pain, palpitation, nausea, vomitings, abd. pain, diarrhea, no dysuria or frequency. pt claims he is voiding well, wound c/s is positive K. pneumonia, enterococcus, no complaints, no sob, less pain in both legs Objective - Vital Signs/Intake and Output Vital Signs (last 24 hours): Temp Pulse Resp BP Pulse Ox 97.9 F 72 20 150/61 98 07/31/18 09:29 07/31/18 09:29 07/31/18 09:29 07/31/18 09:29 07/31/18 09:29 - Medications Medications: Current Medications Acetaminophen (Tylenol 325mg Tab) 650 mg PO Q4 PRN PRN Reason: Pain, Mild (1-3) Albuterol/Ipratropium (Duoneb 3 Mg/0.5 Mg (3 Ml) Ud) 3 ml IH RQ4 PRN PRN Reason: Wheezing Apixaban (Eliquis) 2.5 mg PO BID [facility]; Protocol Last Admin: 07/31/18 08:42 Dose: 2.5 mg Aspirin (Ecotrin) 81 mg PO DAILY [facility] Last Admin: 07/31/18 08:43 Dose: 81 mg Atorvastatin Calcium (Lipitor) 10 mg PO DIN [facility] Last Admin: 07/30/18 16:53 Dose: 10 mg Doxazosin Mesylate (Cardura) 8 mg PO BID [facility] Last Admin: 07/31/18 08:42 Dose: 8 mg Piperacillin Sod/Tazobactam (Sod 2.25 gm/ Sodium Chloride) 100 mls @ 100 mls/hr IVPB Q6 [facility]; Protocol Last Admin: 07/31/18 09:10 Dose: 100 mls/hr Vancomycin HCl 1 gm/ Sodium (Chloride) 250 mls @ 166.667 mls/hr IVPB QAM [facility]; Protocol Last Admin: 07/31/18 08:43 Dose: 166.667 mls/hr Levothyroxine Sodium (Synthroid) 75 mcg PO DAILY@0630 [facility] Last Admin: 07/31/18 06:39 Dose: 75 mcg Morphine Sulfate (Morphine) 2 mg IVP Q4 PRN PRN Reason: Pain, severe (8-10) Last Admin: 07/30/18 13:38 Dose: 2 mg Silver Sulfadiazine (Silvadene 1% 20 Gm) 1 ea TOP QD7 [facility] Last Admin: 07/31/18 08:43 Dose: 1 applic Tramadol HCl (Ultram) 50 mg PO Q6 PRN PRN Reason: Pain, moderate (4-7) - Labs Labs: 07/31/18 05:16 07/31/18 05:16 - Head Exam Head Exam: ATRAUMATIC, NORMAL INSPECTION, NORMOCEPHALIC - Eye Exam Eye Exam: EOMI, Normal appearance, PERRL Pupil Exam: NORMAL ACCOMODATION - ENT Exam ENT Exam: Mucous Membranes Moist - Neck Exam Neck Exam: Full ROM, Normal Inspection - Respiratory Exam Respiratory Exam: Clear to Ausculation Bilateral, NORMAL BREATHING PATTERN - Cardiovascular Exam Cardiovascular Exam: Irregular Rhythm, REGULAR RHYTHM, +S1, +S2 - GI/Abdominal Exam GI & Abdominal Exam: Soft, Normal Bowel Sounds - Extremities Exam Extremities Exam: Pedal Edema Additional comments: b/l leg swelling, chronic skin changes+, redness+ - Neurological Exam Neurological Exam: Alert, Awake, CN II-XII Intact, Oriented x3 - Psychiatric Exam Psychiatric exam: Normal Affect, Normal Mood Assessment and Plan - Assessment and Plan (Free Text) Assessment: 68 yo WM with pmh/o htn, chf, cva, ckd, massive proteinuria, h/o IgAN s/p kidney bx in 1987, with b/l leg swelling, chronic stais/lymphedema with b/l le swelling, oozing, redness of th leg , difficult to ambulate, weakness, increased wbc, increased bun/cr 1. HECTOR on ckd-3 2. cellulitis of legs 3. Dehydration 4. HTN 5. A fib renal function is slowly improving, s.cr is 2.8 c/w iv abx as per ID dialy bmp
--- NOTE | 2018-07-31 12:20 | CP.PCM.PN ---
Subjective - Date & Time of Evaluation Date of Evaluation: 07/31/18 Time of Evaluation: 12:20 - Subjective Subjective: 68 yo male seen and evalauted at bedside, resting comfortably. Reports pain in his right lower leg. Denies any acute events overnight. States that he is able to eat and denies N/V/F/C/SOB/CP today. Has no other acute complaints. Objective - Vital Signs/Intake and Output Vital Signs (last 24 hours): Temp Pulse Resp BP Pulse Ox 97.9 F 72 20 150/61 98 07/31/18 09:29 07/31/18 09:29 07/31/18 09:29 07/31/18 09:29 07/31/18 09:29 - Medications Medications: Current Medications Acetaminophen (Tylenol 325mg Tab) 650 mg PO Q4 PRN PRN Reason: Pain, Mild (1-3) Albuterol/Ipratropium (Duoneb 3 Mg/0.5 Mg (3 Ml) Ud) 3 ml IH RQ4 PRN PRN Reason: Wheezing Apixaban (Eliquis) 2.5 mg PO BID [facility]; Protocol Last Admin: 07/31/18 08:42 Dose: 2.5 mg Aspirin (Ecotrin) 81 mg PO DAILY [facility] Last Admin: 07/31/18 08:43 Dose: 81 mg Atorvastatin Calcium (Lipitor) 10 mg PO DIN [facility] Last Admin: 07/30/18 16:53 Dose: 10 mg Doxazosin Mesylate (Cardura) 8 mg PO BID [facility] Last Admin: 07/31/18 08:42 Dose: 8 mg Piperacillin Sod/Tazobactam (Sod 2.25 gm/ Sodium Chloride) 100 mls @ 100 mls/hr IVPB Q6 [facility]; Protocol Last Admin: 07/31/18 09:10 Dose: 100 mls/hr Vancomycin HCl 1 gm/ Sodium (Chloride) 250 mls @ 166.667 mls/hr IVPB QAM [facility]; Protocol Last Admin: 07/31/18 08:43 Dose: 166.667 mls/hr Levothyroxine Sodium (Synthroid) 75 mcg PO DAILY@0630 [facility] Last Admin: 07/31/18 06:39 Dose: 75 mcg Morphine Sulfate (Morphine) 2 mg IVP Q4 PRN PRN Reason: Pain, severe (8-10) Last Admin: 07/30/18 13:38 Dose: 2 mg Silver Sulfadiazine (Silvadene 1% 20 Gm) 1 ea TOP QD7 [facility] Last Admin: 07/31/18 08:43 Dose: 1 applic Tramadol HCl (Ultram) 50 mg PO Q6 PRN PRN Reason: Pain, moderate (4-7) - Labs Labs: 07/31/18 05:16 07/31/18 05:16 - Constitutional Appears: Well, Non-toxic, No Acute Distress - Head Exam Head Exam: NORMAL INSPECTION - Respiratory Exam Respiratory Exam: Clear to Ausculation Bilateral, NORMAL BREATHING PATTERN - Cardiovascular Exam Cardiovascular Exam: Irregular Rhythm, +S1, +S2 - GI/Abdominal Exam GI & Abdominal Exam: Soft, Normal Bowel Sounds - Extremities Exam Additional comments: B/l lower extremity edema R>L dressing on right lower extremity, c/d/i no evidence of malodor today left LE has chronic venous stasis changes - tree bark appearance and hyperpigmentation present - Neurological Exam Neurological Exam: Alert, Awake, Oriented x3 - Psychiatric Exam Psychiatric exam: Normal Affect, Normal Mood Assessment and Plan - Assessment and Plan (Free Text) Assessment: 68 y/o male seen and evaluated for chronic lymphedema and pain in right lower leg Plan: 1. Severe Venous Stasis/Lymphedema with cellulitis, & sepsis criteria met (Acute on chronic) -Podiatry recommendations have been appreciated. Foot & ankle x-ray: soft tissue swelling, moderate degenerative changes -Wound cx: klebsiella, enterococcus, gram negative romero -Dr. Portillo, ID specialist consulted: IV zosyn 2.25g q 6 hr #4/10, IV vanc in sodium chloride 1 gm IVPB QAM day #3 -Will need at least 8 days of IV antibiotics 2. Severe sepsis criteria met (Acute) -Likely due to severe venous stasis/lymphedema with cellulitis. -On admission, BP: 74/50, WBC-23.6, lactate-5.5 -Today - BP 150/61, WBC 14.5, afebrile -Continue IV fluids. -Continue IV zosyn- day #3 -Continue IV vancomycin- day #3 -Vanc trough ordered 3. CHF (Chronic) -Hold lasix because of hypotension. -Hold Metoprolol because of hypotension. -Dr Crespo recommendations have been appreciated. (Hold lasix, amlodipine & metoprolol) - continue IV abx, IV fluids, cardura, aspirin, and eliquis - recommend TCU when ready for discharge for ASR due to deconditioning and to complete course of abx per ID 4. Increased BUN/creat (acute on chronic) - Dr. Calderon consulted - recs appreciated will follow up recs - renal function slowly improving - start IVF 1/2 NS at 70 ml/hr - c/w IV abx per ID - check BMP daily -Renal US: no obstructive uropathy b/l; instrinsic renal disease, clinically correlate; solitary septated cyst upper pole right kidney 2.4 cm greatest dimension with 2 tiny intrarenal calculi identified at the lower pole of left kidney 4. HTN (Chronic) -Hold Metoprolol because of hypotension. -Hold Amlodipine because of hypotension. -Continue Losartan . 5. HLD (chronic) - continue atorvastatin 5. Paroxysmal AFIB (Chronic, rate controlled) -Continue Eliquis -Hold Metoprolol because of hypotension. 6. DVT prophylaxis -Patient on Eliquis
[2018-07-31 13:24] VITALS: BP 153/91; PULSE 81; TEMP 98.4; O2SAT 97
--- NOTE | 2018-07-31 14:33 | CP.PCM.DIS ---
Provider - Provider Date of Admission: 07/28/18 10:07 Attending physician: Ke Mccormack MD Primary care physician: Paulie Crespo MD Consults: Cardiology - Dr. Crespo Infectious disease - Dr. Portillo Nephrology - Dr. Calderon Podiatry - Dr. Welsh Time Spent in preparation of Discharge (in minutes): 30 Diagnosis - Discharge Diagnosis (1) Cellulitis Status: Acute Hospital Course - Lab Results Lab Results: Micro Results 07/28/18 09:10 Blood Blood Culture - Preliminary NO GROWTH AFTER 3 DAYS 07/28/18 07:49 Blood Blood Culture - Preliminary NO GROWTH AFTER 3 DAYS 07/28/18 10:45 Foot - Right Gram Stain - Final 07/28/18 10:45 Foot - Right Wound Culture - Preliminary Klebsiella Pneumoniae Ssp Pneu Enterococcus Faecalis Gram Negative Guy 07/29/18 13:57 Urine,Clean Catch Urine Culture - Final No Growth (<1,000 CFU/ML) Most Recent Lab Values WBC 14.5 K/uL (4.8-10.8) H 07/31/18 05:16 RBC 4.54 Mil/uL (4.40-5.90) 07/31/18 05:16 Hgb 13.7 g/dL (12.0-18.0) 07/31/18 05:16 Hct 40.8 % (35.0-51.0) 07/31/18 05:16 MCV 89.9 fl (80.0-94.0) 07/31/18 05:16 MCH 30.2 pg (27.0-31.0) 07/31/18 05:16 MCHC 33.6 g/dL (33.0-37.0) 07/31/18 05:16 RDW 16.8 % (11.5-14.5) H 07/31/18 05:16 Plt Count 193 K/uL (130-400) 07/31/18 05:16 MPV 8.7 fl (7.2-11.7) 07/31/18 05:16 Neut % (Auto) 89.0 % (50.0-75.0) H 07/31/18 05:16 Lymph % (Auto) 1.8 % (20.0-40.0) L 07/31/18 05:16 Frontier % (Auto) 8.2 % (0.0-10.0) 07/31/18 05:16 Eos % (Auto) 0.9 % (0.0-4.0) 07/31/18 05:16 Baso % (Auto) 0.1 % (0.0-2.0) 07/31/18 05:16 Neut # (Auto) 12.9 K/uL (1.8-7.0) H 07/31/18 05:16 Lymph # (Auto) 0.3 K/uL (1.0-4.3) L 07/31/18 05:16 Frontier # (Auto) 1.2 K/uL (0.0-0.8) H 07/31/18 05:16 Eos # (Auto) 0.1 K/uL (0.0-0.7) 07/31/18 05:16 Baso # (Auto) 0.0 K/uL (0.0-0.2) 07/31/18 05:16 Neutrophils % (Manual) 93 % (42-75) H 07/30/18 04:15 Band Neutrophils % 1 % (0-2) 07/29/18 04:20 Lymphocytes % (Manual) 2 % (20-50) L 07/30/18 04:15 Monocytes % (Manual) 5 % (0-10) 07/30/18 04:15 Platelet Estimate Normal (NORMAL) 07/30/18 04:15 RBC Morphology Normal (NORMAL) 07/29/18 04:20 Anisocytosis (manual) Slight 07/30/18 04:15 Davis Cells Moderate 07/28/18 07:49 ESR 40 mm/hr (0-20) H 07/28/18 12:39 pO2 13 mm/Hg (30-55) L 07/28/18 12:40 VBG pH 7.28 (7.32-7.43) L 07/28/18 12:40 VBG pCO2 52 mmHg (40-60) 07/28/18 12:40 VBG HCO3 20.3 mmol/L 07/28/18 12:40 VBG Total CO2 26.0 mmol/L (22-28) 07/28/18 12:40 VBG O2 Sat (Calc) 13.3 % (40-65) L 07/28/18 12:40 VBG Base Excess -3.0 mmol/L (0.0-2.0) L 07/28/18 12:40 VBG Potassium 5.6 mmol/L (3.6-5.2) H 07/28/18 12:40 Sodium 134.0 mmol/L (132-148) 07/28/18 12:40 Chloride 99.0 mmol/L (98-107) 07/28/18 12:40 Glucose 145 mg/dL (75-110) H 07/28/18 12:40 Lactate 3.9 mmol/L (0.7-2.1) H 07/28/18 12:40 FiO2 21.0 % 07/28/18 12:40 Blood Gas Comments Lactate=3.9 07/28/18 12:40 Crit Value Called To mallory Drew 07/28/18 12:40 Crit Value Called By 22 07/28/18 12:40 Crit Value Read Back Y 07/28/18 12:40 Blood Gas Notified Time 1248 07/28/18 12:40 Sodium 135 mmol/l (132-148) 07/31/18 05:16 Potassium 3.4 MMOL/L (3.6-5.0) L 07/31/18 05:16 Chloride 104 mmol/L (98-107) 07/31/18 05:16 Carbon Dioxide 25 mmol/L (22-30) 07/31/18 05:16 Anion Gap 9 (10-20) L 07/31/18 05:16 BUN 58 mg/dl (9-20) H 07/31/18 05:16 Creatinine 2.8 mg/dl (0.8-1.5) H 07/31/18 05:16 Est GFR ( Amer) 27 07/31/18 05:16 Est GFR (Non-Af Amer) 23 07/31/18 05:16 Random Glucose 119 mg/dL (75-110) H 07/31/18 05:16 Lactic Acid 1.6 MMOL/L (0.7-2.1) 07/28/18 18:49 Calcium 7.7 mg/dL (8.4-10.2) L 07/31/18 05:16 Total Bilirubin 1.1 mg/dl (0.2-1.3) 07/28/18 07:49 AST 45 U/L (17-59) 07/28/18 07:49 ALT 56 U/L (21-72) 07/28/18 07:49 Alkaline Phosphatase 113 U/L (38-126) 07/28/18 07:49 Total Creatine Kinase 26 U/L (55-170) L 07/29/18 04:20 Total Protein 6.3 G/DL (6.3-8.2) 07/28/18 07:49 Albumin 2.9 g/dL (3.5-5.0) L 07/28/18 07:49 Globulin 3.4 gm/dL (2.2-3.9) 07/28/18 07:49 Albumin/Globulin Ratio 0.9 (1.0-2.1) L 07/28/18 07:49 Venous Blood Potassium 5.6 mmol/L (3.6-5.2) H 07/28/18 12:40 Urine Osmolality 355 mosm/kg (300-1000) 07/29/18 05:26 Ur Random Creatinine 73.6 mg/dL 07/29/18 05:26 Ur Random Sodium 34 meq/L 07/29/18 05:26 Ur Random Potassium 46.4 mmol/L 07/29/18 05:26 Vancomycin Trough 14.0 ug/mL (5.0-10.0) H 07/30/18 09:28 - Hospital Course Hospital Course: 68 y/o M with PMH of CHF, HTN, CVA, A-Fib, and chronic severe venous stasis/lymphedema presented to ED c/o constant dull/crampy pain in right lower leg that began on 07/27 while home as he was walking to the bathroom. He was diagnosed with cellulitis to E on admission. Podiatry was consulted and foot/ankle x-rays were taken which revealed soft tissue swelling, moderate degeneratie changes. Wound cultures were taken and revealed klebsiella, enterococcus, and gram negative rods. Dr. Portillo, infectious disease, was consulted and he was started on IV zosyn 2.25 q 6 hours and IV vanc in sodium chloride 1gm IVPB QAM. Dr. Crespo who is his primary care physician was consult for patients chronic CHF and recommended holding his lasix, amlodipine, and metoprolol due to hypotension on admission. Continue IV fluids, cardura, aspirin, and eliquisIncreased BUN/creat was noted and Dr. Calderon was consulted who recommended starting IVF 1/2 normal saline at 70 ml/hr and to c/w IV abx per ID and to monitor BMP daily. Renal US was ordered and showed no obstructive uropathy b/l; instrinsic renal disease, clinically correlate; solitary septated cyst upper pole right kidney 2.4 cm greatest dimension with 2 tiny intrarenal calculi identified at the lower pole of left kidney. Patient will need at least 8 days of IV antibiotics. Patient to be admitted to TCU for IV antibiotic regimen and PT. 1. Severe Venous Stasis/Lymphedema with cellulitis, & sepsis criteria met (Acute on chronic) -Podiatry recommendations have been appreciated. Foot & ankle x-ray: soft tissue swelling, moderate degenerative changes -Wound cx: klebsiella, enterococcus, gram negative guy -Dr. Portillo, ID specialist consulted: IV zosyn 2.25g q 6 hr #4/10, IV vanc in sodium chloride 1 gm IVPB QAM day #3 -Will need at least 8 days of IV antibiotics 2. Severe sepsis criteria met (Acute) -Likely due to severe venous stasis/lymphedema with cellulitis. -On admission, BP: 74/50, WBC-23.6, lactate-5.5 -Today - BP 150/61, WBC 14.5, afebrile -Continue IV fluids. -Continue IV zosyn- day #3 -Continue IV vancomycin- day #3 -Vanc trough ordered 3. CHF (Chronic) -Hold lasix because of hypotension. -Hold Metoprolol because of hypotension. -Dr Crespo recommendations have been appreciated. (Hold lasix, amlodipine & metoprolol) - continue IV abx, IV fluids, cardura, aspirin, and eliquis - recommend TCU when ready for discharge for ASR due to deconditioning and to complete course of abx per ID 4. Increased BUN/creat (acute on chronic) - Dr. Calderon consulted - recs appreciated will follow up recs - renal function slowly improving - start IVF 1/2 NS at 70 ml/hr - c/w IV abx per ID - check BMP daily -Renal US: no obstructive uropathy b/l; instrinsic renal disease, clinically correlate; solitary septated cyst upper pole right kidney 2.4 cm greatest dimension with 2 tiny intrarenal calculi identified at the lower pole of left kidney 4. HTN (Chronic) -Hold Metoprolol because of hypotension. -Hold Amlodipine because of hypotension. -Continue Losartan . 5. HLD (chronic) - continue atorvastatin 5. Paroxysmal AFIB (Chronic, rate controlled) -Continue Eliquis -Hold Metoprolol because of hypotension. 6. DVT prophylaxis -Patient on Eliquis - Date & Time of H&P Date of H&P: 07/31/18 Time of H&P: 14:33 Discharge Exam - Head Exam Head Exam: NORMAL INSPECTION - Respiratory Exam Respiratory Exam: Clear to PA & Lateral, NORMAL BREATHING PATTERN - Cardiovascular Exam Cardiovascular Exam: Irregular Rhythm, +S1, +S2 - GI/Abdominal Exam GI & Abdominal Exam: Normal Bowel Sounds, Soft - Extremities Exam Additional comments: B/l lower extremity edema R>L dressing on right lower extremity, c/d/i no evidence of malodor today left LE has chronic venous stasis changes - tree bark appearance and hyperpigmentation present - Neurological Exam Neurological exam: Alert, Oriented x3 - Psychiatric Exam Psychiatric exam: Normal Affect, Normal Mood Discharge Plan - Discharge Medications Prescriptions: Piperacill/Tazo 2.25gm in Dex [Zosyn 2.25 Gm IV Premix] 2.25 gm IV Q6 #28 bag Vancomycin 1gm in NS 250ml [Vancomycin 1gm] 1 gm IVPB DAILY #7 bag - Follow Up Plan Condition: FAIR Disposition: REHAB FACILITY/REHAB UNIT Referrals: Paulie Crespo MD [Primary Care Provider] -
--- NOTE | 2018-08-01 12:48 | PQF ---
PROVIDER RESPONSE TEXT: Massive Leg non-pitting edema and sever erythema extending up to just below the knee. Diffuse blister ing noted along the right leg and foot. A stasis ulcer with fat exposure in the anterior aspect of th e right leg measuring 3.5 cm X 3 cm X 0.2 cm. Base is granular 100%. No malodor. sanguineous drainage . No probing to bone, No undermining, No tracking. REVIEWER QUERY TEXT: Skin Ulcer Type and Severity Skin ulcer is documented in the Medical Record. Please specify the type and severity Such as: Type: -- Pressure ulcer -- Diabetic skin ulcer -- Venous stasis ulcer -- Other, please specify Severity: -- Limited to breakdown of skin -- With fat layer exposure -- With necrosis of muscle -- With necrosis of bone -- Other, please specify Podiatry consult: Derm: Right LE: Massive Leg non-pitting edema and sever erythema extending up to j ust below the knee. Dissuse blistering noted along the right leg and foot. An ulcer measuring 3.5 cm X 3 cm X 0.2 cm. Base is granular 100%. No malodor. sangineous drainage. No probing to bone, No undermining, No tracking. The patient's Clinical Indicators include: xx Query created by: Naz Soriano on 07/31/2018 7:51 AM Electronically signed by: Roosevelt Garzon 08/01/2018 12:45 PM
== END 2018-07-31 14:31 | DRG 872 ==
LOC: SUPCPDRO 07:07 → H.ER 07:07 → H.ERHOLD 10:07 → H.TEL 14:15
DX: A41.9 Sepsis, unspecified organism (principal); N17.9 Acute kidney failure, unspecified; I13.0 Hypertensive heart and chronic kidney disease with heart failure and stage 1 through stage 4 chronic kidney disease, or unspecified chronic kidney disease; L03.115 Cellulitis of right lower limb; N02.8 Recurrent and persistent hematuria with other morphologic changes; L97.919 Non-pressure chronic ulcer of unspecified part of right lower leg with unspecified severity; I50.32 Chronic diastolic (congestive) heart failure; L97.812 Non-pressure chronic ulcer of other part of right lower leg with fat layer exposed; I48.2 Chronic atrial fibrillation; I48.0 Paroxysmal atrial fibrillation; R65.20 Severe sepsis without septic shock; I95.9 Hypotension, unspecified; Z23 Encounter for immunization; Z86.73 Personal history of transient ischemic attack (TIA), and cerebral infarction without residual deficits; F17.290 Nicotine dependence, other tobacco product, uncomplicated; E03.9 Hypothyroidism, unspecified; I87.2 Venous insufficiency (chronic) (peripheral); N18.3 Chronic kidney disease, stage 3 (moderate); E86.0 Dehydration; I89.0 Lymphedema, not elsewhere classified; E78.5 Hyperlipidemia, unspecified; Z79.01 Long term (current) use of anticoagulants; B96.1 Klebsiella pneumoniae [K. pneumoniae] as the cause of diseases classified elsewhere; B95.2 Enterococcus as the cause of diseases classified elsewhere; I83.018 Varicose veins of right lower extremity with ulcer other part of lower leg; M19.90 Unspecified osteoarthritis, unspecified site; Z79.82 Long term (current) use of aspirin

== ENCOUNTER 2018-07-31 13:48 | Inpatient (IN) | payer OTHER ==
[2018-07-31 14:50] VITALS: BMI 23.2
[2018-07-31] MEDS ORDERED: Albuterol-Ipratrop 3 mg / 0.5 (3 ml) UD IH PRN (15:43)
[2018-07-31] MEDS ORDERED: Patient's Own Med (Piperacill/Tazo 2.25gm In Dex [Zosyn 2.25 Gm Iv Premix] 2.25 GM) IV SCH (16:00)
[2018-08-01] MEDS: Levothyroxine 75 MCG TAB PO SCH (06:24)
[2018-08-01 07:02] LABS: BASO % 0.2 % (0.0-2.0); EOS # 0.1 K/uL (0.0-0.7); EOS % 1.1 % (0.0-4.0); LYMPH # 0.3 K/uL (1.0-4.3); LYMPH % 2.4 % (20.0-40.0); MEAN CELL VOLUME 90.4 fl (80.0-94.0); MEAN CORPUSCULAR HEMOGLOBIN 29.8 pg (27.0-31.0); MEAN CORPUSCULAR HGB CONC 32.9 g/dL (33.0-37.0); MEAN PLATELET VOLUME 8.8 fl (7.2-11.7); MONO # 1.5 K/uL (0.0-0.8); MONO % 12.5 % (0.0-10.0); NEUT # 9.8 K/uL (1.8-7.0); NEUT % 83.8 % (50.0-75.0); NRBC % 0.1 % (0.0-0.0); RBC 4.72 Mil/uL (4.40-5.90); RED CELL DISTRIBUTION WIDTH 16.9 % (11.5-14.5); WHITE BLOOD COUNT 11.7 K/uL (4.8-10.8)
--- NOTE | 2018-08-01 07:18 | CP.PCM.PN ---
Subjective - Date & Time of Evaluation Date of Evaluation: 08/01/18 Time of Evaluation: 10:16 - Subjective Subjective: Podiatry progress note for Dr. Mullen, 68 Y/O male patient seen and evaluated in the bedside for Right LE ulceration, swelling, redness and blistering. Patient is AAO x3. Patient states that his pain improved by the pain medications since last time he was seen. Patient denies any other pedal complaint. Patient denies any recent F/N/V/C or SOB. Objective - Vital Signs/Intake and Output Vital Signs (last 24 hours): Temp Pulse Resp BP Pulse Ox 98.4 F 80 20 145/87 97 07/31/18 21:16 07/31/18 21:16 07/31/18 21:16 07/31/18 21:16 07/31/18 21:16 - Medications Medications: Current Medications Acetaminophen (Tylenol 325mg Tab) 650 mg PO Q4 PRN PRN Reason: Pain, Mild (1-3) Amlodipine Besylate (Norvasc) 5 mg PO DAILY [facility] Apixaban (Eliquis) 2.5 mg PO BID [facility]; Protocol Last Admin: 07/31/18 17:25 Dose: 2.5 mg Aspirin (Ecotrin) 81 mg PO DAILY [facility] Atorvastatin Calcium (Lipitor) 10 mg PO DIN [facility] Last Admin: 07/31/18 17:25 Dose: 10 mg Doxazosin Mesylate (Cardura) 8 mg PO BID [facility] Last Admin: 07/31/18 17:26 Dose: 8 mg Home Med (Albuterol/Ipratropium [Combivent Respimat]) 1 puff IH Q4 PRN PRN Reason: Wheezing Piperacillin Sod/Tazobactam (Sod 2.25 gm/ Sodium Chloride) 100 mls @ 100 mls/hr IV Q6 [facility] Last Admin: 08/01/18 04:51 Dose: 100 mls/hr Vancomycin HCl 1 gm/ Sodium (Chloride) 250 mls @ 166.667 mls/hr IVPB DAILY [facility] Levothyroxine Sodium (Synthroid) 75 mcg PO DAILY@0630 [facility] Last Admin: 08/01/18 06:24 Dose: 75 mcg Metoprolol Succinate (Toprol Xl) 50 mg PO DAILY [facility] Morphine Sulfate (Morphine) 2 mg IVP Q4 PRN PRN Reason: Pain, severe (8-10) Last Admin: 08/01/18 07:16 Dose: 2 mg Tramadol HCl (Ultram) 50 mg PO Q6 PRN PRN Reason: Pain, severe (8-10) Last Admin: 08/01/18 02:11 Dose: 50 mg - Labs Labs: 08/01/18 06:52 08/01/18 06:52 - Constitutional Appears: Well, Non-toxic, No Acute Distress - Head Exam Head Exam: ATRAUMATIC, NORMOCEPHALIC - Extremities Exam Additional comments: B/L LE Focused exam: Vasc: DP/PT not palpable due to massive edema. Cap refill < 3 sec in all digits. Temp gradient warm to lathe winder the right side and warm to cool in the L side from proximal to distal. Massive non pitting edema extending up to below the the knee on the right side and moderated non pitting edema up to the tibial tuberosity on the left side. Neuro: Gross and protective sensations intact b/l. Derm: Right LE: Massive Leg non-pitting edema and sever erythema extending up to the tibial tuberosity (Erythema less than yesterday). Blistering noted along the right leg and foot. An ulcer measuring 3.5 cm X 3 cm X 0.2 cm. Base is granular 100%. No malodor. sanguineous drainage. No probing to bone, No undermining, No tracking. Left LE: Moderate Leg non-pitting edema extending up to the tibial tuberosity. mild erythema noted at the ankle. skin is bruised at the anterior ankle. B/L skin changes of the anterior legs in the form of lichnification and discolor ation R>L MSK: Pain on palpating the Right LE. Muscle power Couldn't be assessed on the right side, 5/5 in all groups in the left side.. - Neurological Exam Neurological Exam: Alert, Awake, Oriented x3 - Psychiatric Exam Psychiatric exam: Normal Affect, Normal Mood Assessment and Plan - Assessment and Plan (Free Text) Assessment: 68 Y/O male patient seen and evaluated in the ED for Right LE cellulitis, Edema and ulceration. Plan: Patient seen and evaluated in the bedside Plan discussed in details with attending Sebas Green Chart, Labs and vitals reviews; Afebrile, WBCs 11.7 Wound Cx; Klebsiella pneumoniae Ssp Pneumoniae and Enterococcus faecalis ESR 40 CRP: 236 Ordered new ESR and CRP B/L 3 views X-ray; reviewed; Right massive LE edema. No signs of OM. Left moderate LE edema Left foot and ankle X-ray: No evidence of osteomyelitis, SOft tissue swelling Left LE venous duplex; No evidence of DVT. ID onboard. Recommendations appreciated. Ordered 2 mg of morphine IV before dressing change. Right LE dressed using SSD, DSD, ABD pads and Adaptic. Continue IV Abx as per IDs. Podiatry will continue to F/U the patient while in house.
[2018-08-01] MEDS: Metoprolol Succinate 50 mg XL Tab PO SCH (08:59)
[2018-08-01] MEDS ORDERED: Patient's Own Med (Vancomycin 1gm In Ns 250ml [Vancomycin 1gm] 1 GM) IVPB SCH (09:00)
--- NOTE | 2018-08-01 10:19 | CP.PCM.CON ---
History of Present Illness - History of Present Illness History of Present Illness: 68yM with hx of HTN, AFIB, PVD, smoking states he had acute onset of pain in his legs and feet. Pain is VAS 6-7/10, dull crampy pain, more in the right leg than left leg. Pain is located in his feet and calves with minimal radiation. At the end of last week, he had acute onset of pain in his legs which he states coincides with a skin infection. Inciting event is skin infection over his bilateral lower extremities. Currently his pain is provoked when he moves and is better at rest. His pain is treated with morphine, gabapentin and tramadol. His pain is improving, and he is working with PT. Past Patient History - Infectious Disease Hx of Infectious Diseases: None - Tetanus Immunizations Tetanus Immunization: Unknown - Past Medical History & Family History Past Medical History?: Yes - Past Social History Smoking Status: cigar #7/d - CARDIAC Hx Cardiac Disorders: Yes Hx Atrial Fibrillation: Yes Hx Cardia Arrhythmia: Yes Hx Congestive Heart Failure: No Hx Hypercholesterolemia: No Hx Hypertension: Yes Hx Mitral Valve Prolapse: No Hx Pacemaker: No Hx Peripheral Edema: Yes (from venous stasis) - PULMONARY Hx Respiratory Disorders: No Hx Asthma: No Hx Bronchitis: No Hx Chronic Obstructive Pulmonary Disease (COPD): No Hx Emphysema: No Hx Pneumonia: No Hx Pulmonary Embolism: No Hx Sleep Apnea: No - NEUROLOGICAL Hx Neurological Disorder: No Hx Alzheimer's Disease: No Hx Dementia: No Hx Migraine: No Hx Multiple Sclerosis: No Hx Parkinson's Disease: No Hx Seizures: No Hx Transient Ischemic Attacks (TIA): No - HEENT Hx HEENT Problems: Yes Other/Comment: wears glasses - RENAL Hx Chronic Kidney Disease: No Hx Kidney Stones: No - ENDOCRINE/METABOLIC Hx Endocrine Disorders: Yes Hx Hyperthyroidism: No Hx Hypothyroidism: Yes (pt not sure, was told he has low functioning thyroid, but never followed up) - HEMATOLOGICAL/ONCOLOGICAL Hx AIDS: No Hx Human Immunodeficiency Virus (HIV): No - INTEGUMENTARY Hx Dermatological Problems: Yes Hx Cellulitis: Yes Other/Comment: unsure of skin condition on bilateral legs, but seeks outpatient treatment for it - MUSCULOSKELETAL/RHEUMATOLOGICAL Hx Musculoskeletal Disorders: No Hx Arthritis: No Hx Falls: No Hx Fractures: No Hx Osteoporosis: No Hx Rheumatoid Arthritis: No Hx Unsteady Gait: Yes - GASTROINTESTINAL Hx Gastrointestinal Disorders: No Hx Crohn's Disease: No Hx Diverticulitis: No Hx Gall Bladder Disease: No Hx Gastritis: No Hx Pancreatitis: No - GENITOURINARY/GYNECOLOGICAL Hx Genitourinary Disorders: No Hx Sexually Transmitted Disorders: No - PSYCHIATRIC Hx Psychophysiologic Disorder: No Hx Anxiety: No Hx Bipolar Disorder: No Hx Depression: No Hx Paranoia: No Hx Post Traumatic Stress Disorder: No Hx Schizophrenia: No Hx Substance Use: No - SURGICAL HISTORY Hx Surgeries: No Hx Appendectomy: No Hx Carotid Endarterectomy: No Hx Cholecystectomy: No Hx Coronary Artery Bypass Graft: No Hx Coronary Stent: No Hx Tonsillectomy: No - ANESTHESIA Hx Anesthesia: No Meds Allergies/Adverse Reactions: Allergies Allergy/AdvReac Type Severity Reaction Status Date / Time No Known Allergies Allergy Verified 06/22/18 14:39 - Medications Medications: Current Medications Albuterol/Ipratropium (Duoneb 3 Mg/0.5 Mg (3 Ml) Ud) 3 ml IH RQ4 PRN PRN Reason: Wheezing Amlodipine Besylate (Norvasc) 5 mg PO DAILY [facility] Last Admin: 08/01/18 09:00 Dose: 5 mg Apixaban (Eliquis) 2.5 mg PO BID [facility]; Protocol Last Admin: 08/01/18 09:00 Dose: 2.5 mg Aspirin (Ecotrin) 81 mg PO DAILY [facility] Last Admin: 08/01/18 09:00 Dose: 81 mg Atorvastatin Calcium (Lipitor) 10 mg PO DIN [facility] Last Admin: 07/31/18 17:25 Dose: 10 mg Doxazosin Mesylate (Cardura) 8 mg PO BID [facility] Last Admin: 08/01/18 08:59 Dose: 8 mg Piperacillin Sod/Tazobactam (Sod 2.25 gm/ Sodium Chloride) 100 mls @ 100 mls/hr IV Q6 [facility] Last Admin: 08/01/18 04:51 Dose: 100 mls/hr Vancomycin HCl 1 gm/ Sodium (Chloride) 250 mls @ 166.667 mls/hr IVPB DAILY [facility] Last Admin: 08/01/18 08:58 Dose: 166.667 mls/hr Levothyroxine Sodium (Synthroid) 75 mcg PO DAILY@0630 [facility] Last Admin: 08/01/18 06:24 Dose: 75 mcg Metoprolol Succinate (Toprol Xl) 50 mg PO DAILY [facility] Last Admin: 08/01/18 08:59 Dose: 50 mg Morphine Sulfate (Morphine) 2 mg IVP Q4 PRN PRN Reason: Pain, severe (8-10) Last Admin: 08/01/18 07:16 Dose: 2 mg Oxycodone/Acetaminophen (Percocet 5/325 Mg Tab) 1 tab PO Q4 PRN PRN Reason: Pain, moderate (4-7) Stop: 08/04/18 10:12 Tramadol HCl (Ultram) 50 mg PO Q6 PRN PRN Reason: Pain, Mild (1-3) Physical Exam - Constitutional Appears: No Acute Distress - Extremities Exam Additional comments: celluliits over bilateral lower extremities. MAEW. moderate TTP over both feet. Results - Vital Signs Recent Vital Signs: Last Vital Signs Temp 97.5 F L 08/01/18 08:41 Pulse 82 08/01/18 09:00 Resp 20 08/01/18 08:41 BP 137/72 08/01/18 09:00 Pulse Ox 96 08/01/18 08:41 - Labs Result Diagrams: 08/01/18 06:52 08/01/18 06:52 Labs: Laboratory Results - last 24 hr 08/01/18 08/01/18 06:52 06:52 WBC 11.7 H RBC 4.72 Hgb 14.0 Hct 42.6 MCV 90.4 MCH 29.8 MCHC 32.9 L RDW 16.9 H Plt Count 213 MPV 8.8 Neut % (Auto) 83.8 H Lymph % (Auto) 2.4 L Major % (Auto) 12.5 H Eos % (Auto) 1.1 Baso % (Auto) 0.2 Neut # (Auto) 9.8 H Lymph # (Auto) 0.3 L Major # (Auto) 1.5 H Eos # (Auto) 0.1 Baso # (Auto) 0.0 Sodium 136 Potassium 3.9 Chloride 105 Carbon Dioxide 24 Anion Gap 11 BUN 46 H Creatinine 2.1 H Est GFR ( Amer) 38 Est GFR (Non-Af Amer) 32 Random Glucose 107 Calcium 8.0 L Assessment & Plan - Assessment and Plan (Free Text) Assessment: 68yM with PVD and acute on chronic LE pain and cellulitis Plan: 1. Please have vascular surgery follow this patient, monitoring for compartment syndrome.DVT, and exacerbation of peripheral vascular disease 2. Continue PT 3. add 1 tab po percocet 5/325 to regimen every 4-6h, give prior to PT 4. Care as per primary team
--- NOTE | 2018-08-01 10:21 | CP.PCM.CON ---
History of Present Illness - History of Present Illness History of Present Illness: THE PATIENT IS A 68 YEAR OLD MALE WHO WAS DISCHARGE YESTERDAY FROM TO TCU FOR SUBACUTE REHAB DUE TO DECONDITIONING AND TO CONTINUE IV ANTIBIOTICS FOR SEVERE RLE CELLULITIS. HE HAS A HISTORY OF CHRONIC ATRIAL FIBRILLATION, HYPERTENSION AND CRF. HE HAS CHRONIC BILATERAL LE EDEMA FROM LYMPHEDEMA WITH STASIS DERMATITIS AND HAS BEEN UNDER THE CARE OF A IRON PELLET TESTER FOR THE PAST FEW MONTHS. THE RIGHT LOWER EXTREMITY GOT VERY SWOLLEN AND DEVELOPED CELLULITIS LAST WEEK AND HE WAS ADMITTED TO [facility] ON 07/28/18 AND WAS SEPTIC, DEHYDRATED, HYPOTENSIVE AND HAD AN ELEVATED LACTATE LEVEL AND HECTOR ON CRF. HE RESPONDED VERY WELL TO IV HYDRATION AND IV ANTIBIOTICS WELL VERY AGGRESSIVE PODIATRIC CARE. CARDIOLOGY WAS ASKED TO FOLLOW HIM IN TCU. HE DENIES CHEST PAIN, PALPITATIONS OR SOB. Past Patient History - Infectious Disease Hx of Infectious Diseases: None - Tetanus Immunizations Tetanus Immunization: Unknown - Past Medical History & Family History Past Medical History?: Yes - Past Social History Smoking Status: cigar #7/d - CARDIAC Hx Cardiac Disorders: Yes Hx Atrial Fibrillation: Yes Hx Cardia Arrhythmia: Yes Hx Congestive Heart Failure: No Hx Hypercholesterolemia: No Hx Hypertension: Yes Hx Mitral Valve Prolapse: No Hx Pacemaker: No Hx Peripheral Edema: Yes (from venous stasis) - PULMONARY Hx Respiratory Disorders: No Hx Asthma: No Hx Bronchitis: No Hx Chronic Obstructive Pulmonary Disease (COPD): No Hx Emphysema: No Hx Pneumonia: No Hx Pulmonary Embolism: No Hx Sleep Apnea: No - NEUROLOGICAL Hx Neurological Disorder: No Hx Alzheimer's Disease: No Hx Dementia: No Hx Migraine: No Hx Multiple Sclerosis: No Hx Parkinson's Disease: No Hx Seizures: No Hx Transient Ischemic Attacks (TIA): No - HEENT Hx HEENT Problems: Yes Other/Comment: wears glasses - RENAL Hx Chronic Kidney Disease: No Hx Kidney Stones: No - ENDOCRINE/METABOLIC Hx Endocrine Disorders: Yes Hx Hyperthyroidism: No Hx Hypothyroidism: Yes (pt not sure, was told he has low functioning thyroid, but never followed up) - HEMATOLOGICAL/ONCOLOGICAL Hx AIDS: No Hx Human Immunodeficiency Virus (HIV): No - INTEGUMENTARY Hx Dermatological Problems: Yes Hx Cellulitis: Yes Other/Comment: unsure of skin condition on bilateral legs, but seeks outpatient treatment for it - MUSCULOSKELETAL/RHEUMATOLOGICAL Hx Musculoskeletal Disorders: No Hx Arthritis: No Hx Falls: No Hx Fractures: No Hx Osteoporosis: No Hx Rheumatoid Arthritis: No Hx Unsteady Gait: Yes - GASTROINTESTINAL Hx Gastrointestinal Disorders: No Hx Crohn's Disease: No Hx Diverticulitis: No Hx Gall Bladder Disease: No Hx Gastritis: No Hx Pancreatitis: No - GENITOURINARY/GYNECOLOGICAL Hx Genitourinary Disorders: No Hx Sexually Transmitted Disorders: No - PSYCHIATRIC Hx Psychophysiologic Disorder: No Hx Anxiety: No Hx Bipolar Disorder: No Hx Depression: No Hx Paranoia: No Hx Post Traumatic Stress Disorder: No Hx Schizophrenia: No Hx Substance Use: No - SURGICAL HISTORY Hx Surgeries: No Hx Appendectomy: No Hx Carotid Endarterectomy: No Hx Cholecystectomy: No Hx Coronary Artery Bypass Graft: No Hx Coronary Stent: No Hx Tonsillectomy: No - ANESTHESIA Hx Anesthesia: No Meds Allergies/Adverse Reactions: Allergies Allergy/AdvReac Type Severity Reaction Status Date / Time No Known Allergies Allergy Verified 06/22/18 14:39 - Medications Medications: Current Medications Acetaminophen (Tylenol 325mg Tab) 650 mg PO Q4 PRN PRN Reason: Pain, Mild (1-3) Albuterol/Ipratropium (Duoneb 3 Mg/0.5 Mg (3 Ml) Ud) 3 ml IH RQ4 PRN PRN Reason: Wheezing Amlodipine Besylate (Norvasc) 5 mg PO DAILY [facility] Last Admin: 08/01/18 09:00 Dose: 5 mg Apixaban (Eliquis) 2.5 mg PO BID [facility]; Protocol Last Admin: 08/01/18 09:00 Dose: 2.5 mg Aspirin (Ecotrin) 81 mg PO DAILY [facility] Last Admin: 08/01/18 09:00 Dose: 81 mg Atorvastatin Calcium (Lipitor) 10 mg PO DIN [facility] Last Admin: 07/31/18 17:25 Dose: 10 mg Doxazosin Mesylate (Cardura) 8 mg PO BID [facility] Last Admin: 08/01/18 08:59 Dose: 8 mg Piperacillin Sod/Tazobactam (Sod 2.25 gm/ Sodium Chloride) 100 mls @ 100 mls/hr IV Q6 [facility] Last Admin: 08/01/18 04:51 Dose: 100 mls/hr Vancomycin HCl 1 gm/ Sodium (Chloride) 250 mls @ 166.667 mls/hr IVPB DAILY [facility] Last Admin: 08/01/18 08:58 Dose: 166.667 mls/hr Levothyroxine Sodium (Synthroid) 75 mcg PO DAILY@0630 [facility] Last Admin: 08/01/18 06:24 Dose: 75 mcg Metoprolol Succinate (Toprol Xl) 50 mg PO DAILY [facility] Last Admin: 08/01/18 08:59 Dose: 50 mg Morphine Sulfate (Morphine) 2 mg IVP Q4 PRN PRN Reason: Pain, severe (8-10) Last Admin: 08/01/18 07:16 Dose: 2 mg Tramadol HCl (Ultram) 50 mg PO Q6 PRN PRN Reason: Pain, severe (8-10) Last Admin: 08/01/18 02:11 Dose: 50 mg Physical Exam - Respiratory Exam Respiratory Exam: Clear to Auscultation Bilateral - Cardiovascular Exam Cardiovascular Exam: Irregular Rhythm, +S1, +S2 - Extremities Exam Additional comments: RLE NOW COVERED BUT SHOWED CELLULITIS, SWELLING AND BLISTERING WELL AN ULCER LLE WITH EDEMA AND DISCOLORATION - Additional Findings Additional findings: WBC DECREASED TO 11 BUN/CR DECREASED TP 46/2.1 Results - Vital Signs Recent Vital Signs: Last Vital Signs Temp 97.5 F L 08/01/18 08:41 Pulse 82 08/01/18 09:00 Resp 20 08/01/18 08:41 BP 137/72 08/01/18 09:00 Pulse Ox 96 08/01/18 08:41 - Labs Result Diagrams: 08/01/18 06:52 08/01/18 06:52 Labs: Laboratory Results - last 24 hr 08/01/18 08/01/18 06:52 06:52 WBC 11.7 H RBC 4.72 Hgb 14.0 Hct 42.6 MCV 90.4 MCH 29.8 MCHC 32.9 L RDW 16.9 H Plt Count 213 MPV 8.8 Neut % (Auto) 83.8 H Lymph % (Auto) 2.4 L [place] % (Auto) 12.5 H Eos % (Auto) 1.1 Baso % (Auto) 0.2 Neut # (Auto) 9.8 H Lymph # (Auto) 0.3 L [place] # (Auto) 1.5 H Eos # (Auto) 0.1 Baso # (Auto) 0.0 Sodium 136 Potassium 3.9 Chloride 105 Carbon Dioxide 24 Anion Gap 11 BUN 46 H Creatinine 2.1 H Est GFR ( Amer) 38 Est GFR (Non-Af Amer) 32 Random Glucose 107 Calcium 8.0 L Assessment & Plan - Assessment and Plan (Free Text) Assessment: CHRONIC ATRIAL FIBRILLATION HYPERTENSION CHRONIC LEG SWELLING WITH LYMPHEDEMA AND STASIS DERMATITIS AND PRESENTLY WITH SEVERE CELLULITIS OF RLE CRF WITH HECTOR-IMPROVING DECONDITIONING Plan: CONTINUE IV ANTIBIOTICS, PODIATRIC CARE, CARDURA, AMLODIPINE, METOPROLOL, ASPIRIN, ELIQUIS AND ATORVASTATIN GRACE POSSIBLE
--- NOTE | 2018-08-01 11:28 | CP.PCM.HP ---
Addendum entered and electronically signed by Winston Camejo MD 08/01/18 17:10: Patient seen and examined bedside. All chart and clinical data reviewed.68 y/o male with multiple medical problems admitted for sepsis and cellulitis of right leg . 1. Right lower extremnty cellulitis with chronic lymphedema, venous stasis and ulcer Wound cx growing Enterobacter faecalis and Klebsiella. ID was consulted and currently receiving Vanco and Zosyn IV Clinically improving and now transferred to TCU for continuation of IV antibiotics and PT Podiatry on consult following for wound care pain management consulted Continue PT 2. HTN continue cardura and Metoprolol 3. Afib rate controlled continue Metoprolol ands Eliquist 4.Hypothyroidism on Synthroid 5.HECTOR on chronic creatinine improving from 4--2.1 Continue hold lasix and monitpor BMP Original Note: History of Present Illness - History of Present Illness History of Present Illness: 68 y/o male patient with pmhx of CHF, HTN, CVA, A-fib, and severe chronic venous statis/lymphedema presents to the TCU for chronic lymphedema, pain in right lower leg, and cellulitis. He was admitted to [facility] for evaluation of right leg wounds, cellulitis and wound cultures revealed klebsiella, E. faecalis, and Enterobacter, and was septic. He is being seen and treated by Podiatry for right leg wounds and cellulitis. Infectious disease was consulted and patient needs at least 8 days of IV antibiotics before discharge and is admitted to TCU for subacute rehab due to deconditioning and IV abx regimen. His right lower leg wounds are chronic and stable. He denies any N/V/F/C/SOB/CP. PMD: Dr. Crespo PMHx: CHF, HTN, CVA, A-Fib, and severe chronic venous /lymphedema MEDS: Amlodipine, Eliquis, Aspirin, Lipitor, Lasix, Synthroid, Metoprolol PSHx: None AllERGIES: NKDA FH: Non contributory SH: Smokes 1-2 cigars daily, but no ETOH use, or illicit drugs Present on Admission - Present on Admission Any Indicators Present on Admission: No Review of Systems - Constitutional Constitutional: As Per HPI Past Patient History - Infectious Disease Hx of Infectious Diseases: None - Tetanus Immunizations Tetanus Immunization: Unknown - Past Medical History & Family History Past Medical History?: Yes - Past Social History Smoking Status: cigar #7/d - CARDIAC Hx Cardiac Disorders: Yes Hx Atrial Fibrillation: Yes Hx Cardia Arrhythmia: Yes Hx Congestive Heart Failure: No Hx Hypercholesterolemia: No Hx Hypertension: Yes Hx Mitral Valve Prolapse: No Hx Pacemaker: No Hx Peripheral Edema: Yes (from venous stasis) - PULMONARY Hx Respiratory Disorders: No Hx Asthma: No Hx Bronchitis: No Hx Chronic Obstructive Pulmonary Disease (COPD): No Hx Emphysema: No Hx Pneumonia: No Hx Pulmonary Embolism: No Hx Sleep Apnea: No - NEUROLOGICAL Hx Neurological Disorder: No Hx Alzheimer's Disease: No Hx Dementia: No Hx Migraine: No Hx Multiple Sclerosis: No Hx Parkinson's Disease: No Hx Seizures: No Hx Transient Ischemic Attacks (TIA): No - HEENT Hx HEENT Problems: Yes Other/Comment: wears glasses - RENAL Hx Chronic Kidney Disease: No Hx Kidney Stones: No - ENDOCRINE/METABOLIC Hx Endocrine Disorders: Yes Hx Hyperthyroidism: No Hx Hypothyroidism: Yes (pt not sure, was told he has low functioning thyroid, but never followed up) - HEMATOLOGICAL/ONCOLOGICAL Hx AIDS: No Hx Human Immunodeficiency Virus (HIV): No - INTEGUMENTARY Hx Dermatological Problems: Yes Hx Cellulitis: Yes Other/Comment: unsure of skin condition on bilateral legs, but seeks outpatient treatment for it - MUSCULOSKELETAL/RHEUMATOLOGICAL Hx Musculoskeletal Disorders: No Hx Arthritis: No Hx Falls: No Hx Fractures: No Hx Osteoporosis: No Hx Rheumatoid Arthritis: No Hx Unsteady Gait: Yes - GASTROINTESTINAL Hx Gastrointestinal Disorders: No Hx Crohn's Disease: No Hx Diverticulitis: No Hx Gall Bladder Disease: No Hx Gastritis: No Hx Pancreatitis: No - GENITOURINARY/GYNECOLOGICAL Hx Genitourinary Disorders: No Hx Sexually Transmitted Disorders: No - PSYCHIATRIC Hx Psychophysiologic Disorder: No Hx Anxiety: No Hx Bipolar Disorder: No Hx Depression: No Hx Paranoia: No Hx Post Traumatic Stress Disorder: No Hx Schizophrenia: No Hx Substance Use: No - SURGICAL HISTORY Hx Surgeries: No Hx Appendectomy: No Hx Carotid Endarterectomy: No Hx Cholecystectomy: No Hx Coronary Artery Bypass Graft: No Hx Coronary Stent: No Hx Tonsillectomy: No - ANESTHESIA Hx Anesthesia: No Meds Allergies/Adverse Reactions: Allergies Allergy/AdvReac Type Severity Reaction Status Date / Time No Known Allergies Allergy Verified 06/22/18 14:39 Physical Exam - Constitutional Appears: Well, Non-toxic, No Acute Distress - Head Exam Head Exam: ATRAUMATIC, NORMOCEPHALIC - ENT Exam ENT Exam: Mucous Membranes Moist - Respiratory Exam Respiratory Exam: Clear to Auscultation Bilateral, NORMAL BREATHING PATTERN - Cardiovascular Exam Cardiovascular Exam: Irregular Rhythm, +S1, +S2 - GI/Abdominal Exam GI & Abdominal Exam: Normal Bowel Sounds, Soft - Extremities Exam Additional comments: RLE appears dressed, dressings c/d/i; cellulitis present, ulcer and blistering LLE edematous and tree bark appearance cap refill <3 seconds to all digits pain on palpation to the RLE - Neurological Exam Neurological exam: Alert, Oriented x3 - Psychiatric Exam Psychiatric exam: Normal Affect, Normal Mood - Skin Skin Exam: Warm Results - Vital Signs Recent Vital Signs: Last Vital Signs Temp 97.5 F L 08/01/18 08:41 Pulse 82 08/01/18 09:00 Resp 20 08/01/18 08:41 BP 137/72 08/01/18 09:00 Pulse Ox 96 08/01/18 08:41 - Labs Result Diagrams: 08/01/18 06:52 08/01/18 06:52 Labs: Laboratory Results - last 24 hr 08/01/18 08/01/18 08/01/18 06:52 06:52 10:00 WBC 11.7 H RBC 4.72 Hgb 14.0 Hct 42.6 MCV 90.4 MCH 29.8 MCHC 32.9 L RDW 16.9 H Plt Count 213 MPV 8.8 Neut % (Auto) 83.8 H Lymph % (Auto) 2.4 L [place] % (Auto) 12.5 H Eos % (Auto) 1.1 Baso % (Auto) 0.2 Neut # (Auto) 9.8 H Lymph # (Auto) 0.3 L [place] # (Auto) 1.5 H Eos # (Auto) 0.1 Baso # (Auto) 0.0 ESR 77 H Sodium 136 Potassium 3.9 Chloride 105 Carbon Dioxide 24 Anion Gap 11 BUN 46 H Creatinine 2.1 H Est GFR ( Amer) 38 Est GFR (Non-Af Amer) 32 Random Glucose 107 Calcium 8.0 L Assessment & Plan - Assessment and Plan (Free Text) Assessment: 68 yo male presents to TCU and seen and examined for deconditioning and right lower extremity cellulitis, chronic lymphedema, blistering, and ulceration. Plan: 1. Severe Venous Stasis/Lymphedema with cellulitis, & sepsis criteria met (Acute on chronic) -Podiatry recommendations have been appreciated. Foot & ankle x-ray: soft tissue swelling, moderate degenerative changes -Podiatry continuing dressing changes -Wound cx: klebsiella, enterococcus, gram negative romero -Dr. Portillo, ID specialist consulted - IV zosyn 2.25g q 6 hr day #2 in TCU - IV vanc in sodium chloride 1 gm IVPB QAM day #1 in TCU -Will need at least 8 days of IV antibiotics 2. Severe sepsis criteria met (Acute) -Likely due to severe venous stasis/lymphedema with cellulitis. -On admission, BP: 137/72, WBC-23.6, lactate-5.5 -Today - BP 150/61, WBC 11.7, afebrile -Continue IV fluids. -Continue IV zosyn- day #2 in TCU -Continue IV vancomycin- day #1 in TCU -Vanc trough ordered -14.0 3. CHF (Chronic) -Hold lasix because of hypotension. -Hold Metoprolol because of hypotension. -Dr Crespo recommendations have been appreciated. (Hold lasix, amlodipine & metoprolol) - continue IV abx, IV fluids, cardura, aspirin, and eliquis 4. Increased BUN/creat (acute on chronic) - Dr. Calderon consulted - recs appreciated will follow up recs - renal function slowly improving - start IVF 1/2 NS at 70 ml/hr - c/w IV abx per ID - check BMP daily -Renal US: no obstructive uropathy b/l; instrinsic renal disease, clinically correlate; solitary septated cyst upper pole right kidney 2.4 cm greatest dimension with 2 tiny intrarenal calculi identified at the lower pole of left kidney 4. HTN (Chronic) -Hold Metoprolol because of hypotension. -Hold Amlodipine because of hypotension. -Continue Losartan . 5. HLD (chronic) - continue atorvastatin 5. Paroxysmal AFIB (Chronic, rate controlled) -Continue Eliquis -Hold Metoprolol because of hypotension. 6. DVT prophylaxis -Patient on Eliquis - Date & Time Date: 08/01/18 Time: 11:34
--- NOTE | 2018-08-01 13:06 | CP.PCM.PN ---
Subjective - Date & Time of Evaluation Date of Evaluation: 08/01/18 Time of Evaluation: 13:06 - Subjective Subjective: 68 yo WM with pmh/o htn, chf, cva, afib, ckd, chronic venous stasis / lymphedema, followed by Dr. Garcia was admitted with cc/o pain and swelling of legs, redness of rt leg for few days. c/o increased oozing from both legs. pt denies any chest pain, palpitation, nausea, vomitings, abd. pain, diarrhea, no dysuria or frequency. pt claims he is voiding well, wound c/s is positive K. pneumonia, enterococcus, no complaints, no sob, less pain in both legs Objective - Vital Signs/Intake and Output Vital Signs (last 24 hours): Temp Pulse Resp BP Pulse Ox 97.5 F L 82 20 137/72 96 08/01/18 08:41 08/01/18 09:00 08/01/18 08:41 08/01/18 09:00 08/01/18 08:41 - Medications Medications: Current Medications Albuterol/Ipratropium (Duoneb 3 Mg/0.5 Mg (3 Ml) Ud) 3 ml IH RQ4 PRN PRN Reason: Wheezing Amlodipine Besylate (Norvasc) 5 mg PO DAILY [facility] Last Admin: 08/01/18 09:00 Dose: 5 mg Apixaban (Eliquis) 2.5 mg PO BID [facility]; Protocol Last Admin: 08/01/18 09:00 Dose: 2.5 mg Aspirin (Ecotrin) 81 mg PO DAILY [facility] Last Admin: 08/01/18 09:00 Dose: 81 mg Atorvastatin Calcium (Lipitor) 10 mg PO DIN [facility] Last Admin: 07/31/18 17:25 Dose: 10 mg Doxazosin Mesylate (Cardura) 8 mg PO BID [facility] Last Admin: 08/01/18 08:59 Dose: 8 mg Piperacillin Sod/Tazobactam (Sod 2.25 gm/ Sodium Chloride) 100 mls @ 100 mls/hr IV Q6 [facility] Last Admin: 08/01/18 11:05 Dose: 100 mls/hr Vancomycin HCl 1 gm/ Sodium (Chloride) 250 mls @ 166.667 mls/hr IVPB DAILY [facility] Last Admin: 08/01/18 08:58 Dose: 166.667 mls/hr Levothyroxine Sodium (Synthroid) 75 mcg PO DAILY@0630 [facility] Last Admin: 08/01/18 06:24 Dose: 75 mcg Metoprolol Succinate (Toprol Xl) 50 mg PO DAILY [facility] Last Admin: 08/01/18 08:59 Dose: 50 mg Morphine Sulfate (Morphine) 2 mg IVP Q4 PRN PRN Reason: Pain, severe (8-10) Last Admin: 08/01/18 11:23 Dose: 2 mg Oxycodone/Acetaminophen (Percocet 5/325 Mg Tab) 1 tab PO Q4 PRN PRN Reason: Pain, moderate (4-7) Stop: 08/04/18 10:12 Tramadol HCl (Ultram) 50 mg PO Q6 PRN PRN Reason: Pain, Mild (1-3) - Labs Labs: 08/01/18 06:52 08/01/18 06:52 Assessment and Plan - Assessment and Plan (Free Text) Assessment: ment: 68 yo WM with pmh/o htn, chf, cva, ckd, massive proteinuria, 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 HECTOR on ckd-3 2. cellulitis of legs 3. Dehydration 4. HTN 5. A fib renal function is slowly improving, s.cr is 2.8----->2.1 today, almost back to his base line c/w iv abx as per ID stacy bmp
--- NOTE | 2018-08-02 06:03 | CP.PCM.PN ---
Subjective - Date & Time of Evaluation Date of Evaluation: 08/02/18 Time of Evaluation: 06:58 - Subjective Subjective: Podiatry progress note for Dr. Mullen, 68 Y/O male patient seen and evaluated in the bedside for Right LE ulceration, swelling, redness and blistering. Patient is AAO x3. Patient states that his pain improved a lot since yesterday. Patient denies any other pedal complaint. Patient denies any recent F/N/V/C or SOB. Objective - Vital Signs/Intake and Output Vital Signs (last 24 hours): Temp Pulse Resp BP Pulse Ox 98.2 F 79 20 136/85 98 08/01/18 19:45 08/01/18 19:45 08/01/18 19:45 08/01/18 19:45 08/01/18 19:45 - Medications Medications: Current Medications Albuterol/Ipratropium (Duoneb 3 Mg/0.5 Mg (3 Ml) Ud) 3 ml IH RQ4 PRN PRN Reason: Wheezing Amlodipine Besylate (Norvasc) 5 mg PO DAILY [facility] Last Admin: 08/01/18 09:00 Dose: 5 mg Apixaban (Eliquis) 2.5 mg PO BID [facility]; Protocol Last Admin: 08/01/18 17:19 Dose: 2.5 mg Aspirin (Ecotrin) 81 mg PO DAILY [facility] Last Admin: 08/01/18 09:00 Dose: 81 mg Atorvastatin Calcium (Lipitor) 10 mg PO DIN [facility] Last Admin: 08/01/18 17:19 Dose: 10 mg Docusate Sodium (Colace) 100 mg PO BID [facility] Doxazosin Mesylate (Cardura) 8 mg PO BID [facility] Last Admin: 08/01/18 17:19 Dose: 8 mg Piperacillin Sod/Tazobactam (Sod 2.25 gm/ Sodium Chloride) 100 mls @ 100 mls/hr IV Q6 [facility] Last Admin: 08/02/18 05:01 Dose: 100 mls/hr Vancomycin HCl 1 gm/ Sodium (Chloride) 250 mls @ 166.667 mls/hr IVPB DAILY [facility] Last Admin: 08/01/18 08:58 Dose: 166.667 mls/hr Levothyroxine Sodium (Synthroid) 75 mcg PO DAILY@0630 [facility] Last Admin: 08/01/18 06:24 Dose: 75 mcg Metoprolol Succinate (Toprol Xl) 50 mg PO DAILY [facility] Last Admin: 08/01/18 08:59 Dose: 50 mg Morphine Sulfate (Morphine) 2 mg IVP Q4 PRN PRN Reason: Pain, severe (8-10) Last Admin: 08/01/18 11:23 Dose: 2 mg Oxycodone/Acetaminophen (Percocet 5/325 Mg Tab) 1 tab PO Q4 PRN PRN Reason: Pain, moderate (4-7) Stop: 08/04/18 10:12 Tramadol HCl (Ultram) 50 mg PO Q6 PRN PRN Reason: Pain, Mild (1-3) Last Admin: 08/01/18 22:39 Dose: 50 mg - Labs Labs: 08/01/18 06:52 08/01/18 06:52 - Constitutional Appears: Well, Non-toxic, No Acute Distress - Head Exam Head Exam: ATRAUMATIC, NORMOCEPHALIC - Extremities Exam Additional comments: B/L LE Focused exam: Vasc: DP/PT not palpable due toedema. Cap refill < 3 sec in all digits. Temp gradient warm to warm b/l from proximal to distal. Massive non pitting edema extending below the tibial tuberosity on the right side and moderated non pitting edema up to the tibial tuberosity on the left side. Neuro: Gross and protective sensations intact b/l. Derm: Right LE: moderate Leg non-pitting edema and sever erythema extending up to the tibial tuberosity (Erythema less than yesterday). Blistering noted along the right leg and foot. An ulcer measuring 3.0 cm X 2.7 cm X 0.2 cm. Base is granular 100%. No malodor. sanguineous drainage. No probing to bone, No undermining, No tracking. Left LE: Moderate Leg non-pitting edema extending up to the tibial tuberosity. mild erythema noted at the ankle. skin is bruised at the anterior ankle. B/L skin changes of the anterior legs in the form of lichnification and discoloration b/l MSK: Mild Pain on palpating the Right LE. Muscle intact 5/5 in all groups b/l.. - Neurological Exam Neurological Exam: Alert, Awake, Oriented x3 - Psychiatric Exam Psychiatric exam: Normal Affect, Normal Mood Assessment and Plan - Assessment and Plan (Free Text) Assessment: 68 Y/O male patient seen and evaluated in the ED for Right LE cellulitis, Edema and ulceration. Plan: Patient seen and evaluated in the bedside Plan discussed in details with attending Sebas [place] Chart, Labs and vitals reviews; Afebrile, WBCs 10.6 Wound Cx; Klebsiella pneumoniae Ssp Pneumoniae and Enterococcus faecalis ESR 77 CRP: 68.80 B/L 3 views X-ray; reviewed; Right massive LE edema. No signs of OM. Left moderate LE edema Left foot and ankle X-ray: No evidence of osteomyelitis, SOft tissue swelling Left LE venous duplex; No evidence of DVT. ID onboard. Recommendations appreciated. Ordered 2 mg of morphine IV before dressing change. Right LE dressed using SSD, DSD, ABD pads and Adaptic. Continue IV Abx as per IDs. Weber compression will be applied starting from tomorrow Podiatry will continue to F/U the patient while in house.
[2018-08-02 06:12] LABS: HEMOGLOBIN 14.3 g/dL (12.0-18.0); MEAN CELL VOLUME 90.5 fl (80.0-94.0); MEAN CORPUSCULAR HEMOGLOBIN 30.6 pg (27.0-31.0); MEAN CORPUSCULAR HGB CONC 33.8 g/dL (33.0-37.0); RBC 4.67 Mil/uL (4.40-5.90); RED CELL DISTRIBUTION WIDTH 16.9 % (11.5-14.5); WHITE BLOOD COUNT 10.6 K/uL (4.8-10.8)
[2018-08-02] MEDS: Levothyroxine 75 MCG TAB PO SCH (06:24)
[2018-08-02] MEDS: Metoprolol Succinate 50 mg XL Tab PO SCH (08:33)
[2018-08-02] MEDS: Oxycodone/Acetaminophen 5/325 mg Tab PO PRN (08:40)
[2018-08-03] MEDS: Levothyroxine 75 MCG TAB PO SCH (06:30)
[2018-08-03] MEDS: Metoprolol Succinate 50 mg XL Tab PO SCH (08:43)
--- NOTE | 2018-08-03 12:55 | CP.PCM.PN ---
Subjective - Date & Time of Evaluation Date of Evaluation: 08/03/18 Time of Evaluation: 13:00 - Subjective Subjective: NO CHEST PAIN OR SOB RLE WITH LESS PAIN TODAY Objective - Vital Signs/Intake and Output Vital Signs (last 24 hours): Temp Pulse Resp BP Pulse Ox 97.0 F L 67 20 135/74 99 08/03/18 08:26 08/03/18 08:43 08/03/18 08:26 08/03/18 08:43 08/03/18 08:26 - Medications Medications: Current Medications Albuterol/Ipratropium (Duoneb 3 Mg/0.5 Mg (3 Ml) Ud) 3 ml IH RQ4 PRN PRN Reason: Wheezing Amlodipine Besylate (Norvasc) 5 mg PO DAILY [facility] Last Admin: 08/03/18 08:44 Dose: 5 mg Apixaban (Eliquis) 2.5 mg PO BID [facility]; Protocol Last Admin: 08/03/18 08:43 Dose: 2.5 mg Aspirin (Ecotrin) 81 mg PO DAILY [facility] Last Admin: 08/03/18 08:44 Dose: 81 mg Atorvastatin Calcium (Lipitor) 10 mg PO DIN [facility] Last Admin: 08/02/18 17:02 Dose: 10 mg Docusate Sodium (Colace) 100 mg PO BID [facility] Last Admin: 08/03/18 08:43 Dose: 100 mg Doxazosin Mesylate (Cardura) 8 mg PO BID [facility] Last Admin: 08/03/18 08:43 Dose: 8 mg Piperacillin Sod/Tazobactam (Sod 2.25 gm/ Sodium Chloride) 100 mls @ 100 mls/hr IV Q6 [facility] Last Admin: 08/03/18 11:37 Dose: 100 mls/hr Vancomycin HCl 1 gm/ Sodium (Chloride) 250 mls @ 166.667 mls/hr IVPB DAILY@2100 [facility] Levothyroxine Sodium (Synthroid) 75 mcg PO DAILY@0630 [facility] Last Admin: 08/03/18 06:30 Dose: 75 mcg Metoprolol Succinate (Toprol Xl) 50 mg PO DAILY [facility] Last Admin: 08/03/18 08:43 Dose: 50 mg Morphine Sulfate (Morphine) 2 mg IVP Q4 PRN PRN Reason: Pain, severe (8-10) Last Admin: 08/03/18 08:55 Dose: 2 mg Oxycodone/Acetaminophen (Percocet 5/325 Mg Tab) 1 tab PO Q4 PRN PRN Reason: Pain, moderate (4-7) Stop: 08/04/18 10:12 Last Admin: 08/02/18 08:40 Dose: 1 tab Tramadol HCl (Ultram) 50 mg PO Q6 PRN PRN Reason: Pain, Mild (1-3) Last Admin: 08/03/18 03:57 Dose: 50 mg - Labs Labs: 08/02/18 06:00 08/02/18 06:00 - Respiratory Exam Respiratory Exam: Clear to Ausculation Bilateral - Cardiovascular Exam Cardiovascular Exam: Irregular Rhythm, +S1, +S2 - Extremities Exam Additional comments: BOTH LE WRAPPED Assessment and Plan - Assessment and Plan (Free Text) Assessment: CHRONIC ATRIAL FIBRILLATION HYPERTENSION RECENT TIA/INFARCT SEVERE RLE CELLULITIS AND ULCERATION Plan: CONTINUE IV ANTIBIOTICS, ASPIRIN, ELIQUIS, CARDURA, METOPROLOL, AMLODIPINE, ATORVASTATIN CONTINUE [facility]
--- NOTE | 2018-08-03 13:53 | CP.PCM.PN ---
Subjective - Date & Time of Evaluation Date of Evaluation: 08/03/18 Time of Evaluation: 13:53 - Subjective Subjective: 68 yo WM with pmh/o htn, chf, cva, afib, ckd, chronic venous stasis / lymphedema, followed by Dr. Garcia was admitted with cc/o pain and swelling of legs, redness of rt leg for few days. c/o increased oozing from both legs. pt denies any chest pain, palpitation, nausea, vomitings, abd. pain, diarrhea, no dysuria or frequency. pt is feeling better, less pain in rt leg Objective - Vital Signs/Intake and Output Vital Signs (last 24 hours): Temp Pulse Resp BP Pulse Ox 97.0 F L 67 20 135/74 99 08/03/18 08:26 08/03/18 08:43 08/03/18 08:26 08/03/18 08:43 08/03/18 08:26 - Medications Medications: Current Medications Albuterol/Ipratropium (Duoneb 3 Mg/0.5 Mg (3 Ml) Ud) 3 ml IH RQ4 PRN PRN Reason: Wheezing Amlodipine Besylate (Norvasc) 5 mg PO DAILY [facility] Last Admin: 08/03/18 08:44 Dose: 5 mg Apixaban (Eliquis) 2.5 mg PO BID [facility]; Protocol Last Admin: 08/03/18 08:43 Dose: 2.5 mg Aspirin (Ecotrin) 81 mg PO DAILY [facility] Last Admin: 08/03/18 08:44 Dose: 81 mg Atorvastatin Calcium (Lipitor) 10 mg PO DIN [facility] Last Admin: 08/02/18 17:02 Dose: 10 mg Docusate Sodium (Colace) 100 mg PO BID [facility] Last Admin: 08/03/18 08:43 Dose: 100 mg Doxazosin Mesylate (Cardura) 8 mg PO BID [facility] Last Admin: 08/03/18 08:43 Dose: 8 mg Piperacillin Sod/Tazobactam (Sod 2.25 gm/ Sodium Chloride) 100 mls @ 100 mls/hr IV Q6 [facility] Last Admin: 08/03/18 11:37 Dose: 100 mls/hr Vancomycin HCl 1 gm/ Sodium (Chloride) 250 mls @ 166.667 mls/hr IVPB DAILY@2100 [facility] Levothyroxine Sodium (Synthroid) 75 mcg PO DAILY@0630 [facility] Last Admin: 08/03/18 06:30 Dose: 75 mcg Metoprolol Succinate (Toprol Xl) 50 mg PO DAILY [facility] Last Admin: 08/03/18 08:43 Dose: 50 mg Morphine Sulfate (Morphine) 2 mg IVP Q4 PRN PRN Reason: Pain, severe (8-10) Last Admin: 08/03/18 08:55 Dose: 2 mg Oxycodone/Acetaminophen (Percocet 5/325 Mg Tab) 1 tab PO Q4 PRN PRN Reason: Pain, moderate (4-7) Stop: 08/04/18 10:12 Last Admin: 08/02/18 08:40 Dose: 1 tab Tramadol HCl (Ultram) 50 mg PO Q6 PRN PRN Reason: Pain, Mild (1-3) Last Admin: 08/03/18 03:57 Dose: 50 mg - Labs Labs: 08/02/18 06:00 08/02/18 06:00 - Constitutional Appears: Well, No Acute Distress - Head Exam Head Exam: ATRAUMATIC, NORMAL INSPECTION, NORMOCEPHALIC - Eye Exam Eye Exam: EOMI, Normal appearance, PERRL Pupil Exam: NORMAL ACCOMODATION - ENT Exam ENT Exam: Mucous Membranes Moist - Neck Exam Neck Exam: Full ROM, Normal Inspection - Respiratory Exam Respiratory Exam: Clear to Ausculation Bilateral, NORMAL BREATHING PATTERN - Cardiovascular Exam Cardiovascular Exam: Irregular Rhythm, +S1, +S2 - Rectal Exam Rectal Exam: Deferred - Extremities Exam Additional comments: rt leg swollen, dressing to rt leg from bellow knee, chronic skin changes to left leg - Neurological Exam Neurological Exam: Alert, Awake, CN II-XII Intact, Oriented x3 Assessment and Plan - Assessment and Plan (Free Text) Assessment: 68 yo WM with pmh/o htn, chf, cva, ckd, massive proteinuria, h/o IgAN s/p kidney bx in 1987, with b/l leg swelling, chronic stais/lymphedema with b/l le swelling, oozing, redness of th leg , difficult to ambulate, weakness, increased wbc, increased bun/cr 1. HECTOR on ckd-3 2. cellulitis of legs 3. Dehydration 4. HTN 5. A fib renal function is slowly improving, s.cr is 2.8----->2.1 ---->1.8 back to his base line c/w iv abx as per ID dialy bmp will follow up as needed
--- NOTE | 2018-08-03 15:35 | CP.PCM.PN ---
Subjective - Date & Time of Evaluation Date of Evaluation: 08/03/18 Time of Evaluation: 15:32 - Subjective Subjective: Podiatry progress note for Dr. Mullen, 68 Y/O male patient seen and evaluated in the bedside for Right LE ulceration, swelling, redness and blistering. Patient is AAO x3. Patient states that his pain improved. Patient denies any other pedal complaint. Notes strikethrough and drainage at dressing. Patient denies any recent F/N/V/C or SOB. Objective - Vital Signs/Intake and Output Vital Signs (last 24 hours): Temp Pulse Resp BP Pulse Ox 97.0 F L 67 20 135/74 99 08/03/18 08:26 08/03/18 08:43 08/03/18 08:26 08/03/18 08:43 08/03/18 08:26 - Medications Medications: Current Medications Albuterol/Ipratropium (Duoneb 3 Mg/0.5 Mg (3 Ml) Ud) 3 ml IH RQ4 PRN PRN Reason: Wheezing Amlodipine Besylate (Norvasc) 5 mg PO DAILY [facility] Last Admin: 08/03/18 08:44 Dose: 5 mg Apixaban (Eliquis) 2.5 mg PO BID [facility]; Protocol Last Admin: 08/03/18 08:43 Dose: 2.5 mg Aspirin (Ecotrin) 81 mg PO DAILY [facility] Last Admin: 08/03/18 08:44 Dose: 81 mg Atorvastatin Calcium (Lipitor) 10 mg PO DIN [facility] Last Admin: 08/02/18 17:02 Dose: 10 mg Docusate Sodium (Colace) 100 mg PO BID [facility] Last Admin: 08/03/18 08:43 Dose: 100 mg Doxazosin Mesylate (Cardura) 8 mg PO BID [facility] Last Admin: 08/03/18 08:43 Dose: 8 mg Piperacillin Sod/Tazobactam (Sod 2.25 gm/ Sodium Chloride) 100 mls @ 100 mls/hr IV Q6 [facility] Last Admin: 08/03/18 11:37 Dose: 100 mls/hr Vancomycin HCl 1 gm/ Sodium (Chloride) 250 mls @ 166.667 mls/hr IVPB DAILY@2100 [facility] Levothyroxine Sodium (Synthroid) 75 mcg PO DAILY@0630 [facility] Last Admin: 08/03/18 06:30 Dose: 75 mcg Metoprolol Succinate (Toprol Xl) 50 mg PO DAILY [facility] Last Admin: 08/03/18 08:43 Dose: 50 mg Morphine Sulfate (Morphine) 2 mg IVP Q4 PRN PRN Reason: Pain, severe (8-10) Last Admin: 08/03/18 08:55 Dose: 2 mg Oxycodone/Acetaminophen (Percocet 5/325 Mg Tab) 1 tab PO Q4 PRN PRN Reason: Pain, moderate (4-7) Stop: 08/04/18 10:12 Last Admin: 08/02/18 08:40 Dose: 1 tab Tramadol HCl (Ultram) 50 mg PO Q6 PRN PRN Reason: Pain, Mild (1-3) Last Admin: 08/03/18 03:57 Dose: 50 mg - Labs Labs: 08/02/18 06:00 08/02/18 06:00 - Constitutional Appears: Well, Non-toxic, No Acute Distress - Head Exam Head Exam: ATRAUMATIC, NORMOCEPHALIC - Extremities Exam Additional comments: B/L LE Focused exam: Vasc: DP/PT not palpable due toedema. Cap refill < 3 sec in all digits. Temp gradient warm to warm b/l from proximal to distal. Massive non pitting edema extending below the tibial tuberosity on the right side and moderated non pitting edema up to the tibial tuberosity on the left side. Neuro: Gross and protective sensations intact b/l. Derm: Right LE: moderate Leg non-pitting edema and sever erythema extending up to the tibial tuberosity (Erythema less than yesterday). Blistering noted along the right leg and foot. An ulcer measuring 3.0 cm X 2.7 cm X 0.2 cm. Base is granular 100%. No malodor. sanguineous drainage. No probing to bone, No undermining, No tracking. (improving) Left LE: Moderate Leg non-pitting edema extending up to the tibial tuberosity. mild erythema noted at the ankle. skin is bruised at the anterior ankle. B/L skin changes of the anterior legs in the form of lichnification and discoloration b/l MSK: Mild Pain on palpating the Right LE. Muscle intact 5/5 in all groups b/l.. - Neurological Exam Neurological Exam: Alert, Awake, Oriented x3 - Psychiatric Exam Psychiatric exam: Normal Affect, Normal Mood Assessment and Plan - Assessment and Plan (Free Text) Assessment: 68 Y/O male patient seen and evaluated for Right LE cellulitis, Edema and ulcera tion. Plan: Patient seen and evaluated in the bedside Plan discussed in details with attending Sebas Green Chart, Labs and vitals reviews; Afebrile, WBCs 10.6 (08/02) Wound Cx; Klebsiella pneumoniae Ssp Pneumoniae and Enterococcus faecalis ESR 77 CRP: 68.80 B/L 3 views X-ray; reviewed; Right massive LE edema. No signs of OM. Left moderate LE edema Left foot and ankle X-ray: No evidence of osteomyelitis, SOft tissue swelling Left LE venous duplex; No evidence of DVT. ID onboard. Recommendations appreciated. Ordered 2 mg of morphine IV before dressing change. Right LE dressed using SSD, DSD, ABD pads and Adaptic. Continue IV Abx as per IDs. Weber compression applied - patient tolerated well Podiatry will continue to F/U the patient while in house.
[2018-08-03] MEDS: Oxycodone/Acetaminophen 5/325 mg Tab PO PRN (20:01)
[2018-08-04] MEDS: Levothyroxine 75 MCG TAB PO SCH (05:47)
[2018-08-04] MEDS: Metoprolol Succinate 50 mg XL Tab PO SCH (08:57)
[2018-08-04] MEDS: Oxycodone/Acetaminophen 5/325 mg Tab PO PRN (19:51)
[2018-08-05] MEDS: Levothyroxine 75 MCG TAB PO SCH (06:10)
--- NOTE | 2018-08-05 06:36 | CP.PCM.PN ---
Subjective - Date & Time of Evaluation Date of Evaluation: 08/05/18 Time of Evaluation: 08:07 - Subjective Subjective: Podiatry progress note for Dr. Mullen, 68 Y/O male patient seen and evaluated in the bedside for Right LE ulceration, swelling, redness and blistering. Patient is AAO x3. Patient states that his pain improved and he almost doesn't have any pain as of now. Patient denies any other pedal complaint. No strike through and drainage at dressing noted. Patient denies any overnight F/N/V/C or SOB. Objective - Vital Signs/Intake and Output Vital Signs (last 24 hours): Temp Pulse Resp BP Pulse Ox 98.2 F 66 20 146/79 97 08/04/18 20:15 08/04/18 20:15 08/04/18 20:15 08/04/18 20:15 08/04/18 20:15 - Medications Medications: Current Medications Albuterol/Ipratropium (Duoneb 3 Mg/0.5 Mg (3 Ml) Ud) 3 ml IH RQ4 PRN PRN Reason: Wheezing Amlodipine Besylate (Norvasc) 5 mg PO DAILY [facility] Last Admin: 08/04/18 08:57 Dose: 5 mg Apixaban (Eliquis) 2.5 mg PO BID [facility]; Protocol Last Admin: 08/04/18 17:51 Dose: 2.5 mg Aspirin (Ecotrin) 81 mg PO DAILY [facility] Last Admin: 08/04/18 08:56 Dose: 81 mg Atorvastatin Calcium (Lipitor) 10 mg PO DIN [facility] Last Admin: 08/04/18 17:50 Dose: 10 mg Docusate Sodium (Colace) 100 mg PO BID [facility] Last Admin: 08/04/18 17:50 Dose: 100 mg Doxazosin Mesylate (Cardura) 8 mg PO BID [facility] Last Admin: 08/04/18 17:50 Dose: 8 mg Piperacillin Sod/Tazobactam (Sod 2.25 gm/ Sodium Chloride) 100 mls @ 100 mls/hr IV Q6 [facility] Last Admin: 08/05/18 04:39 Dose: 100 mls/hr Vancomycin HCl 1 gm/ Sodium (Chloride) 250 mls @ 166.667 mls/hr IVPB DAILY@2100 [facility] Last Admin: 08/04/18 20:21 Dose: 166.667 mls/hr Levothyroxine Sodium (Synthroid) 75 mcg PO DAILY@0630 [facility] Last Admin: 08/05/18 06:10 Dose: 75 mcg Metoprolol Succinate (Toprol Xl) 50 mg PO DAILY [facility] Last Admin: 08/04/18 08:57 Dose: 50 mg Morphine Sulfate (Morphine) 2 mg IVP Q6 PRN PRN Reason: Pain, severe (8-10) Oxycodone/Acetaminophen (Percocet 5/325 Mg Tab) 1 tab PO Q4 PRN PRN Reason: Pain, moderate (4-7) Stop: 08/07/18 18:55 Last Admin: 08/04/18 19:51 Dose: 1 tab - Labs Labs: 08/02/18 06:00 08/02/18 06:00 - Constitutional Appears: Well, Non-toxic, No Acute Distress - Head Exam Head Exam: ATRAUMATIC, NORMOCEPHALIC - Extremities Exam Additional comments: B/L LE Focused exam: Vasc: DP/PT not palpable due toedema. Cap refill < 3 sec in all digits. Temp gradient warm to warm b/l from proximal to distal. Moderate non pitting edema extending below the tibial tuberosity on the right side and up to the tibial tuberosity on the left side. Neuro: Gross and protective sensations intact b/l. Derm: Right LE: moderate Leg non-pitting edema and sever erythema extending up to the tibial tuberosity (Erythema less than yesterday). Blistering noted along the right leg and foot. An ulcer measuring 2.5 cm X 2.2 cm X 0.2 cm. Base is granular 100%. No malodor. sanguineous drainage. No probing to bone, No undermining, No tracking. (improving). Scattered ruptured blisters present at the dorsum of the foot. Left LE: Moderate Leg non-pitting edema extending up to the tibial tuberosity. mild erythema noted at the ankle. B/L skin changes of the anterior legs in the form of lichnification and discoloration b/l MSK: Mild Pain on palpating the Right LE. Muscle intact 5/5 in all groups b/l.. - Neurological Exam Neurological Exam: Alert, Awake, Oriented x3 - Psychiatric Exam Psychiatric exam: Normal Affect, Normal Mood Assessment and Plan - Assessment and Plan (Free Text) Assessment: 68 Y/O male patient seen and evaluated for Right LE cellulitis, Edema and ulceration. Plan: Patient seen and evaluated in the bedside Plan discussed in details with attending Sebas Green Chart, Labs and vitals reviews; Afebrile, WBCs 10.6 (08/02) Wound Cx; Klebsiella pneumoniae Ssp Pneumoniae and Enterococcus faecalis ESR 77 CRP: 68.80 Ordred new ESR and CRP B/L 3 views X-ray (07/28); reviewed; Right massive LE edema. No signs of OM. Left moderate LE edema Left foot and ankle X-ray (07/28): No evidence of osteomyelitis, SOft tissue swelling Left LE venous duplex (07/28); No evidence of DVT. ID onboard. Recommendations appreciated. Right LE dressed using SSD, DSD, ABD pads and Adaptic. Weber compression applied - patient tolerated well Continue IV Abx as per IDs. Podiatry will continue to F/U the patient while in house.
[2018-08-05] MEDS: Oxycodone/Acetaminophen 5/325 mg Tab PO PRN (07:19)
[2018-08-05] MEDS: Metoprolol Succinate 50 mg XL Tab PO SCH (08:25)
--- NOTE | 2018-08-05 09:57 | CP.PCM.PN ---
Subjective - Date & Time of Evaluation Date of Evaluation: 08/05/18 Time of Evaluation: 09:30 - Subjective Subjective: NO CHEST PAIN OR SOB Objective - Vital Signs/Intake and Output Vital Signs (last 24 hours): Temp Pulse Resp BP Pulse Ox 98.1 F 60 20 157/78 H 97 08/05/18 07:52 08/05/18 08:25 08/05/18 07:52 08/05/18 08:25 08/05/18 07:52 - Medications Medications: Current Medications Albuterol/Ipratropium (Duoneb 3 Mg/0.5 Mg (3 Ml) Ud) 3 ml IH RQ4 PRN PRN Reason: Wheezing Amlodipine Besylate (Norvasc) 5 mg PO DAILY [facility] Last Admin: 08/05/18 08:24 Dose: 5 mg Apixaban (Eliquis) 2.5 mg PO BID [facility]; Protocol Last Admin: 08/05/18 08:24 Dose: 2.5 mg Aspirin (Ecotrin) 81 mg PO DAILY [facility] Last Admin: 08/05/18 08:23 Dose: 81 mg Atorvastatin Calcium (Lipitor) 10 mg PO DIN [facility] Last Admin: 08/04/18 17:50 Dose: 10 mg Docusate Sodium (Colace) 100 mg PO BID [facility] Last Admin: 08/05/18 08:22 Dose: 100 mg Doxazosin Mesylate (Cardura) 8 mg PO BID [facility] Last Admin: 08/05/18 08:21 Dose: 8 mg Piperacillin Sod/Tazobactam (Sod 2.25 gm/ Sodium Chloride) 100 mls @ 100 mls/hr IV Q6 [facility] Last Admin: 08/05/18 04:39 Dose: 100 mls/hr Vancomycin HCl 1 gm/ Sodium (Chloride) 250 mls @ 166.667 mls/hr IVPB DAILY@2100 [facility] Last Admin: 08/04/18 20:21 Dose: 166.667 mls/hr Levothyroxine Sodium (Synthroid) 75 mcg PO DAILY@0630 [facility] Last Admin: 08/05/18 06:10 Dose: 75 mcg Metoprolol Succinate (Toprol Xl) 50 mg PO DAILY [facility] Last Admin: 08/05/18 08:25 Dose: 50 mg Morphine Sulfate (Morphine) 2 mg IVP Q6 PRN PRN Reason: Pain, severe (8-10) Oxycodone/Acetaminophen (Percocet 5/325 Mg Tab) 1 tab PO Q4 PRN PRN Reason: Pain, moderate (4-7) Stop: 08/07/18 18:55 Last Admin: 08/05/18 07:19 Dose: 1 tab - Labs Labs: 08/02/18 06:00 08/02/18 06:00 - Respiratory Exam Respiratory Exam: Clear to Ausculation Bilateral - Cardiovascular Exam Cardiovascular Exam: Irregular Rhythm, +S1, +S2 - Extremities Exam Additional comments: RLE WITH DRESSINGS LLE IMPROVING - Additional Findings Additional findings: PODIATRY NOTES SEEN Assessment and Plan - Assessment and Plan (Free Text) Assessment: CHRONIC ATRIAL FIBRILLATION HYPERTENSION BILATERAL CHRONIC LYMPHEDEMA AND STASIS DERMATITIS ACUTE RLE SEVERE CELLULITIS AND ULCERATION Plan: CONTINUE IV ANTIBIOTICS, METOPROLOL, AMLODIPINE, CARDURA, ELIQUIS, ASPIRIN CONTINUE PODIATRIC CARE CONTINUE GRACE
[2018-08-06] MEDS: Levothyroxine 75 MCG TAB PO SCH (05:37)
[2018-08-06] MEDS: Metoprolol Succinate 50 mg XL Tab PO SCH (08:05)
--- NOTE | 2018-08-06 09:51 | CP.PCM.PN ---
Subjective - Date & Time of Evaluation Date of Evaluation: 08/06/18 Time of Evaluation: 09:50 - Subjective Subjective: Patient seen and examined; no complaints offered at this time Reports improvement of his lower extremity swelling Cns notes reviewed Objective - Vital Signs/Intake and Output Vital Signs (last 24 hours): Temp Pulse Resp BP Pulse Ox 98.2 F 69 20 144/72 99 08/06/18 09:43 08/06/18 09:43 08/06/18 09:43 08/06/18 09:43 08/06/18 09:43 - Medications Medications: Current Medications Albuterol/Ipratropium (Duoneb 3 Mg/0.5 Mg (3 Ml) Ud) 3 ml IH RQ4 PRN PRN Reason: Wheezing Amlodipine Besylate (Norvasc) 5 mg PO DAILY [facility] Last Admin: 08/06/18 08:06 Dose: 5 mg Apixaban (Eliquis) 2.5 mg PO BID [facility]; Protocol Last Admin: 08/06/18 08:05 Dose: 2.5 mg Aspirin (Ecotrin) 81 mg PO DAILY [facility] Last Admin: 08/06/18 08:05 Dose: 81 mg Atorvastatin Calcium (Lipitor) 10 mg PO DIN [facility] Last Admin: 08/05/18 16:28 Dose: 10 mg Docusate Sodium (Colace) 100 mg PO BID [facility] Last Admin: 08/06/18 08:05 Dose: 100 mg Doxazosin Mesylate (Cardura) 8 mg PO BID [facility] Last Admin: 08/06/18 08:05 Dose: 8 mg Vancomycin HCl 1 gm/ Sodium (Chloride) 250 mls @ 166.667 mls/hr IVPB DAILY@2100 [facility] Last Admin: 08/05/18 21:13 Dose: 166.667 mls/hr Piperacillin Sod/Tazobactam (Sod 2.25 gm/ Sodium Chloride) 100 mls @ 100 mls/hr IVPB 0600,1200,1800,0000 [facility]; Protocol Last Admin: 08/06/18 05:28 Dose: 100 mls/hr Levothyroxine Sodium (Synthroid) 75 mcg PO DAILY@0630 [facility] Last Admin: 08/06/18 05:37 Dose: 75 mcg Metoprolol Succinate (Toprol Xl) 50 mg PO DAILY [facility] Last Admin: 08/06/18 08:05 Dose: 50 mg Morphine Sulfate (Morphine) 2 mg IVP Q6 PRN PRN Reason: Pain, severe (8-10) Oxycodone/Acetaminophen (Percocet 5/325 Mg Tab) 1 tab PO Q4 PRN PRN Reason: Pain, moderate (4-7) Stop: 08/07/18 18:55 Last Admin: 08/05/18 07:19 Dose: 1 tab - Labs Labs: 08/02/18 06:00 08/02/18 06:00 - Constitutional Appears: Well - Head Exam Head Exam: ATRAUMATIC - Eye Exam Eye Exam: EOMI - ENT Exam ENT Exam: Mucous Membranes Moist - Neck Exam Neck Exam: Full ROM - Respiratory Exam Respiratory Exam: Clear to Ausculation Bilateral - Cardiovascular Exam Cardiovascular Exam: REGULAR RHYTHM - Neurological Exam Neurological Exam: Awake, CN II-XII Intact, Oriented x3 - Additional Findings Additional findings: lower extremity edema cellulitis improving outlined by line of demarcation of the RLE Assessment and Plan - Assessment and Plan (Free Text) Assessment: RLE WITH DRESSINGS LLE IMPROVING Consultation notes of Podiatry reviewed Assessment: CHRONIC ATRIAL FIBRILLATION HYPERTENSION BILATERAL CHRONIC LYMPHEDEMA AND STASIS DERMATITIS ACUTE RLE SEVERE CELLULITIS AND ULCERATION Plan: continue with bblocker and OAC with Eliquis, currentry rate controlled Norvasc for BP control Podiatry care, IV Abx as per ID Continue GRACE
[2018-08-06] MEDS: Proshield Plus GEL TOP SCH (16:47)
[2018-08-07] MEDS: Proshield Plus GEL TOP SCH ×3 (00:09→16:52)
[2018-08-07] MEDS: Levothyroxine 75 MCG TAB PO SCH (05:45)
--- NOTE | 2018-08-07 07:02 | CP.PCM.PN ---
Subjective - Date & Time of Evaluation Date of Evaluation: 08/07/18 Time of Evaluation: 08:32 - Subjective Subjective: Podiatry progress note for Dr. Welsh, 68 Y/O male patient seen and evaluated in the bedside for Right LE ulceration, swelling, redness and blistering. Patient is AAO x3. Patient states that his pain still improving and he almost doesn't have any pain as of now. Patient denies any other pedal complaint. Some strike through and drainage at dressing noted. Patient denies any overnight F/N/V/C or SOB. Objective - Vital Signs/Intake and Output Vital Signs (last 24 hours): Temp Pulse Resp BP Pulse Ox 97.9 F 57 L 20 143/63 98 08/06/18 20:02 08/06/18 20:02 08/06/18 20:02 08/06/18 20:02 08/06/18 20:02 - Medications Medications: Current Medications Albuterol/Ipratropium (Duoneb 3 Mg/0.5 Mg (3 Ml) Ud) 3 ml IH RQ4 PRN PRN Reason: Wheezing Amlodipine Besylate (Norvasc) 5 mg PO DAILY [facility] Last Admin: 08/06/18 08:06 Dose: 5 mg Apixaban (Eliquis) 2.5 mg PO BID [facility]; Protocol Last Admin: 08/06/18 16:47 Dose: 2.5 mg Aspirin (Ecotrin) 81 mg PO DAILY [facility] Last Admin: 08/06/18 08:05 Dose: 81 mg Atorvastatin Calcium (Lipitor) 10 mg PO DIN [facility] Last Admin: 08/06/18 16:48 Dose: 10 mg Dimethicone (Proshield Plus Skin Protectant) 1 applic TOP Q8 [facility] Last Admin: 08/07/18 00:09 Dose: 1 applic Docusate Sodium (Colace) 100 mg PO BID [facility] Last Admin: 08/06/18 16:47 Dose: 100 mg Doxazosin Mesylate (Cardura) 8 mg PO BID [facility] Last Admin: 08/06/18 16:47 Dose: 8 mg Piperacillin Sod/Tazobactam (Sod 2.25 gm/ Sodium Chloride) 100 mls @ 100 mls/hr IVPB 0600,1200,1800,0000 [facility]; Protocol Last Admin: 08/07/18 05:45 Dose: 100 mls/hr Levothyroxine Sodium (Synthroid) 75 mcg PO DAILY@0630 [facility] Last Admin: 08/07/18 05:45 Dose: 75 mcg Metoprolol Succinate (Toprol Xl) 50 mg PO DAILY [facility] Last Admin: 08/06/18 08:05 Dose: 50 mg Morphine Sulfate (Morphine) 2 mg IVP Q6 PRN PRN Reason: Pain, severe (8-10) Oxycodone/Acetaminophen (Percocet 5/325 Mg Tab) 1 tab PO Q4 PRN PRN Reason: Pain, moderate (4-7) Stop: 08/07/18 18:55 Last Admin: 08/05/18 07:19 Dose: 1 tab - Labs Labs: 08/02/18 06:00 08/02/18 06:00 - Constitutional Appears: Well, Non-toxic, No Acute Distress - Head Exam Head Exam: ATRAUMATIC, NORMOCEPHALIC - Extremities Exam Additional comments: B/L LE Focused exam: Vasc: DP/PT not palpable due toedema. Cap refill < 3 sec in all digits. Temp gradient warm to warm b/l from proximal to distal. Moderate non pitting edema extending below the tibial tuberosity on the right side and up to the tibial tuberosity on the left side. Neuro: Gross and protective sensations intact b/l. Derm: Right LE: moderate Leg non-pitting edema and moderate erythema extending up to the tibial tuberosity (Erythema less than yesterday). Multiple collapsed and ruptured blisters noted along the dorsum of the right foot. An ulcer measuring 2.3 cm X 2.0 cm X 0.2 cm. Base is granular 100%. No malodor. sanguineous drainage. No probing to bone, No undermining, No tracking. (improving). Left LE: Moderate Leg non-pitting edema extending up to the tibial tuberosity. mild erythema noted at the ankle. B/L skin changes of the anterior legs in the form of lichnification and discoloration b/l MSK: Mild Pain on palpating the Right LE. Muscle intact 5/5 in all groups b/l.. - Neurological Exam Neurological Exam: Alert, Awake, Oriented x3 - Psychiatric Exam Psychiatric exam: Normal Affect, Normal Mood Assessment and Plan - Assessment and Plan (Free Text) Assessment: 68 Y/O male patient seen and evaluated for Right LE cellulitis, Edema and ulceration. Plan: Patient seen and evaluated in the bedside Plan discussed in details with attending Sebas Green Chart, Labs and vitals reviews; Afebrile, WBCs 10.6 (08/02) Wound Cx; Klebsiella pneumoniae Ssp Pneumoniae and Enterococcus faecalis ESR 69 (08/05) CRP: 121.90 (08/05) Ordred new ESR and CRP B/L 3 views X-ray (07/28); reviewed; Right massive LE edema. No signs of OM. Left moderate LE edema Left foot and ankle X-ray (07/28): No evidence of osteomyelitis, SOft tissue swelling Left LE venous duplex (07/28); No evidence of DVT. ID onboard. Recommendations appreciated. Right LE dressed using SSD, DSD, ABD pads and Adaptic. Weber compression applied - patient tolerated well Continue IV Abx as per IDs. Patient will move to subacute rehab. on sunday (08/09) Dressing should be done 3 times/week in the rehab by the wound care nurse. Dressing should be as follow: - Cleaning the right LE with sterile saline. - SSD cream to be applied over the open lesions. - Apply adaptic then 4X4 sterile gauze and ABD pads, then wrap it with kerlix. - Apply 4 layers Weber compression to the right LE after dressing (Wibrol, Steve bandage, Wibrol, Steve bandage) Patient educated to go to the ED in case he developed excessive pain, redness, hotness, swelling, systemic F/N/V/C or SOB. Patient expressed verbal understanding. Patient will follow up with Dr. Welsh upon discharge. Podiatry will continue to F/U the patient while in house.
[2018-08-07] MEDS: Oxycodone/Acetaminophen 5/325 mg Tab PO PRN ×2 (08:17→18:42)
[2018-08-07] MEDS: Metoprolol Succinate 50 mg XL Tab PO SCH (08:19)
--- NOTE | 2018-08-07 10:39 | CP.PCM.PN ---
Subjective - Date & Time of Evaluation Date of Evaluation: 08/07/18 Time of Evaluation: 09:30 - Subjective Subjective: NO CHEST PAIN OR SOB LESS PAIN IN RIGHT LEG Objective - Vital Signs/Intake and Output Vital Signs (last 24 hours): Temp Pulse Resp BP Pulse Ox 98.1 F 69 20 161/77 H 99 08/07/18 08:14 08/07/18 08:14 08/07/18 08:14 08/07/18 08:14 08/07/18 08:14 - Medications Medications: Current Medications Albuterol/Ipratropium (Duoneb 3 Mg/0.5 Mg (3 Ml) Ud) 3 ml IH RQ4 PRN PRN Reason: Wheezing Amlodipine Besylate (Norvasc) 5 mg PO DAILY [facility] Last Admin: 08/07/18 08:19 Dose: 5 mg Apixaban (Eliquis) 2.5 mg PO BID [facility]; Protocol Last Admin: 08/07/18 08:18 Dose: 2.5 mg Aspirin (Ecotrin) 81 mg PO DAILY [facility] Last Admin: 08/07/18 08:19 Dose: 81 mg Atorvastatin Calcium (Lipitor) 10 mg PO DIN [facility] Last Admin: 08/06/18 16:48 Dose: 10 mg Dimethicone (Proshield Plus Skin Protectant) 1 applic TOP Q8 [facility] Last Admin: 08/07/18 08:18 Dose: 1 applic Docusate Sodium (Colace) 100 mg PO BID [facility] Last Admin: 08/07/18 08:19 Dose: 100 mg Doxazosin Mesylate (Cardura) 8 mg PO BID [facility] Last Admin: 08/07/18 08:18 Dose: 8 mg Piperacillin Sod/Tazobactam (Sod 2.25 gm/ Sodium Chloride) 100 mls @ 100 mls/hr IVPB 0600,1200,1800,0000 [facility]; Protocol Last Admin: 08/07/18 05:45 Dose: 100 mls/hr Vancomycin HCl 1 gm/ Sodium (Chloride) 250 mls @ 166.667 mls/hr IVPB DAILY [facility]; Protocol Levothyroxine Sodium (Synthroid) 75 mcg PO DAILY@0630 [facility] Last Admin: 08/07/18 05:45 Dose: 75 mcg Metoprolol Succinate (Toprol Xl) 50 mg PO DAILY [facility] Last Admin: 08/07/18 08:19 Dose: 50 mg Morphine Sulfate (Morphine) 2 mg IVP Q6 PRN PRN Reason: Pain, severe (8-10) Nystatin (Nystop Topical Powder) 1 applic TOP TID [facility] Oxycodone/Acetaminophen (Percocet 5/325 Mg Tab) 1 tab PO Q4 PRN PRN Reason: Pain, moderate (4-7) Stop: 08/07/18 18:55 Last Admin: 08/07/18 08:17 Dose: 1 tab - Labs Labs: 08/02/18 06:00 08/02/18 06:00 - Respiratory Exam Respiratory Exam: Clear to Ausculation Bilateral - Cardiovascular Exam Cardiovascular Exam: Irregular Rhythm, +S1, +S2 - Extremities Exam Additional comments: BOTH LE WRAPPED - Additional Findings Additional findings: CHRONIC ATRIAL FIBRILLATION HYPERTENSION RIGHT LE CELLULITIS Assessment and Plan - Assessment and Plan (Free Text) Plan: CONTINUE IV ANTIBIOTICS, CARDURA, AMLODIPINE, METOPROLOL, ELIQUIS, ASPIRIN AND ATORVASTATIN CONTINUE SUBACUTE REHAB WILL BE DISCHARGED TO [facility] AT THE END OF THE WEEK
[2018-08-08] MEDS: Proshield Plus GEL TOP SCH ×3 (02:30→17:03)
[2018-08-08] MEDS: Levothyroxine 75 MCG TAB PO SCH (06:17)
--- NOTE | 2018-08-08 08:09 | CP.PCM.PN ---
Subjective - Date & Time of Evaluation Date of Evaluation: 08/08/18 Time of Evaluation: 08:09 - Subjective Subjective: Podiatry Progress Note for Dr. Mullen: 68 yo male patient, seen and evaluated, for RLE diffuse ulcerations, cellulitis, and edema. Patient is AAOx3 and in NAD. Patient reports mild pain to R foot especially during dressing change. Dressing C/D/I to RLE. Denies N/V/F. Objective - Vital Signs/Intake and Output Vital Signs (last 24 hours): Temp Pulse Resp BP Pulse Ox 97.7 F 60 98 H 175/78 H 98 08/08/18 08:06 08/08/18 08:06 08/08/18 08:06 08/08/18 08:06 08/08/18 08:06 - Medications Medications: Current Medications Albuterol/Ipratropium (Duoneb 3 Mg/0.5 Mg (3 Ml) Ud) 3 ml IH RQ4 PRN PRN Reason: Wheezing Amlodipine Besylate (Norvasc) 5 mg PO DAILY [facility] Last Admin: 08/07/18 08:19 Dose: 5 mg Apixaban (Eliquis) 2.5 mg PO BID [facility]; Protocol Last Admin: 08/07/18 16:53 Dose: 2.5 mg Aspirin (Ecotrin) 81 mg PO DAILY [facility] Last Admin: 08/07/18 08:19 Dose: 81 mg Atorvastatin Calcium (Lipitor) 10 mg PO DIN [facility] Last Admin: 08/07/18 16:53 Dose: 10 mg Dimethicone (Proshield Plus Skin Protectant) 1 applic TOP Q8 [facility] Last Admin: 08/08/18 02:30 Dose: 1 applic Docusate Sodium (Colace) 100 mg PO BID [facility] Last Admin: 08/07/18 16:53 Dose: 100 mg Doxazosin Mesylate (Cardura) 8 mg PO BID [facility] Last Admin: 08/07/18 16:53 Dose: 8 mg Piperacillin Sod/Tazobactam (Sod 2.25 gm/ Sodium Chloride) 100 mls @ 100 mls/hr IVPB 0600,1200,1800,0000 [facility]; Protocol Last Admin: 08/08/18 06:17 Dose: 100 mls/hr Vancomycin HCl 1 gm/ Sodium (Chloride) 250 mls @ 166.667 mls/hr IVPB DAILY@2200 [facility]; Protocol Last Admin: 08/07/18 21:47 Dose: 166.667 mls/hr Levothyroxine Sodium (Synthroid) 75 mcg PO DAILY@0630 [facility] Last Admin: 08/08/18 06:17 Dose: 75 mcg Metoprolol Succinate (Toprol Xl) 50 mg PO DAILY [facility] Last Admin: 08/07/18 08:19 Dose: 50 mg Morphine Sulfate (Morphine) 2 mg IVP Q6 PRN PRN Reason: Pain, severe (8-10) Nystatin (Nystop Topical Powder) 1 applic TOP TID [facility] Last Admin: 08/07/18 16:52 Dose: 1 applic Oxycodone/Acetaminophen (Percocet 5/325 Mg Tab) 1 tab PO Q6 PRN PRN Reason: for pain level 4-7 Stop: 08/11/18 07:52 - Labs Labs: 08/02/18 06:00 08/02/18 06:00 - Constitutional Appears: Well, Non-toxic, No Acute Distress - Head Exam Head Exam: ATRAUMATIC, NORMOCEPHALIC - Extremities Exam Additional comments: RLE focused exam: Vasc: DP/PT not palpable secondary to edema. Cap refill < 3 sec to all digits. Temp gradient warm to warm rom proximal to distal. +2 non pitting edema extending below the tibial tuberosity on the right side Ortho: Tenderness to palpation of RLE. MMT 5/5 Neuro: Gross and protective sensations intact b/l. Derm: Moderate erythema extending from tibial tuberosity distally to digits; resolving. An ulcer measuring 2.3 cm X 2.0 cm X 0.2 cm. 100% Granular base, no malodor, no drainage, no tunneling, no tracking. Stable eschar noted to dorsal aspect of R foot. Skin sloughing appreciated to RLE. Lichenification and d iscoloration to leg circumfrentially - Neurological Exam Neurological Exam: Alert, Awake, Oriented x3 - Psychiatric Exam Psychiatric exam: Normal Affect, Normal Mood Assessment and Plan - Assessment and Plan (Free Text) Assessment: 68 yo male patient, seen and evaluated, for RLE diffuse ulcerations, cellulitis, and edema. Plan: Patient seen and evaluated at bedside, Plan discussed in details with attending Sebas Green Afebrile Wound Cx; Klebsiella pneumoniae Ssp Pneumoniae and Enterococcus faecalis ESR 69 (08/05), CRP: 121.90 (08/05) B/L 3 views X-ray (07/28); reviewed; Right massive LE edema. No signs of OM. Left moderate LE edema Left foot and ankle X-ray (07/28): No evidence of osteomyelitis, SOft tissue swelling Left LE venous duplex (07/28); No evidence of DVT. Continue IV abx per ID reccs Local wound care: RLE dressed using SSD, Adaptic, DSD, ABD and Weber compression Patient educated on systemic signs of infection and aware to present to the ED with any of the findings Patient expressed verbal understanding. Patient to be D/C to subacute rehab - Dressing to be changed 3 times per week in subacute facility by wound care nurse - Dressing should be as follows: Clean the right LE with sterile saline, Silvadene cream to be applied over the open lesions, apply adaptic then 4X4 sterile gauze, ABD pads, and Kerlix. Next apply Weber compression on top of dressing (1 layer of Webril, Steve, 1 layer of Webril, Steve) Patient to F/U with Dr. Mullen upon d/c
[2018-08-08] MEDS: Metoprolol Succinate 50 mg XL Tab PO SCH (09:04)
[2018-08-08] MEDS: Oxycodone/Acetaminophen 5/325 mg Tab PO PRN ×2 (09:09→22:07)
--- NOTE | 2018-08-08 09:25 | CP.PCM.PN ---
<Adrien Dick - Last Filed: 08/08/18 09:21> Subjective - Date & Time of Evaluation Date of Evaluation: 08/08/18 Time of Evaluation: 09:21 - Subjective Subjective: 68 yo male seen and evaluated at bedside resting comfortably. States he is in minimal pain to his right LE. States that he was informed his foot would take about 2 weeks to begin to look like his left. He had no acute changes overnight and slept comfortably. Denies N/V/F/C/SOB/CP. Objective - Vital Signs/Intake and Output Vital Signs (last 24 hours): Temp Pulse Resp BP Pulse Ox 97.7 F 60 98 H 175/78 H 98 08/08/18 08:06 08/08/18 09:05 08/08/18 08:06 08/08/18 09:05 08/08/18 08:06 - Medications Medications: Current Medications Albuterol/Ipratropium (Duoneb 3 Mg/0.5 Mg (3 Ml) Ud) 3 ml IH RQ4 PRN PRN Reason: Wheezing Amlodipine Besylate (Norvasc) 5 mg PO DAILY [facility] Last Admin: 08/08/18 09:05 Dose: 5 mg Apixaban (Eliquis) 2.5 mg PO BID [facility]; Protocol Last Admin: 08/08/18 09:06 Dose: 2.5 mg Aspirin (Ecotrin) 81 mg PO DAILY [facility] Last Admin: 08/08/18 09:06 Dose: 81 mg Atorvastatin Calcium (Lipitor) 10 mg PO DIN [facility] Last Admin: 08/07/18 16:53 Dose: 10 mg Dimethicone (Proshield Plus Skin Protectant) 1 applic TOP Q8 [facility] Last Admin: 08/08/18 02:30 Dose: 1 applic Docusate Sodium (Colace) 100 mg PO BID [facility] Last Admin: 08/08/18 09:03 Dose: 100 mg Doxazosin Mesylate (Cardura) 8 mg PO BID [facility] Last Admin: 08/08/18 09:04 Dose: 8 mg Piperacillin Sod/Tazobactam (Sod 2.25 gm/ Sodium Chloride) 100 mls @ 100 mls/hr IVPB 0600,1200,1800,0000 [facility]; Protocol Last Admin: 08/08/18 06:17 Dose: 100 mls/hr Vancomycin HCl 1 gm/ Sodium (Chloride) 250 mls @ 166.667 mls/hr IVPB DAILY@2200 [facility]; Protocol Last Admin: 08/07/18 21:47 Dose: 166.667 mls/hr Levothyroxine Sodium (Synthroid) 75 mcg PO DAILY@0630 [facility] Last Admin: 08/08/18 06:17 Dose: 75 mcg Metoprolol Succinate (Toprol Xl) 50 mg PO DAILY [facility] Last Admin: 08/08/18 09:04 Dose: 50 mg Morphine Sulfate (Morphine) 2 mg IVP Q6 PRN PRN Reason: Pain, severe (8-10) Nystatin (Nystop Topical Powder) 1 applic TOP TID [facility] Last Admin: 08/07/18 16:52 Dose: 1 applic Oxycodone/Acetaminophen (Percocet 5/325 Mg Tab) 1 tab PO Q6 PRN PRN Reason: for pain level 4-7 Stop: 08/11/18 07:52 Last Admin: 08/08/18 09:09 Dose: 1 tab - Labs Labs: 08/02/18 06:00 08/02/18 06:00 - Constitutional Appears: Well, Non-toxic, No Acute Distress - Head Exam Head Exam: ATRAUMATIC, NORMOCEPHALIC - ENT Exam ENT Exam: Mucous Membranes Moist - Respiratory Exam Respiratory Exam: Clear to Ausculation Bilateral, NORMAL BREATHING PATTERN - Cardiovascular Exam Cardiovascular Exam: REGULAR RHYTHM, +S1, +S2 - GI/Abdominal Exam GI & Abdominal Exam: Soft, Normal Bowel Sounds - Extremities Exam Additional comments: RLE appears dressed, dressings c/d/i; cellulitis present, ulcer and blistering LLE edematous and tree bark appearance cap refill <3 seconds to all digits minimal pain on palpation to the RLE - Neurological Exam Neurological Exam: Alert, Awake, Oriented x3 - Psychiatric Exam Psychiatric exam: Normal Affect, Normal Mood - Skin Skin Exam: Warm Assessment and Plan - Assessment and Plan (Free Text) Assessment: 68 yo male presents to TCU and seen and examined for deconditioning and right lower extremity cellulitis, chronic lymphedema, blistering, and ulceration. Plan: 1. Severe Venous Stasis/Lymphedema with cellulitis, & sepsis criteria met (Acute on chronic) -Podiatry recommendations have been appreciated. Foot & ankle x-ray: soft tissue swelling, moderate degenerative changes -Podiatry recs for discharge to [facility] - Dressing to be changed 3 times per week in subacute facility by wound care nurse - Dressing should be as follows: Clean the right LE with sterile saline, Silvadene cream to be applied over the open lesions, apply adaptic then 4X4 sterile gauze, ABD pads, and Kerlix. Next apply Weber compression on top of dressing (1 layer of Webril, Steve, 1 layer of Webril, Steve) -Wound cx: klebsiella, enterococcus, gram negative romero -Dr. Portillo, ID specialist consulted - IV zosyn 2.25g q 6 hr day #4 in TCU - IV vanc in sodium chloride 1 gm IVPB QAM day #4 in TCU -Will need at least 8 days of IV antibiotics 2. Severe sepsis criteria met (Acute) -Likely due to severe venous stasis/lymphedema with cellulitis. -On admission, BP: 137/72, WBC-23.6, lactate-5.5 -Today - BP 150/61, WBC 11.7, afebrile -Continue IV fluids. -Continue IV zosyn- day #4 in TCU -Continue IV vancomycin- day #4 in TCU -Vanc trough ordered -14.0 3. CHF (Chronic) -Hold lasix because of hypotension. -Hold Metoprolol because of hypotension. -Dr Crespo recommendations have been appreciated. (Hold lasix, amlodipine & metoprolol) - continue IV abx, IV fluids, cardura, aspirin, and eliquis 4. Increased BUN/creat (acute on chronic) - Dr. Calderon consulted - recs appreciated will follow up recs - renal function slowly improving - start IVF 1/2 NS at 70 ml/hr - c/w IV abx per ID - check BMP daily - discharge to group home [facility] at EOW -Renal US: no obstructive uropathy b/l; instrinsic renal disease, clinically correlate; solitary septated cyst upper pole right kidney 2.4 cm greatest dimension with 2 tiny intrarenal calculi identified at the lower pole of left kidney 4. HTN (Chronic) -Hold Metoprolol because of hypotension. -Hold Amlodipine because of hypotension. -Continue Losartan . 5. HLD (chronic) - continue atorvastatin 5. Paroxysmal AFIB (Chronic, rate controlled) -Continue Eliquis -Hold Metoprolol because of hypotension. 6. DVT prophylaxis -Patient on Eliquis <MccormackKe gallardo D - Last Filed: 08/08/18 15:57> Objective - Vital Signs/Intake and Output Vital Signs (last 24 hours): Temp Pulse Resp BP Pulse Ox 97.7 F 60 98 H 175/78 H 98 08/08/18 08:06 08/08/18 09:05 08/08/18 08:06 08/08/18 09:05 08/08/18 08:06 - Medications Medications: Current Medications Albuterol/Ipratropium (Duoneb 3 Mg/0.5 Mg (3 Ml) Ud) 3 ml IH RQ4 PRN PRN Reason: Wheezing Amlodipine Besylate (Norvasc) 5 mg PO DAILY [facility] Last Admin: 08/08/18 09:05 Dose: 5 mg Apixaban (Eliquis) 2.5 mg PO BID [facility]; Protocol Last Admin: 08/08/18 09:06 Dose: 2.5 mg Aspirin (Ecotrin) 81 mg PO DAILY [facility] Last Admin: 08/08/18 09:06 Dose: 81 mg Atorvastatin Calcium (Lipitor) 10 mg PO DIN [facility] Last Admin: 08/07/18 16:53 Dose: 10 mg Dimethicone (Proshield Plus Skin Protectant) 1 applic TOP Q8 [facility] Last Admin: 08/08/18 02:30 Dose: 1 applic Docusate Sodium (Colace) 100 mg PO BID [facility] Last Admin: 08/08/18 09:03 Dose: 100 mg Doxazosin Mesylate (Cardura) 8 mg PO BID [facility] Last Admin: 08/08/18 09:04 Dose: 8 mg Piperacillin Sod/Tazobactam (Sod 2.25 gm/ Sodium Chloride) 100 mls @ 100 mls/hr IVPB 0600,1200,1800,0000 [facility]; Protocol Last Admin: 08/08/18 14:13 Dose: 100 mls/hr Vancomycin HCl 1 gm/ Sodium (Chloride) 250 mls @ 166.667 mls/hr IVPB DAILY@2200 [facility]; Protocol Last Admin: 08/07/18 21:47 Dose: 166.667 mls/hr Levothyroxine Sodium (Synthroid) 75 mcg PO DAILY@0630 [facility] Last Admin: 08/08/18 06:17 Dose: 75 mcg Metoprolol Succinate (Toprol Xl) 50 mg PO DAILY [facility] Last Admin: 08/08/18 09:04 Dose: 50 mg Morphine Sulfate (Morphine) 2 mg IVP Q6 PRN PRN Reason: Pain, severe (8-10) Nystatin (Nystop Topical Powder) 1 applic TOP TID [facility] Last Admin: 08/07/18 16:52 Dose: 1 applic Oxycodone/Acetaminophen (Percocet 5/325 Mg Tab) 1 tab PO Q6 PRN PRN Reason: for pain level 4-7 Stop: 08/11/18 07:52 Last Admin: 08/08/18 09:09 Dose: 1 tab - Labs Labs: 08/02/18 06:00 08/02/18 06:00 Attending/Attestation - Attestation I have personally seen and examined this patient.: Yes I have fully participated in the care of the patient.: Yes I have reviewed all pertinent clinical information, including history, physical exam and plan: Yes Notes (Text): 08/08/18 15:56 Patient seen and exmined with resident. Case discussed and agreed with assessment and plan of management.
[2018-08-08 17:28] VITALS: RESP 20
[2018-08-09] MEDS: Proshield Plus GEL TOP SCH ×3 (01:12→17:04)
[2018-08-09] MEDS: Levothyroxine 75 MCG TAB PO SCH (06:18)
[2018-08-09 06:20] LABS: HEMOGLOBIN 12.9 g/dL (12.0-18.0); MEAN CELL VOLUME 91.2 fl (80.0-94.0); MEAN CORPUSCULAR HEMOGLOBIN 30.1 pg (27.0-31.0); RBC 4.27 Mil/uL (4.40-5.90); RED CELL DISTRIBUTION WIDTH 16.8 % (11.5-14.5); WHITE BLOOD COUNT 12.2 K/uL (4.8-10.8)
[2018-08-09] MEDS: Oxycodone/Acetaminophen 5/325 mg Tab PO PRN ×2 (06:21→16:11)
[2018-08-09 06:39] LABS: CALCIUM 8.1 mg/dL (8.4-10.2)
[2018-08-09] MEDS: Metoprolol Succinate 50 mg XL Tab PO SCH (08:17)
--- NOTE | 2018-08-09 12:12 | CP.PCM.PN ---
Subjective - Date & Time of Evaluation Date of Evaluation: 08/09/18 Time of Evaluation: 10:40 - Subjective Subjective: NO CHEST PAIN OR SOB FEELS MUCH BETTER Objective - Vital Signs/Intake and Output Vital Signs (last 24 hours): Temp Pulse Resp BP Pulse Ox 97.0 F L 58 L 20 180/80 H 99 08/09/18 08:33 08/09/18 08:33 08/09/18 08:33 08/09/18 08:33 08/09/18 08:33 - Medications Medications: Current Medications Albuterol/Ipratropium (Duoneb 3 Mg/0.5 Mg (3 Ml) Ud) 3 ml IH RQ4 PRN PRN Reason: Wheezing Amlodipine Besylate (Norvasc) 5 mg PO DAILY [facility] Last Admin: 08/09/18 08:17 Dose: 5 mg Apixaban (Eliquis) 2.5 mg PO BID [facility]; Protocol Last Admin: 08/09/18 08:17 Dose: 2.5 mg Aspirin (Ecotrin) 81 mg PO DAILY [facility] Last Admin: 08/09/18 08:17 Dose: 81 mg Atorvastatin Calcium (Lipitor) 10 mg PO DIN [facility] Last Admin: 08/08/18 17:06 Dose: 10 mg Dimethicone (Proshield Plus Skin Protectant) 1 applic TOP Q8 [facility] Last Admin: 08/09/18 08:17 Dose: 1 applic Docusate Sodium (Colace) 100 mg PO BID [facility] Last Admin: 08/09/18 08:17 Dose: 100 mg Doxazosin Mesylate (Cardura) 8 mg PO BID [facility] Last Admin: 08/09/18 08:16 Dose: 8 mg Vancomycin HCl 1 gm/ Sodium (Chloride) 250 mls @ 166.667 mls/hr IVPB DAILY@2200 [facility]; Protocol Last Admin: 08/08/18 22:21 Dose: 166.667 mls/hr Levothyroxine Sodium (Synthroid) 75 mcg PO DAILY@0630 [facility] Last Admin: 08/09/18 06:18 Dose: 75 mcg Metoprolol Succinate (Toprol Xl) 50 mg PO DAILY [facility] Last Admin: 08/09/18 08:17 Dose: 50 mg Morphine Sulfate (Morphine) 2 mg IVP Q6 PRN PRN Reason: Pain, severe (8-10) Nystatin (Nystop Topical Powder) 1 applic TOP TID [facility] Last Admin: 08/09/18 08:17 Dose: 1 applic Oxycodone/Acetaminophen (Percocet 5/325 Mg Tab) 1 tab PO Q6 PRN PRN Reason: for pain level 4-7 Stop: 08/11/18 07:52 Last Admin: 08/09/18 06:21 Dose: 1 tab - Labs Labs: 08/09/18 05:45 08/09/18 05:45 - Respiratory Exam Respiratory Exam: Clear to Ausculation Bilateral - Cardiovascular Exam Cardiovascular Exam: Irregular Rhythm, +S1, +S2 - Extremities Exam Additional comments: RLE WRAPPED LLE WITH EDEMA AND BLISTERING Assessment and Plan - Assessment and Plan (Free Text) Assessment: RLE CELLULITIS DECONDITIONING CHRONIC ATRIAL FIBRILLATION HYPERTENSION Plan: CONTINUE CARDURA, METOPROLOL, AMLODIPINE, ASPIRIN, ELIQUIS AND ATORVASTATIN IV ANTIBIOTICS TO BE CHANGED TO PO FOR DISCHARGE TO CARE ONE
[2018-08-10] MEDS: Proshield Plus GEL TOP SCH ×2 (00:12→08:18)
[2018-08-10] MEDS: Levothyroxine 75 MCG TAB PO SCH (06:35)
[2018-08-10] MEDS: Oxycodone/Acetaminophen 5/325 mg Tab PO PRN (08:14)
[2018-08-10] MEDS: Metoprolol Succinate 50 mg XL Tab PO SCH (08:14)
[2018-08-10 08:18] VITALS: BP 159/81; PULSE 60
[2018-08-10 09:02] VITALS: TEMP 98.1; O2SAT 98
--- NOTE | 2018-08-10 10:33 | CP.PCM.DIS ---
Provider - Provider Date of Admission: 07/31/18 14:51 Attending physician: Winston Camejo MD Primary care physician: Paulie Crespo MD Time Spent in preparation of Discharge (in minutes): 25 Diagnosis - Discharge Diagnosis (1) Cellulitis Status: Acute Comment: completed 14 days of IV Vanco and Zosyn (2) CHF (congestive heart failure) Status: Chronic Comment: stable. on Metoprolol. Lasix held because of hypotension (3) HTN (hypertension) Status: Chronic Comment: BP slightly elevated. continue Metoprolol (4) Paroxysmal atrial fibrillation Status: Acute Comment: rate controlled. continue Metoprolol and Eliquis (5) Renal insufficiency Status: Acute Comment: probably secondary to dehydration. improving Hospital Course - Lab Results Lab Results: Most Recent Lab Values WBC 12.2 K/uL (4.8-10.8) H 08/09/18 05:45 RBC 4.27 Mil/uL (4.40-5.90) L 08/09/18 05:45 Hgb 12.9 g/dL (12.0-18.0) 08/09/18 05:45 Hct 39.0 % (35.0-51.0) 08/09/18 05:45 MCV 91.2 fl (80.0-94.0) 08/09/18 05:45 MCH 30.1 pg (27.0-31.0) 08/09/18 05:45 MCHC 33.0 g/dL (33.0-37.0) 08/09/18 05:45 RDW 16.8 % (11.5-14.5) H 08/09/18 05:45 Plt Count 393 K/uL (130-400) D 08/09/18 05:45 MPV 8.8 fl (7.2-11.7) 08/01/18 06:52 Neut % (Auto) 83.8 % (50.0-75.0) H 08/01/18 06:52 Lymph % (Auto) 2.4 % (20.0-40.0) L 08/01/18 06:52 [place] % (Auto) 12.5 % (0.0-10.0) H 08/01/18 06:52 Eos % (Auto) 1.1 % (0.0-4.0) 08/01/18 06:52 Baso % (Auto) 0.2 % (0.0-2.0) 08/01/18 06:52 Neut # (Auto) 9.8 K/uL (1.8-7.0) H 08/01/18 06:52 Lymph # (Auto) 0.3 K/uL (1.0-4.3) L 08/01/18 06:52 [place] # (Auto) 1.5 K/uL (0.0-0.8) H 08/01/18 06:52 Eos # (Auto) 0.1 K/uL (0.0-0.7) 08/01/18 06:52 Baso # (Auto) 0.0 K/uL (0.0-0.2) 08/01/18 06:52 ESR 69 mm/hr (0-20) H 08/05/18 09:00 Sodium 138 mmol/l (132-148) 08/09/18 05:45 Potassium 4.4 MMOL/L (3.6-5.0) 08/09/18 05:45 Chloride 106 mmol/L (98-107) 08/09/18 05:45 Carbon Dioxide 28 mmol/L (22-30) 08/09/18 05:45 Anion Gap 8 (10-20) L 08/09/18 05:45 BUN 27 mg/dl (9-20) H 08/09/18 05:45 Creatinine 1.7 mg/dl (0.8-1.5) H 08/09/18 05:45 Est GFR ( Amer) 49 08/09/18 05:45 Est GFR (Non-Af Amer) 40 08/09/18 05:45 Random Glucose 100 mg/dL (75-110) 08/09/18 05:45 Calcium 8.1 mg/dL (8.4-10.2) L 08/09/18 05:45 C-Reactive Protein 121.90 mg/L (0.0-9.9) H 08/05/18 09:00 - Hospital Course Hospital Course: 68 yo male with history of CHF, HTN, CVA, AFib and severe Lymphedema was sent by podiatry for admission for admission because of sepsis associated with marked swelling and redness of the right leg. He was diagnosed with cellulitis of the right leg and started on Vancomycin and Zosyn. Wound cultures grew Klebsiella, E Faecalis and Enterobacter which were sensitive to both antibiotics. ID consult advised at least 10 days of IV antibiotics. He was transferred to TCU and completed 14 days of IV antibiotics. Discharge Exam - Head Exam Head Exam: ATRAUMATIC, NORMOCEPHALIC - Eye Exam Eye Exam: absent: Scleral icterus - ENT Exam ENT Exam: Mucous Membranes Moist - Respiratory Exam Respiratory Exam: absent: Rales, Rhonchi, Wheezes, Respiratory Distress - Cardiovascular Exam Cardiovascular Exam: Irregular Rhythm - GI/Abdominal Exam GI & Abdominal Exam: Soft. absent: Tenderness - Rectal Exam Rectal Exam: Deferred - Extremities Exam Extremities exam: pedal edema (both legs with lymphedema) - Neurological Exam Neurological exam: Alert, Oriented x3 - Psychiatric Exam Psychiatric exam: Normal Affect - Skin Skin Exam: Dry, Intact Discharge Plan - Follow Up Plan Condition: GOOD Disposition: REHAB FACILITY/REHAB UNIT Referrals: Paulie Crespo MD [Primary Care Provider] -
--- NOTE | 2018-08-10 10:55 | CP.PCM.PN ---
Subjective - Date & Time of Evaluation Date of Evaluation: 08/10/18 Time of Evaluation: 10:53 - Subjective Subjective: Podiatry Progress Note for Dr. Mullen: 68 yo male patient, seen and evaluated, for RLE diffuse ulcerations, cellulitis, and edema; cellulitis and edema resolving. Patient being discharged to subacute rehab today, [facility] in [place]. Patient reports mild pain to ulceration sites with dressing changes, however denies any new pedal complaints. Denies N/V/F/CP/SOB. Objective - Vital Signs/Intake and Output Vital Signs (last 24 hours): Temp Pulse Resp BP Pulse Ox 98.1 F 60 20 159/81 H 98 08/10/18 09:02 08/10/18 09:02 08/10/18 09:02 08/10/18 09:02 08/10/18 09:02 - Medications Medications: Current Medications Albuterol/Ipratropium (Duoneb 3 Mg/0.5 Mg (3 Ml) Ud) 3 ml IH RQ4 PRN PRN Reason: Wheezing Amlodipine Besylate (Norvasc) 5 mg PO DAILY [facility] Last Admin: 08/10/18 08:15 Dose: 5 mg Apixaban (Eliquis) 2.5 mg PO BID [facility]; Protocol Last Admin: 08/10/18 08:15 Dose: 2.5 mg Aspirin (Ecotrin) 81 mg PO DAILY [facility] Last Admin: 08/10/18 08:15 Dose: 81 mg Atorvastatin Calcium (Lipitor) 10 mg PO DIN [facility] Last Admin: 08/09/18 17:13 Dose: 10 mg Dimethicone (Proshield Plus Skin Protectant) 1 applic TOP Q8 [facility] Last Admin: 08/10/18 08:18 Dose: 1 applic Docusate Sodium (Colace) 100 mg PO BID [facility] Last Admin: 08/10/18 08:14 Dose: 100 mg Doxazosin Mesylate (Cardura) 8 mg PO BID [facility] Last Admin: 08/10/18 08:15 Dose: 8 mg Vancomycin HCl 1 gm/ Sodium (Chloride) 250 mls @ 166.667 mls/hr IVPB DAILY@2200 [facility]; Protocol Last Admin: 08/09/18 21:36 Dose: 166.667 mls/hr Levothyroxine Sodium (Synthroid) 75 mcg PO DAILY@0630 [facility] Last Admin: 08/10/18 06:35 Dose: 75 mcg Metoprolol Succinate (Toprol Xl) 50 mg PO DAILY [facility] Last Admin: 08/10/18 08:14 Dose: 50 mg Morphine Sulfate (Morphine) 2 mg IVP Q6 PRN PRN Reason: Pain, severe (8-10) Nystatin (Nystop Topical Powder) 1 applic TOP TID [facility] Last Admin: 08/10/18 08:19 Dose: 1 applic Oxycodone/Acetaminophen (Percocet 5/325 Mg Tab) 1 tab PO Q6 PRN PRN Reason: for pain level 4-7 Stop: 08/11/18 07:52 Last Admin: 08/10/18 08:14 Dose: 1 tab - Labs Labs: 08/09/18 05:45 08/09/18 05:45 - Constitutional Appears: Well, Non-toxic, No Acute Distress - Head Exam Head Exam: ATRAUMATIC, NORMOCEPHALIC - Extremities Exam Additional comments: RLE focused exam: Vasc: DP/PT not palpable secondary to edema. Cap refill < 3 sec to all digits. Temp gradient warm to warm rom proximal to distal. +2 non pitting edema extending below the tibial tuberosity on the right side Ortho: Tenderness to palpation of RLE. MMT 5/5, no pain upon calf compression Neuro: Gross and protective sensations intact b/l. Derm: Moderate erythema extending from tibial tuberosity distally to digits; resolving. An ulcer measuring 2.3 cm X 2.0 cm X 0.2 cm. 100% Granular base, no malodor, no drainage, no tunneling, no tracking. Stable eschar noted to dorsal aspect of R foot. Skin sloughing appreciated to RLE. Lichenification and discoloration to leg circumfrentially, anterior > posterior - Neurological Exam Neurological Exam: Alert, Awake, Oriented x3 - Psychiatric Exam Psychiatric exam: Normal Affect, Normal Mood Assessment and Plan - Assessment and Plan (Free Text) Assessment: 68 yo male patient, seen and evaluated, for RLE diffuse ulcerations, cellulitis, and edema; cellulitis and edema resolved. Plan: Patient seen and evaluated at bedside, Plan discussed in details with attending Dr. Mullen Afebrile Wound Cx; Klebsiella pneumoniae Ssp Pneumoniae and Enterococcus faecalis Local wound care: RLE dressed using SSD, Adaptic, DSD, ABD and Weber compression Patient educated on systemic signs of infection and aware to present to the ED with any of the findings Patient expressed verbal understanding. Patient to be D/C to subacute rehab- [facility] - Dressing to be changed 3 times per week in subacute facility by wound care nurse - Dressing should be as follows: Clean the right LE with sterile saline, Silvadene cream to be applied over the open lesions, apply adaptic then 4X4 sterile gauze, ABD pads, and Kerlix. Next apply Weber compression on top of dressing (1 layer of Webril, Steve, 1 layer of Webril, Steve) Patient to F/U with Dr. Mullen upon d/c
== END 2018-08-10 15:00 | DRG 300 ==
LOC: H.TCU 14:51
PROVIDERS: ADMIT Hospitalist; ATTEND Hospitalist
PROC: 3E03329 Introduction of Other Anti-infective into Peripheral Vein, Percutaneous Approach (ICD-10-PCS; principal; 2018-07-31)
PROC: F07Z9FZ Gait Training/Functional Ambulation Treatment using Assistive, Adaptive, Supportive or Protective Equipment (ICD-10-PCS; 2018-07-31)
PROC: F08Z4FZ Home Management Treatment using Assistive, Adaptive, Supportive or Protective Equipment (ICD-10-PCS; 2018-07-31)
PROC: F07L6FZ Therapeutic Exercise Treatment of Musculoskeletal System - Lower Back / Lower Extremity using Assistive, Adaptive, Supportive or Protective Equipment (ICD-10-PCS; 2018-08-01)
DX: I87.2 Venous insufficiency (chronic) (peripheral) (principal); L03.115 Cellulitis of right lower limb; N17.9 Acute kidney failure, unspecified; I13.0 Hypertensive heart and chronic kidney disease with heart failure and stage 1 through stage 4 chronic kidney disease, or unspecified chronic kidney disease; L97.819 Non-pressure chronic ulcer of other part of right lower leg with unspecified severity; I50.32 Chronic diastolic (congestive) heart failure; N18.3 Chronic kidney disease, stage 3 (moderate); I73.9 Peripheral vascular disease, unspecified; I48.0 Paroxysmal atrial fibrillation; I48.2 Chronic atrial fibrillation; E03.9 Hypothyroidism, unspecified; I89.0 Lymphedema, not elsewhere classified; Z86.73 Personal history of transient ischemic attack (TIA), and cerebral infarction without residual deficits